=== PATIENT | male | born 1970 | race Caucasian/White ===

== ENCOUNTER 2017-06-05 21:59 | Observation (INO) ==
[2017-06-05] MEDS ORDERED: Aspirin 81 MG TAB.CHEW PO ONE (22:19)
[2017-06-05 22:41] LABS: Bilirubin,Urine Negative (Negative); Blood,Urine Negative (Negative); Clarity,Urine Clear (Clear); Color,Urine Yellow (Yellow); Glucose,Urine (UA) >=1000 mg/dL (Normal); Ketones,Urine Negative (Negative); Leukocyte Esterase,Urine Negative (Negative); Nitrite,Urine Negative (Negative); Protein,Urine Negative (Neg-Trace); Specific Gravity,Urine > 1.030 (1.010-1.025); Urobilinogen,Urine Normal (Normal)
--- NOTE | 2017-06-05 22:41 | Emergency Department Note ---
Disposition Clinical Impression: Right flank pain Chest pain Qualifiers: Chest pain type: precordial pain Qualified Code(s): R07.2 - Precordial pain Pancreatitis Qualifiers: Chronicity: acute Pancreatitis type: unspecified pancreatitis type Acute pancreatitis complication: no infection or necrosis Qualified Code(s): K85.90 - Acute pancreatitis without necrosis or infection, unspecified Disposition: Admitted As Inpatient Condition: Fair Chest Pain HPI - General Chief Complaint: ED Chest Pain Time Seen by Provider: 06/05/17 22:19 Source: patient, EMS Mode of arrival: private vehicle Limitations: no limitations Vital Signs Reviewed: Yes Nursing Notes Reviewed: Yes - History of Present Illness Pt complaint: chest pain, other (Right flank pain) Onset (ago): hour(s) Duration: constant Onset: during rest Pain Location: substernal Severity: moderate Severity scale (1-10): 8 Quality: aching Pain Radiation: none Improves with: nothing Worsens with: nothing Context: other (Hx of similar episodes in the past) Associated symptoms: Reports: nausea, dyspnea, cough. Denies: vomiting, diaphoresis, sense of impending doom, syncope, palpitations, fever, leg swelling , other Treatments prior to arrival chest pain: nitroglycerin - Related Data Home Medications Medication Instructions Recorded Confirmed Aspirin 81 mg PO HS 11/24/15 04/13/17 Albuterol Sulfate [Proair Hfa] 2 puff IH Q4H PRN 06/07/16 04/13/17 Omeprazole [PriLOSEC] 20 mg PO BID 07/31/16 04/13/17 hydrOXYzine HCl [Hydroxyzine HCl] 25 mg PO Q8H 07/31/16 04/13/17 Budesonide/Formoterol 160/4.5 2 puff IH BIDR 04/13/17 04/13/17 [Symbicort 160/4.5] Insulin Glargine,Hum.rec.anlog 80 units SQ HS 04/13/17 04/13/17 [[place] Solostar] Ipratropium/Albuterol Neb [Duoneb] 3 ml IH Q6HR PRN 04/13/17 04/13/17 Meclizine [Antivert] 25 mg PO QID PRN 04/13/17 04/13/17 Nitroglycerin [Nitrostat] 0.4 mg SL AD PRN 04/13/17 04/13/17 Previous Rx's Medication Instructions Recorded Metformin HCl [Glucophage] 1,000 mg PO BID #60 tablet 08/03/16 Atorvastatin [Lipitor] 80 mg PO HS #60 tablet 04/15/17 Blood Pressure Test Kit-Large 1 each MC 1-2XD PRN #30 kit 04/15/17 [Advocate Blood Pressure Monitr] Cane 1 each MC PRN PRN 90 Days 04/15/17 Colchicine [Colcrys] 1.2 mg PO NOW #60 tablet 04/15/17 Gabapentin [Neurontin] 600 mg PO TID #90 capsule 04/15/17 Ibuprofen 800 mg PO PRN PRN #30 tablet 04/15/17 Metoprolol [Lopressor] 25 mg PO BID #30 tablet 04/15/17 Nicotine Patch [Nicoderm] 14 mg TD DAILY #30 patch.td24 04/15/17 Wheelchair - Power [POWER WHEEL 1 each .ROUTE AD 1 Days 04/15/17 CHAIR] amLODIPine [Norvasc] 10 mg PO DAILY #30 tablet 04/15/17 hydroCHLOROthiazide 25 mg PO DAILY #30 tablet 04/15/17 [Hydrochlorothiazide] Allergies Allergy/AdvReac Type Severity Reaction Status Date / Time pepper Allergy Severe Anaphylaxis Verified 06/24/16 19:36 lisinopril AdvReac Cough Verified 07/31/16 02:07 All systems ED: reviewed and negative except as stated. Review of Systems: As Per HPI Constitutional: Denies: fever, chills, weakness Eyes: Denies: eye pain, eye discharge ENT ED: Denies: throat pain, congestion, dysphagia Cardiovascular: Reports: as per HPI, chest pain, dyspnea on exertion. Denies: palpitations, orthopnea, edema, syncope Respiratory: Reports: as per HPI, cough, dyspnea. Denies: wheezes, hemoptysis, stridor, sputum production Gastrointestinal: Reports: abdominal pain (Right flank), nausea. Denies: vomiting, diarrhea, constipation Genitourinary: Reports: hematuria. Denies: urgency, dysuria, frequency Musculoskeletal: Reports: back pain (right flank). Denies: neck pain, joint swelling Neurological: Denies: headache, weakness, confusion, abnormal gait, vertigo Hematological/Lymphatic: Denies: easy bleeding, easy bruising Chest Pain PMH - Past Medical History Medical history: Reports: COPD, diabetes, myocardial infarction (Elevated troponin - LHC showed minimal CAD, no stent placed), other Surgical history: Reports: orthopedic, other (Right hand, left shoulder) Psychiatric history: Reports: anxiety, depression - Social History Smoking Status: Current some day smoker Alcohol use: Reports: rarely Drug use: Reports: none Physical Exam - General Limitations: no limitations General appearance: alert, in no apparent distress - Head Head exam: atraumatic, normocephalic, normal inspection - Eye Eye exam: Present: normal appearance, PERRL. Absent: scleral icterus, conjunctival injection, periorbital swelling - ENT ENT exam: normal exam, mucous membranes moist - Neck Neck exam: Present: normal inspection, full ROM, trachea midline. Absent: meningismus - Chest Chest inspection: Present: normal inspection, symmetric chest wall rise. Absent : tenderness - Respiratory Respiratory exam: Present: normal lung sounds bilaterally. Absent: respiratory distress, wheezes, stridor, accessory muscle use, prolonged expiratory phase - Cardiovascular Cardiovascular exam: Present: regular rate, normal rhythm, normal heart sounds - Abdominal Exam Abdominal exam: Present: soft, Non-Tender. Absent: guarding, rebound, rigidity , mass, pulsatile mass - Extremities Exam Extremities exam: Present: normal inspection, full ROM, normal capillary refill. Absent: pedal edema - Back Exam Back exam: Present: normal inspection. Absent: CVA tenderness (R), CVA tenderness (L) - Neurological Exam Neurological exam: Present: alert, oriented X3, CN II-XII intact - Psychiatric Psychiatric exam: Present: normal affect, normal mood - Skin Skin exam: Present: warm, dry, intact, normal color Course Course Narrative: [facility] of chest pain, shortness of breath, right flank pain that radiates into the right lower quadrant and a cough. He took one of his prescribed nitroglycerin but did not get any relief so he called EMS. He describes an episode of hematuria earlier this morning but has had normal urine since. He has had nausea and had one episode of nonbilious, nonbloody emesis. He has a history of an elevated troponin in early April. He was admitted and had serial troponins drawn. They trended down and he had no ST elevation or depression on his EKGs. He had a left heart catheter done in July 2016 that showed minimal coronary artery disease. No stent was placed. He has a history of diabetes and hypertension with significant medication noncompliance. He will most likely require admission for further evaluation of the chest, abdominal pain and dyspnea. Of note, he did have a CTA done in April also that showed no PE. He also had bilateral Doppler ultrasounds of the lower extremities that showed no DVT. He has no risk factors for PE or DVT. Patient has been seen by Dr. Farhad De Santiago. She has reviewed the lab findings previous visit information and examined the patient. She agrees with the assessment and plan. - Reevaluation(s) Reevaluation #1: Pain and BP improved. CT ordered to further evaluate abd component of pain. Patient states that he is claustrophobic and can't go to CT without medications. Hydroxyzine ordered. Patient described this IM injection as "extremely painful". It did help with his anxiety. Time: 23:45 Reevaluation #2: FLank pain has returned. Chest pain is still gone. Time: 02:07 Vital Signs Temperature 97.9 F 06/05/17 22:03 Pulse Rate 94 06/05/17 22:03 Respiratory Rate 20 06/05/17 22:03 Blood Pressure 179/106 06/05/17 22:03 O2 Sat by Pulse Oximetry 95 06/05/17 22:03 Temperature 98.2 F 06/06/17 02:46 Pulse Rate 66 06/06/17 01:24 Respiratory Rate 16 06/06/17 02:46 Blood Pressure 158/88 06/06/17 02:46 O2 Sat by Pulse Oximetry 94 06/06/17 01:24 Oxygen Delivery Oxygen Delivery Room Air Chest Pain - Medical Records Medical records reviewed: Yes I reviewed the patient's medical records. - Lab Data Lab results reviewed: Yes I reviewed the patient's lab results. Lab results narrative: Laboratory Last Values WBC 9.4 K/mcL (4.3-11.1) 06/05/17 22:35 RBC 5.35 M/mcL (4.19-5.50) 06/05/17 22:35 Hgb 15.5 g/dL (12.9-16.9) 06/05/17 22:35 Hct 46.3 % (37.5-50.1) 06/05/17 22:35 MCV 86.5 fL (83.0-100.0) 06/05/17 22:35 MCH 29.0 pg (28.0-33.3) 06/05/17 22:35 MCHC 33.5 g/dL (31.6-35.5) 06/05/17 22:35 RDW 12.6 % (11.5-14.5) 06/05/17 22:35 Plt Count 202 K/mcL (140-400) 06/05/17 22:35 MPV 11.0 fL (9.4-12.4) 06/05/17 22:35 Immature Gran % 0.3 % (0-4) 06/05/17 22:35 Seg Neutrophils % 62.6 % 06/05/17 22:35 Lymphocytes % 25.9 % 06/05/17 22:35 Monocytes % 7.6 % 06/05/17 22:35 Eosinophils % 3.2 % 06/05/17 22:35 Basophils % 0.4 % 06/05/17 22:35 Neutrophils # 5.9 K/mcL (1.6-8.9) 06/05/17 22:35 Lymphocytes # 2.4 K/mcL (0.6-4.6) 06/05/17 22:35 Monocytes # 0.7 K/mcL (0.0-1.3) 06/05/17 22:35 Eosinophils # 0.3 K/mcL (0.0-0.6) 06/05/17 22:35 Basophils # 0.0 K/mcL (0.0-0.2) 06/05/17 22:35 PT 10.0 Seconds (9.4-12.1) 06/05/17 22:35 INR 0.9 06/05/17 22:35 APTT 27.3 Seconds (26.0-36.0) 06/05/17 22:35 Sodium 136 mEq/L (136-145) 06/05/17 22:35 Potassium 4.0 mEq/L (3.5-4.5) 06/05/17 22:35 Chloride 106 mEq/L (98-109) 06/05/17 22:35 Carbon Dioxide 19 mEq/L (19-29) 06/05/17 22:35 BUN 12 mg/dL (8-26) 06/05/17 22:35 Creatinine 0.96 mg/dL (0.72-1.25) 06/05/17 22:35 Est GFR ( Amer) > 60 (> 60) 06/05/17 22:35 Est GFR (Non-Af Amer) > 60 (> 60) 06/05/17 22:35 BUN/Creatinine Ratio 13 (6-26) 06/05/17 22:35 Glucose 417 mg/dL (70-99) H 06/05/17 22:35 Calculated Osmolality 299 (280-300) 06/05/17 22:35 Calcium 9.2 mg/dL (8.6-10.8) 06/05/17 22:35 Total Bilirubin 0.3 mg/dL (0.2-1.2) 06/05/17 22:35 Direct Bilirubin < 0.1 mg/dL (0.0-0.5) 06/05/17 22:35 Indirect Bilirubin 0.2 mg/dL (0.0-1.2) 06/05/17 22:35 AST 36 Units/L (5-34) H 06/05/17 22:35 ALT 82 Units/L (0-55) H 06/05/17 22:35 Alkaline Phosphatase 114 Units/L (38-126) 06/05/17 22:35 Troponin I 0.03 ng/mL (0-0.03) 06/05/17 22:35 B-Natriuretic Peptide 27 pg/mL (0-100) 06/05/17 22:35 Serum Total Protein 7.3 g/dL (6.0-8.3) 06/05/17 22:35 Albumin 3.4 g/dL (3.5-5.0) L 06/05/17 22:35 Globulin 3.9 g/dL (2.4-3.5) H 06/05/17 22:35 Albumin/Globulin Ratio 0.9 (1.1-2.2) L 06/05/17 22:35 Lipase 174 Units/L (8-78) H 06/05/17 22:35 Urine Color Yellow (Yellow) 06/05/17 22:36 Urine Clarity Clear (Clear) 06/05/17 22:36 Urine pH 6.0 pH Units (5.0-8.0) 06/05/17 22:36 Ur Specific [place] > 1.030 (1.010-1.025) H 06/05/17 22:36 Urine Protein Negative mg/dL (Neg-Trace) 06/05/17 22:36 Urine Glucose (UA) >=1000 mg/dL (Normal) H 06/05/17 22:36 Urine Ketones Negative mg/dL (Negative) 06/05/17 22:36 Urine Blood Negative (Negative) 06/05/17 22:36 Urine Nitrite Negative (Negative) 06/05/17 22:36 Urine Bilirubin Negative (Negative) 06/05/17 22:36 Urine Urobilinogen Normal mg/dL (Normal) 06/05/17 22:36 Ur Leukocyte Esterase Negative (Negative) 06/05/17 22:36 Ur Culture Indicated? NO (NO) 06/05/17 22:36 Urine Opiates Screen Negative ng/mL (Zkvsxa=133) 06/05/17 22:36 Ur Barbiturates Screen Negative ng/mL (Fhroln=333) 06/05/17 22:36 Ur Phencyclidine Scrn Negative ng/mL (Cutoff=25) 06/05/17 22:36 Ur Amphetamines Screen Negative ng/mL (Qtdcbk=1160) 06/05/17 22:36 U Benzodiazepines Scrn Negative ng/mL (Gmottz=580) 06/05/17 22:36 Urine Cocaine Screen Negative ng/mL (Cutoff= 300) 06/05/17 22:36 U Marijuana (THC) Screen Negative ng/mL (Cutoff = 50) 06/05/17 22:36 Laboratory Last Values WBC 9.4 K/mcL (4.3-11.1) 06/05/17 22:35 RBC 5.35 M/mcL (4.19-5.50) 06/05/17 22:35 Hgb 15.5 g/dL (12.9-16.9) 06/05/17 22:35 Hct 46.3 % (37.5-50.1) 06/05/17 22:35 MCV 86.5 fL (83.0-100.0) 06/05/17 22:35 MCH 29.0 pg (28.0-33.3) 06/05/17 22:35 MCHC 33.5 g/dL (31.6-35.5) 06/05/17 22:35 RDW 12.6 % (11.5-14.5) 06/05/17 22:35 Plt Count 202 K/mcL (140-400) 06/05/17 22:35 MPV 11.0 fL (9.4-12.4) 06/05/17 22:35 Immature Gran % 0.3 % (0-4) 06/05/17 22:35 Seg Neutrophils % 62.6 % 06/05/17 22:35 Lymphocytes % 25.9 % 06/05/17 22:35 Monocytes % 7.6 % 06/05/17 22:35 Eosinophils % 3.2 % 06/05/17 22:35 Basophils % 0.4 % 06/05/17 22:35 Neutrophils # 5.9 K/mcL (1.6-8.9) 06/05/17 22:35 Lymphocytes # 2.4 K/mcL (0.6-4.6) 06/05/17 22:35 Monocytes # 0.7 K/mcL (0.0-1.3) 06/05/17 22:35 Eosinophils # 0.3 K/mcL (0.0-0.6) 06/05/17 22:35 Basophils # 0.0 K/mcL (0.0-0.2) 06/05/17 22:35 PT 10.0 Seconds (9.4-12.1) 06/05/17 22:35 INR 0.9 06/05/17 22:35 APTT 27.3 Seconds (26.0-36.0) 06/05/17 22:35 Sodium 136 mEq/L (136-145) 06/05/17 22:35 Potassium 4.0 mEq/L (3.5-4.5) 06/05/17 22:35 Chloride 106 mEq/L (98-109) 06/05/17 22:35 Carbon Dioxide 19 mEq/L (19-29) 06/05/17 22:35 BUN 12 mg/dL (8-26) 06/05/17 22:35 Creatinine 0.96 mg/dL (0.72-1.25) 06/05/17 22:35 Est GFR ( Amer) > 60 (> 60) 06/05/17 22:35 Est GFR (Non-Af Amer) > 60 (> 60) 06/05/17 22:35 BUN/Creatinine Ratio 13 (6-26) 06/05/17 22:35 Glucose 417 mg/dL (70-99) H 06/05/17 22:35 Calculated Osmolality 299 (280-300) 06/05/17 22:35 Calcium 9.2 mg/dL (8.6-10.8) 06/05/17 22:35 Total Bilirubin 0.3 mg/dL (0.2-1.2) 06/05/17 22:35 Direct Bilirubin < 0.1 mg/dL (0.0-0.5) 06/05/17 22:35 Indirect Bilirubin 0.2 mg/dL (0.0-1.2) 06/05/17 22:35 AST 36 Units/L (5-34) H 06/05/17 22:35 ALT 82 Units/L (0-55) H 06/05/17 22:35 Alkaline Phosphatase 114 Units/L (38-126) 06/05/17 22:35 Troponin I 0.03 ng/mL (0-0.03) 06/05/17 22:35 B-Natriuretic Peptide 27 pg/mL (0-100) 06/05/17 22:35 Serum Total Protein 7.3 g/dL (6.0-8.3) 06/05/17 22:35 Albumin 3.4 g/dL (3.5-5.0) L 06/05/17 22:35 Globulin 3.9 g/dL (2.4-3.5) H 06/05/17 22:35 Albumin/Globulin Ratio 0.9 (1.1-2.2) L 06/05/17 22:35 Lipase 174 Units/L (8-78) H 06/05/17 22:35 Urine Color Yellow (Yellow) 06/05/17 22:36 Urine Clarity Clear (Clear) 06/05/17 22:36 Urine pH 6.0 pH Units (5.0-8.0) 06/05/17 22:36 Ur Specific [place] > 1.030 (1.010-1.025) H 06/05/17 22:36 Urine Protein Negative mg/dL (Neg-Trace) 06/05/17 22:36 Urine Glucose (UA) >=1000 mg/dL (Normal) H 06/05/17 22:36 Urine Ketones Negative mg/dL (Negative) 06/05/17 22:36 Urine Blood Negative (Negative) 06/05/17 22:36 Urine Nitrite Negative (Negative) 06/05/17 22:36 Urine Bilirubin Negative (Negative) 06/05/17 22:36 Urine Urobilinogen Normal mg/dL (Normal) 06/05/17 22:36 Ur Leukocyte Esterase Negative (Negative) 06/05/17 22:36 Ur Culture Indicated? NO (NO) 06/05/17 22:36 Urine Opiates Screen Negative ng/mL (Qdedoy=485) 06/05/17 22:36 Ur Barbiturates Screen Negative ng/mL (Kpuejz=336) 06/05/17 22:36 Ur Phencyclidine Scrn Negative ng/mL (Cutoff=25) 06/05/17 22:36 Ur Amphetamines Screen Negative ng/mL (Zfiqvh=0365) 06/05/17 22:36 U Benzodiazepines Scrn Negative ng/mL (Awxzel=783) 06/05/17 22:36 Urine Cocaine Screen Negative ng/mL (Cutoff= 300) 06/05/17 22:36 U Marijuana (THC) Screen Negative ng/mL (Cutoff = 50) 06/05/17 22:36 Result diagrams: 06/05/17 22:35 06/05/17 22:35 - Radiology Data Radiology results reviewed: Yes I reviewed the patient's radiology results. Chest X-Ray 06/05/17 22:19 IMPRESSION: No acute cardiopulmonary abnormality. D/ / Will Gatica MD / Will Gatica MD Interpreting Provider: Will Gatica MD - EKG Data EKG attestation: Yes I reviewed and interpreted this EKG. EKG shows normal: sinus rhythm Rate: normal Rhythm: NSR [place]/QRS: normal When compared to previous EKG there are: no significant changes Interpretation: nonspecific ST-T wave changes Heart Score - Score History: Slightly Suspicious EKG: Non Specific repolarisation Disturbance Age: 45-65 Risk Factors: Equal/Greater than 3 risk factor or history of atherosclerotic disease Troponin: 1-3x normal limit HEART Score Total: 5 Attestation Statement - Attestation Attestation: For this encounter, I have reviewed the CREATIVE SERVICES DESIGNER or PA documentation, treatment plan, and medical decision making; and I have had face to face time with this patient. Patient is a 47-year-old obese white male with a history of diabetes, hypertension, hyperlipidemia, prior UT who presents to the emergency room today with complaints of chest pain associated with nausea and vomiting 1 which was persistent on arrival to the ED. Patient was also having some right flank pain that was colicky in nature as well. Patient with significant cardiac history and prior heart catheterization in 2016. Patient denies any fevers or chills, no shortness of breath, no bowel changes no other associated symptoms. I agree with the patient's physical exam findings as documented. Patient was placed on a cad librarian and continuous pulse ox IV saline well was established and labs were drawn and sent he had received aspirin and nitroglycerin which did help his symptoms. Patient's EKG on arrival showed no acute change compared to prior EKGs. No acute ischemia. Patient's labs show a troponin of 0.[address] stone study for further evaluation of this colicky right flank pain. CT was unremarkable. I feel the patient's risk factors and significant cardiac history as well as chest pain he would and if it from admission and further cardiac evaluation. Patient agrees with this plan and he is remained hemodynamically stable on the ED. Case was discussed with the hospitalist who accepted patient for admission for further evaluation and treatment.
[2017-06-05 22:45] LABS: Basophils % 0.4 %; Eosinophils # 0.3 K/mcL (0.0-0.6); Eosinophils % 3.2 %; Hematocrit 46.3 % (37.5-50.1); Hemoglobin 15.5 g/dL (12.9-16.9); Immature Granulocytes % 0.3 % (0-4); Lymphocytes # 2.4 K/mcL (0.6-4.6); Lymphocytes % 25.9 %; Mean Corpuscular HGB Conc 33.5 g/dL (31.6-35.5); Mean Corpuscular Volume 86.5 fL (83.0-100.0); Monocytes # 0.7 K/mcL (0.0-1.3); Monocytes % 7.6 %; Neutrophils # 5.9 K/mcL (1.6-8.9); Platelet Count 202 K/mcL (140-400); Red Blood Count 5.35 M/mcL (4.19-5.50); Red Cell Distribution Width 12.6 % (11.5-14.5); Segmented Neutrophils % 62.6 %
[2017-06-05 22:46] LABS: Amphetamine Screen,Urine Negative ng/mL (Cutoff=1000); Barbiturate Screen,Urine Negative ng/mL (Cutoff=200); Benzodiazepines Screen,Urine Negative ng/mL (Cutoff=200); Cannabinoid Screen,Urine Negative ng/mL (Cutoff = 50); Cocaine Screen,Urine Negative ng/mL (Cutoff= 300); Opiate Screen,Urine Negative ng/mL (Cutoff=300); Phencyclidine Screen,Urine Negative ng/mL (Cutoff=25)
[2017-06-05 22:49] LABS: INR 0.9
[2017-06-05 22:52] LABS: Activated Partial Thrombo Time 27.3 Seconds (26.0-36.0)
[2017-06-05 23:00] LABS: Alanine Aminotransferase 82 Units/L (0-55); Albumin 3.4 g/dL (3.5-5.0); Albumin/Globulin Ratio 0.9 (1.1-2.2); Alkaline Phosphatase 114 Units/L (38-126); Aspartate Amino Transferase 36 Units/L (5-34); BUN/Creatinine Ratio 13 (6-26); Bilirubin,Indirect 0.2 mg/dL (0.0-1.2); Bilirubin,Total 0.3 mg/dL (0.2-1.2); Blood Urea Nitrogen 12 mg/dL (8-26); Calcium 9.2 mg/dL (8.6-10.8); Carbon Dioxide 19 mEq/L (19-29); Chloride 106 mEq/L (98-109); Globulin 3.9 g/dL (2.4-3.5); Glucose 417 mg/dL (70-99); Lipase 174 Units/L (8-78); Osmolality,Calculated 299 (280-300); Total Protein 7.3 g/dL (6.0-8.3); eGFR For African Americans > 60 (> 60); eGFR For Non-African Americans > 60 (> 60)
[2017-06-05 23:01] LABS: Bilirubin,Direct < 0.1 mg/dL (0.0-0.5); Sodium 136 mEq/L (136-145)
[2017-06-05] MEDS ORDERED: Ketorolac 15 MG/ML VIAL IVP ONE (23:11)
[2017-06-05] MEDS ORDERED: 0.9 % Sodium Chloride 1,000 ML IVC ONE (23:11)
[2017-06-05] MEDS ORDERED: Ondansetron 4 MG/2 ML VIAL IVP ONE (23:11)
[2017-06-05] MEDS: Nitroglycerin 0.4 MG TAB.SUBL SL ONE (23:18)
[2017-06-05] MEDS ORDERED: HydrOXYzine 100 MG/2 ML VIAL IM ONE (23:44)
[2017-06-06] MEDS ORDERED: Ondansetron 4 MG/2 ML VIAL IVP ONE (02:07)
[2017-06-06] MEDS ORDERED: *HR* HYDROmorphone (PF) 1 MG/ML SYRINGE IVP ONE (02:07)
--- NOTE | 2017-06-06 04:12 | Internal Med History&Physical ---
Date of Encounter: 06/06/17 Time of Encounter: 04:12 Assessment and Plan (1) Chest pain, pleuritic Current visit: Yes Status: Acute likely due to coughing spells. Doubt ACS. Has non-obstructive CAD - r/o ACS with serial troponin/EKG - antitussives prn (2) Right flank pain Current visit: Yes Status: Acute superficial pain to palpation. Likely MSK from coughing. Also, it is possible that he passed kidney stone yesterday with dark urine, nausea and vomiting and we no longer see it on dry CT. It is possible but unlikely that this is early shingles. Abnormal lipase of 147 doesn't meet criteria for pancreatitis. - Flexeril - Analgesic prn (3) HTN (hypertension) Current visit: No Status: Chronic cont amlodipine, metoprolol titrate as needed Qualifiers: Hypertension type: essential hypertension Qualified Code(s): I10 - Essential (primary) hypertension (4) CAD (coronary artery disease) Current visit: No Status: Chronic non-obstructive cont asa, statin, beta davy Qualifiers: Coronary Disease-Associated Artery/Lesion type: [place] artery [place] vs. 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 He presented to ER, chest pain resolved with NG x 3. His BP was 180's/110's which improved prior to arrival to the floor. Also, after one of the coughing spell, he noticed 'popping' sound followed by right flank pain. CT in ER was negative for nephrolithiasis. Dark urine x 1 yesterday. Headache. Dizziness. Nausea, vomiting yesterday. Soft stools but no diarrhea. A 10-point ROS is otherwise negative for eye or ear symptoms, flu like symptoms , fever, rigors, chills, anterior abdominal pain, constipation or other symptoms. Past Med Surg Social Fam HX - Past Medical History Medical history: COPD, coronary artery disease (non obstructive, cath ) , diabetes, myocardial infarction, other Psychiatric history: anxiety, depression - Past Surgical History Surgical History: orthopedic, other (shoulder, wrist) - Social History Smoking Status: Current some day smoker Packs per day: 0.5 Smokeless Tobacco Status: No Alcohol use: rarely Drug use: none - Family History Mother Family Member Ethnicity: Non- Living Status: Cause of : cancer Hx Family Cancer: Yes (Breast with metastasis) Hx Family Endocrine Disorder: Yes (DM) Brother Family Member Ethnicity: Non- Living Status: Still Living Hx Family Endocrine Disorder: Yes (Hypoglycemia) Father Adopted: No Family Member Ethnicity: Non- Living Status: Cause of : cancer Hx Family Cardiac Disorders: Yes (HD) Hx Family Respiratory Disorders: Yes Hx Family Cancer: Yes Hx Family GI Disorders: No Hx Family Endocrine Disorder: No Hx Family Neuromuscular Disorders: No Hx Family Neurologic Disorders: No Hx Family HEENT Disorders: No Hx Family Autoimmune Disorders: No - Additional Family History Additional family history: Mother-breast cancer, DM. Father-CAD, unknown cancer. Internal Medicine - H&P: Meds Aspirin 81 mg PO HS 11/24/15 [History] Albuterol Sulfate [Proair Hfa] 2 puff IH Q4H PRN 06/07/16 [History] Omeprazole [PriLOSEC] 20 mg PO BID 07/31/16 [History] hydrOXYzine HCl [Hydroxyzine HCl] 25 mg PO Q8H 07/31/16 [History] Metformin HCl [Glucophage] 1,000 mg PO BID #60 tablet 08/03/16 [Rx] Budesonide/Formoterol 160/4.5 [Symbicort 160/4.5] 2 puff IH BIDR 04/13/17 [ History] Insulin Glargine,Hum.rec.anlog [[place] Solostar] 80 units SQ HS 04/13/17 [ History] Ipratropium/Albuterol Neb [Duoneb] 3 ml IH Q6HR PRN 04/13/17 [History] Meclizine [Antivert] 25 mg PO QID PRN 04/13/17 [History] Nitroglycerin [Nitrostat] 0.4 mg SL AD PRN 04/13/17 [History] Atorvastatin [Lipitor] 80 mg PO HS #60 tablet 04/15/17 [Rx] Blood Pressure Test Kit-Large [Advocate Blood Pressure Monitr] 1 each MC 1-2XD PRN #30 kit 04/15/17 [Rx] Cane 1 each MC PRN PRN 90 Days 04/15/17 [Rx] Colchicine [Colcrys] 1.2 mg PO NOW #60 tablet 04/15/17 [Rx] Gabapentin [Neurontin] 600 mg PO TID #90 capsule 04/15/17 [Rx] Ibuprofen 800 mg PO PRN PRN #30 tablet 04/15/17 [Rx] Metoprolol [Lopressor] 25 mg PO BID #30 tablet 04/15/17 [Rx] Nicotine Patch [Nicoderm] 14 mg TD DAILY #30 patch.td24 04/15/17 [Rx] Wheelchair - Power [POWER WHEEL CHAIR] 1 each .ROUTE AD 1 Days 04/15/17 [Rx] amLODIPine [Norvasc] 10 mg PO DAILY #30 tablet 04/15/17 [Rx] hydroCHLOROthiazide [Hydrochlorothiazide] 25 mg PO DAILY #30 tablet 04/15/17 [Rx ] 3 Allergy/AdvReac Type Severity Reaction Status Date / Time pepper Allergy Severe Anaphylaxis Verified 06/24/16 19:36 lisinopril AdvReac Cough Verified 07/31/16 02:07 All Systems PM: A 10-system review of systems was performed and is negative for pertinent findings except as documented above in the HPI. - Constitutional Vitals: Temp Pulse Resp BP Pulse Ox 97.6 F 79 16 163/90 98 06/06/17 03:26 06/06/17 03:26 06/06/17 03:26 06/06/17 03:26 06/06/17 03:26 General appearance: Present: A&O X 3, pleasant, no acute distress - Head Head exam: Present: atraumatic, normocephalic - Eye Eye exam: Present: PERRL, conjuntiva pink, sclera anicteric Pupils: Present: PERRL - Neck Neck exam general surgery: Present: supple. Absent: nuchal rigidity - Respiratory Respiratory exam: Present: CTAB. Absent: accessory muscle use, rales, rhonchi, wheezes - Cardiovascular Cardiovascular exam: Present: RRR, +S1, +S2. Absent: diastolic murmur, gallop, rubs, systolic murmur - GI/Abdominal GI/Abdominal exam: Present: normal bowel sounds, soft, tenderness (to light palpation in right flank suggetsing musculoskeletal or dermatological origin of pain), no peritoneal signs. Absent: distended - Extremities Exam Extremities exam: Present: warm. Absent: calf tenderness, pedal edema - Neurological Exam Neurological exam: Present: CN II-XII intact, oriented X3, no focal deficits. Absent: facial droop, speech deficit - Skin Skin exam: Present: dry, intact Internal Med - H&P Results - Labs CBC & Chem 7: 06/05/17 22:35 06/05/17 22:35
[2017-06-06] MEDS ORDERED: Naloxone 0.4 MG/ML INJ IVP PRN (05:10)
[2017-06-06] MEDS ORDERED: *HR* Dextrose 50 % in Water (Syg) 50 ML SYRINGE IVP PRN (05:10)
[2017-06-06] MEDS ORDERED: D5% in Water 1,000 ML IVC PRN (05:10)
[2017-06-06] MEDS ORDERED: Dextrose Gel 15 GM PO PRN ×2 (05:10)
[2017-06-06] MEDS ORDERED: Ondansetron 4 MG/2 ML VIAL IVP PRN (05:10)
[2017-06-06] MEDS ORDERED: Insulin DETEMIR 100 UNIT/ML X5UNITS SQ ONE (05:17)
[2017-06-06 05:52] LABS: Hemoglobin A1C 10.7 %
[2017-06-06] MEDS: *HR* Metformin 500 MG TABLET PO SCH ×2 (07:45→17:21)
[2017-06-06] MEDS: Budesonide/Formoterol 160/4.5 MDI IH SCH ×2 (07:53→20:35)
[2017-06-06] MEDS: Nicotine 21 MG PATCH.TD24 TD SCH (07:59)
[2017-06-06] MEDS: hydroCHLOROthiazide 25 MG TABLET PO SCH (07:59)
[2017-06-06] MEDS: Insulin LISPRO 300 UNITS/3 ML VIAL SQ SCH ×3 (08:00→17:36)
[2017-06-06] MEDS: amLODIPine 5 MG TABLET PO SCH (08:00)
[2017-06-06] MEDS: Benzonatate 100 MG CAPSULE PO SCH ×3 (08:00→21:52)
[2017-06-06] MEDS: Gabapentin 300 MG CAPSULE PO SCH ×3 (08:00→21:52)
[2017-06-06] MEDS: *HR* HYDROcodone/Acet 5/325 mg TABLET PO PRN (08:03)
--- NOTE | 2017-06-06 13:37 | Electrocardiograph Report ---
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
--- NOTE | 2017-06-06 15:14 | Event Note ---
Date of Encounter: 06/06/17 Time of Encounter: 13:00 Patient feels better today but still has some pressure in his left chest. Nonradiating. Also complains of right flank pain which has continued. No new episodes of hematuria. Feels hungry. Troponin trended upwards trending down now. Will get 2-D echocardiogram and plan for cardiac stress test tomorrow. Right flank pain could possibly be due to recently passed stone. We will monitor vital signs. Treat symptomatically.
[2017-06-06] MEDS: 0.9 % Sodium Chloride 1,000 ML IVC SCH (15:47)
[2017-06-06] MEDS ORDERED: Nitroglycerin 0.4 MG TAB.SUBL SL PRN (19:15)
[2017-06-06] MEDS: Nitroglycerin 0.4 MG TAB.SUBL SL ONE (19:24)
[2017-06-06] MEDS: Aspirin 81 MG TAB.CHEW PO SCH (21:52)
[2017-06-06] MEDS: Insulin DETEMIR 100 UNIT/ML X5UNITS SQ SCH (21:52)
[2017-06-07] MEDS: 0.9 % Sodium Chloride 1,000 ML IVC SCH ×2 (00:20→15:50)
[2017-06-07] MEDS ORDERED: Regadenoson 0.4 MG/5 ML SYRINGE IVP ONE (05:47)
[2017-06-07 06:42] LABS: Chol/HDL Ratio 6.7 (0-4.9)
[2017-06-07] MEDS: *HR* Metformin 500 MG TABLET PO SCH ×2 (10:06→17:25)
[2017-06-07] MEDS: Insulin LISPRO 300 UNITS/3 ML VIAL SQ SCH ×3 (10:19→17:27)
[2017-06-07] MEDS: amLODIPine 5 MG TABLET PO SCH (10:19)
[2017-06-07] MEDS: Benzonatate 100 MG CAPSULE PO SCH ×3 (10:19→20:06)
[2017-06-07] MEDS: Gabapentin 300 MG CAPSULE PO SCH ×3 (10:20→20:06)
[2017-06-07] MEDS: Nicotine 21 MG PATCH.TD24 TD SCH (10:20)
[2017-06-07] MEDS: *HR* HYDROcodone/Acet 5/325 mg TABLET PO PRN (10:20)
[2017-06-07] MEDS: hydroCHLOROthiazide 25 MG TABLET PO SCH (10:20)
[2017-06-07] MEDS: Budesonide/Formoterol 160/4.5 MDI IH SCH ×2 (10:54→21:45)
--- NOTE | 2017-06-07 17:05 | Electrocardiograph Report ---
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
--- NOTE | 2017-06-07 17:09 | Electrocardiograph Report ---
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
--- NOTE | 2017-06-07 18:03 | Internal Med Progress Note ---
Date of Encounter: 06/07/17 Time of Encounter: 18:00 - Assessment and plan (1) Chest pain Current Visit: No Status: Acute Assessment and plan: complete 2nd part of stress test tomorrow Qualifiers: Chest pain type: chest pain on breathing Qualified Code(s): R07.1 - Chest pain on breathing (2) Right flank pain Current Visit: Yes Status: Acute Assessment and plan: possible prior neprolithiasis repeat UA velazquez start levaquin if evidence of infection (3) HLD (hyperlipidemia) Current Visit: No Status: Chronic Qualifiers: Hyperlipidemia type: pure hypercholesterolemia Qualified Code(s): E78.00 - Pure hypercholesterolemia, unspecified; E78.0 - Pure hypercholesterolemia (4) CAD (coronary artery disease) Current Visit: No Status: Chronic Assessment and plan: continue ASA Qualifiers: Coronary Disease-Associated Artery/Lesion type: [place] artery [place] vs. 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 Denies CP at the moment, no SOB, no diarrhea , no fever , no nausea - Constitutional Vitals: Temp Pulse Resp BP Pulse Ox 97.9 F 79 16 168/90 94 06/07/17 15:30 06/07/17 15:30 06/07/17 15:30 06/07/17 15:30 06/07/17 15:30 General appearance: Present: A&O X 3, pleasant, no acute distress - Head Head exam: Present: atraumatic, normocephalic - Eye Eye exam: Present: PERRL, conjuntiva pink, sclera anicteric Pupils: Present: PERRL - Neck Neck exam general surgery: Present: supple, trachea midline. Absent: lymphadenopathy - Respiratory Respiratory exam: Present: CTAB. Absent: accessory muscle use, rales, rhonchi, wheezes - Cardiovascular Cardiovascular exam: Present: RRR, +S1, +S2. Absent: diastolic murmur, gallop, rubs, systolic murmur - GI/Abdominal GI/Abdominal exam: Present: normal bowel sounds, soft, no peritoneal signs. Absent: distended, tenderness - Extremities Exam Extremities exam: Present: warm, radial pulses palpable and symmetrical. Absent : calf tenderness, cyanotic, pedal edema Additional comments: right flank tenderness - Neurological Exam Neurological exam: Present: CN II-XII intact, oriented X3, no focal deficits. Absent: pronater drift, facial droop, speech deficit - Skin Skin exam: Present: dry, intact Internal Medicine: Result - Labs CBC & Chem 7: 06/05/17 22:35 06/05/17 22:35 - ABG Interpretation ABG results: PT/INR, D-dimer PT 10.0 Seconds (9.4-12.1) 06/05/17 22:35 Consult Discharge Plan - Plan Referrals: Cynthia Moon DO [Resident] - 06/08/17 4:00 pm
[2017-06-07] MEDS: Insulin DETEMIR 100 UNIT/ML X5UNITS SQ SCH (20:06)
[2017-06-07] MEDS: Aspirin 81 MG TAB.CHEW PO SCH (20:06)
[2017-06-07] MEDS: *HR* HYDROmorphone (PF) 1 MG/ML SYRINGE IVP PRN (20:12)
[2017-06-07] MEDS ORDERED: Insulin LISPRO 300 UNITS/3 ML VIAL SQ SCH (21:15)
[2017-06-08 00:04] LABS: Bilirubin,Urine Negative (Negative); Blood,Urine Negative (Negative); Clarity,Urine Clear (Clear); Color,Urine Yellow (Yellow); Glucose,Urine (UA) >=1000 mg/dL (Normal); Ketones,Urine Negative (Negative); Leukocyte Esterase,Urine Negative (Negative); Nitrite,Urine Negative (Negative); PH,Urine 5.5 pH Units (5.0-8.0); Protein,Urine Negative (Neg-Trace); Urobilinogen,Urine Normal (Normal)
[2017-06-08] MEDS: 0.9 % Sodium Chloride 1,000 ML IVC SCH ×2 (02:14→07:45)
[2017-06-08 07:32] VITALS: BP 159/101
[2017-06-08] MEDS: *HR* Metformin 500 MG TABLET PO SCH (08:20)
[2017-06-08] MEDS: hydroCHLOROthiazide 25 MG TABLET PO SCH (08:23)
[2017-06-08] MEDS: Benzonatate 100 MG CAPSULE PO SCH (08:23)
[2017-06-08] MEDS: amLODIPine 5 MG TABLET PO SCH (08:24)
[2017-06-08] MEDS: Insulin LISPRO 300 UNITS/3 ML VIAL SQ SCH ×2 (08:24→11:33)
[2017-06-08] MEDS: Nicotine 21 MG PATCH.TD24 TD SCH (08:24)
[2017-06-08] MEDS: Gabapentin 300 MG CAPSULE PO SCH (08:24)
[2017-06-08] MEDS: *HR* HYDROcodone/Acet 5/325 mg TABLET PO PRN (08:29)
--- NOTE | 2017-06-08 08:41 | Nuclear Medicine Stress Report ---
Regadenoson Nuclear 2 day Name: Nino Holland Date of Study: 06/07/2017 Date: 1970 Ht: 72.0 in Medical Record#: [id number] Age: 47 Wt: 290.0 lb Gender: Male Order #: [id number] [facility] Supervising Provider: Levy Quiroga CNP Reading Physician: Kalpana Caba DO Ordering Physician: Jasbir Dominguez MD Primary Care Physician: Kerline Moon CNP Stress Technologist: Sid Soria, JUAN F, [facility] Pot Fluxer: José Miguel Ortiz Indications: Chest Pain Impression: Technically challenging 2-day study. No identifiable ischemia. There is bowel wall attenuation artifact involving the inferior wall. Pharmacologic ECG was negative for ischemia at the level of heart rate achieved. Gated EF = 49%. The LV is dilated. History: Hypertension Diabetes Hypercholesteremia History of Smoking Stress Test Summary: Stress Test Type: Pharmacologic Regadenoson 0.4mg/5ml given IV Baseline Information: Initial Heart Rate: 82 Blood Pressure: 164/110 Stress Information: Stress Time: 4 min 00 sec Test Terminated Due to (primary): As per protocol Maximum Blood Pressure: 158/98 Maximum Heart Rate: 105 Percent Maximum Heart Rate Achieved: 60 Double Product: [id number] METS Reached: 1 Symptoms: Shortness of breath, Nausea Nuclear Summary: SPECT myocardial perfusion imaging using Tc99m Sestamibi given intravenously was performed at rest and following cardiac stress testing. The resting images were obtained following initial dose of 34.4 mCi. Following stress an additional dose of 33.5 mCi was given at peak exercise or 30 seconds post regadenoson infusion. Medication Given: Time Medication Dose Units Route Findings: Stress Note * Resting ECG demonstrated normal sinus rhythm. * Pharmacologic stress ECG is negative for ischemia at level of heart rate achieved. * No arrhythmias were noted during stress. * Patient had no chest pain during stress. Hemodynamic responses * Normal hemodynamic responses to pharmacologic stress. Study Quality * Study quality is average. Image quality is technically challenging due to patient body habitus and patient motion. Gated EF % * Gated EF = 49%. Left Ventricle * The left ventricle is dilated. TID * No evidence of transient ischemic dilatation. Lung Uptake * There is no evidence of increase lung uptake. PERFUSION * There is a medium sized moderate intensity fixed perfusion defect involving the [id number]-[id number] inferior wall representing bowel wall attenuation artifact. * Other segments demonstrate normal rest and stress perfusion. Updated by Kalpana Caba on 06/08/2017 8:33:00 AM electronically signed on 06/08/2017 8:36:12 AM with status of Final
[2017-06-08] MEDS: *HR* HYDROmorphone (PF) 1 MG/ML SYRINGE IVP PRN (10:25)
--- NOTE | 2017-06-08 10:45 | Discharge Summary ---
Date of Encounter: 06/08/17 Time of Encounter: 10:42 - Discharge Diagnosis (1) Chest pain Priority: Primary Status: Acute Comments: negative stress test Qualifiers: Chest pain type: chest pain on breathing Qualified Code(s): R07.1 - Chest pain on breathing (2) Right flank pain Priority: Secondary Status: Acute (3) HLD (hyperlipidemia) Priority: Secondary Status: Chronic Qualifiers: Hyperlipidemia type: pure hypercholesterolemia Qualified Code(s): E78.00 - Pure hypercholesterolemia, unspecified; E78.0 - Pure hypercholesterolemia (4) CAD (coronary artery disease) Priority: Secondary Status: Chronic Qualifiers: Coronary Disease-Associated Artery/Lesion type: [place] artery [place] vs. transplanted heart: [place] heart Associated angina: without angina Qualified Code(s): I25.10 - Atherosclerotic heart disease of [place] coronary artery without angina pectoris (5) Elevated troponin Priority: Secondary Status: Acute Comments: possible demand ischemia (6) CVA tenderness Priority: Secondary Status: Resolved (7) Diabetes mellitus Priority: Secondary Status: Chronic Qualifiers: Diabetes mellitus type: type 2 Diabetes mellitus complication status: without complication Diabetes mellitus fdc insulin use: unspecified fdc insulin use status Qualified Code(s): E11.9 - Type 2 diabetes mellitus without complications (8) Tobacco abuse Priority: Secondary Status: Chronic (9) HTN (hypertension) Priority: Secondary Status: Chronic Qualifiers: Hypertension type: essential hypertension Qualified Code(s): I10 - Essential (primary) hypertension - Discharge Medications Prescriptions: amLODIPine [Norvasc] 10 mg PO DAILY #30 tablet Atorvastatin [Lipitor] 80 mg PO HS #30 tab hydroCHLOROthiazide [Hydrochlorothiazide] 25 mg PO DAILY #30 tab HYDROcodone/Acet 5/325 mg [Acushnet 5-325 mg] 1 tab PO Q6H PRN #25 tab PRN Reason: Moderate Pain (4-6) Ibuprofen 800 mg PO Q8H PRN #30 PRN Reason: Pain Home Medications: Aspirin 81 mg PO HS 11/24/15 [History] Albuterol Sulfate [Proair Hfa] 2 puff IH Q4H PRN 06/07/16 [History] Omeprazole [PriLOSEC] 20 mg PO BID 07/31/16 [History] hydrOXYzine HCl [Hydroxyzine HCl] 25 mg PO Q8H 07/31/16 [History] Metformin HCl [Glucophage] 1,000 mg PO BID #60 tablet 08/03/16 [Rx] Budesonide/Formoterol 160/4.5 [Symbicort 160/4.5] 2 puff IH BIDR 04/13/17 [ History] Insulin Glargine,Hum.rec.anlog [Toujeo Solostar] 60 units SQ HS 04/13/17 [ History] Ipratropium/Albuterol Neb [Duoneb] 3 ml IH Q6HR PRN 04/13/17 [History] Meclizine [Antivert] 25 mg PO QID PRN 04/13/17 [History] Nitroglycerin [Nitrostat] 0.4 mg SL AD PRN 04/13/17 [History] Gabapentin [Neurontin] 600 mg PO TID #90 capsule 04/15/17 [Rx] Metoprolol [Lopressor] 25 mg PO BID #30 tablet 04/15/17 [Rx] Atorvastatin [Lipitor] 80 mg PO HS #30 tab 06/08/17 [Rx] HYDROcodone/Acet 5/325 mg [Acushnet 5-325 mg] 1 tab PO Q6H PRN #25 tab 06/08/17 [Rx ] Ibuprofen 800 mg PO Q8H PRN #30 06/08/17 [Rx] amLODIPine [Norvasc] 10 mg PO DAILY #30 tablet 06/08/17 [Rx] hydroCHLOROthiazide [Hydrochlorothiazide] 25 mg PO DAILY #30 tab 06/08/17 [Rx] Allergies/Adverse Reactions: 3 Allergy/AdvReac Type Severity Reaction Status Date / Time pepper Allergy Severe Anaphylaxis Verified 06/24/16 19:36 lisinopril AdvReac Cough Verified 07/31/16 02:07 Procedures/tests Complete & Pending: Procedures Performed prior 72 hours Category Date Time Status NM abeba perf SPECT multi [NM] Routine Exams 06/06/17 17:06 Taken ECG 12 lead ECG [ECG] AM 0600 Y 06/06/17 06:00 Completed ECG 12 lead ECG [ECG] Routine Y 06/06/17 19:16 Completed EKG [ECG 12 lead ECG] [ECG] Stat Y 06/07/17 20:16 Completed EV echocardiogram Routine Y 06/06/17 07:41 Completed SP pharm nuclear stress Routine Y 06/07/17 07:05 Completed Date of admission: 06/06/17 02:37 Primary care physician: PCP NONE Consults: 06/06/17 05:10 Consult to Turnaround Engineer [CONS] Routine Comment: Reason for Consult: uncontrolled DM - Patient Status Disposition: Home, Self-Care Condition: Good Overall status at discharge: patient is back to baseline - Discharge Instructions Follow Up With: Cynthia Moon DO [Resident] - 06/08/17 4:00 pm Additional Instructions: Follow-up with primary care physician within the next 7 days. Continue Acushnet and Motrin for pain. Increase Lipitor to 80 mg daily, can start fish oil to decrease level of triglycerides. Quit smoking - Diet and Activity Activity: increase activity as tolerated Diet: diabetic diet Hospital course: Mr. Holland is a 47 year old male past medical history of CAD, HTN, HL, DM, non- obstructive CAD (cath 07/2016), COPD not O2 dep, active tobacco use, has chronic cough, and during some of the coughing spells, he started noticing pleuritic anterior chest pain radiating to his back and right groin. Complained of hematuria that resolved on its own. Also complained of chest pain which resolved with NG x 3. His BP was 180's/110' s which improved prior to arrival to the floor. Troponins were mildly elevated at 0.06 which decreased to 0.04 and 0.02. Has not complained of further chest pain Right flank pain persists, CT in ER was negative for nephrolithiasis or other abnormalities , has had 2 normal UAs. Stress test showed no ischemia, ejection fraction of 49% but had a normal echocardiogram with an ejection fraction of 60% and no wall motion abnormalities , showed also some mild concentric left ventricular hypertrophy and mild diastolic dysfunction. Ready to be discharged Triglycerides is 173 cholesterol 195 LDL 135 HDL 29, Lipitor dose was increased from 40 mg up to 80 mg daily Time spent discussing smoking cessation with patient: 3 to 10 minutes - Time Spent with Patient Total time spent providing and/or coordinating discharge services: Greater than 30 minutes (40 min) - Constitutional Vitals: Temp Pulse Resp BP Pulse Ox 97.6 F 75 17 159/101 97 06/08/17 07:28 06/08/17 07:28 06/08/17 07:28 06/08/17 07:28 06/08/17 08:33 General appearance: Present: A&O X 3, pleasant, no acute distress - Head Head exam: Present: atraumatic, normocephalic - Eye Eye exam: Present: PERRL, conjuntiva pink, sclera anicteric Pupils: Present: PERRL - Neck Neck exam general surgery: Present: supple, trachea midline. Absent: lymphadenopathy - Respiratory Respiratory exam: Present: CTAB. Absent: accessory muscle use, rales, rhonchi, wheezes - Cardiovascular Cardiovascular exam: Present: RRR, +S1, +S2. Absent: diastolic murmur, gallop, rubs, systolic murmur - GI/Abdominal GI/Abdominal exam: Present: normal bowel sounds, soft, no peritoneal signs. Absent: distended, tenderness - Extremities Exam Extremities exam: Present: warm, radial pulses palpable and symmetrical. Absent : calf tenderness, cyanotic, pedal edema - Neurological Exam Neurological exam: Present: CN II-XII intact, oriented X3, no focal deficits. Absent: pronater drift, facial droop, speech deficit - Skin Skin exam: Present: dry, intact
[2017-06-08] MEDS: Budesonide/Formoterol 160/4.5 MDI IH SCH (11:03)
--- NOTE | 2017-06-08 16:40 | Electrocardiograph Report ---
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
== END 2017-06-08 11:45 | disposition home or self-care (01) ==
LOC: 3BNU 21:59 → EMEROO 21:59 → SUATTDRO 06-06 02:37 → 3BNU 06-06 02:50
PROVIDERS: ADMIT Internal Medicine; ATTEND Internal Medicine

== ENCOUNTER 2017-07-20 18:28 | Observation (INO) ==
[2017-07-20 18:48] LABS: Basophils % 0.4 %; Eosinophils # 0.2 K/mcL (0.0-0.6); Eosinophils % 2.6 %; Hematocrit 42.1 % (37.5-50.1); Immature Granulocytes % 0.4 % (0-4); Lymphocytes # 2.4 K/mcL (0.6-4.6); Lymphocytes % 28.4 %; Mean Corpuscular HGB Conc 35.6 g/dL (31.6-35.5); Mean Corpuscular Hemoglobin 30.5 pg (28.0-33.3); Mean Corpuscular Volume 85.7 fL (83.0-100.0); Mean Platelet Volume 10.7 fL (9.4-12.4); Monocytes # 0.6 K/mcL (0.0-1.3); Monocytes % 6.8 %; Neutrophils # 5.2 K/mcL (1.6-8.9); Platelet Count 211 K/mcL (140-400); Red Blood Count 4.91 M/mcL (4.19-5.50); Red Cell Distribution Width 12.3 % (11.5-14.5); Segmented Neutrophils % 61.4 %
[2017-07-20] MEDS: Nitroglycerin 0.4 MG TAB.SUBL SL PRN ×2 (18:51→20:00)
[2017-07-20 18:54] LABS: Prothrombin Time 10.3 Seconds (9.4-12.1)
[2017-07-20 18:57] LABS: Activated Partial Thrombo Time 26.9 Seconds (26.0-36.0)
[2017-07-20 18:59] LABS: BUN/Creatinine Ratio 9 (6-26); Blood Urea Nitrogen 10 mg/dL (8-26); Calcium 9.1 mg/dL (8.6-10.8); Carbon Dioxide 23 mEq/L (19-29); Chloride 104 mEq/L (98-109); Glucose 322 mg/dL (70-99); Osmolality,Calculated 299 (280-300); Potassium 3.3 mEq/L (3.5-4.5); Sodium 139 mEq/L (136-145); eGFR For African Americans > 60 (> 60); eGFR For Non-African Americans > 60 (> 60)
--- NOTE | 2017-07-20 19:05 | Emergency Department Note ---
Disposition Clinical Impression: Chest pain Qualifiers: Chest pain type: unspecified Qualified Code(s): R07.9 - Chest pain, unspecified Disposition: Admitted As Inpatient Condition: Good Referrals: Cynthia Moon DO [Primary Care Provider] - Forms: ED Satisfaction Letter Chest Pain HPI - General Chief Complaint: ED Chest Pain Stated Complaint: chest pain Time Seen by Provider: 07/20/17 18:55 Source: patient Mode of arrival: private vehicle Limitations: no limitations Vital Signs Reviewed: Yes Nursing Notes Reviewed: Yes - History of Present Illness HPI Narrative: 47-year-old male history of diabetes, hyperlipidemia, hypertension who presents to the ER with a chief complaint of chest pain. Patient states that it started around 4:30 PM today at work. States it feels like a pressure in the center of his chest. Reports that he felt short of breath with this. He describes numbness in his left arm. He has had multiple episodes of this happening in the past and states he had a heart catheterization roughly 1 year ago that was clean. He states that he follows with cardiology but no one knows why he is having chest pain. He denies a history of cardiac stents, DVT or PE. No recent injury or trauma. No nausea vomiting or diarrhea. No other complaints. He did not take anything prior to arrival. Pt complaint: chest pain Onset (ago): hour(s) Time: 16:30 Duration: constant Onset: during rest Pain Location: substernal Severity: severe Severity scale (1-10): 9 Quality: heaviness Pain Radiation: LUE Improves with: nothing Worsens with: nothing Associated symptoms: Reports: dyspnea. Denies: nausea, vomiting, diaphoresis Treatments prior to arrival chest pain: none - Related Data On Oral Contraceptives: No Home Medications Medication Instructions Recorded Confirmed Aspirin 81 mg PO HS 11/24/15 07/20/17 Albuterol Sulfate [Proair Hfa] 2 puff IH Q4H PRN 06/07/16 07/20/17 Omeprazole [PriLOSEC] 20 mg PO BID 07/31/16 07/20/17 hydrOXYzine HCl [Hydroxyzine HCl] 25 mg PO Q8H 07/31/16 07/20/17 Insulin Glargine,Hum.rec.anlog 60 units SQ HS 04/13/17 07/20/17 [Toujeo Solostar] Ipratropium/Albuterol Neb [Duoneb] 3 ml IH Q6HR PRN 04/13/17 07/20/17 Nitroglycerin [Nitrostat] 0.4 mg SL Q5M PRN 04/13/17 07/20/17 Amitriptyline [Elavil] 25 mg PO HS 07/20/17 07/20/17 Gabapentin [Neurontin] 800 mg PO TID 07/20/17 07/20/17 Insulin LISPRO [Humalog Kwikpen 20 unit SQ TID 07/20/17 07/20/17 U-100] Losartan/HCTZ [Hyzaar 50-12.5 1 each PO DAILY 07/20/17 07/20/17 Tablet] Metformin HCl [Metformin HCl ER] 2,500 mg PO QAM 07/20/17 07/20/17 Previous Rx's Medication Instructions Recorded Metoprolol [Lopressor] 25 mg PO BID #30 tablet 04/15/17 Atorvastatin [Lipitor] 80 mg PO HS #30 tab 06/08/17 Ibuprofen 800 mg PO Q8H PRN #30 06/08/17 amLODIPine [Norvasc] 10 mg PO DAILY #30 tablet 06/08/17 Allergies Allergy/AdvReac Type Severity Reaction Status Date / Time pepper Allergy Severe Anaphylaxis Verified 07/20/17 18:29 lisinopril AdvReac Cough Verified 07/20/17 18:29 All systems ED: reviewed and negative except as stated. Constitutional: Denies: fever Cardiovascular: Reports: chest pain. Denies: palpitations Respiratory: Reports: dyspnea. Denies: cough, wheezes Gastrointestinal: Denies: abdominal pain, nausea, vomiting, diarrhea Chest Pain PMH - Past Medical History Medical history: Reports: COPD, coronary artery disease, diabetes, hypertension , myocardial infarction, other Surgical history: Reports: orthopedic, other (shoulder, wrist) Psychiatric history: Reports: anxiety, depression - Social History Smoking Status: Current every day smoker Alcohol use: Reports: rarely Drug use: Reports: none Physical Exam - General Limitations: no limitations General appearance: alert, in no apparent distress - Head Head exam: atraumatic, normocephalic, normal inspection - Eye Eye exam: Present: normal appearance, EOMI - ENT ENT exam: normal exam - Neck Neck exam: Present: normal inspection, full ROM - Chest Chest inspection: Present: normal inspection, symmetric chest wall rise. Absent : tenderness - Respiratory Respiratory exam: Present: normal lung sounds bilaterally - Cardiovascular Cardiovascular exam: Present: regular rate, normal rhythm, normal heart sounds - Abdominal Exam Abdominal exam: Present: soft, Non-Tender. Absent: tenderness, distention, rigidity - Extremities Exam Extremities exam: Present: normal inspection, full ROM - Expanded Upper Extremity Exam Shoulder exam: Present: normal inspection, full ROM Arm exam: Present: normal inspection, full ROM Elbow exam: Present: normal inspection, full ROM Forearm/Wrist exam: Present: normal inspection, full ROM Hand exam: Present: normal inspection, full ROM Vascular exam: Normal: radial pulse - Expanded Lower Extremity Exam Hip/Pelvis exam: Present: normal inspection, full ROM Upper leg exam: Present: normal inspection, full ROM Knee exam: Present: normal inspection, full ROM Lower leg exam: Present: normal inspection, full ROM Ankle exam: Present: normal inspection, full ROM Foot/toe exam: Present: normal inspection, full ROM Neurovascular/Tendon exam: Absent: motor deficit, sensory deficit - Neurological Exam Neurological exam: Present: alert - Psychiatric Psychiatric exam: Present: normal affect, normal mood - Skin Skin exam: Present: warm, dry, intact, normal color Course Course Narrative: Patient seen and examined. EKG shows no acute findings. We will obtain an EKG , chest x-ray as well as labs including troponin. Patient will be given supplemental nitroglycerin and reassessed. - Reevaluation(s) Reevaluation #1: Patient reports his pain improved after the first nitroglycerin. We will give him another nitroglycerin and reassess. I will also speak with the on-call captain cannery tender. Reevaluation #2: Patient reports his pain is now a 3 from a 9 after 3 sublingual nitroglycerin. I spoke with cardiology and conveyed the recommendations and the patient is in agreement with being admitted. - Consultations Consultation #1: I spoke with the on-call captain cannery tender Dr. Caba. Discussed the patient's history exam labs imaging and EKG. Patient has had a workup in the last few years including left heart catheterization. He agreed with admission to the hospital for possible subendocardial ischemia versus noncardiac causes. Also recommend to start Lopressor 25 mg twice a day. Vital Signs Temperature 98.4 F 07/20/17 18:29 Pulse Rate 92 07/20/17 18:29 Respiratory Rate 18 07/20/17 18:29 Blood Pressure 183/106 07/20/17 18:29 O2 Sat by Pulse Oximetry 99 07/20/17 18:29 Temperature 98.4 F 07/20/17 18:29 Pulse Rate 90 07/20/17 21:46 Respiratory Rate 16 07/20/17 21:46 Blood Pressure 160/92 07/20/17 21:46 O2 Sat by Pulse Oximetry 98 07/20/17 21:46 Oxygen Delivery Oxygen Delivery Room Air Chest Pain - MDM Narrative Medical decision making narrative: 47-year-old male presents to the ER due to chest pain. Started today around 4: 30 at work. He has had prior workups including left heart catheterization in 2016 showing nonobstructive. EKG is nonischemic. First troponin is negative. Patient given 3 sublingual nitroglycerin with improvement of his pain. Cardiology was consulted from the emergency department who agreed with admission to the hospitalist service and to start Lopressor 25 mg twice a day with consultation in the morning. - Lab Data Lab results reviewed: Yes I reviewed the patient's lab results. Result diagrams: 07/20/17 18:40 07/20/17 18:40 Lab Results 07/20/17 07/20/17 07/20/17 Range/Units 18:40 18:40 18:40 WBC 8.5 (4.3-11.1) K/mcL RBC 4.91 (4.19-5.50) M/mcL Hgb 15.0 (12.9-16.9) g/dL Hct 42.1 (37.5-50.1) % MCV 85.7 (83.0-100.0) fL MCH 30.5 (28.0-33.3) pg MCHC 35.6 H (31.6-35.5) g/dL RDW 12.3 (11.5-14.5) % Plt Count 211 (140-400) K/mcL MPV 10.7 (9.4-12.4) fL Immature Gran % 0.4 (0-4) % Seg Neutrophils % 61.4 % Lymphocytes % 28.4 % Monocytes % 6.8 % Eosinophils % 2.6 % Basophils % 0.4 % Neutrophils # 5.2 (1.6-8.9) K/mcL Lymphocytes # 2.4 (0.6-4.6) K/mcL Monocytes # 0.6 (0.0-1.3) K/mcL Eosinophils # 0.2 (0.0-0.6) K/mcL Basophils # 0.0 (0.0-0.2) K/mcL PT 10.3 (9.4-12.1) Seconds INR 1.0 APTT 26.9 (26.0-36.0) Seconds Sodium 139 (136-145) mEq/L Potassium 3.3 L (3.5-4.5) mEq/L Chloride 104 (98-109) mEq/L Carbon Dioxide 23 (19-29) mEq/L BUN 10 (8-26) mg/dL Creatinine 1.08 (0.72-1.25) mg/dL Est GFR ( Amer) > 60 (> 60) Est GFR (Non-Af Amer) > 60 (> 60) BUN/Creatinine Ratio 9 (6-26) Glucose 322 H (70-99) mg/dL Calculated Osmolality 299 (280-300) Calcium 9.1 (8.6-10.8) mg/dL Troponin I (0-0.03) ng/mL Urine Color (Yellow) Urine Clarity (Clear) Urine pH (5.0-8.0) pH Units Ur Specific [place] (1.010-1.025) Urine Protein (Neg-Trace) mg/dL Urine Glucose (UA) (Normal) mg/dL Urine Ketones (Negative) mg/dL Urine Blood (Negative) Urine Nitrite (Negative) Urine Bilirubin (Negative) Urine Urobilinogen (Normal) mg/dL Ur Leukocyte Esterase (Negative) Ur Culture Indicated? (NO) 07/20/17 07/20/17 Range/Units 18:40 19:38 WBC (4.3-11.1) K/mcL RBC (4.19-5.50) M/mcL Hgb (12.9-16.9) g/dL Hct (37.5-50.1) % MCV (83.0-100.0) fL MCH (28.0-33.3) pg MCHC (31.6-35.5) g/dL RDW (11.5-14.5) % Plt Count (140-400) K/mcL MPV (9.4-12.4) fL Immature Gran % (0-4) % Seg Neutrophils % % Lymphocytes % % Monocytes % % Eosinophils % % Basophils % % Neutrophils # (1.6-8.9) K/mcL Lymphocytes # (0.6-4.6) K/mcL Monocytes # (0.0-1.3) K/mcL Eosinophils # (0.0-0.6) K/mcL Basophils # (0.0-0.2) K/mcL PT (9.4-12.1) Seconds INR APTT (26.0-36.0) Seconds Sodium (136-145) mEq/L Potassium (3.5-4.5) mEq/L Chloride (98-109) mEq/L Carbon Dioxide (19-29) mEq/L BUN (8-26) mg/dL Creatinine (0.72-1.25) mg/dL Est GFR ( Amer) (> 60) Est GFR (Non-Af Amer) (> 60) BUN/Creatinine Ratio (6-26) Glucose (70-99) mg/dL Calculated Osmolality (280-300) Calcium (8.6-10.8) mg/dL Troponin I 0.02 (0-0.03) ng/mL Urine Color Yellow (Yellow) Urine Clarity Clear (Clear) Urine pH 5.5 (5.0-8.0) pH Units Ur Specific [place] > 1.030 H (1.010-1.025) Urine Protein Negative (Neg-Trace) mg/dL Urine Glucose (UA) >=1000 H (Normal) mg/dL Urine Ketones Negative (Negative) mg/dL Urine Blood Negative (Negative) Urine Nitrite Negative (Negative) Urine Bilirubin Negative (Negative) Urine Urobilinogen 2.0 H (Normal) mg/dL Ur Leukocyte Esterase Negative (Negative) Ur Culture Indicated? NO (NO) - Radiology Data Radiology results reviewed: Yes I reviewed the patient's radiology results. Chest X-Ray 07/20/17 18:42 IMPRESSION: No evidence of acute disease. D/ / Joaquim Recinos MD / Joaquim Recinos MD Interpreting Provider: Joaquim Recinos MD - EKG Data EKG attestation: Yes I reviewed and interpreted this EKG. EKG results narrative: EKG demonstrates sinus rhythm with a rate of 93 bpm. Normal axis. Normal intervals. Normal R-wave progression. Nonspecific ST-T wave changes in the inferior leads. No gross ST elevations or depressions. No acute ischemic findings. No significant changes from previous EKG dated 07/02/17. Heart Score - Score History: Moderately Suspicious EKG: Normal Age: 45-65 Risk Factors: Equal/Greater than 3 risk factor or history of atherosclerotic disease Troponin: Less than normal limit HEART Score Total: 4 S.B.A.R. - S.B.A.R. Situation: Demographics, MOA Background: Presenting Complaint, Relevant PMH, Meds, & Allergies Assessment: Vital Signs, Course and respsone to treatment, Exam Concerns, Patient/Family Expectation, Pertinant Lab Results, Outstanding Labs Recommendation: Barrier(s) to disposition, Recommendation based on pending studies, treatments, or consults S.B.A.R. Report Given to: Dr. Seo Attestation Statement - Attestation Attestation: I, Raheem Rene MD, personally evaluated this patient and discussed their management with the resident physician. I reviewed the resident's note and agree with the documented findings, medical decision making, and plan of care. 47-year-old male presents to the emergency department with a complaint of left- sided chest pain which started while at work about one hour prior to arrival. He describes the pain as a constant dull pressure with intermittent sharp stabbing pains. He also complains of numbness and tingling in the left arm. Some mild shortness of breath. No diaphoresis. No nausea or vomiting. Patient states he does have a history of heart problems and hypertension. He had a heart catheter one to 2 years ago which did show some coronary artery disease but he did not have any stents placed. On examination patient is a well-developed obese male in no acute distress. He is alert and oriented 3. There is no cyanosis or diaphoresis. Chest is nontender to palpation. Breath sounds are clear and equal bilaterally. Heart regular rate and rhythm. Abdomen soft and nontender with normal bowel sounds. EKG shows a normal sinus rhythm with a heart rate of 93. Nonspecific T-wave abnormality. No acute ischemic changes. Chest x-ray negative. Labs reviewed. Troponin normal. The hospitalist, Dr. Seo, was consulted and accepted admission of the patient.
[2017-07-20 19:46] LABS: Bilirubin,Urine Negative (Negative); Blood,Urine Negative (Negative); Clarity,Urine Clear (Clear); Color,Urine Yellow (Yellow); Glucose,Urine (UA) >=1000 mg/dL (Normal); Ketones,Urine Negative (Negative); Leukocyte Esterase,Urine Negative (Negative); Nitrite,Urine Negative (Negative); PH,Urine 5.5 pH Units (5.0-8.0); Protein,Urine Negative (Neg-Trace); Specific Gravity,Urine > 1.030 (1.010-1.025)
[2017-07-21] MEDS ORDERED: Naloxone 0.4 MG/ML INJ IVP PRN (00:17)
[2017-07-21] MEDS ORDERED: Ondansetron 4 MG/2 ML VIAL IVP PRN (00:17)
[2017-07-21] MEDS ORDERED: Acetaminophen 325 MG TABLET PO PRN (00:17)
[2017-07-21] MEDS ORDERED: Nitroglycerin 0.4 MG TAB.SUBL SL PRN (00:20)
[2017-07-21] MEDS ORDERED: D5% in Water 1,000 ML IVC PRN (00:21)
[2017-07-21] MEDS ORDERED: *HR* Dextrose 50 % in Water (Syg) 50 ML SYRINGE IVP PRN (00:21)
[2017-07-21] MEDS ORDERED: Dextrose Gel 15 GM PO PRN ×2 (00:21)
--- NOTE | 2017-07-21 00:39 | Internal Med History&Physical ---
Date of Encounter: 07/21/17 Time of Encounter: 00:36 Assessment and Plan (1) Chest pain Current visit: Yes Status: Acute 1 patient had sudden onset of sharp midsternal chest pain with left arm numbness and shortness of breath. He was relieved with 3 nitroglycerin. He did have a Cardiac catheterization which revealed nonobstructive CAD in 2015. In May of this year he underwent cardiac stress test which was negative for any infarct or ischemia. Troponin was 0 will continue to trend 2 cardiology was consultative per ER physician. Recommended metoprolol 25 mg twice a day 3. We will continue with aspirin and statin as well as beta davy and losartan 4 continue cardiac monitoring 5 nitroglycerin as needed for chest pain Qualifiers: Chest pain type: unspecified Qualified Code(s): R07.9 - Chest pain, unspecified (2) HTN (hypertension) Current visit: No Status: Chronic Continue with Hyzaar and Norvasc and metoprolol Low-sodium diet Qualifiers: Hypertension type: essential hypertension Qualified Code(s): I10 - Essential (primary) hypertension (3) Current smoker Current visit: No Status: Chronic Encourage patient to stop smoking. Patient states that he is down to 2-3 cigarettes a day after smoking up to 3 packs a day. 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 Holland is a 47 year old male has some history of diabetes hypertension hyperlipidemia COPD coronary disease tobacco use. Approximate 4. Cefepime patient was at work began to experience midsternal chest pressure as well as left sided arm numbness. He did rest which eased his pain. He went back to work and he began to experience immediate stabbing in his chest with associated symptoms of shortness of breath. There were no aggravating factors and the pain was relieved with 3 nitroglycerin administered in the ER. Patient does have a 2 year history of chest pain he did have a heart catheterization approximately one year ago which revealed nonobstructive CAD. Had a cardiac stress in May of this year which was negative for any ischemia. Cardiac workup in the ER negative troponin no ST abnormalities and EKG chest x-ray was negative ER physician did speak with Dr Borrego who who recommended metoprolol 25 mg twice a day and would see the patient upon consult tomorrow. Patient has been admitted for further workup and evaluation. Presently patient does have some chest heaviness which she states is chronic and is always parent never relieved. He is hemodynamically stable at this time. Past Med Surg Social Fam HX - Past Medical History Medical history: COPD, coronary artery disease, diabetes, hyperlipidemia, hypertension, myocardial infarction, other Psychiatric history: anxiety, depression - Past Surgical History Surgical History: orthopedic, other - Social History Smoking Status: Current every day smoker Smokeless Tobacco Status: No Alcohol use: rarely Drug use: none - Family History Mother Family Member Ethnicity: Non- Living Status: Hx Family Cancer: Yes (Breast with metastasis) Hx Family Endocrine Disorder: Yes (DM) Brother Family Member Ethnicity: Non- Living Status: Still Living Hx Family Endocrine Disorder: Yes (Hypoglycemia) Father Adopted: No Family Member Ethnicity: Non- Living Status: Hx Family Cardiac Disorders: Yes Hx Family Respiratory Disorders: Yes Hx Family Cancer: Yes Hx Family GI Disorders: No Hx Family Endocrine Disorder: No Hx Family Neuromuscular Disorders: No Hx Family Neurologic Disorders: No Hx Family HEENT Disorders: No Hx Family Autoimmune Disorders: No Internal Medicine - H&P: Meds Aspirin 81 mg PO HS 11/24/15 [History] Albuterol Sulfate [Proair Hfa] 2 puff IH Q4H PRN 06/07/16 [History] Omeprazole [PriLOSEC] 20 mg PO BID 07/31/16 [History] hydrOXYzine HCl [Hydroxyzine HCl] 25 mg PO Q8H 07/31/16 [History] Insulin Glargine,Hum.rec.anlog [Toujeo Solostar] 60 units SQ HS 04/13/17 [ History] Ipratropium/Albuterol Neb [Duoneb] 3 ml IH Q6HR PRN 04/13/17 [History] Nitroglycerin [Nitrostat] 0.4 mg SL Q5M PRN 04/13/17 [History] Metoprolol [Lopressor] 25 mg PO BID #30 tablet 04/15/17 [Rx] Atorvastatin [Lipitor] 80 mg PO HS #30 tab 06/08/17 [Rx] Ibuprofen 800 mg PO Q8H PRN #30 06/08/17 [Rx] amLODIPine [Norvasc] 10 mg PO DAILY #30 tablet 06/08/17 [Rx] Amitriptyline [Elavil] 25 mg PO HS 07/20/17 [History] Gabapentin [Neurontin] 800 mg PO TID 07/20/17 [History] Insulin LISPRO [Humalog Kwikpen U-100] 20 unit SQ TID 07/20/17 [History] Losartan/HCTZ [Hyzaar 50-12.5 Tablet] 1 each PO DAILY 07/20/17 [History] Metformin HCl [Metformin HCl ER] 2,500 mg PO QAM 07/20/17 [History] 3 Allergy/AdvReac Type Severity Reaction Status Date / Time pepper Allergy Severe Anaphylaxis Verified 07/20/17 18:29 lisinopril AdvReac Cough Verified 07/20/17 18:29 All Systems PM: A 10-system review of systems was performed and is negative for pertinent findings except as documented above in the HPI. - Constitutional Constitutional: no chills, no fever(s), no night sweats - EENT Eyes: no change in vision, no discharge, no pain, no photophobia Nose, mouth and throat: no dysphagia, no nasal discharge, no neck pain, no sore throat - Cardiovascular Cardiovascular ROS IM: chest pain, dyspnea - Respiratory Respiratory: no cough, no dyspnea, no wheezing, no excessive phlegm production - Gastrointestinal Gastrointestinal: no abdominal pain, no diarrhea, no hematemesis, no hematochezia, no melena, no nausea, no vomiting - Musculoskeletal Musculoskeletal ROS IM: no numbness, no tingling - Integumentary Integumentary IM: no rash, no unusual bruising - Neurological Neurological ROS: no confusion, no convulsions, no focal weakness, no numbness, no tingling, no tremor(s) - Hematologic/Lymphatic Hematologic/Lymphatic: no easy bruising - Constitutional Vitals: Temp Pulse Resp BP Pulse Ox 97.8 F 86 14 196/104 96 07/20/17 22:21 07/20/17 22:21 07/20/17 22:21 07/20/17 22:21 07/20/17 22:21 General appearance: Present: A&O X 3, answers questions appropriately - Head Head exam: Present: atraumatic, normocephalic - Eye Eye exam: Present: PERRL, conjuntiva pink, sclera anicteric Pupils: Present: PERRL - Neck Neck exam general surgery: Present: supple, trachea midline. Absent: lymphadenopathy - Respiratory Respiratory exam: Present: CTAB. Absent: accessory muscle use, rales, rhonchi, wheezes - Cardiovascular Cardiovascular exam: Present: RRR, +S1, +S2. Absent: diastolic murmur, gallop, rubs, systolic murmur - GI/Abdominal GI/Abdominal exam: Present: normal bowel sounds, soft, no peritoneal signs. Absent: distended, tenderness - Extremities Exam Extremities exam: Present: warm, radial pulses palpable and symmetrical. Absent : calf tenderness, cyanotic, pedal edema - Neurological Exam Neurological exam: Present: CN II-XII intact, oriented X3, no focal deficits. Absent: pronater drift, facial droop, speech deficit - Skin Skin exam: Present: dry, intact Internal Med - H&P Results - Labs CBC & Chem 7: 07/20/17 18:40 07/20/17 18:40 - EKG Data EKG shows normal: sinus rhythm - EKG Data Prior EKG available for review: yes When compared to previous EKG: there is no significant change - Diagnostic Studies Other Images Additional comments: Chest X-Ray 07/20/17 18:42 IMPRESSION: No evidence of acute disease. D/ / Joaquim Recinos MD / Joaquim Recinos MD Interpreting Provider: Joaquim Recinos MD
[2017-07-21 01:15] LABS: Basophils % 0.4 %; Eosinophils # 0.3 K/mcL (0.0-0.6); Eosinophils % 2.8 %; Hematocrit 43.6 % (37.5-50.1); Hemoglobin 15.2 g/dL (12.9-16.9); Immature Granulocytes % 0.3 % (0-4); Lymphocytes # 2.8 K/mcL (0.6-4.6); Lymphocytes % 30.6 %; Mean Corpuscular HGB Conc 34.9 g/dL (31.6-35.5); Mean Corpuscular Hemoglobin 30.1 pg (28.0-33.3); Mean Corpuscular Volume 86.3 fL (83.0-100.0); Monocytes # 0.7 K/mcL (0.0-1.3); Monocytes % 7.6 %; Neutrophils # 5.4 K/mcL (1.6-8.9); Platelet Count 216 K/mcL (140-400); Red Blood Count 5.05 M/mcL (4.19-5.50); Red Cell Distribution Width 12.4 % (11.5-14.5); Segmented Neutrophils % 58.3 %
--- NOTE | 2017-07-21 01:30 | Event Note ---
Date of Encounter: 07/21/17 Time of Encounter: 01:29 I have personally seen and examined the patient. Complaining of chest pain for last 2 years but more aggravating today. No associated dyspnea. No other complaint. He has history of diabetes hypertension dyslipidemia. Also morbidly obese. Unfortunately he does not watch his diet and counseling provided. Chest clear to auscultation and percussion no wheezing rales and rub abdomen soft nontender no organomegaly bowel sounds active. Patient had angiogram last year and a stress test this year both are insignificant. If his troponins are negative he can be discharged. Potassium 40 mg given.
[2017-07-21 01:32] LABS: BUN/Creatinine Ratio 9 (6-26); Blood Urea Nitrogen 10 mg/dL (8-26); Calcium 8.9 mg/dL (8.6-10.8); Carbon Dioxide 22 mEq/L (19-29); Chloride 104 mEq/L (98-109); Glucose 350 mg/dL (70-99); Osmolality,Calculated 299 (280-300); Potassium 3.4 mEq/L (3.5-4.5); Sodium 138 mEq/L (136-145); eGFR For African Americans > 60 (> 60); eGFR For Non-African Americans > 60 (> 60)
[2017-07-21] MEDS ORDERED: Ipratropium/Albuterol Neb 3 ML IH PRN (04:00)
[2017-07-21] MEDS: *HR* Enoxaparin 40 MG/0.4 ML SYRINGE SQ SCH (06:18)
--- NOTE | 2017-07-21 08:19 | Event Note ---
<Dov Talbot - Last Filed: 07/21/17 14:20> Date of Encounter: 07/21/17 Time of Encounter: 14:20 Patient admitted for anginal chest pain. Currently chest pain 5 out of 10 substernal. Patient has had multiple admissions in the past year for similar chest pain. He has had extensive cardiac workup including recent nuclear stress test which was negative for ischemia and echocardiogram showed EF of 60% with left ventricular hypertrophy. Patient has a history of gastric reflux on omeprazole which he has run out. Current smoker. Denies alcohol use. General: plesant without distress Heart: Regular rate and rhythm with no murmur Lungs: Clear to auscultation bilaterally Abdomen: Soft nondistended positive bowel sounds. mild tender LUQ Skin: warm and dry Extremities: 1+ pedal edema Vascular: Pedal and radial pulses 2 out of 4 A/P chest pain: GIOVANI score 7. EKG normal sinus rhythm with T-wave inversions in lead V4,V5,V6. Patient's troponin trended: 0.02, 0.04, 0.03. recent stress test negative. previous cath 2016 minimal 3-vessel disease. EF 60% likley non-cardiac origin Will consult GI for EGD as patient ran out of PPI, is a smoker and has hx of GERD. continue aspirin,statin, bblocker <Ki Rudd - Last Filed: 07/21/17 18:55> Date of Encounter: 07/21/17 I examined this patient and my medical decision-making was reviewed with the Resident Physician. I agree with the documented findings, disposition and treatment plan as described except to the extent set forth below. EGD tomorrow
[2017-07-21] MEDS ORDERED: Losartan/HCTZ 50-12.5 TABLET PO SCH (09:00)
[2017-07-21] MEDS ORDERED: amLODIPine 5 MG TABLET PO SCH (09:00)
[2017-07-21] MEDS: Insulin LISPRO 300 UNITS/3 ML VIAL SQ SCH ×3 (12:13→17:46)
[2017-07-21] MEDS: Gabapentin 400 MG CAPSULE PO SCH ×3 (12:14→20:19)
--- NOTE | 2017-07-21 16:12 | Cardiology Consult Note ---
Date of Encounter: 07/21/17 Time of Encounter: 15:49 Assessment and Plan (1) Chest pain Current Visit: No Status: Acute Chest pain somewhat atypical. LUDIVINA negative. Last cath with just mild disease. Would recommend continued medical mgmt. No further cardiac workup needed. Qualifiers: Chest pain type: other chest pain Qualified Code(s): R07.89 - Other chest pain; R07.8 - Other chest pain Discussion w patient/family: The assessment and plan as outlined above was discussed with the patient and/or family members who expressed understanding and agreement. All questions were answered. Thank you for involving us in the care of your patient. Please call with any questions. History of Present Illness Consult date: 07/21/17 Requesting physician: Stacy Kidd Consult reason: Chest pain Chief complaint: Chest pain History of present illness: Mr. Holland is a 47 year old male with history of HTN, CAD, hyperlipidemia. His last cath was about a year ago when he was noted to have just mild CAD. He presented with substernal chest pain with LUDIVINA negative. Past Med Surg Social Fam HX - Past Medical History Medical history: COPD, coronary artery disease, diabetes, hyperlipidemia, hypertension, myocardial infarction, other Psychiatric history: anxiety, depression - Past Surgical History Surgical History: orthopedic, other - Social History Smoking Status: Current every day smoker Smokeless Tobacco Status: No Alcohol use: rarely Drug use: none - Family History Mother Family Member Ethnicity: Non- Living Status: Hx Family Cancer: Yes (Breast with metastasis) Hx Family Endocrine Disorder: Yes (DM) Brother Family Member Ethnicity: Non- Living Status: Still Living Hx Family Endocrine Disorder: Yes (Hypoglycemia) Father Adopted: No Family Member Ethnicity: Non- Living Status: Hx Family Cardiac Disorders: Yes Hx Family Respiratory Disorders: Yes Hx Family Cancer: Yes Hx Family GI Disorders: No Hx Family Endocrine Disorder: No Hx Family Neuromuscular Disorders: No Hx Family Neurologic Disorders: No Hx Family HEENT Disorders: No Hx Family Autoimmune Disorders: No Medications and Allergies Aspirin 81 mg PO HS 11/24/15 [History] Albuterol Sulfate [Proair Hfa] 2 puff IH Q4H PRN 06/07/16 [History] Omeprazole [PriLOSEC] 20 mg PO BID 07/31/16 [History] hydrOXYzine HCl [Hydroxyzine HCl] 25 mg PO Q8H 10/22/16 [History] Insulin Glargine,Hum.rec.anlog [Toujeo Solostar] 60 units SQ HS 04/13/17 [ History] Ipratropium/Albuterol Neb [Duoneb] 3 ml IH Q6HR PRN 04/13/17 [History] Nitroglycerin [Nitrostat] 0.4 mg SL Q5M PRN 04/13/17 [History] Metoprolol [Lopressor] 25 mg PO BID #30 tablet 04/15/17 [Rx] Atorvastatin [Lipitor] 80 mg PO HS #30 tab 06/08/17 [Rx] Ibuprofen 800 mg PO Q8H PRN #30 06/08/17 [Rx] amLODIPine [Norvasc] 10 mg PO DAILY #30 tablet 06/08/17 [Rx] Amitriptyline [Elavil] 25 mg PO HS 07/20/17 [History] Gabapentin [Neurontin] 800 mg PO TID 07/20/17 [History] Insulin LISPRO [Humalog Kwikpen U-100] 20 unit SQ TID 07/20/17 [History] Losartan/HCTZ [Hyzaar 50-12.5 Tablet] 1 each PO DAILY 07/20/17 [History] Metformin HCl [Metformin HCl ER] 2,500 mg PO QAM 07/20/17 [History] 3 Allergy/AdvReac Type Severity Reaction Status Date / Time pepper Allergy Severe Anaphylaxis Verified 07/20/17 18:29 lisinopril AdvReac Cough Verified 07/20/17 18:29 All Systems Review: A 10-system review of systems was performed and is negative for pertinent findings except as documented above in the HPI. Physical Examination Vital Signs, Last 4 Hours Temp Pulse Resp BP Pulse Ox 07/21/17 15:22 98.5 F 88 16 179/87 95 General: Conversant, No Apparent Distress HEENT: Atraumatic, Normocephaly, Mucus Membranes Moist Neck: No JVD, Normal carotid pulses Cardiac: Reg Rate and Rhythm, Normal S1 and S2, No Murmur Lungs: Normal Breath Sounds, No Wheeze, Rales, Rhonchi Neuro: Alert and responsive, No focal deficits noted Abdomen: Soft, Non-Tender Skin: No rashes noted on visualized skin Musculoskeletal: No Chest Wall Tenderness Extremities: No Clubbing, No Cyanosis, No Edema, Normal Pulses Results 07/21/17 00:54 07/21/17 00:54 Lab Results 07/21/17 07/21/17 07/21/17 00:54 00:54 00:54 WBC 9.3 Hgb 15.2 Hct 43.6 Plt Count 216 Sodium 138 Potassium 3.4 L Chloride 104 Carbon Dioxide 22 BUN 10 Creatinine 1.07 Glucose 350 H Calcium 8.9 Magnesium 2.0 Troponin I 0.04 H* 07/21/17 07:06 WBC Hgb Hct Plt Count Sodium Potassium Chloride Carbon Dioxide BUN Creatinine Glucose Calcium Magnesium Troponin I 0.03 Consult Discharge Plan - Plan Referrals: Cynthia Moon DO [Primary Care Provider] - 08/03/17 3:00 pm
[2017-07-21] MEDS ORDERED: Insulin LISPRO 300 UNITS/3 ML VIAL SQ ONE (18:34)
--- NOTE | 2017-07-21 20:48 | Electrocardiograph Report ---
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
[2017-07-21] MEDS ORDERED: Insulin DETEMIR 100 UNIT/ML X5UNITS SQ SCH (21:00)
[2017-07-21] MEDS ORDERED: Insulin LISPRO 300 UNITS/3 ML VIAL SQ SCH (21:00)
[2017-07-21] MEDS ORDERED: Aspirin 81 MG TAB.CHEW PO SCH (21:00)
[2017-07-22] MEDS: *HR* Enoxaparin 40 MG/0.4 ML SYRINGE SQ SCH (05:42)
--- NOTE | 2017-07-22 07:10 | Internal Med Progress Note ---
Date of Encounter: 07/22/17 - Constitutional Vitals: Temp Pulse Resp BP Pulse Ox 97.8 F 81 16 168/95 97 07/22/17 03:40 07/22/17 03:40 07/22/17 03:40 07/22/17 03:40 07/22/17 03:40 General appearance: Present: A&O X 3, answers questions appropriately Internal Medicine: Result - Labs CBC & Chem 7: 07/21/17 00:54 07/21/17 00:54 Labs: Cardiac Enzymes 07/21/17 07/21/17 Range/Units 07:06 14:50 Troponin I 0.03 0.03 (0-0.03) ng/mL - ABG Interpretation ABG results: PT/INR, D-dimer PT 10.3 Seconds (9.4-12.1) 07/20/17 18:40 Consult Discharge Plan - Plan Referrals: Cynthia Moon DO [Primary Care Provider] - 08/03/17 3:00 pm
--- NOTE | 2017-07-22 08:38 | Anesthesia Evaluation PreOp ---
Date of Encounter: 07/22/17 Time of Encounter: 08:30 - Past History Planned Operation: EGD Cardiac History: IA (old), HTN, Hyperlipidemia, Other (Mild CAD on cath 1 yr ago.) Pulmonary History: Smoker, COPD [employer] History: Other (anxiety) Other Medical History: Diabetes Type II Anesthesia History: No Prior Anesthetic Complications, Past Anesthesia (ortho) Alcohol Use: rarely Drug use: none Medications and Allergies Aspirin 81 mg PO HS 11/24/15 [History] Albuterol Sulfate [Proair Hfa] 2 puff IH Q4H PRN 06/07/16 [History] Omeprazole [PriLOSEC] 20 mg PO BID 07/31/16 [History] hydrOXYzine HCl [Hydroxyzine HCl] 25 mg PO Q8H 07/31/16 [History] Insulin Glargine,Hum.rec.anlog [Toujeo Solostar] 60 units SQ HS 04/13/17 [ History] Ipratropium/Albuterol Neb [Duoneb] 3 ml IH Q6HR PRN 04/13/17 [History] Nitroglycerin [Nitrostat] 0.4 mg SL Q5M PRN 04/13/17 [History] Metoprolol [Lopressor] 25 mg PO BID #30 tablet 04/15/17 [Rx] Atorvastatin [Lipitor] 80 mg PO HS #30 tab 06/08/17 [Rx] Ibuprofen 800 mg PO Q8H PRN #30 06/08/17 [Rx] amLODIPine [Norvasc] 10 mg PO DAILY #30 tablet 06/08/17 [Rx] Amitriptyline [Elavil] 25 mg PO HS 07/20/17 [History] Gabapentin [Neurontin] 800 mg PO TID 07/20/17 [History] Insulin LISPRO [Humalog Kwikpen U-100] 20 unit SQ TID 07/20/17 [History] Losartan/HCTZ [Hyzaar 50-12.5 Tablet] 1 each PO DAILY 07/20/17 [History] Metformin HCl [Metformin HCl ER] 2,500 mg PO QAM 07/20/17 [History] 3 Allergy/AdvReac Type Severity Reaction Status Date / Time pepper Allergy Severe Anaphylaxis Verified 07/20/17 18:29 lisinopril AdvReac Cough Verified 07/20/17 18:29 - Meds/Allergy Pre-op Review Medications Reviewed: Yes Allergies Reviewed: Yes Beta Blockers on Current Med List: Yes If Beta Blockers taken, Date/Time (Last Dose taken): 07/21 at 0900hrs Anesthesia Results - Labs 07/21/17 00:54 07/21/17 00:54 - Imaging EKG: report reviewed (SINUS RHYTHM BASELINE ARTIFACT) Additional studies: stress test 05/26: Technically challenging 2-day study. No identifiable ischemia. There is bowel wall attenuation artifact involving the inferior wall. Pharmacologic ECG was negative for ischemia at the level of heart rate achieved. Gated EF = 49%. The LV is dilated. echo 05/26: Impressions: LVEF 60%. Normal LV chamber size and function. Mild concentric left ventricular hypertrophy. Mild left ventricular diastolic dysfunction. Normal right ventricular structure and function. Mild mitral regurgitation. No evidence of pulmonary hypertension. RVSP not well obtained and could be underestimated. Anesthesia Exam Selected Entries 07/22/17 08:02 Temperature 97.9 F Pulse Rate 70 Respiratory Rate 16 Blood Pressure 138/96 O2 Sat by Pulse Oximetry 94 Weight: 127kg - [employer] LOC: Oriented [employer] Motor: Normal RUE, Normal LUE, Normal RLE, Normal LLE, Normal Face [employer] Sensory: Normal: RUE, LUE, RLE, LLE, Face - Cardiac Rhythm: Regular Murmur: None - Pulmonary Breath Sounds: bilateral Clear Respiratory Effort: Symmetrical Anesthesia Assess/Plan ASA Score: 2 Modified Meenakshi Scale for Level of Consciousness: Cooperative, oriented, and tranquil Anesthetic Plan: MAC Recovery Plan: Other
[2017-07-22 11:22] VITALS: BP 149/98
--- NOTE | 2017-07-22 11:51 | Gastroenterology Consult Note ---
<Gina Choi - Last Filed: 07/25/17 16:00> Date of Encounter: 07/25/17 Time of Encounter: 10:15 - Assessment and plan (1) Abdominal pain Status: Acute Assessment and plan: RUQ pain for over 1 year. GB ultrasound last year was negative. CT abdomen 05/26 did not show acute abnormality. He has a history of GERD but has been off omeprazole the past month. He was scheduled for EGD/Colonoscopy last year but rescheduled and did not show up. No bleeding or alarm symptoms at this time, would recommend continue PPI and EGD as an outpatient. Qualifiers: Abdominal location: right upper quadrant Qualified Code(s): R10.11 - Right upper quadrant pain (2) Chest pain Status: Acute Assessment and plan: Has a history of CAD but cardiac workup has been negative. May be referred pain from PUD/gastritis/esophagitis. He needs to continue PPI and will schedule EGD as outpatient. Qualifiers: Chest pain type: unspecified Qualified Code(s): R07.9 - Chest pain, unspecified (3) Chronic GERD Status: Chronic Assessment and plan: Continue PPI. - Time Spent With Patient Total time spent is greater than 50% in coordination of care (as documented) at patient's floor/unit and/or counseling patient: GI History of Present Illness - Data of Consult Patient: new to practice Consult date: 07/22/17 Requesting Physician: Stacy Kidd CNP - Consult Narrative Reason for consult: chest pain/abdominal pain History of present illness: Mr. Holland is a 47 year old male with a pmhx of diabetes, hypertension, hyperlipidemia, COPD, coronary disease, and tobacco use. He presented with complaints of chest pain. He decribed the pain as stabbing, starting in his left flank area, radiating around his ribs to the sternum. Pain was relieved with NTG in ER. He also reports occasional RUQ pain, not related to eating. Patient does have a 2 year history of chest pain he did have a heart catheterization approximately one year ago which revealed nonobstructive CAD. Had a cardiac stress in May of this year which was negative for any ischemia. Cardiac workup in the ER negative troponin no ST abnormalities and EKG chest x-ray was negative. CT abd/pelvis 05/26 showed no GI/ abnormality. He saw Dr Bolden in the office last year and was scheduled for EGD/colonoscopy but did not have it done. He had mildly elevated AST and ALT, hepatitis workup was negative at that time. He does report a history of GERD and states he has been out of omeprazole for the past month. He has reflux, denies dysphagia. He denies any nausea or vomiting. He denies diarrhea or constipation. He denies bloody or tarry BMs. He reports moderate alcohol use in the past but states none in the past 10 years. He has multiple tattoos, denies any current or former IVDU. Colonoscopy: never EGD: never NSAIDS/ASA: denies Anticoagulants: denies Past Med Surg Social Fam HX - Past Medical History Medical history: COPD, coronary artery disease, diabetes, hyperlipidemia, hypertension, myocardial infarction, other Psychiatric history: anxiety, depression - Past Surgical History Surgical History: orthopedic, other - Social History Smoking Status: Current every day smoker Smokeless Tobacco Status: No Alcohol use: rarely Drug use: none - Family History Mother Family Member Ethnicity: Non- Living Status: Hx Family Cancer: Yes (Breast with metastasis) Hx Family Endocrine Disorder: Yes (DM) Brother Family Member Ethnicity: Non- Living Status: Still Living Hx Family Endocrine Disorder: Yes (Hypoglycemia) Father Adopted: No Family Member Ethnicity: Non- Living Status: Hx Family Cardiac Disorders: Yes Hx Family Respiratory Disorders: Yes Hx Family Cancer: Yes Hx Family GI Disorders: No Hx Family Endocrine Disorder: No Hx Family Neuromuscular Disorders: No Hx Family Neurologic Disorders: No Hx Family HEENT Disorders: No Hx Family Autoimmune Disorders: No Review of Systems: GI: as per [place] GENERAL: denies fever or chills EYES: denies yellow discoloration ENT: denies pain with swallowing or difficulty swallowing CARDIO: see HPI RESP: No Shortness of breath with exertion : denies change in color of urine NEURO: denies any weakness HEME: Denies any bruising MS: chronic joint pain, joint swelling or back pain. DERM: denies rash or itching PSYCH: history of anxiety or depression - Constitutional Vitals: Temp Pulse Resp BP Pulse Ox 97.6 F 73 16 149/98 95 07/22/17 11:21 07/22/17 11:21 07/22/17 11:21 07/22/17 11:21 07/22/17 11:21 Exam: CONSTITUTIONAL:~alert, no acute distress.~HEAD:~normocephalic.~EYES:~no jaundice.~NECK:~no obvious swelling.~HEART:~regular rate and rhythm, no murmurs. ~LUNGS:~bilateral good air entry.~ABDOMEN:~rounded, non distended, soft, tender RUQ, no masses palpable, no organomegaly.~RECTAL EXAM:~Deferred.~EXTREMITIES:~ no clubbing, cyanosis or edema.~SKIN:~no stigmata of chronic liver disease, multiple tattoos noted.~NEUROLOGIC:~no obvious focal defect.~~~~ Results - Labs CBC & Chem 7: 07/21/17 00:54 07/21/17 00:54 Labs: Last Result Calcium 8.9 mg/dL (8.6-10.8) 07/21/17 00:54 Troponin I 0.03 ng/mL (0-0.03) 07/21/17 14:50 Entire Visit Hgb 15.2 g/dL (12.9-16.9) 07/21/17 00:54 Hct 43.6 % (37.5-50.1) 07/21/17 00:54 PT 10.3 Seconds (9.4-12.1) 07/20/17 18:40 - ABG ABG results: PT/INR, D-dimer PT 10.3 Seconds (9.4-12.1) 07/20/17 18:40 Consult Discharge Plan - Plan Instructions: Chest Pain (DC), Diabetes Mellitus Type 2 in Adults (DC) Additional Instructions: Follow up with PCP. Follow up with Dr. Álvarez for endoscopy. Follow ADA/Cardiac diet. Referrals: Cynthia Moon DO [Primary Care Provider] - 08/03/17 3:00 pm () Román Álvarez MD [Partnered Physician] - Prescriptions: amLODIPine [Norvasc] 10 mg PO DAILY #30 tablet Atorvastatin [Lipitor] 80 mg PO HS #30 tab Losartan/HCTZ [Hyzaar 50-12.5 Tablet] 1 each PO DAILY #30 tablet Metoprolol [Lopressor] 25 mg PO BID #30 tablet Omeprazole [PriLOSEC] 20 mg PO BID #[address] Román Baires - Last Filed: 07/26/17 07:45> Date of Encounter: 07/22/17 - Time Spent With Patient Total time spent is greater than 50% in coordination of care (as documented) at patient's floor/unit and/or counseling patient: GI History of Present Illness - Data of Consult Requesting Physician: Stacy Kidd CNP - Consult Narrative History of present illness: Mr. Holland is a 47 year old male - Constitutional Vitals: Temp Pulse Resp BP Pulse Ox 97.6 F 73 16 149/98 95 07/22/17 11:21 07/22/17 11:21 07/22/17 11:21 07/22/17 11:21 07/22/17 11:21 Results - Labs CBC & Chem 7: 07/21/17 00:54 07/21/17 00:54 Labs: Last Result Calcium 8.9 mg/dL (8.6-10.8) 07/21/17 00:54 Troponin I 0.03 ng/mL (0-0.03) 07/21/17 14:50 Entire Visit Hgb 15.2 g/dL (12.9-16.9) 07/21/17 00:54 Hct 43.6 % (37.5-50.1) 07/21/17 00:54 PT 10.3 Seconds (9.4-12.1) 07/20/17 18:40 - ABG ABG results: PT/INR, D-dimer PT 10.3 Seconds (9.4-12.1) 07/20/17 18:40 - Attending Attestation Mr Holland is here with non cardiac chest pain. It appears he had been scheduled for an EGD and colonoscopy last year but, did not show up. Recommend patient have both these as outpatient. I personally examined and interviewed Mr Holland.
--- NOTE | 2017-07-22 13:41 | Discharge Summary ---
<Dov Talbot - Last Filed: 07/22/17 14:38> Date of Encounter: 07/22/17 Time of Encounter: 13:39 - Discharge Diagnosis (1) Chest pain Priority: Primary Status: Acute Qualifiers: Chest pain type: unspecified Qualified Code(s): R07.9 - Chest pain, unspecified (2) Non-insulin dependent type 2 diabetes mellitus Priority: Secondary Status: Acute (3) Peripheral neuropathy Priority: Secondary Status: Acute Qualifiers: Peripheral neuropathy type: polyneuropathy, unspecified Qualified Code(s): G62.9 - Polyneuropathy, unspecified (4) Tobacco abuse Priority: Secondary Status: Chronic (5) Obesity (BMI 30-39.9) Priority: Secondary Status: Chronic (6) Chronic GERD Priority: Secondary Status: Acute (7) DVT prophylaxis Priority: Secondary Status: Acute - Discharge Medications Prescriptions: amLODIPine [Norvasc] 10 mg PO DAILY #30 tablet Atorvastatin [Lipitor] 80 mg PO HS #30 tab Losartan/HCTZ [Hyzaar 50-12.5 Tablet] 1 each PO DAILY #30 tablet Metoprolol [Lopressor] 25 mg PO BID #30 tablet Omeprazole [PriLOSEC] 20 mg PO BID #60 capsule.dr Home Medications: Aspirin 81 mg PO HS 11/24/15 [History] Albuterol Sulfate [Proair Hfa] 2 puff IH Q4H PRN 06/07/16 [History] Omeprazole [PriLOSEC] 20 mg PO BID 07/31/16 [History] hydrOXYzine HCl [Hydroxyzine HCl] 25 mg PO Q8H 07/31/16 [History] Insulin Glargine,Hum.rec.anlog [Toujeo Solostar] 60 units SQ HS 04/13/17 [ History] Ipratropium/Albuterol Neb [Duoneb] 3 ml IH Q6HR PRN 04/13/17 [History] Nitroglycerin [Nitrostat] 0.4 mg SL Q5M PRN 04/13/17 [History] Ibuprofen 800 mg PO Q8H PRN #30 06/08/17 [Rx] Amitriptyline [Elavil] 25 mg PO HS 07/20/17 [History] Gabapentin [Neurontin] 800 mg PO TID 07/20/17 [History] Insulin LISPRO [Humalog Kwikpen U-100] 20 unit SQ TID 07/20/17 [History] Metformin HCl [Metformin HCl ER] 2,500 mg PO QAM 07/20/17 [History] Atorvastatin [Lipitor] 80 mg PO HS #30 tab 07/22/17 [Rx] Losartan/HCTZ [Hyzaar 50-12.5 Tablet] 1 each PO DAILY #30 tablet 07/22/17 [Rx] Metoprolol [Lopressor] 25 mg PO BID #30 tablet 07/22/17 [Rx] Omeprazole [PriLOSEC] 20 mg PO BID #60 capsule. 07/22/17 [Rx] amLODIPine [Norvasc] 10 mg PO DAILY #30 tablet 07/22/17 [Rx] Allergies/Adverse Reactions: 3 Allergy/AdvReac Type Severity Reaction Status Date / Time pepper Allergy Severe Anaphylaxis Verified 07/20/17 18:29 lisinopril AdvReac Cough Verified 07/20/17 18:29 Date of admission: 07/20/17 22:02 Primary care physician: Cynthia Moon DO Consults: 07/20/17 22:50 Consult to [employer] [CONS] Routine Reason for SW Consult: talk about a living will 07/21/17 14:19 Consult to Gastroenterology [CONS] Routine Consulting Provider: Gastroenterology Monica Reason for Consult: egd, GERD Call Completed: Yes 07/22/17 08:21 consult to pediatric oncology nurse [Consult to Nutrition] [CONS] Routine Comment: non compliant diabetic Consulting Provider: NUTRITION Reason for Dietary Consult: Diet Education Discharging clinician: Dov Talbot Anticipated date of discharge: 07/22/17 - Patient Status Disposition: Home, Self-Care Condition: Good Functional capacity at discharge: independent ambulation Overall status at discharge: patient is progressing back to baseline - Discharge Instructions Instructions: Chest Pain (DC), Diabetes Mellitus Type 2 in Adults (DC), Gastroesophageal Reflux Disease (GEN) Follow Up With: Cynthia Moon DO [Primary Care Provider] - 08/03/17 3:00 pm Oscar Bolden MD [Partnered Physician] - Additional Instructions: Follow up with PCP. Follow up with Dr. Bolden for endoscopy. Follow ADA/Cardiac diet. - Diet and Activity Activity: increase activity as tolerated Diet: diabetic diet, low fat, low cholesterol, low salt diet Interval History: 46-year-old male presents with chief complaint of chest pain. Patient works at a [employer] and had sharp substernal pain that brought him to his knees. When he arrived at [place] he was given two sublingual nitroglycerin which resolved his pain. EKG was NSR with t wave inversions i leads V4,V5,V6. Troponin was 0.02> 0.04>0.03. Patient has been admitted for chest pain multiple times this past year. One month ago echocardiogram showed EF of 60% with left ventricular hypertrophy. Previous 2016 showed minimal three-vessel disease. GIOVANI score 7. Patient had negative stress tests 1 month ago. Patient instructed on aspirin beta davy. Due to multiple recent admission chest pain, an extensive workup cardiac origin of pain was likely. Patient stated he ran a PPI at home. GI was consulted to evaluate patient to rule out referred pain. She really patient stated patient should continue a PPI and and follow-up outpatient for EGD. Plan: Continue PPI, follow-up palpation with GI. Hospital course: Mr. Holland is a 47 year old male - Time Spent with Patient Total time spent providing and/or coordinating discharge services: - Constitutional Vitals: Temp Pulse Resp BP Pulse Ox 97.6 F 73 16 149/98 95 07/22/17 11:21 07/22/17 11:21 07/22/17 11:21 07/22/17 11:21 07/22/17 11:21 General appearance: Present: A&O X 3, answers questions appropriately - Head Head exam: Present: atraumatic, normocephalic - Eye Eye exam: Present: PERRL, conjuntiva pink, sclera anicteric - Neck Neck exam general surgery: Present: supple, trachea midline. Absent: lymphadenopathy - Respiratory Respiratory exam: Present: CTAB. Absent: accessory muscle use, rales, rhonchi, wheezes - Cardiovascular Cardiovascular exam: Present: RRR, +S1, +S2. Absent: diastolic murmur, gallop, rubs, systolic murmur - GI/Abdominal GI/Abdominal exam: Present: normal bowel sounds, soft, no peritoneal signs. Absent: distended, tenderness - Extremities Exam Extremities exam: Present: pedal edema (mild), warm, radial pulses palpable and symmetrical. Absent: calf tenderness, cyanotic - Neurological Exam Neurological exam: Present: CN II-XII intact, oriented X3, no focal deficits. Absent: pronater drift, facial droop, speech deficit - Skin Skin exam: Present: dry, intact <Blaire,Ki P - Last Filed: 07/22/17 19:06> Date of Encounter: 07/22/17 Date of admission: 07/20/17 22:02 Primary care physician: Cynthia Moon DO Consults: 07/20/17 22:50 Consult to [employer] [CONS] Routine Reason for SW Consult: talk about a living will 07/21/17 14:19 Consult to Gastroenterology [CONS] Routine Consulting Provider: Gastroenterology Monica Reason for Consult: egd, GERD Call Completed: Yes 07/22/17 08:21 consult to pediatric oncology nurse [Consult to Nutrition] [CONS] Routine Comment: non compliant diabetic Consulting Provider: NUTRITION Reason for Dietary Consult: Diet Education Hospital course: Mr. Holland is a 47 year old male - Time Spent with Patient Total time spent providing and/or coordinating discharge services: - Constitutional Vitals: Temp Pulse Resp BP Pulse Ox 97.6 F 73 16 149/98 95 07/22/17 11:21 07/22/17 11:21 07/22/17 11:21 07/22/17 11:21 07/22/17 11:21 - Attending Attestation I examined this patient and my medical decision-making was reviewed with the Resident Physician. I agree with the documented findings, disposition and treatment plan as described except to the extent set forth below.
== END 2017-07-22 14:23 | disposition home or self-care (01) ==
LOC: 3BNU 18:28 → EMEROO 18:28 → 3BNU 22:12
PROVIDERS: ADMIT Internal Medicine; ATTEND Registered Nurse

== ENCOUNTER 2019-07-09 14:54 | Inpatient (IN) ==
[2019-07-09] MEDS ORDERED: Aspirin 81 MG TAB.CHEW PO ONE (15:00)
--- NOTE | 2019-07-09 15:04 | Emergency Department Note ---
Disposition Clinical Impression: Non-STEMI (non-ST elevated myocardial infarction) Disposition: Admitted As Inpatient Condition: Serious Time of Disposition: 23:14 Chest Pain HPI - General Chief Complaint: ED Chest Pain Stated Complaint: cp Time Seen by Provider: 07/09/19 14:58 Source: patient Mode of arrival: ambulatory Limitations: no limitations Vital Signs Reviewed: Yes Nursing Notes Reviewed: Yes - History of Present Illness HPI Narrative: Patient is a 49-year-old male past medical history of CHF, COPD, history of acute coronary syndrome with 2 prior heart attacks, recent cardiac catheterization last year without stent placement. Was recently hospitalized in [place] due to a similar presentation where he spent 2 days in the hospital on a nitroglycerin drip before being released without acute intervention. Patient states that on he had severe chest pain which caused him to become weak, the patient states that his legs fell out from under him and he fell down onto his left side injuring his left ribs. Patient states he was able to lift himself from the ground and has had no problems other than a slight pain in his left-sided ribs since the event. The patient states when he woke this morning he had sudden onset 10 out of 10 substernal chest pain without radiation which felt like his prior heart attack but the pain was worse. He states that his pain is worse with exertion as well as deep breathing which he states causes the whole left side of his chest to hurt. The patient states he has been very sweaty and has had difficulty catching his breath, he states that he has been nauseous without vomiting. Patient states that he took aspirin prior to arrival in the ED but that he has run out of nitroglycerin tablets and has not had any other medications prior to arriving in the ED today. Upon my initial evaluation the patient is awake he is alert and oriented engaged conversation answering questions appropriately, he appears to be in acute distress due to his pain and current symptoms. He is pale and diaphoretic, he is notably tachypneic and tachycardic on the monitor, he is using accessory muscles of respiration appears to be anxious. Pt complaint: chest pain Onset (ago): day(s) Duration: gradually worsening Onset: during rest Pain Location: substernal Severity: severe Severity scale (1-10): 10 Quality: sharp, similar to prior [place] Pain Radiation: none Improves with: rest Worsens with: exertion Associated symptoms: Reports: nausea, diaphoresis, dyspnea, sense of impending doom, palpitations Treatments prior to arrival chest pain: aspirin - Related Data On Oral Contraceptives: No Home Medications Medication Instructions Recorded Confirmed No Known Home Drugs 07/09/19 07/09/19 Allergies Allergy/AdvReac Type Severity Reaction Status Date / Time pepper (genus Capsicum) Allergy Severe Anaphylaxis Verified 07/09/19 19:19 [pepper] lisinopril AdvReac Cough Verified 07/09/19 19:19 Review of Systems: *See History of Present Illness for more detail Constitutional: Denies: fever, chills Cardiovascular: Admits: Substernal, pleuritic chest pain worse with exertion Respiratory: Admits: dyspnea, denies: cough, hemoptysis Gastrointestinal: Admits: Nausea. Denies: abdominal pain, vomiting, diarrhea, constipation, hematemesis, melena, hematochezia Genitourinary: Denies: hematuria Musculoskeletal: Denies: back pain, neck pain Neurological: Admits: weakness, lightheadedness/dizziness, denies: Headache, numbness, paresthesias, difficulty with ambulation. Endocrine: Admits: fatigue All systems ED: reviewed and negative except as stated. Review of Systems: As Per HPI Chest Pain PMH - Past Medical History Medical history: Reports: COPD, coronary artery disease, diabetes, hyperlipidemia, hypertension, myocardial infarction, other Surgical history: Reports: orthopedic, other Psychiatric history: Reports: anxiety, depression, PTSD - Social History Smoking Status: Current some day smoker Alcohol use: Reports: none Drug use: Reports: none Physical Exam Constitutional: Acute distress, [id number], engaged to conversation, speech is fluid, answers questions appropriately Neuro: GCS 15, no overt focal neurological deficits Head: Atraumatic, normocephalic Eyes: Pupils equal, round and reactive to light, no scleral icterus, no conjunctival injection Neck: Trachea midline without deviation. Anterior neck is supple without swelling. *Chest: Symmetric chest wall rise *Heart: Cardiac rhythm and rate are regular with S1 and S2 , no S3 or S4 appreciated, no murmurs, gallops, rubs, or clicks. *Lungs: Lungs are clear to auscultation bilaterally, without accessory muscle use or prolonged expiratory phase. No wheezes, rhonchi or stridor appreciated. Abdomen: Abdomen is flat, soft to palpation, normal bowel sounds. No abdominal bruit auscultated. Non-distended, non-rigid, no organomegaly, no ascites appreciated. No pulsatile mass, no tenderness or guarding to palpation in all four quadrants, no rebound Extremities: Normal capillary refill without evidence of pedal edema, joint swelling or erythema. Pulses/motor intact in all 4 extremities. Psychiatric exam: Patient displays a normal affect and mood for the environment. No overt signs of hallucination. Integumentary: warm, dry, intact, normal color. No rash, cyanosis, diaphoresis, erythema, or pallor - General Limitations: no limitations General appearance: alert, in distress Course Course Narrative: Concern for ACS versus trauma versus pulmonary embolism I will obtain basic labs including CBC, BMP, BNP, d-dimer, troponin, EKG/old EKG, chest x-ray Aspirin and nitroglycerin for management of patient's symptoms I discussed my plan of care at patient bedside and he verbalizes understanding and agreement with this course of action. - Reevaluation(s) Reevaluation #1: The patient states he has had some relief of his symptoms with 3 times nitroglycerin tablets. I will start nitro drip at this time. When asking again to confirm no bleeding before heparin drip patient states that he had one isolated incident of black tarry stool yesterday states that he has not feel that it was blood. I will obtain a Hemoccult test at this time for further evaluation. Spoke with cardiology regarding the care of this patient. They advised that if we are concerned about bleeding to not start heparin and that they will see the patient in consultation while admitted to hospital medicine service. Consultation is greatly appreciated. Reevaluation #2: Spoke with hospitalist regarding the care of this patient. requests a small dose of additional morphine on top of nitroglycerin for management of patient's pain. Order has been placed. The patient was started on nitroglycerin drip we are pending a Hemoccult blood test at this time for further evaluation of potential GI bleed. Planning to begin heparin drip in the case of a negative evaluation. Risks versus benefits have been explained to patient bedside and he verbalizes understanding and agreement with this course of action. Reevaluation #3: Patient's Hemoccult blood test is positive. Heparin will be held at this time. Additional Reevaluation(s): Patient repeat troponin elevated at 0.07. Repeat EKG shows no evolving ischemic changes. Vital Signs Temperature 98.0 F 07/09/19 15:01 Pulse Rate 108 07/09/19 15:01 Respiratory Rate 20 07/09/19 15:01 Blood Pressure 181/111 07/09/19 15:01 O2 Sat by Pulse Oximetry 96 07/09/19 15:01 Temperature 98.2 F 07/09/19 21:45 Pulse Rate 93 07/09/19 19:16 Respiratory Rate 20 07/09/19 20:13 Blood Pressure 169/90 07/09/19 21:45 O2 Sat by Pulse Oximetry 98 07/09/19 19:16 Oxygen Delivery Oxygen Delivery Room Air Chest Pain - MDM Narrative Medical decision making narrative: The patients EKG is negative for acute ischemic change, imaging is unremarkable , and laboratory results show a slight elevation in the BNP as well as elevated troponin of 0.06. Patient's heart score is 7. Evaluation results were discussed with the patient and their family member(s) at bedside. Patient was given time to ask questions and state concerns. The patient states that they have had relief of their symptoms with our management here in the ED. The patient will be admitted to the hospitalist medicine service for further evaluation and management of NSTEMI . The patient verbalizes their understanding and agreement with this plan and is hemodynamically stable at the time of admission. - Lab Data Lab results reviewed: Yes I reviewed the patient's lab results. Result diagrams: 07/09/19 15:10 07/09/19 15:10 Lab Results 07/09/19 07/09/19 07/09/19 Range/Units 15:00 15:10 15:10 WBC 12.6 H (4.3-11.1) K/mcL RBC 5.18 (4.19-5.50) M/mcL Hgb 15.4 (12.9-16.9) g/dL Hct 45.3 (37.5-50.1) % MCV 87.5 (83.0-100.0) fL MCH 29.7 (28.0-33.3) pg MCHC 34.0 (31.6-35.5) g/dL RDW 12.0 (11.5-14.5) % Plt Count 261 (140-400) K/mcL MPV 10.8 (9.4-12.4) fL Immature Gran % 0.4 (0-4) % Seg Neutrophils % 68.0 % Lymphocytes % 20.9 % Monocytes % 7.5 % Eosinophils % 2.8 % Basophils % 0.4 % Neutrophils # 8.6 (1.6-8.9) K/mcL Lymphocytes # 2.6 (0.6-4.6) K/mcL Monocytes # 0.9 (0.0-1.3) K/mcL Eosinophils # 0.4 (0.0-0.6) K/mcL Basophils # 0.1 (0.0-0.2) K/mcL PT 11.7 (9.4-12.1) Seconds INR 1.0 APTT 31.1 (26.0-36.0) Seconds D-Dimer 408 (0-500) ng/mLFEU Sodium 139 (136-145) mEq/L Potassium 4.0 (3.5-5.1) mEq/L Chloride 106 (98-107) mEq/L Carbon Dioxide 25 (23-29) mEq/L BUN 17 (6-20) mg/dL Creatinine 0.92 (0.70-1.30) mg/dL Est GFR ( Amer) > 60 (> 60) Est GFR (Non-Af Amer) > 60 (> 60) BUN/Creatinine Ratio 18 (6-26) Glucose 304 H (70-105) mg/dL Calculated Osmolality 301 H (280-300) Calcium 9.5 (8.6-10.3) mg/dL Troponin I 0.06 H* (< 0.04) ng/mL B-Natriuretic Peptide (Less than 100) pg/mL Stool Occult Bld Scrn (Negative) 07/09/19 07/09/19 07/09/19 Range/Units 15:10 16:13 18:23 WBC (4.3-11.1) K/mcL RBC (4.19-5.50) M/mcL Hgb (12.9-16.9) g/dL Hct (37.5-50.1) % MCV (83.0-100.0) fL MCH (28.0-33.3) pg MCHC (31.6-35.5) g/dL RDW (11.5-14.5) % Plt Count (140-400) K/mcL MPV (9.4-12.4) fL Immature Gran % (0-4) % Seg Neutrophils % % Lymphocytes % % Monocytes % % Eosinophils % % Basophils % % Neutrophils # (1.6-8.9) K/mcL Lymphocytes # (0.6-4.6) K/mcL Monocytes # (0.0-1.3) K/mcL Eosinophils # (0.0-0.6) K/mcL Basophils # (0.0-0.2) K/mcL PT (9.4-12.1) Seconds INR APTT (26.0-36.0) Seconds D-Dimer (0-500) ng/mLFEU Sodium (136-145) mEq/L Potassium (3.5-5.1) mEq/L Chloride (98-107) mEq/L Carbon Dioxide (23-29) mEq/L BUN (6-20) mg/dL Creatinine (0.70-1.30) mg/dL Est GFR ( Amer) (> 60) Est GFR (Non-Af Amer) (> 60) BUN/Creatinine Ratio (6-26) Glucose (70-105) mg/dL Calculated Osmolality (280-300) Calcium (8.6-10.3) mg/dL Troponin I 0.07 H* (< 0.04) ng/mL B-Natriuretic Peptide 250 H (Less than 100) pg/mL Stool Occult Bld Scrn Positive A (Negative) - Radiology Data Radiology results reviewed: Yes I reviewed the patient's radiology results. Chest X-Ray 07/09/19 15:18 IMPRESSION: No acute cardiopulmonary process. D/ / Shaina Hugo MD / Shaina Hugo MD Interpreting Provider: Shaina Hugo MD - EKG Data EKG attestation: Yes I reviewed and interpreted this EKG. EKG results narrative: The patients EKG shows a sinus tachycardia left ventricular hypertrophy voltage criteria at a computer analyzed rate of 111 beats per minute, UT interval of 146 milliseconds, a QRS duration of 98 milliseconds, a QT/QTc interval of 349 / 475 milliseconds respectively. There are no significant ST segment elevations, depressions, pathologic Q waves, abnormal T-wave inversions, nor any other signs of acute ischemic change. This EKG that was performed today is generally consistent in morphology with prior EKG that was performed on 09/30/2017. Heart Score - Score History: Highly Suspicious EKG: Non Specific repolarisation Disturbance Age: 45-65 Risk Factors: Equal/Greater than 3 risk factor or history of atherosclerotic disease Troponin: 1-3x normal limit HEART Score Total: 7
[2019-07-09 15:23] LABS: Basophils # 0.1 K/mcL (0.0-0.2); Basophils % 0.4 %; Eosinophils # 0.4 K/mcL (0.0-0.6); Eosinophils % 2.8 %; Hematocrit 45.3 % (37.5-50.1); Hemoglobin 15.4 g/dL (12.9-16.9); Immature Granulocytes % 0.4 % (0-4); Lymphocytes # 2.6 K/mcL (0.6-4.6); Lymphocytes % 20.9 %; Mean Corpuscular Hemoglobin 29.7 pg (28.0-33.3); Mean Corpuscular Volume 87.5 fL (83.0-100.0); Mean Platelet Volume 10.8 fL (9.4-12.4); Monocytes # 0.9 K/mcL (0.0-1.3); Monocytes % 7.5 %; Neutrophils # 8.6 K/mcL (1.6-8.9); Platelet Count 261 K/mcL (140-400); Red Blood Count 5.18 M/mcL (4.19-5.50); White Blood Count 12.6 K/mcL (4.3-11.1)
[2019-07-09] MEDS: Nitroglycerin 0.4 MG TAB.SUBL SL PRN ×3 (15:28→15:40)
[2019-07-09 15:32] LABS: Prothrombin Time 11.7 Seconds (9.4-12.1)
[2019-07-09 15:35] LABS: Activated Partial Thrombo Time 31.1 Seconds (26.0-36.0)
--- NOTE | 2019-07-09 15:35 | Emergency Department Note ---
Disposition Clinical Impression: Non-STEMI (non-ST elevated myocardial infarction) Disposition: Admitted As Inpatient Condition: Serious Referrals: NONE,PCP [Primary Care Provider] - Forms: ED Satisfaction Letter Time of Disposition: 16:31 General Adult HPI - General Chief complaint: ED Chest Pain Stated complaint: cp Time Seen by Provider: 07/09/19 14:58 Source: patient Mode of arrival: ambulatory Limitations: no limitations Nursing Notes Reviewed: Yes Vital Signs Reviewed: Yes - History of Present Illness Pain Scale: 10 - Related Data Home Medications Medication Instructions Recorded Confirmed Aspirin 81 mg PO HS 11/24/15 09/30/17 Albuterol Sulfate [Proair Hfa] 2 puff IH Q4H PRN 06/07/16 09/30/17 Insulin Glargine,Hum.rec.anlog 60 units SQ HS 04/13/17 09/30/17 [Toujeo Solostar] Ipratropium/Albuterol Neb [Duoneb] 3 ml IH Q6HR PRN 04/13/17 09/30/17 Nitroglycerin [Nitrostat] 0.4 mg SL Q5M PRN 04/13/17 09/30/17 Amitriptyline [Elavil] 25 mg PO HS 07/20/17 09/30/17 Gabapentin [Neurontin] 800 mg PO TID 07/20/17 09/30/17 Insulin LISPRO [Humalog Kwikpen 20 unit SQ TID 07/20/17 09/30/17 U-100] Metformin HCl [Metformin ER 2,500 mg PO QAM 07/20/17 09/30/17 Gastric] Previous Rx's Medication Instructions Recorded Ibuprofen 800 mg PO Q8H PRN #30 06/08/17 Atorvastatin [Lipitor] 80 mg PO HS #30 tab 07/22/17 Omeprazole [PriLOSEC] 20 mg PO BID #60 capsule. 07/22/17 amLODIPine [Norvasc] 10 mg PO DAILY #30 tablet 07/22/17 Azithromycin [Zithromax Tri-[place]] 500 mg PO DAILY #5 tablet 10/01/17 predniSONE [PredniSONE] 40 mg PO DAILY #5 tablet 10/01/17 Cyclobenzaprine [Flexeril] 10 mg PO BID PRN #14 tablet 10/30/17 predniSONE [PredniSONE] 60 mg PO DAILY #15 tablet 10/30/17 Allergies Allergy/AdvReac Type Severity Reaction Status Date / Time pepper (genus Capsicum) Allergy Severe Anaphylaxis Verified 10/30/17 10:53 [pepper] lisinopril AdvReac Cough Verified 10/30/17 10:53 Past Medical History - Past Medical History Medical history: Reports: CHF, COPD, coronary artery disease, diabetes, hyperlipidemia, hypertension, myocardial infarction, other Surgical history: Reports: orthopedic, other Psychiatric history: Reports: anxiety, depression, PTSD - Social History Smoking Status: Current every day smoker Smokeless Tobacco Status: No Alcohol use: Reports: none Drug use: Reports: none Physical Exam - General Limitations: no limitations General appearance: alert, in distress Course Vital Signs Temperature 98.0 F 07/09/19 15:01 Pulse Rate 108 07/09/19 15:01 Respiratory Rate 20 07/09/19 15:01 Blood Pressure 181/111 07/09/19 15:01 O2 Sat by Pulse Oximetry 96 07/09/19 15:01 Temperature 98.0 F 07/09/19 15:01 Pulse Rate 97 07/09/19 15:43 Respiratory Rate 16 07/09/19 15:43 Blood Pressure 154/94 07/09/19 15:43 O2 Sat by Pulse Oximetry 96 07/09/19 15:43 Oxygen Delivery Oxygen Delivery Room Air Medical Decision Making - Lab Data Result diagrams: 07/09/19 15:10 07/09/19 15:10 Lab Results 07/09/19 07/09/19 07/09/19 Range/Units 15:00 15:10 15:10 WBC 12.6 H (4.3-11.1) K/mcL RBC 5.18 (4.19-5.50) M/mcL Hgb 15.4 (12.9-16.9) g/dL Hct 45.3 (37.5-50.1) % MCV 87.5 (83.0-100.0) fL MCH 29.7 (28.0-33.3) pg MCHC 34.0 (31.6-35.5) g/dL RDW 12.0 (11.5-14.5) % Plt Count 261 (140-400) K/mcL MPV 10.8 (9.4-12.4) fL Immature Gran % 0.4 (0-4) % Seg Neutrophils % 68.0 % Lymphocytes % 20.9 % Monocytes % 7.5 % Eosinophils % 2.8 % Basophils % 0.4 % Neutrophils # 8.6 (1.6-8.9) K/mcL Lymphocytes # 2.6 (0.6-4.6) K/mcL Monocytes # 0.9 (0.0-1.3) K/mcL Eosinophils # 0.4 (0.0-0.6) K/mcL Basophils # 0.1 (0.0-0.2) K/mcL PT 11.7 (9.4-12.1) Seconds INR 1.0 APTT 31.1 (26.0-36.0) Seconds D-Dimer 408 (0-500) ng/mLFEU Sodium 139 (136-145) mEq/L Potassium 4.0 (3.5-5.1) mEq/L Chloride 106 (98-107) mEq/L Carbon Dioxide 25 (23-29) mEq/L BUN 17 (6-20) mg/dL Creatinine 0.92 (0.70-1.30) mg/dL Est GFR ( Amer) > 60 (> 60) Est GFR (Non-Af Amer) > 60 (> 60) BUN/Creatinine Ratio 18 (6-26) Glucose 304 H (70-105) mg/dL Calculated Osmolality 301 H (280-300) Calcium 9.5 (8.6-10.3) mg/dL Troponin I 0.06 H* (< 0.04) ng/mL B-Natriuretic Peptide (Less than 100) pg/mL 07/09/19 Range/Units 15:10 WBC (4.3-11.1) K/mcL RBC (4.19-5.50) M/mcL Hgb (12.9-16.9) g/dL Hct (37.5-50.1) % MCV (83.0-100.0) fL MCH (28.0-33.3) pg MCHC (31.6-35.5) g/dL RDW (11.5-14.5) % Plt Count (140-400) K/mcL MPV (9.4-12.4) fL Immature Gran % (0-4) % Seg Neutrophils % % Lymphocytes % % Monocytes % % Eosinophils % % Basophils % % Neutrophils # (1.6-8.9) K/mcL Lymphocytes # (0.6-4.6) K/mcL Monocytes # (0.0-1.3) K/mcL Eosinophils # (0.0-0.6) K/mcL Basophils # (0.0-0.2) K/mcL PT (9.4-12.1) Seconds INR APTT (26.0-36.0) Seconds D-Dimer (0-500) ng/mLFEU Sodium (136-145) mEq/L Potassium (3.5-5.1) mEq/L Chloride (98-107) mEq/L Carbon Dioxide (23-29) mEq/L BUN (6-20) mg/dL Creatinine (0.70-1.30) mg/dL Est GFR ( Amer) (> 60) Est GFR (Non-Af Amer) (> 60) BUN/Creatinine Ratio (6-26) Glucose (70-105) mg/dL Calculated Osmolality (280-300) Calcium (8.6-10.3) mg/dL Troponin I (< 0.04) ng/mL B-Natriuretic Peptide 250 H (Less than 100) pg/mL Critical Care Time Critical Care Time: Yes Total Critical Care Time: 40 Attestation: Critical care performed: Time is exclusive of separately billable procedures. Time includes: direct p atient care, patient reassessment, coordination of patient care, interpretation of data (laboratory data, radiology data, and respiratory data), review of patient's medical records, medical consultation and documentation of patient care. Procedures included in critical care time: Procedures excluded from critical care time: Attestation Statement - Attestation Attestation: I examined this patient and my medical decision-making was reviewed with the Resident Physician. I agree with the documented findings, disposition and treatment plan as described except to the extent set forth below. Patient presents to the ED with a chief complaint of chest pain. Patient has substernal chest pressure and feels like something sitting on his chest. He is also having pain in the left lateral ribs, but attributes this to a fall on a rock a few days ago. Patient with recent admission in [place] for chest pain with negative troponins. No leg pain or swelling. No history of blood clots. On examination he is pleasant and conversant sitting up in bed in no distress. Noted to be hypertensive. Regular lungs clear. Plan. Cardiac workup. D- dimer as he is tachycardic. Patient states he has been out of his medications including his Lasix and blood pressure meds. Patient saw having pain, but it is improved after nitroglycerin. His troponin is positive at 0.06. This was discussed with the backshoe person who will see in consultation. Awaiting fecal Hemoccult before starting heparin. Patient is admitted to the hospitalist service.
[2019-07-09 15:43] LABS: BUN/Creatinine Ratio 18 (6-26); Blood Urea Nitrogen 17 mg/dL (6-20); Calcium 9.5 mg/dL (8.6-10.3); Carbon Dioxide 25 mEq/L (23-29); Chloride 106 mEq/L (98-107); Glucose 304 mg/dL (70-105); Osmolality,Calculated 301 (280-300); Sodium 139 mEq/L (136-145); eGFR For African Americans > 60 (> 60); eGFR For Non-African Americans > 60 (> 60)
[2019-07-09 15:47] LABS: Troponin I 0.06 ng/mL (< 0.04)
[2019-07-09] MEDS ORDERED: Morphine Sulfate 2 MG/ML SYRINGE IVP ONE ×2 (16:28→23:43)
[2019-07-09] MEDS ORDERED: Ondansetron 4 MG/2 ML VIAL IVP PRN (16:36)
[2019-07-09] MEDS ORDERED: Naloxone 0.4 MG/ML INJ IVP PRN (16:36)
[2019-07-09] MEDS ORDERED: Dextrose Gel 15 GM/37.5 ML TUBE PO PRN ×2 (16:40)
[2019-07-09] MEDS ORDERED: *HR* Dextrose 50 % in Water (Syg) 50 ML SYRINGE IVP PRN (16:40)
[2019-07-09] MEDS ORDERED: D5% in Water 1,000 ML IVC PRN (16:40)
[2019-07-09] MEDS: Nitroglycerin 25 MG/250 ML INFUS..BTL IVC SCH (16:58)
--- NOTE | 2019-07-09 17:20 | Internal Med History&Physical ---
Date of Encounter: 07/09/19 Time of Encounter: 16:50 Internal Medicine - H&P: HPI Chief complaint: Chest pain Admitted From: Home History of present illness: Mr. Holland is a 49 year old male with history of diabetes, hypertension, nonobstructive CAD, obesity, tobacco abuse, who presented to the ED with 2 day history of chest pain. Stabbing/pressure-like, 10/10 in intensity, non- radiating, no aggravating factor. Was relieved by sublingual nitro he had in the ED. It started as intermittent over the weekend but progressively worsened this morning which woke him up from sleep at around 730am. Associated with shortness of breath and diaphoresis but denies any nausea/vomiting or palpitation. No orthopnea, PND, or leg swelling. Denies any cough, sputum production, fever/chills, abdominal pain, change in bowel habits, or dysuria. Specifically, he denies any melena, hematochezia, bright red blood per rectum, hematemesis, or hemoptysis. States that he has history of internal hemorrhoid. In the ED, he was afebrile but hypertensive at 181/111 and tachycardic. Saturating 96% on room air. Workup showed elevated troponin of 0.06, EKG showing sinus tachycardia with ST depression in V4-6. D-dimer negative. Chest x-ray did not show any acute cardiopulmonary process. FOBT +ve. After being given sublingual nitroglycerin, he was started on nitro drip and admitted for further management with cardiology consultation. Past Med Surg Social Fam HX - Past Medical History Medical history: CHF, COPD, coronary artery disease, diabetes, hyperlipidemia, hypertension, myocardial infarction, other Additional medical history: pt reports vertigo Psychiatric history: anxiety, depression, PTSD - Past Surgical History Surgical History: orthopedic, other Additional surgical history: Left shoulder surgery, right wrist surgery - Social History Smoking Status: Current every day smoker Smokeless Tobacco Status: No Alcohol use: none Drug use: none - Family History Mother Family Member Ethnicity: Non- Living Status: Hx Family Cancer: Yes (Breast with metastasis) Hx Family Endocrine Disorder: Yes (DM) Brother Family Member Ethnicity: Non- Living Status: Still Living Hx Family Endocrine Disorder: Yes (Hypoglycemia) Father Adopted: No Family Member Ethnicity: Non- Living Status: Hx Family Cardiac Disorders: Yes Hx Family Respiratory Disorders: Yes Hx Family Cancer: Yes Hx Family GI Disorders: No Hx Family Endocrine Disorder: No Hx Family Neuromuscular Disorders: No Hx Family Neurologic Disorders: No Hx Family HEENT Disorders: No Hx Family Autoimmune Disorders: No Internal Medicine - H&P: Meds Aspirin 81 mg PO HS 11/24/15 [History] Albuterol Sulfate [Proair Hfa] 2 puff IH Q4H PRN 06/07/16 [History] Insulin Glargine,Hum.rec.anlog [Toujeo Solostar] 60 units SQ HS 04/13/17 [History] Ipratropium/Albuterol Neb [Duoneb] 3 ml IH Q6HR PRN 04/13/17 [History] Nitroglycerin [Nitrostat] 0.4 mg SL Q5M PRN 04/13/17 [History] Ibuprofen 800 mg PO Q8H PRN #30 06/08/17 [Rx] Amitriptyline [Elavil] 25 mg PO HS 07/20/17 [History] Gabapentin [Neurontin] 800 mg PO TID 07/20/17 [History] Insulin LISPRO [Humalog Kwikpen U-100] 20 unit SQ TID 07/20/17 [History] Metformin HCl [Metformin ER Gastric] 2,500 mg PO QAM 07/20/17 [History] Atorvastatin [Lipitor] 80 mg PO HS #30 tab 07/22/17 [Rx] Omeprazole [PriLOSEC] 20 mg PO BID #60 capsule. 07/22/17 [Rx] amLODIPine [Norvasc] 10 mg PO DAILY #30 tablet 07/22/17 [Rx] Azithromycin [Zithromax Tri-[place]incoln] 500 mg PO DAILY #5 tablet 10/01/17 [Rx] predniSONE [PredniSONE] 40 mg PO DAILY #5 tablet 10/01/17 [Rx] Cyclobenzaprine [Flexeril] 10 mg PO BID PRN #14 tablet 10/30/17 [Rx] predniSONE [PredniSONE] 60 mg PO DAILY #15 tablet 10/30/17 [Rx] Allergy/AdvReac Type Severity Reaction Status Date / Time pepper (genus Capsicum) Allergy Severe Anaphylaxis Verified 10/30/17 10:53 [pepper] lisinopril AdvReac Cough Verified 10/30/17 10:53 All Systems PM: A 10-system review of systems was performed and is negative for pertinent findings except as documented above in the HPI. - Constitutional Vitals: Temp Pulse Resp BP Pulse Ox 98.0 F 97 16 154/94 96 07/09/19 15:01 07/09/19 15:43 07/09/19 15:43 07/09/19 15:43 07/09/19 15:43 Exam: General: Alert and oriented, not in acute distress. HEENT:EOMI, pupils equal, round and reactive. Cardiovascular:Normal S1 & S2, No JVD. Pulse regular with normal rate at the time of my exam Lungs: clear to auscultation, no wheezes/rales Abdomen:Soft, non-tender, no rigidity. Extremities:No deformity or swelling Neurological:Normal cognition and motor skills. Non-focal Skin:Normal color, no rash, no lesions. Pulses:Carotid and radial pulses normal +2. Rest of the physical exam is non contributory Internal Med - H&P Results - Labs CBC & Chem 7: 07/09/19 15:10 07/09/19 15:10 Labs: Short CBC 07/09/19 Range/Units 15:10 WBC 12.6 H (4.3-11.1) K/mcL Hgb 15.4 (12.9-16.9) g/dL Hct 45.3 (37.5-50.1) % Plt Count 261 (140-400) K/mcL Neutrophils # 8.6 (1.6-8.9) K/mcL BMP 07/09/19 15:10 Sodium 139 Potassium 4.0 Chloride 106 Carbon Dioxide 25 BUN 17 Creatinine 0.92 Glucose 304 H Calcium 9.5 Cardiac Enzymes 07/09/19 Range/Units 15:10 Troponin I 0.06 H* (< 0.04) ng/mL - Impressions ITS Impressions Chest X-Ray 07/09/19 15:18 IMPRESSION: No acute cardiopulmonary process. D/ / Shaina Hugo MD / Shaina Hugo MD Interpreting Provider: Shaina Hugo MD - Assessment and Plan (1) Non-STEMI (non-ST elevated myocardial infarction) Current Visit: Yes Status: Acute Assessment and plan: presented with acutely worsening CP with elevated trop 0.06 reports 2 prior episodes of PA for which he had LHC done, last one in 03/2018 at the OSH which showed non-obstructive CAD according to the patient Pt was also hypertensive on presentation ?hypertensive emergency. D-dimer is also -ve telemetry, trend troponin start nitro gtt echocardiogram, cardiology consulted check A1c and lipid panel in the AM noted that his FOBT +ve. However, he denies any symptoms of GIB and hemoglobin level is reassuring. Also reports history of internal hemorrhoid. Regardless, since GIB cannot be entirely excluded, will continue to trend H&H and consult GI. Hold off on anticoagulation for now (2) Positive occult stool blood test Current Visit: Yes Status: Acute Assessment and plan: Although stool occult is positive, patient denies any symptoms consistent with GI bleed. 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 insulin use: unspecified bed bug exterminator insulin use status Diabetes mellitus complication status: without complication Qualified Code(s): E11.9 - Type 2 diabetes mellitus without complications (5) HTN (hypertension) Current Visit: No Status: Chronic Assessment and plan: home meds resumed and started on nitro drip as above Qualifiers: Hypertension type: unspecified Qualified Code(s): I10 - Essential (primary) hypertension (6) Current smoker Current Visit: No Status: Chronic Assessment and plan: smoking cessation advised (7) Morbid obesity with BMI of 40.0-44.9, adult Current Visit: Yes Status: Chronic Assessment and plan: lifestyle modifications emphasized (8) DVT prophylaxis Current Visit: Yes Status: Acute Assessment and plan: EPCD - Time Spent With Patient Total time spent is greater than 50% in coordination of care (as documented) at patient's floor/unit and/or counseling patient: Greater than 35 minutes
--- NOTE | 2019-07-09 17:48 | Electrocardiograph Report ---
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
[2019-07-09] MEDS: Insulin DETEMIR 100 UNIT/ML X5UNITS SQ SCH (21:44)
[2019-07-09] MEDS: Insulin LISPRO 300 UNITS/3 ML VIAL SQ SCH (21:50)
[2019-07-09] MEDS ORDERED: *HR* OxyCODONE Immed Rel 5 MG TABLET PO ONE (22:18)
[2019-07-09] MEDS ORDERED: Levalbuterol Neb 1.25 MG/3 ML ONE (23:49)
[2019-07-10] MEDS: Levalbuterol Neb 1.25 MG/3 ML IH SCH ×3 (00:02→09:50)
[2019-07-10 01:03] LABS: Basophils # 0.1 K/mcL (0.0-0.2); Basophils % 0.5 %; Eosinophils # 0.4 K/mcL (0.0-0.6); Eosinophils % 3.2 %; Hematocrit 44.2 % (37.5-50.1); Hemoglobin 14.7 g/dL (12.9-16.9); Immature Granulocytes % 0.2 % (0-4); Lymphocytes # 2.9 K/mcL (0.6-4.6); Lymphocytes % 26.9 %; Mean Corpuscular HGB Conc 33.3 g/dL (31.6-35.5); Mean Corpuscular Hemoglobin 29.7 pg (28.0-33.3); Mean Corpuscular Volume 89.3 fL (83.0-100.0); Mean Platelet Volume 11.1 fL (9.4-12.4); Monocytes # 0.9 K/mcL (0.0-1.3); Monocytes % 8.5 %; Neutrophils # 6.6 K/mcL (1.6-8.9); Platelet Count 227 K/mcL (140-400); Red Blood Count 4.95 M/mcL (4.19-5.50); Red Cell Distribution Width 12.1 % (11.5-14.5); Segmented Neutrophils % 60.7 %; White Blood Count 10.8 K/mcL (4.3-11.1)
[2019-07-10 01:19] LABS: Chol/HDL Ratio 5.4 (0-4.9)
[2019-07-10 01:21] LABS: BUN/Creatinine Ratio 17 (6-26); Blood Urea Nitrogen 19 mg/dL (6-20); Carbon Dioxide 24 mEq/L (23-29); Chloride 104 mEq/L (98-107); Glucose 311 mg/dL (70-105); Osmolality,Calculated 302 (280-300); Potassium 3.8 mEq/L (3.5-5.1); Sodium 139 mEq/L (136-145); eGFR For African Americans > 60 (> 60); eGFR For Non-African Americans > 60 (> 60)
[2019-07-10 07:26] LABS: Estimated Average Glucose 258 mg/dl
[2019-07-10] MEDS: amLODIPine 5 MG TABLET PO SCH (08:29)
[2019-07-10] MEDS: Aspirin Enteric Coated 81 MG Tablet PO SCH (08:29)
[2019-07-10] MEDS: Insulin LISPRO 300 UNITS/3 ML VIAL SQ SCH ×4 (08:30→20:30)
--- NOTE | 2019-07-10 09:10 | Gastroenterology Consult Note ---
<Nely Dukes - Last Filed: 07/10/19 14:46> Date of Encounter: 07/10/19 Time of Encounter: 09:45 - Assessment and plan (1) Positive occult stool blood test Current Visit: Yes Status: Acute Assessment and plan: Patient's Hb/Hct is stable with no complaint of melena, hemotochezia, presence of blood with wiping, or hematemesis. Bowel movement this morning and past weekend has been normal per patient. Patient has not had EGD or colonoscopy done in the past. However, patient is young and is currently stable. - Follow up with GI after discharge to consider EGD/colonscopy - Continue to monitor Hb/Hct - Time Spent With Patient Total time spent is greater than 50% in coordination of care (as documented) at patient's floor/unit and/or counseling patient: 25 - 35 minutes GI History of Present Illness - Data of Consult Patient: known to practice within the last 3 years Requesting Physician: Virgilio Watkins MD - Consult Narrative Reason for consult: Pos FOBT History of present illness: Mr. Holland is a 49 year old male with a history of diabetes, hypertension, ACS with two prior heart attacks and cardiac catheterization without stent placement. He presented with chest "tightness" that started last that caused him to fall and injury his left lateral ribs. The pain subsided after rest but has been intermittent over the weekend, especially with exertion and taking deep breaths. The pain became sharp and constant Tuesday morning that he describes as "stabbing" and "heavy pressure" over his chest similar to his previous heart attacks. He stated he was recently hospitalized this past year for similar complaints where they gave him nitroglycerin drops before discharging him. GI was consulted for positive FOBT test and the possibility of starting Heparin. This morning, patient stated his pain and pressure has improved but is still present. He has not had any EGDs or colonoscopies in the past, and he recalls a few years ago starting the colonoscopy prep as outpatient but he had to be rescheduled, so he did not follow up afterwards. He does state he has mild RLQ abdominal pain off and on the past 4 years and had one episode of "a little dark and sticky" stool a few weeks ago, but otherwise denies any melena, hematochezia, blood with wiping, or changes in bowel movements this past week and year. He stated he does take baby aspirin daily, Advil as needed and took four 200 mg tablets on Tuesday for his rib pains, and denies being on anticoagulants. He denies any hematemesis, nausea, vomiting, weight changes, or constipation. Past Med Surg Social Fam HX - Past Medical History Medical history: CHF, COPD, coronary artery disease, diabetes, hyperlipidemia, hypertension, myocardial infarction, other Additional medical history: pt reports vertigo Psychiatric history: anxiety, depression, PTSD - Past Surgical History Surgical History: orthopedic, other Additional surgical history: Left shoulder surgery, right wrist surgery - Social History Smoking Status: Current every day smoker Smokeless Tobacco Status: No Alcohol use: none Drug use: none - Family History Mother Family Member Ethnicity: Non- Living Status: Hx Family Cancer: Yes (Breast with metastasis) Hx Family Endocrine Disorder: Yes (DM) Brother Family Member Ethnicity: Non- Living Status: Still Living Hx Family Endocrine Disorder: Yes (Hypoglycemia) Father Adopted: No Family Member Ethnicity: Non- Living Status: Hx Family Cardiac Disorders: Yes Hx Family Respiratory Disorders: Yes Hx Family Cancer: Yes Hx Family GI Disorders: No Hx Family Endocrine Disorder: No Hx Family Neuromuscular Disorders: No Hx Family Neurologic Disorders: No Hx Family HEENT Disorders: No Hx Family Autoimmune Disorders: No - Gastrointestinal Gastrointestinal: Present: as per HPI, abdominal pain (stated he has mild RLQ abdominal pain off and on for the past 4 years.), melena (He recalls having one episode of some "sticky black" stool awhile back, but none in the past week.). Absent: bloating, change in bowel habits, constipation, dyspepsia, heartburn, hematemesis, hematochezia, nausea, vomiting - Constitutional Constitutional: no anorexia, no fever(s), no weight gain, no weight loss - EENT Nose, mouth and throat: Absent: dysphagia, hoarseness, sore throat - Cardiovascular Cardiovascular ROS: Present: chest pain, palpitations (during chest pain episode yesterday. ) - Respiratory Respiratory IM: Present: cough (since he fell down last - hurts to cough), dyspnea. Absent: hemoptysis - Genitourinary Genitourinary: Absent: change in color, Urinary frequency Additional Comment: does say his urine is sometimes darker yellow than normal, but goes back to clear/light yellow - Neurological ROS Neurological GI: Present: dizziness (Feeling of dizziness yesterday with chest pain) - Musculoskeletal Musculoskeletal ROS GI: Absent: joint swelling - Integumentary Integumentary GI: Absent: jaundice, pruritis, rash - Psychiatric ROS Psychiatric GI: Present: anxiety (says he feels anxious for years off an on). Absent: depression - Constitutional Vitals: Temp Pulse Resp BP Pulse Ox 97.5 F L 85 18 160/89 96 07/10/19 07:31 07/10/19 07:31 07/10/19 07:31 07/10/19 07:31 07/10/19 07:31 General appearance: Present: A&O X 3, pleasant, no acute distress, obese, answers questions appropriately - Head Head exam: Present: atraumatic, normal inspection - Eye Eye exam: Present: normal appearance, PERRL. Absent: scleral icterus - ENT ENT exam: Present: mucous membranes moist, normal oropharynx - Respiratory Respiratory exam: Present: chest wall tenderness (Lateral left side where he fell), CTAB. Absent: rales, rhonchi, stridor, wheezes - Cardiovascular Cardiovascular exam: Present: RRR, +S1, +S2. Absent: irregular rhythm, tachycardia - GI/Abdominal GI/Abdominal exam: Present: distended, hyperactive bowel sounds (stated he is hungry), soft, tenderness (tender LLQ upon deep palpation). Absent: firm, guarding, mass, rebound, rigid, no peritoneal signs - Extremities Exam Extremities exam: Present: pedal edema (+1 edema LE bilateral), warm - Psychiatric Psychiatric exam: Present: normal affect - Skin Skin exam: Present: dry, normal color, warm. Absent: diaphoretic, erythema Results - Labs CBC & Chem 7: 07/10/19 00:25 07/10/19 00:25 Labs: Last Result 07/10/19 07/10/19 07/10/19 00:25 00:25 00:25 Calcium 9.0 Troponin I 0.07 H* Triglycerides 184 H Entire Visit 07/10/19 00:25 Hgb 14.7 Hct 44.2 - ABG ABG results: PT/INR, D-dimer PT 11.7 Seconds (9.4-12.1) 07/09/19 15:00 D-Dimer 408 ng/mLFEU (0-500) 07/09/19 15:00 - Impressions Impressions Chest X-Ray 07/09/19 15:18 IMPRESSION: No acute cardiopulmonary process. D/ / Shaina Hugo MD / Shaina Hugo MD Interpreting Provider: Shaina Hugo MD Consult Discharge Plan - Plan Referrals: NONE,PCP [Primary Care Provider] - <Derek Boldened - Last Filed: 07/10/19 20:39> Date of Encounter: 07/10/19 Time of Encounter: 14:00 - Time Spent With Patient Total time spent is greater than 50% in coordination of care (as documented) at patient's floor/unit and/or counseling patient: GI History of Present Illness - Data of Consult Requesting Physician: Virgilio Watkins MD - Consult Narrative History of present illness: Mr. Holland is a 49 year old male - Constitutional Vitals: Temp Pulse Resp BP Pulse Ox 98.2 F 83 16 146/84 97 07/10/19 18:53 07/10/19 18:53 07/10/19 18:53 07/10/19 18:53 07/10/19 18:53 Results - Labs CBC & Chem 7: 07/10/19 00:25 07/10/19 00:25 - ABG ABG results: PT/INR, D-dimer PT 11.7 Seconds (9.4-12.1) 07/09/19 15:00 D-Dimer 408 ng/mLFEU (0-500) 07/09/19 15:00 - Impressions Impressions Echocardiogram 07/10/19 14:13 Impressions: LVEF 50-55%. Moderate left ventricular diastolic dysfunction. Normal right ventricular structure and function. Moderately dilated left atrium. Moderate mitral regurgitation with eccentric jet directed posteriorly. No evidence of pulmonary hypertension. Left Ventricular Wall Motion: Rest Echo Findings All wall segments showed normal motion. Findings: Study Quality * Technically adequate exam. ECG Findings * Normal sinus rhythm. Left Ventricle * LVEF 50-55%. * Normal LV chamber size. * Moderate left ventricular diastolic dysfunction. * Mild concentric left ventricular hypertrophy. Right Ventricle * Normal right ventricular structure and function. Left Atrium * Moderately dilated left atrium. Right Atrium * Normal right atrial size. Interatrial Septum * No evidence of PFO by color Doppler. Aortic Valve * Trileaflet aortic valve. * No aortic regurgitation. * No aortic stenosis. Mitral Valve * No mitral stenosis. * Mitral valve not well visualized. * Moderate mitral regurgitation with eccentric jet directed posteriorly. Tricuspid Valve * Trace tricuspid regurgitation. * No tricuspid stenosis. * No evidence of pulmonary hypertension. * Normal tricuspid valve structure. Pulmonic Valve * Pulmonic valve not well visualized. Aorta * Normally sized aortic root. Pericardium * The pericardium appears normal. IVC * The IVC is dilated. Pulmonary Artery * Normal visualized portions of the main pulmonary artery. - Attending Attestation I examined this patient and my medical decision-making was reviewed with the medical student. I agree with the documented findings, disposition and tr eatment plan as described except to the extent set forth below. Patient seen currently denies abdominal pain denies any blood in the stool on examination abdomen is soft. Assessment: Patient positive stool guaiac but no anemia no overt GI bleeding. Recommendation: No need for endoscopy. Follow up with GI as an outpatient
[2019-07-10] MEDS: traMADol 50 MG TABLET PO PRN ×2 (09:44→20:28)
--- NOTE | 2019-07-10 10:46 | Internal Med Progress Note ---
Hospitalist Progress Note - Encounter Date of Encounter: 07/10/19 Time of Encounter: 08:30 - Subjective Interval History: States that his chest pain improved but still remains around 2-3. Denies any shortness of breath, palpitation, nausea/vomiting, or diaphoresis. - Exam Vitals: Temp Pulse Resp BP Pulse Ox 97.5 F L 85 18 160/89 94 07/10/19 07:31 07/10/19 07:31 07/10/19 09:52 07/10/19 07:31 07/10/19 09:52 Exam: General: Alert and oriented, not in acute distress. Cardiovascular:Normal S1 & S2, No JVD. Pulse regular with normal rate Lungs: clear to auscultation, no wheezes/rales Abdomen:Soft, non-tender, no rigidity. Extremities:No deformity or swelling Neurological:Normal cognition and motor skills. Non-focal Skin:Normal color, no rash, no lesions. - Assessment and Plan (1) Elevated troponin Current Visit: Yes Status: Acute Assessment and Plan: presented with acutely worsening CP with elevated trop 0.06 reports 2 prior episodes of [place] for which he had LHC done, last one in 03/2018 at the OSH which showed non-obstructive CAD according to the patient trop remains flat and adnyamic, unlikely to represent ACS Pt was also hypertensive on presentation ?hypertensive emergency. D-dimer is -ve will add coreg and norvasc, wean nitro follow up on echocardiogram and cardiology input continue asa, statin (2) Non-STEMI (non-ST elevated myocardial infarction) Current Visit: Yes Status: Suspected Assessment and Plan: as above, unlikely to represent type I event (3) Positive occult stool blood test Current Visit: Yes Status: Acute Assessment and Plan: Although stool occult is positive, patient denies any symptoms consistent with GI bleed. Self-reported history of internal hemorrhoid as well H&H and hemodynamic parameter remains stable, follow up with GI rec (4) COPD (chronic obstructive pulmonary disease) Current Visit: Yes Status: Chronic Assessment and Plan: Not in exacerbation, continue bronchodilator smoking cessation emphasized (5) Diabetes mellitus Current Visit: No Status: Chronic Assessment and Plan: A1c 10.6 Basal bolus insulin coverage (6) HTN (hypertension) Current Visit: No Status: Chronic Assessment and Plan: coreg and norvasc started, wean nitro (7) Current smoker Current Visit: No Status: Chronic Assessment and Plan: smoking cessation advised (8) Morbid obesity with BMI of 40.0-44.9, adult Current Visit: Yes Status: Chronic Assessment and Plan: lifestyle modifications emphasized (9) DVT prophylaxis Current Visit: Yes Status: Acute Assessment and Plan: EPCD - Time Spent with Patient Total time spent is greater than 50% in coordination of care (as documented) at patient's floor/unit and/or counseling patient: 25 - 35 minutes Plan of Care Discussed with: patient Internal Medicine: Result - Labs CBC & Chem 7: 07/10/19 00:25 07/10/19 00:25 Labs: Short CBC 07/09/19 07/10/19 Range/Units 15:10 00:25 WBC 12.6 H 10.8 (4.3-11.1) K/mcL Hgb 15.4 14.7 (12.9-16.9) g/dL Hct 45.3 44.2 (37.5-50.1) % Plt Count 261 227 (140-400) K/mcL Neutrophils # 8.6 6.6 (1.6-8.9) K/mcL BMP 07/09/19 07/10/19 15:10 00:25 Sodium 139 139 Potassium 4.0 3.8 Chloride 106 104 Carbon Dioxide 25 24 BUN 17 19 Creatinine 0.92 1.13 Glucose 304 H 311 H Calcium 9.5 9.0 Cardiac Enzymes 07/09/19 07/09/19 07/10/19 Range/Units 15:10 18:23 00:25 Troponin I 0.06 H* 0.07 H* 0.07 H* (< 0.04) ng/mL - ABG Interpretation ABG results: PT/INR, D-dimer PT 11.7 Seconds (9.4-12.1) 07/09/19 15:00 D-Dimer 408 ng/mLFEU (0-500) 07/09/19 15:00 - Impressions Impressions Chest X-Ray 07/09/19 15:18 IMPRESSION: No acute cardiopulmonary process. D/ / Shaina Hugo MD / Shaina Hugo MD Interpreting Provider: Shaina Hugo MD Consult Discharge Plan - Plan Referrals: NONE,PCP [Primary Care Provider] - (4) COPD (chronic obstructive pulmonary disease) Qualifiers: COPD type: COPD with acute exacerbation Qualified Code(s): J44.1 - Chronic obstructive pulmonary disease with (acute) exacerbation (5) Diabetes mellitus Qualifiers: Diabetes mellitus type: type 2 Diabetes mellitus superintendent terminal insulin use: unspecified halfway insulin use status Diabetes mellitus complication status: without complication Qualified Code(s): E11.9 - Type 2 diabetes mellitus without complications (6) HTN (hypertension) Qualifiers: Hypertension type: unspecified Qualified Code(s): I10 - Essential (primary) hypertension
--- NOTE | 2019-07-10 10:50 | Cardiology Consult Note ---
<Galen Freed - Last Filed: 07/10/19 12:47> Date of Encounter: 07/10/19 Time of Encounter: 10:47 Assessment and Plan (1) Elevated troponin Current Visit: Yes Status: Acute Troponin 0.06, 0.07, 0.07. BP on admission 181/111. Hemoccult positive. Likely demand ischemia. Nondiagnostic for ACS. Cardiac rehab not warranted. Chest pain x 2 days, atypical--constant, worse when lying flat, improves sitting up. Pt reports having a LHC at [facility] in 2018 without intervention--will request records. TTE 06/06/17: LVEF 60%. Mild cLVH. Mild LVDD. Normal RV structure and function. Mild MR. No evidence of phtn. 2 day nuclear stress 06/07/17: Technically challenging study. No identifiable ischemia. Gated EF 49%. Dilated LV. [facility] 07/31/16 Minimal 3V CAD. EF 60%. Repeat TTE to evaluate EF. 16 beat run NSVT on tele. BB started. Will discuss and review with Dr. Caba. (2) Chest pain Current Visit: No Status: Acute Chest pain x 2 days, atypical--constant, worse when lying flat, improves sitting up. Pt reports having a LHC at [facility] in 2018 without intervention--will request records. [facility] 07/31/16 Minimal 3V CAD. EF 60%. Plan as above. Qualifiers: Chest pain type: chest pain on breathing Qualified Code(s): R07.1 - Chest pain on breathing (3) NSVT (nonsustained ventricular tachycardia) Current Visit: Yes Status: Acute 16 beat run NSVT noted on tele. Hx of minimal CAD on [facility] 2015. Requested most recent LHC from [facility]. BB started. K, Mag WNL. TTE to evaluate structure and function. (4) CAD (coronary artery disease) Current Visit: No Status: Chronic Minimal 3V CAD on [facility] 07/2016 at [facility]. Reports LHC 1 year ago at [facility] without intervention. Records requested. Recommend ASA, Statin, BB. Qualifiers: Coronary Disease-Associated Artery/Lesion type: grindstone artery [place] vs. transplanted heart: grindstone heart Associated angina: without angina Qualified Code(s): I25.10 - Atherosclerotic heart disease of grindstone coronary artery without angina pectoris Discussion w patient/family: The assessment and plan as outlined above was discussed with the patient and/or family members who expressed understanding and agreement. All questions were answered. Thank you for involving us in the care of your patient. Please call with any questions. I will discuss all the above with Dr. Caba and make changes as necessary. History of Present Illness Consult date: 07/10/19 Consult reason: chest pain, elevated troponin Chief complaint: chest pain History of present illness: Mr. Holland is a 49 year old male with PMH of diabetes, hypertension, nonobstructive CAD, obesity, tobacco abuse, who presented to the ED with 2 day history of chest pain. Stabbing/pressure-like, 10/10 in intensity, non- radiating, no aggravating factor. It started as intermittent over the weekend but now constant, associated with shortness of breath. Worsens when lying flat, improves with sitting up. BP on admission 181/111. Troponin 0.06, 0.07, 0.07. Cardiology consulted for further recs. Hemoccult positive. GI consulted. Pt reports having a LHC at [facility] in 2018 without intervention. Prior CV testing: TTE 06/06/17: LVEF 60%. Normal LV chamber size and function. Mild cLVH. Mild LVDD. Normal RV structure and function. Mild MR. No evidence of phtn. 2 day nuclear stress 06/07/17: Technically challenging study. No identifiable ischemia. Gated EF 49%. Dilated LV. LHC 07/31/16: There is minimal three vessel coronary artery disease. The left ventricle is normal and has normal contractility EF 60% Past Med Surg Social Fam HX - Past Medical History Medical history: CHF, COPD, coronary artery disease, diabetes, hyperlipidemia, hypertension, myocardial infarction, other Additional medical history: pt reports vertigo Psychiatric history: anxiety, depression, PTSD - Past Surgical History Surgical History: orthopedic, other Additional surgical history: Left shoulder surgery, right wrist surgery - Social History Smoking Status: Current every day smoker Smokeless Tobacco Status: No Alcohol use: none Drug use: none - Family History Mother Family Member Ethnicity: Non- Living Status: Hx Family Cancer: Yes (Breast with metastasis) Hx Family Endocrine Disorder: Yes (DM) Brother Family Member Ethnicity: Non- Living Status: Still Living Hx Family Endocrine Disorder: Yes (Hypoglycemia) Father Adopted: No Family Member Ethnicity: Non- Living Status: Hx Family Cardiac Disorders: Yes Hx Family Respiratory Disorders: Yes Hx Family Cancer: Yes Hx Family GI Disorders: No Hx Family Endocrine Disorder: No Hx Family Neuromuscular Disorders: No Hx Family Neurologic Disorders: No Hx Family HEENT Disorders: No Hx Family Autoimmune Disorders: No Medications and Allergies No Known Home Drugs 07/09/19 [History] Allergy/AdvReac Type Severity Reaction Status Date / Time pepper (genus Capsicum) Allergy Severe Anaphylaxis Verified 07/09/19 19:19 [pepper] lisinopril AdvReac Cough Verified 07/09/19 19:19 All Systems Review: The remainder of the systems were reviewed and are negative - Cardiovascular Cardiovascular: as per HPI, chest pain at rest, chest pain with exertion, dyspnea at rest, dyspnea on exertion Physical Examination Vital Signs, Last 4 Hours Temp Pulse Resp BP Pulse Ox 07/10/19 09:52 18 94 07/10/19 07:31 97.5 F L 85 18 160/89 96 Vital Signs Temp Pulse Resp BP Pulse Ox 07/10/19 09:52 18 94 07/10/19 07:31 97.5 F L 85 18 160/89 96 07/10/19 05:03 97.7 F 95 20 164/83 97 07/10/19 03:24 18 96 07/09/19 23:57 97.8 F 86 20 176/103 94 07/09/19 23:54 16 94 07/09/19 21:45 98.2 F 169/90 07/09/19 20:13 98.2 F 20 176/90 07/09/19 19:16 93 20 168/98 98 07/09/19 18:46 79 12 156/94 98 07/09/19 17:44 91 16 153/86 96 07/09/19 17:00 91 18 163/100 97 07/09/19 16:15 97 16 153/97 97 07/09/19 15:43 97 16 154/94 96 07/09/19 15:38 105 161/94 07/09/19 15:34 104 18 174/98 96 07/09/19 15:30 96 18 175/102 96 07/09/19 15:01 98.0 F 108 20 181/111 96 Intake and Output 0907/10/19 07/10/19 23:59 07:59 15:59 Intake Total 240 / 240 240 / 285 45 / 285 Output Total 400 / 1100 700 / 1100 Balance 240 / 240 -160 / -815 -655 / -815 Intake: IV Fluids 45 / 45 Nitroglycerin Premix 25 MG/250 45 / 45 ML 25 mg In 250 ml @ 5 MCG/MIN 3 mls/hr IVC .Q24H YASEMIN Rx#: [id number] Oral 240 / 240 240 / 240 0 / 240 Output: Urine 400 / 1100 700 / 1100 Other: # Voids 1 Weight 127.4 kg 128 kg Blood Glucose* 196 Patient Weight 07/10/19 23:59 Weight 128 kg Vital Signs Temp Pulse Resp BP Pulse Ox 07/10/19 09:52 18 94 07/10/19 07:31 97.5 F L 85 18 160/89 96 07/10/19 05:03 97.7 F 95 20 164/83 97 07/10/19 03:24 18 96 07/09/19 23:57 97.8 F 86 20 176/103 94 07/09/19 23:54 16 94 07/09/19 21:45 98.2 F 169/90 07/09/19 20:13 98.2 F 20 176/90 07/09/19 19:16 93 20 168/98 98 07/09/19 18:46 79 12 156/94 98 07/09/19 17:44 91 16 153/86 96 07/09/19 17:00 91 18 163/100 97 07/09/19 16:15 97 16 153/97 97 07/09/19 15:43 97 16 154/94 96 07/09/19 15:38 105 161/94 07/09/19 15:34 104 18 174/98 96 07/09/19 15:30 96 18 175/102 96 07/09/19 15:01 98.0 F 108 20 181/111 96 Intake and Output 07/09/19 07/10/19 07/10/19 23:59 07:59 15:59 Intake Total 240 / 240 240 / 285 45 / 285 Output Total 400 / 1100 700 / 1100 Balance 240 / 240 -160 / -815 -655 / -815 Intake: IV Fluids 45 / 45 Nitroglycerin Premix 25 MG/250 45 / 45 ML 25 mg In 250 ml @ 5 MCG/MIN 3 mls/hr IVC .Q24H YASEMIN Rx#: [id number] Oral 240 / 240 240 / 240 0 / 240 Output: Urine 400 / 1100 700 / 1100 Other: # Voids 1 Weight 127.4 kg 128 kg Blood Glucose* 196 Patient Weight 07/10/19 23:59 Weight 128 kg General: Conversant, No Apparent Distress HEENT: Atraumatic, Normocephaly, Mucus Membranes Moist Neck: No JVD, Normal carotid pulses Cardiac: Reg Rate and Rhythm, Normal S1 and S2, No Murmur Lungs: Normal Breath Sounds, No Wheeze, Rales, Rhonchi Neuro: Alert and responsive, No focal deficits noted Abdomen: Soft, Other (RLQ tenderness on palpation) Skin: No rashes noted on visualized skin Musculoskeletal: No Chest Wall Tenderness Extremities: No Clubbing, No Cyanosis, No Edema, Normal Pulses Results 07/10/19 00:25 07/10/19 00:25 Lab Results 07/09/19 07/09/19 07/09/19 15:00 15:10 15:10 WBC 12.6 H Hgb 15.4 Hct 45.3 Plt Count 261 INR 1.0 APTT 31.1 D-Dimer 408 Sodium 139 Potassium 4.0 Chloride 106 Carbon Dioxide 25 BUN 17 Creatinine 0.92 Glucose 304 H Calcium 9.5 Magnesium Troponin I 0.06 H* B-Natriuretic Peptide 07/09/19 07/09/19 07/10/19 15:10 18:23 00:25 WBC Hgb Hct Plt Count INR APTT D-Dimer Sodium Potassium Chloride Carbon Dioxide BUN Creatinine Glucose Calcium Magnesium Troponin I 0.07 H* 0.07 H* B-Natriuretic Peptide 250 H 07/10/19 07/10/19 00:25 00:25 WBC 10.8 Hgb 14.7 Hct 44.2 Plt Count 227 INR APTT D-Dimer Sodium 139 Potassium 3.8 Chloride 104 Carbon Dioxide 24 BUN 19 Creatinine 1.13 Glucose 311 H Calcium 9.0 Magnesium 2.0 Troponin I B-Natriuretic Peptide Short CBC 07/10/19 07/09/19 Range/Units 00:25 15:10 WBC 10.8 12.6 H (4.3-11.1) K/mcL Hgb 14.7 15.4 (12.9-16.9) g/dL Hct 44.2 45.3 (37.5-50.1) % Plt Count 227 261 (140-400) K/mcL Neutrophils # 6.6 8.6 (1.6-8.9) K/mcL BMP 07/10/19 07/09/19 Range/Units 00:25 15:10 Sodium 139 139 (136-145) mEq/L Potassium 3.8 4.0 (3.5-5.1) mEq/L Chloride 104 106 (98-107) mEq/L Carbon Dioxide 24 25 (23-29) mEq/L BUN 19 17 (6-20) mg/dL Creatinine 1.13 0.92 (0.70-1.30) mg/dL Glucose 311 H 304 H (70-105) mg/dL Calcium 9.0 9.5 (8.6-10.3) mg/dL Cardiac Enzymes 07/10/19 07/09/19 07/09/19 Range/Units 00:25 18:23 15:10 Troponin I 0.07 H* 0.07 H* 0.06 H* (< 0.04) ng/mL Impressions Chest X-Ray 07/09/19 15:18 IMPRESSION: No acute cardiopulmonary process. D/ / Shaina Hugo MD / Shaina Hugo MD Interpreting Provider: Shaina Hugo MD Impressions Chest X-Ray 07/09/19 15:18 IMPRESSION: No acute cardiopulmonary process. D/ / Shaina Hugo MD / Shaina Hugo MD Interpreting Provider: Shaina Hugo MD Active Medications Amlodipine Besylate (Norvasc) 5 mg PO DAILY [facility]; Protocol Stop: 01/09/20 09:01 Last Admin: 07/10/19 08:29 Dose: 5 mg Documented by: Aspirin (Aspirin Ec) 81 mg PO DAILY [facility] Stop: 01/09/20 09:01 Last Admin: 07/10/19 08:29 Dose: 81 mg Documented by: Atorvastatin Calcium (Lipitor) 40 mg PO [facility] Stop: 01/08/20 21:01 Last Admin: 07/09/19 21:44 Dose: 40 mg Documented by: Carvedilol (Coreg) 12.5 mg PO BIDWM [facility]; Protocol Stop: 01/09/20 08:01 Last Admin: 07/10/19 08:29 Dose: 12.5 mg Documented by: Dextrose/Water (Dextrose 50% (Syg)) 25 ml IVP AD PRN PRN Reason: Hypoglycemia Stop: 01/08/20 16:41 Glucagon (Glucagen) 1 mg IM ONCE PRN PRN Reason: Hypoglycemia Stop: 01/08/20 16:41 Glucose (Gluctose) 15 gm PO ONCE PRN PRN Reason: Hypoglycemia Stop: 01/08/20 16:41 Glucose (Gluctose) 30 gm PO ONCE PRN PRN Reason: Hypoglycemia Stop: 01/08/20 16:41 Nitroglycerin (Nitroglycerin Premix 25 Mg/250 Ml) 25 mg in 250 mls @ 3 mls/hr IVC .Q24H [facility]; Protocol Stop: 01/08/20 16:31 Last Titration: 07/10/19 08:50 Dose: 0 mcg/min, 0 mls/hr Documented by: Dextrose (Dextrose 5%) 1,000 mls @ 100 mls/hr IVC .Q10H PRN PRN Reason: HYPOGLYCEMIA Stop: 01/08/20 16:41 Insulin Detemir (Levemir) 20 unit 0.15 unit/kg (20 unit) SQ [facility] Stop: 01/08/20 21:01 Last Admin: 07/09/19 21:44 Dose: 20 unit Documented by: Insulin Human Lispro (Humalog) [facility]; Protocol Stop: 01/09/20 07:31 Last Admin: 07/10/19 08:30 Dose: 4 units Documented by: Insulin Human Lispro (Humalog) 0 units SQ [facility]; Protocol Stop: 01/08/20 21:01 Last Admin: 07/09/19 21:50 Dose: 5 unit Documented by: Levalbuterol HCl (Xopenex) 1.25 mg IH [id number] [facility] Stop: 01/09/20 00:01 Last Admin: 07/10/19 09:50 Dose: 1.25 mg Documented by: Lidocaine HCl (Lidoderm 5% Patch) 2 each TP DAILY [facility] Stop: 01/09/20 09:01 Last Admin: 07/10/19 08:29 Dose: 2 each Documented by: Naloxone HCl (Narcan) 0.4 mg IVP Q2MPRN PRN PRN Reason: SEE COMMENTS Stop: 01/08/20 16:37 Omeprazole (Prilosec) 40 mg PO DAILY@0630 [facility]; Protocol Stop: 01/09/20 10:52 Ondansetron HCl (Zofran) 4 mg IVP Q8HR PRN PRN Reason: Nausea And Vomiting Stop: 01/08/20 16:37 Tramadol HCl (Ultram) 50 mg PO Q6HR PRN PRN Reason: mild to moderate pain Stop: 01/09/20 08:52 Last Admin: 07/10/19 09:44 Dose: 50 mg Documented by: - Imaging and Cardiology Stress Test: report reviewed Echo: report reviewed Cardiac cath: report reviewed - EKG Interpretation EKG results cardiology: personally reviewed (SR), other (12 hr tele AVG HR 71, 16 beat NSVT) Consult Discharge Plan - Plan Referrals: NONE,PCP [Primary Care Provider] - Cardiac Rehab - Cardiac Rehab Cardiac Rehab: Phase I consult completed. Patient was educated on why Cardiac Rehabilitation is beneficial to his/her health. Participating in a cardiac rehabilitation can improve the following: strengthen your heart, improve ejection fraction, weight reduction, decrease cholesterol levels, lower blood pressure, lower blood sugar, improve stamina, and enhance self-image. If he/she has any questions, they were instructed to call [facility] at [phone]. <Kalpana Caba - Last Filed: 07/10/19 13:58> Date of Encounter: 07/10/19 - Attending Attestation I examined this patient and my medical decision-making was reviewed with the TICKET DISPENSER CHANGER. I agree with the documented findings, disposition and treatment plan as described. Mr. Holland presents with atypical chest discomfort with mildly elevated, flat, adynamic troponins. Incidentally, BP very elevated on admission, 181/111 mmHg. Troponins are not diagnostic for ACS. LHC 2016 minimal disease. Reportedly had LHC at [facility] 1 year ago without intervention - record request sent. Recommend TTE to help guide management. Assessment and Plan Discussion w patient/family: The assessment and plan as outlined above was discussed with the patient and/or family members who expressed understanding and agreement. All questions were answered. Thank you for involving us in the care of your patient. Please call with any questions. History of Present Illness History of present illness: Mr. Holland is a 49 year old male All Systems Review: The remainder of the systems were reviewed and are negative Physical Examination Vital Signs, Last 4 Hours Temp Pulse Resp BP Pulse Ox 07/10/19 11:24 97.7 F 76 16 133/75 95 Results 07/10/19 00:25 07/10/19 00:25 Lab Results 07/09/19 07/09/19 07/09/19 15:00 15:10 15:10 WBC 12.6 H Hgb 15.4 Hct 45.3 Plt Count 261 INR 1.0 APTT 31.1 D-Dimer 408 Sodium 139 Potassium 4.0 Chloride 106 Carbon Dioxide 25 BUN 17 Creatinine 0.92 Glucose 304 H Calcium 9.5 Magnesium Troponin I 0.06 H* B-Natriuretic Peptide 07/09/19 07/09/19 07/10/19 15:10 18:23 00:25 WBC Hgb Hct Plt Count INR APTT D-Dimer Sodium Potassium Chloride Carbon Dioxide BUN Creatinine Glucose Calcium Magnesium Troponin I 0.07 H* 0.07 H* B-Natriuretic Peptide 250 H 07/10/19 07/10/19 00:25 00:25 WBC 10.8 Hgb 14.7 Hct 44.2 Plt Count 227 INR APTT D-Dimer Sodium 139 Potassium 3.8 Chloride 104 Carbon Dioxide 24 BUN 19 Creatinine 1.13 Glucose 311 H Calcium 9.0 Magnesium 2.0 Troponin I B-Natriuretic Peptide Cardiac Rehab - Cardiac Rehab Cardiac Rehab: Phase I consult completed. Patient was educated on why Cardiac Rehabilitation is beneficial to his/her health. Participating in a cardiac rehabilitation can improve the following: strengthen your heart, improve ejection fraction, weight reduction, decrease cholesterol levels, lower blood pressure, lower blood sugar, improve stamina, and enhance self-image. If he/she has any questions, they were instructed to call [facility] at [phone].
[2019-07-10] MEDS ORDERED: Ipratropium/Albuterol Neb 3 ML IH PRN (11:03)
--- NOTE | 2019-07-10 11:30 | Electrocardiograph Report ---
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
--- NOTE | 2019-07-10 11:30 | Electrocardiograph Report ---
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
[2019-07-10] MEDS: Nitroglycerin 25 MG/250 ML INFUS..BTL IVC SCH (13:06)
[2019-07-10] MEDS: Insulin DETEMIR 100 UNIT/ML X5UNITS SQ SCH (20:29)
[2019-07-10] MEDS ORDERED: Levalbuterol Neb 1.25 MG/3 ML IH SCH (23:45)
[2019-07-11] MEDS ORDERED: *HR* HYDROcodone/Acet 5/325 mg TABLET PO ONE (00:15)
[2019-07-11 01:25] LABS: Hematocrit 42.4 % (37.5-50.1); Hemoglobin 14.2 g/dL (12.9-16.9); Mean Corpuscular HGB Conc 33.5 g/dL (31.6-35.5); Mean Corpuscular Hemoglobin 29.9 pg (28.0-33.3); Mean Corpuscular Volume 89.3 fL (83.0-100.0); Platelet Count 215 K/mcL (140-400); Red Blood Count 4.75 M/mcL (4.19-5.50); Red Cell Distribution Width 11.9 % (11.5-14.5); White Blood Count 10.8 K/mcL (4.3-11.1)
[2019-07-11 01:45] LABS: BUN/Creatinine Ratio 16 (6-26); Blood Urea Nitrogen 14 mg/dL (6-20); Carbon Dioxide 27 mEq/L (23-29); Chloride 104 mEq/L (98-107); Glucose 223 mg/dL (70-105); Osmolality,Calculated 293 (280-300); Potassium 3.9 mEq/L (3.5-5.1); Sodium 138 mEq/L (136-145); eGFR For African Americans > 60 (> 60); eGFR For Non-African Americans > 60 (> 60)
[2019-07-11] MEDS: Insulin LISPRO 300 UNITS/3 ML VIAL SQ SCH ×2 (08:44→12:25)
[2019-07-11] MEDS: Aspirin Enteric Coated 81 MG Tablet PO SCH (08:45)
[2019-07-11] MEDS: amLODIPine 5 MG TABLET PO SCH (08:45)
--- NOTE | 2019-07-11 09:58 | Event Note ---
Date of Encounter: 07/11/19 Time of Encounter: 09:55 - Cardiology Event Note TTE resulted--LVEF 50-55%. Moderate LVDD. Normal RV structure and function. Moderately dilated left atrium. Moderate MR with eccentric jet directed posteriorly. No evidence of phtn. No recurrent NSVT. Continue BB. Flat, adynamic troponin in setting of hypertensive urgency and hemoccult positive. GI recommends outpt work-up. Atypical chest pain with LHC 07/2016 minimal CAD. Reported LHC at [facility] in 2018 without intervention--records requested. Given EF is preserved, atypical chest pain and hemoccult positive, recent LHCs with no intervention, no further inpt cardiac work-up warranted. Cardiology signing off. Reconsult PRN.
[2019-07-11 11:05] VITALS: BP 146/92
--- NOTE | 2019-07-11 11:47 | Discharge Summary ---
- NOTES TO OUTPATIENT PROVIDER Notes to Outpatient Provider: Follow up with PCP, Cardiology, and GI as outpatient. Date of Encounter: 07/11/19 Time of Encounter: 08:45 - Discharge Diagnosis (1) Elevated troponin Priority: Primary Status: Acute (2) Non-STEMI (non-ST elevated myocardial infarction) Priority: Secondary Status: Ruled-out (3) Positive occult stool blood test Priority: Secondary Status: Acute (4) Contusion of rib on left side Priority: Secondary Status: Acute Qualifiers: Encounter type: initial encounter Qualified Code(s): S20.212A - Contusion of left front wall of thorax, initial encounter (5) COPD (chronic obstructive pulmonary disease) Priority: Secondary Status: Chronic Qualifiers: COPD type: COPD with acute exacerbation Qualified Code(s): J44.1 - Chronic obstructive pulmonary disease with (acute) exacerbation (6) Diabetes mellitus Priority: Secondary Status: Chronic Qualifiers: Diabetes mellitus type: type 2 Diabetes mellitus halfway insulin use: unspecified halfway insulin use status Diabetes mellitus complication status: without complication Qualified Code(s): E11.9 - Type 2 diabetes mellitus without complications (7) HTN (hypertension) Priority: Secondary Status: Chronic Qualifiers: Hypertension type: unspecified Qualified Code(s): I10 - Essential (primary) hypertension (8) Current smoker Priority: Secondary Status: Chronic (9) Morbid obesity with BMI of 40.0-44.9, adult Priority: Secondary Status: Chronic (10) DVT prophylaxis Priority: Secondary Status: Acute (11) Chronic diastolic heart failure Priority: Secondary Status: Acute Hospital course: Mr. Holland is a 49 year old male with history of diabetes, hypertension, nonobstructive CAD, obesity, tobacco abuse, who was admitted for atypical chest pain. Trop minimally elevated at 0.06-0.07-0.07 in the setting of BP 181/111. EKG non-ischemic. Echo with preserved EF. Had last 2 LHC at 2 different hospitals over the last2 years, both of which showed non-obstructive CAD. Managed in consultation with Cardiology and BP meds were started with outpatient cardiology follow up. Incidentally, prior to considering whether to start hep gtt or not in view of possible NSTEMI, stool occult was checked that was positive. However, patient did not have any symptoms and signs of GI bleed and GI team also deemed that he did not require any inpatient workup done given his stable Hb and hemodynamics. He will need follow up with GI as outpatient. Relion 70/30 15U BID was started and he was given a script for DM supplies. His left side rib pain is likely due to contusion and short course of analgesics were provided. Discharge discussed with: patient, nurse, social work, case management, webmethods consultant - Time Spent with Patient Total time spent providing and/or coordinating discharge services: 33 mins - Discharge Medications Prescriptions: New Aspirin Enteric Coated [Aspirin EC] 81 mg PO DAILY #30 tablet. Carvedilol [Coreg] 12.5 mg PO BIDWM #60 tablet Cyclobenzaprine [Flexeril] 10 mg PO TID PRN #30 tablet PRN Reason: Spasms Lidocaine Patch [Lidoderm 5% patch] 2 each TP DAILY #30 adh..patch Atorvastatin [Lipitor] 40 mg PO HS #30 tablet HYDROcodone/Acet 5/325 mg [Edgard 5-325 mg] 1 tab PO Q6H PRN 4 Days #15 tab PRN Reason: Pain amLODIPine [Norvasc] 5 mg PO DAILY #30 tablet Omeprazole [PriLOSEC] 40 mg PO DAILY@0630 #60 capsule. Insulin NPH Hum/Reg Insulin Hm [Relion Novolin 70-30 Flexpen] 15 unit SQ BID #1 insuln.pen Home Medications: Aspirin Enteric Coated [Aspirin EC] 81 mg PO DAILY #30 tablet. 07/11/19 [Rx] Atorvastatin [Lipitor] 40 mg PO HS #30 tablet 07/11/19 [Rx] Carvedilol [Coreg] 12.5 mg PO BIDWM #60 tablet 07/11/19 [Rx] Cyclobenzaprine [Flexeril] 10 mg PO TID PRN #30 tablet 07/11/19 [Rx] HYDROcodone/Acet 5/325 mg [Edgard 5-325 mg] 1 tab PO Q6H PRN 4 Days #15 tab 07/11/19 [Rx] Insulin NPH Hum/Reg Insulin Hm [Relion Novolin 70-30 Flexpen] 15 unit SQ BID #1 insuln.pen 07/11/19 [Rx] Lidocaine Patch [Lidoderm 5% patch] 2 each TP DAILY #30 adh..patch 07/11/19 [Rx] Omeprazole [PriLOSEC] 40 mg PO DAILY@0630 #60 capsule. 07/11/19 [Rx] amLODIPine [Norvasc] 5 mg PO DAILY #30 tablet 07/11/19 [Rx] Allergies/Adverse Reactions: Allergy/AdvReac Type Severity Reaction Status Date / Time pepper (genus Capsicum) Allergy Severe Anaphylaxis Verified 07/09/19 19:19 [pepper] lisinopril AdvReac Cough Verified 07/09/19 19:19 Date of admission: 07/10/19 08:12 Primary care physician: PCP NONE Consults: 07/09/19 16:17 Consult to Cardiology [CONS] Stat Comment: Consulting Provider: Cardiology [facility] Reason for Consult: NSTEMI Time Notified: 16:17 Call Completed: Yes 07/09/19 17:16 Consult to Gastroenterology [CONS] Routine Consulting Provider: Gastroenterology Challenge Reason for Consult: NSTEMI, stool occult +ve Call Completed: Yes 07/09/19 22:21 Consult to [facility] Designer [CONS] Routine Reason for SW Consult: pt currently homeless. needs resources - Constitutional Vitals: Temp Pulse Resp BP Pulse Ox 97.6 F 75 16 146/92 97 07/11/19 10:53 07/11/19 10:53 07/11/19 10:53 07/11/19 10:53 07/11/19 10:53 Exam: General: Alert and oriented, not in acute distress. Cardiovascular:Normal S1 & S2, No JVD. Pulse regular with normal rate. L chest wall tenderness Lungs: clear to auscultation, no wheezes/rales Abdomen:Soft, non-tender, no rigidity. Extremities:No deformity or swelling Neurological:Normal cognition and motor skills. Non-focal Skin:Normal color, no rash, no lesions. - Patient Status Disposition: Home, Self-Care Condition: Serious Functional capacity at discharge: independent ambulation Overall status at discharge: patient is progressing back to baseline - Discharge Instructions Instructions: Chronic Obstructive Pulmonary Disease (DC), Diabetes Mellitus Type 2 in Adults (DC), Chest Pain (DC), Chronic Hypertension (DC) Follow Up With: NONE,PCP [Primary Care Provider] - Kalpana Caba DO [Partnered Physician] - Oscar Bolden MD [Partnered Physician] - - Diet and Activity Activity: resume usual activities as tolerated Diet: diabetic diet
[2019-07-11] MEDS ORDERED: FLU Vac QV 19-20 (6Month+)/PF 0.5 ML SYRINGE IM ONE (12:22)
== END 2019-07-11 15:55 | disposition home or self-care (01) | DRG 199 ==
LOC: EMEROOARM 14:54 → 2ANU 14:54 → SUATTDRO 19:13 → 2ANU 20:21
PROVIDERS: ADMIT Pharmacist; ATTEND Internal Medicine

== ENCOUNTER 2019-08-31 22:13 | Observation (INO) ==
[2019-08-31] MEDS ORDERED: Aspirin 325 MG TABLET PO ONE (23:12)
[2019-08-31] MEDS ORDERED: Ipratropium/Albuterol Neb 3 ML IH ONE (23:55)
[2019-09-01 00:29] LABS: Prothrombin Time 11.5 Seconds (9.4-12.1)
[2019-09-01 00:32] LABS: Activated Partial Thrombo Time 31.1 Seconds (26.0-36.0)
[2019-09-01 00:36] LABS: BUN/Creatinine Ratio 13 (6-26); Blood Urea Nitrogen 14 mg/dL (6-20); Calcium 8.9 mg/dL (8.6-10.3); Carbon Dioxide 29 mEq/L (23-29); Chloride 103 mEq/L (98-107); Glucose 217 mg/dL (70-105); Osmolality,Calculated 293 (280-300); Potassium 3.6 mEq/L (3.5-5.1); Sodium 138 mEq/L (136-145); eGFR For African Americans > 60 (> 60); eGFR For Non-African Americans > 60 (> 60)
[2019-09-01 00:47] LABS: Troponin I 0.14 ng/mL (< 0.04)
[2019-09-01] MEDS ORDERED: *HR* Labetalol 20 MG/4 ML SYRINGE IVP ONE (00:55)
[2019-09-01 01:05] LABS: Hematocrit 43.3 % (37.5-50.1); Hemoglobin 14.9 g/dL (12.9-16.9); Mean Corpuscular HGB Conc 34.4 g/dL (31.6-35.5); Mean Corpuscular Hemoglobin 29.9 pg (28.0-33.3); Mean Corpuscular Volume 86.9 fL (83.0-100.0); Mean Platelet Volume 11.5 fL (9.4-12.4); Platelet Count 203 K/mcL (140-400); Red Blood Count 4.98 M/mcL (4.19-5.50); Red Cell Distribution Width 12.6 % (11.5-14.5); Segmented Neutrophils % 66.8 %; White Blood Count 10.7 K/mcL (4.3-11.1)
[2019-09-01 01:06] LABS: Basophils % 0.4 %; Eosinophils # 0.3 K/mcL (0.0-0.6); Eosinophils % 2.5 %; Immature Granulocytes % 0.4 % (0-4); Lymphocytes # 2.2 K/mcL (0.6-4.6); Lymphocytes % 20.4 %; Monocytes % 9.5 %; Neutrophils # 7.1 K/mcL (1.6-8.9)
[2019-09-01] MEDS ORDERED: *HR* Heparin 5,000 UNIT/ML VIAL IVP ONE (01:11)
[2019-09-01] MEDS ORDERED: *HR* Heparin 5,000 UNIT/ML VIAL IVP PRN ×2 (01:11)
[2019-09-01] MEDS ORDERED: Heparin 25,000 UNIT/250 ML D5W 25,000 UNIT/250 ML IV.SOLN IVC SCH (01:15)
[2019-09-01] MEDS ORDERED: Furosemide 40 MG/4 ML VIAL IVP ONE (04:09)
[2019-09-01] MEDS ORDERED: methylPREDNISolone 125 MG/2 ML VIAL IVP ONE (04:09)
[2019-09-01] MEDS ORDERED: Nicotine 2 MG GUM BC PRN (04:14)
[2019-09-01] MEDS ORDERED: *HR* Promethazine 25 MG/ML VIAL IVP PRN (04:43)
[2019-09-01] MEDS ORDERED: Acetaminophen 325 MG TABLET PO PRN (04:43)
[2019-09-01] MEDS ORDERED: Naloxone 0.4 MG/ML INJ IVP PRN (04:43)
[2019-09-01] MEDS ORDERED: Nitroglycerin 0.4 MG TAB.SUBL SL PRN (04:46)
[2019-09-01] MEDS ORDERED: Dextrose Gel 15 GM/37.5 ML TUBE PO PRN ×2 (04:49)
[2019-09-01] MEDS ORDERED: D5% in Water 1,000 ML IVC PRN (04:49)
[2019-09-01] MEDS ORDERED: *HR* Dextrose 50 % in Water (Syg) 50 ML SYRINGE IVP PRN (04:49)
[2019-09-01] MEDS ORDERED: Insulin Human Regular 10 UNIT in 0.9 % Sodium Chloride 10 ML IV ONE (04:50)
[2019-09-01 06:53] LABS: Adenovirus Not Detected (Not Detect); Bordetella Pertussis Not Detected (Not Detect); Chlamydophila pneumoniae Not Detected (Not Detect); Coronavirus 229E Not Detected (Not Detect); Coronavirus HKU1 Not Detected (Not Detect); Coronavirus NL63 Not Detected (Not Detect); Coronavirus OC43 Not Detected (Not Detect); Human Metapneumovirus Not Detected (Not Detect); Human Rhinovirus/Enterovirus Not Detected (Not Detect); Influenza A Subtype 2009 H1 Not Detected (Not Detect); Influenza A Untypeable Not Detected (Not Detect); Influenza B Not Detected (Not Detect); Mycoplasma pneumoniae Not Detected (Not Detect); Parainfluenza Virus 1 Not Detected (Not Detect); Parainfluenza Virus 2 Not Detected (Not Detect); Parainfluenza Virus 3 Not Detected (Not Detect); Parainfluenza Virus 4 Not Detected (Not Detect); Respiratory Syncytial Virus Not Detected (Not Detect)
[2019-09-01] MEDS: Levalbuterol Neb 1.25 MG/3 ML IH SCH ×2 (07:26→11:57)
[2019-09-01 07:31] LABS: Hematocrit 45.5 % (37.5-50.1); Hemoglobin 15.7 g/dL (12.9-16.9); Mean Corpuscular HGB Conc 34.5 g/dL (31.6-35.5); Mean Corpuscular Hemoglobin 29.8 pg (28.0-33.3); Mean Corpuscular Volume 86.5 fL (83.0-100.0); Mean Platelet Volume 12.1 fL (9.4-12.4); Platelet Count 224 K/mcL (140-400); Red Blood Count 5.26 M/mcL (4.19-5.50); Red Cell Distribution Width 12.7 % (11.5-14.5); White Blood Count 11.6 K/mcL (4.3-11.1)
[2019-09-01 07:36] LABS: BUN/Creatinine Ratio 15 (6-26); Blood Urea Nitrogen 14 mg/dL (6-20); Calcium 9.2 mg/dL (8.6-10.3); Carbon Dioxide 26 mEq/L (23-29); Chloride 103 mEq/L (98-107); Chol/HDL Ratio 5.8 (0-4.9); Cholesterol 202 mg/dL (< 200); Glucose 196 mg/dL (70-105); HDL Cholesterol 35 mg/dL (40-59); LDL Cholesterol,Calculated 143 mg/dL (0-99); Magnesium 2.1 mg/dL (1.6-2.6); Osmolality,Calculated 294 (280-300); Potassium 3.7 mEq/L (3.5-5.1); Sodium 139 mEq/L (136-145); Triglycerides 119 mg/dL (< 150); eGFR For African Americans > 60 (> 60); eGFR For Non-African Americans > 60 (> 60)
[2019-09-01] MEDS ORDERED: Aspirin Enteric Coated 81 MG Tablet PO SCH (09:00)
[2019-09-01] MEDS: Insulin LISPRO 300 UNITS/3 ML VIAL SQ SCH ×2 (09:24→13:11)
[2019-09-01 11:57] LABS: Estimated Average Glucose 232 mg/dl
[2019-09-01] MEDS ORDERED: predniSONE 20 MG TABLET PO SCH (12:00)
[2019-09-01 12:18] VITALS: BP 160/94
[2019-09-01] MEDS ORDERED: Insulin LISPRO 300 UNITS/3 ML VIAL SQ SCH (21:00)
== END 2019-09-01 15:09 | disposition home or self-care (01) ==
LOC: 2ANU 22:13 → EMEROOARM 22:13 → SUATTDRO 09-01 01:31 → 2ANU 09-01 02:40
PROVIDERS: ADMIT Internal Medicine; ATTEND Student in an Organized Health Care Education/Training Program

== ENCOUNTER 2019-10-30 17:31 | Inpatient (IN) ==
[2019-10-30 18:05] LABS: Basophils # 0.1 K/mcL (0.0-0.2); Basophils % 0.6 %; Eosinophils # 0.3 K/mcL (0.0-0.6); Eosinophils % 2.4 %; Hematocrit 41.6 % (37.5-50.1); Hemoglobin 13.6 g/dL (12.9-16.9); Immature Granulocytes % 0.3 % (0-4); Lymphocytes # 2.4 K/mcL (0.6-4.6); Mean Corpuscular HGB Conc 32.7 g/dL (31.6-35.5); Mean Corpuscular Hemoglobin 29.6 pg (28.0-33.3); Mean Corpuscular Volume 90.6 fL (83.0-100.0); Mean Platelet Volume 11.3 fL (9.4-12.4); Monocytes # 0.7 K/mcL (0.0-1.3); Monocytes % 5.6 %; Neutrophils # 8.1 K/mcL (1.6-8.9); Platelet Count 184 K/mcL (140-400); Red Blood Count 4.59 M/mcL (4.19-5.50); Red Cell Distribution Width 12.6 % (11.5-14.5); Segmented Neutrophils % 70.1 %; White Blood Count 11.5 K/mcL (4.3-11.1)
[2019-10-30] MEDS ORDERED: Isovue-370 500 ML BOTTLE IVP ONE (18:21)
[2019-10-30] MEDS ORDERED: 0.9 % Sodium Chloride 1,000 ML IVC ONE (18:23)
[2019-10-30 18:27] LABS: BUN/Creatinine Ratio 13 (6-26); Blood Urea Nitrogen 14 mg/dL (6-20); Calcium 8.4 mg/dL (8.6-10.3); Carbon Dioxide 26 mEq/L (23-29); Chloride 104 mEq/L (98-107); Glucose 231 mg/dL (70-105); Osmolality,Calculated 294 (280-300); Potassium 3.5 mEq/L (3.5-5.1); Sodium 138 mEq/L (136-145); eGFR For African Americans > 60 (> 60); eGFR For Non-African Americans > 60 (> 60)
[2019-10-30] MEDS ORDERED: Aspirin 325 MG TABLET PO ONE (18:31)
[2019-10-30 19:33] LABS: Bilirubin,Urine Small (Negative); Blood,Urine Negative (Negative); Clarity,Urine Clear (Clear); Color,Urine Dark Yellow (Yellow); Glucose,Urine (UA) 250 mg/dL (Normal); Ketones,Urine Negative (Negative); Leukocyte Esterase,Urine Trace (Negative); Nitrite,Urine Negative (Negative); Protein,Urine 30 mg/dL (Neg-Trace); Specific Gravity,Urine > 1.030 (1.010-1.025); Urobilinogen,Urine Normal (Normal)
[2019-10-30 19:36] LABS: Bacteria,Urine None Seen per hpf (None-Few); Hyaline Casts,Urine Moderate per lpf (None-Few); Squamous Epithelial Cell,Urine Many per lpf (None-Few); WBC,Urine 15-30 per hpf (0-3)
[2019-10-30 20:15] LABS: RBC,Urine 0-3 per hpf (0-3)
[2019-10-30] MEDS ORDERED: Naloxone 0.4 MG/ML INJ IVP PRN (21:11)
[2019-10-30] MEDS ORDERED: Nitroglycerin 0.4 MG TAB.SUBL SL PRN (21:15)
[2019-10-30] MEDS: Nitroglycerin 0.4 MG TAB.SUBL SL SCH ×2 (21:23→21:37)
[2019-10-30] MEDS: Ipratropium/Albuterol Neb 3 ML IH SCH (22:46)
[2019-10-30] MEDS: Azithromycin 500 MG in 0.9 % Sodium Chloride 250 ML IVPB SCH (22:51)
[2019-10-30] MEDS: MethylPREDNISolone 40 MG/ML VIAL IVP SCH (22:51)
[2019-10-31] MEDS: Acetaminophen 325 MG TABLET PO PRN ×2 (00:33→09:42)
[2019-10-31 01:33] LABS: Prothrombin Time 11.8 Seconds (9.4-12.1)
[2019-10-31 01:35] LABS: Basophils # 0.1 K/mcL (0.0-0.2); Basophils % 0.6 %; Eosinophils # 0.3 K/mcL (0.0-0.6); Eosinophils % 2.9 %; Hematocrit 41.6 % (37.5-50.1); Hemoglobin 13.5 g/dL (12.9-16.9); Immature Granulocytes % 0.2 % (0-4); Lymphocytes # 2.1 K/mcL (0.6-4.6); Lymphocytes % 21.9 %; Mean Corpuscular HGB Conc 32.5 g/dL (31.6-35.5); Mean Corpuscular Hemoglobin 29.7 pg (28.0-33.3); Mean Corpuscular Volume 91.4 fL (83.0-100.0); Mean Platelet Volume 12.3 fL (9.4-12.4); Monocytes # 0.5 K/mcL (0.0-1.3); Monocytes % 5.1 %; Neutrophils # 6.6 K/mcL (1.6-8.9); Platelet Count 183 K/mcL (140-400); Red Blood Count 4.55 M/mcL (4.19-5.50); Red Cell Distribution Width 12.8 % (11.5-14.5); Segmented Neutrophils % 69.3 %; White Blood Count 9.6 K/mcL (4.3-11.1)
[2019-10-31 01:36] LABS: Activated Partial Thrombo Time 28.8 Seconds (26.0-36.0)
[2019-10-31 01:53] LABS: Alanine Aminotransferase 21 Units/L (7-52); Albumin 3.7 g/dL (3.5-5.7); Albumin/Globulin Ratio 1.4 (1.1-2.2); Alkaline Phosphatase 80 Units/L (34-104); Aspartate Amino Transferase 16 Units/L (13-39); BUN/Creatinine Ratio 16 (6-26); Bilirubin,Total 0.5 mg/dL (0.3-1.0); Blood Urea Nitrogen 17 mg/dL (6-20); Calcium 8.4 mg/dL (8.6-10.3); Carbon Dioxide 25 mEq/L (23-29); Chloride 103 mEq/L (98-107); Globulin 2.7 g/dL (2.4-3.5); Glucose 386 mg/dL (70-105); Osmolality,Calculated 300 (280-300); Potassium 3.9 mEq/L (3.5-5.1); Sodium 136 mEq/L (136-145); Total Protein 6.4 g/dL (6.4-8.9); eGFR For African Americans > 60 (> 60); eGFR For Non-African Americans > 60 (> 60)
[2019-10-31] MEDS ORDERED: *HR* Dextrose 50 % in Water (Syg) 50 ML SYRINGE IVP PRN (02:20)
[2019-10-31] MEDS ORDERED: D5% in Water 1,000 ML IVC PRN (02:20)
[2019-10-31] MEDS ORDERED: Dextrose Gel 15 GM/37.5 ML TUBE PO PRN ×2 (02:20)
[2019-10-31] MEDS: Insulin DETEMIR 100 UNIT/ML X5UNITS SQ SCH ×2 (03:14→21:01)
[2019-10-31] MEDS: Ipratropium/Albuterol Neb 3 ML IH SCH ×4 (03:32→21:10)
[2019-10-31] MEDS: Insulin LISPRO 300 UNITS/3 ML VIAL SQ SCH ×4 (06:04→17:01)
[2019-10-31] MEDS: MethylPREDNISolone 40 MG/ML VIAL IVP SCH ×3 (06:05→21:01)
[2019-10-31] MEDS: amLODIPine 5 MG TABLET PO SCH (09:24)
[2019-10-31 12:43] LABS: Adenovirus Not Detected (Not Detect); Bordetella Pertussis Not Detected (Not Detect); Chlamydophila pneumoniae Not Detected (Not Detect); Coronavirus 229E Not Detected (Not Detect); Coronavirus HKU1 Not Detected (Not Detect); Coronavirus NL63 Not Detected (Not Detect); Coronavirus OC43 Not Detected (Not Detect); Human Metapneumovirus Not Detected (Not Detect); Human Rhinovirus/Enterovirus Not Detected (Not Detect); Influenza A Subtype 2009 H1 Not Detected (Not Detect); Influenza B Not Detected (Not Detect); Mycoplasma pneumoniae Not Detected (Not Detect); Parainfluenza Virus 1 Not Detected (Not Detect); Parainfluenza Virus 2 Not Detected (Not Detect); Parainfluenza Virus 3 Not Detected (Not Detect); Parainfluenza Virus 4 Not Detected (Not Detect); Respiratory Syncytial Virus Not Detected (Not Detect)
[2019-10-31] MEDS: Furosemide 40 MG/4 ML VIAL IVP SCH ×2 (14:07→21:00)
[2019-10-31] MEDS: *HR* Heparin 5,000 UNIT/ML VIAL SQ SCH (17:03)
[2019-10-31] MEDS ORDERED: methylPREDNISolone 125 MG/2 ML VIAL IVP ONE (19:48)
[2019-10-31] MEDS: carvediloL 6.25 MG TABLET PO SCH (21:00)
[2019-10-31] MEDS: Insulin NPH/REG 70/30 100 UNIT/ML (x5UNIT) SQ SCH (21:01)
[2019-10-31] MEDS: Azithromycin 500 MG in 0.9 % Sodium Chloride 250 ML IVPB SCH (21:02)
[2019-10-31] MEDS: GuaiFENesin/Codeine Oral Soln 5 ML UDC PO PRN (21:20)
[2019-11-01] MEDS: Ipratropium/Albuterol Neb 3 ML IH SCH ×4 (04:20→22:31)
[2019-11-01] MEDS: *HR* Heparin 5,000 UNIT/ML VIAL SQ SCH ×2 (04:30→17:03)
[2019-11-01] MEDS: MethylPREDNISolone 40 MG/ML VIAL IVP SCH ×2 (04:30→12:05)
[2019-11-01] MEDS: Acetaminophen 325 MG TABLET PO PRN ×3 (04:46→20:51)
[2019-11-01 06:26] LABS: BUN/Creatinine Ratio 24 (6-26); Blood Urea Nitrogen 25 mg/dL (6-20); Carbon Dioxide 27 mEq/L (23-29); Chloride 96 mEq/L (98-107); Glucose 350 mg/dL (70-105); Magnesium 2.1 mg/dL (1.6-2.6); Osmolality,Calculated 300 (280-300); Phosphorous 4.5 mg/dL (2.7-4.5); Potassium 4.1 mEq/L (3.5-5.1); Sodium 136 mEq/L (136-145); Troponin I 0.06 ng/mL (< 0.04); eGFR For African Americans > 60 (> 60); eGFR For Non-African Americans > 60 (> 60)
[2019-11-01] MEDS: Aspirin Enteric Coated 81 MG Tablet PO SCH (08:35)
[2019-11-01] MEDS: carvediloL 6.25 MG TABLET PO SCH ×2 (08:35→20:54)
[2019-11-01] MEDS: Insulin LISPRO 300 UNITS/3 ML VIAL SQ SCH ×3 (08:36→17:03)
[2019-11-01] MEDS: Furosemide 40 MG/4 ML VIAL IVP SCH ×2 (08:36→20:55)
[2019-11-01] MEDS: amLODIPine 5 MG TABLET PO SCH (08:36)
[2019-11-01] MEDS: Insulin NPH/REG 70/30 100 UNIT/ML (x5UNIT) SQ SCH ×2 (08:53→20:55)
[2019-11-01] MEDS: Insulin DETEMIR 100 UNIT/ML X5UNITS SQ SCH ×2 (09:50→21:33)
[2019-11-01] MEDS ORDERED: MethylPREDNISolone 40 MG/ML VIAL IVP SCH (20:00)
[2019-11-01] MEDS ORDERED: Azithromycin 500 MG VIAL ONE (20:39)
[2019-11-01] MEDS: GuaiFENesin/Codeine Oral Soln 5 ML UDC PO PRN (20:54)
[2019-11-01] MEDS: Azithromycin 500 MG in 0.9 % Sodium Chloride 250 ML IVPB SCH (22:23)
[2019-11-01] MEDS ORDERED: Insulin DETEMIR 100 UNIT/ML X5UNITS SQ ONE (22:52)
[2019-11-01] MEDS ORDERED: Insulin LISPRO 300 UNITS/3 ML VIAL SQ SCH (23:00)
[2019-11-02] MEDS: Ipratropium/Albuterol Neb 3 ML IH SCH ×2 (03:43→10:54)
[2019-11-02 04:59] LABS: BUN/Creatinine Ratio 31 (6-26); Blood Urea Nitrogen 34 mg/dL (6-20); Calcium 8.7 mg/dL (8.6-10.3); Carbon Dioxide 28 mEq/L (23-29); Chloride 101 mEq/L (98-107); Glucose 242 mg/dL (70-105); Magnesium 2.3 mg/dL (1.6-2.6); Osmolality,Calculated 300 (280-300); Phosphorous 4.8 mg/dL (2.7-4.5); Potassium 3.9 mEq/L (3.5-5.1); Sodium 137 mEq/L (136-145); eGFR For African Americans > 60 (> 60); eGFR For Non-African Americans > 60 (> 60)
[2019-11-02] MEDS: *HR* Heparin 5,000 UNIT/ML VIAL SQ SCH (06:12)
[2019-11-02 07:22] VITALS: BP 138/88
[2019-11-02] MEDS: Aspirin Enteric Coated 81 MG Tablet PO SCH (08:20)
[2019-11-02] MEDS: amLODIPine 5 MG TABLET PO SCH (08:21)
[2019-11-02] MEDS: carvediloL 6.25 MG TABLET PO SCH (08:21)
[2019-11-02] MEDS: Insulin NPH/REG 70/30 100 UNIT/ML (x5UNIT) SQ SCH (08:24)
[2019-11-02] MEDS: Insulin DETEMIR 100 UNIT/ML X5UNITS SQ SCH (08:24)
[2019-11-02] MEDS: Insulin LISPRO 300 UNITS/3 ML VIAL SQ SCH (08:25)
[2019-11-02] MEDS ORDERED: Furosemide 40 MG TABLET PO SCH (09:00)
[2019-11-02] MEDS ORDERED: predniSONE 20 MG TABLET PO SCH (09:00)
== END 2019-11-02 11:55 | disposition home or self-care (01) | DRG 194 ==
LOC: EMEROOARM 17:31 → 3BNU 17:31 → SUATTDRO 21:29 → 3BNU 22:00
PROVIDERS: ADMIT Family Medicine; ATTEND Internal Medicine

== ENCOUNTER 2020-01-07 15:13 | Observation (INO) ==
[2020-01-07] MEDS ORDERED: Aspirin 81 MG TAB.CHEW PO ONE (15:20)
[2020-01-07] MEDS ORDERED: Furosemide 40 MG/4 ML VIAL IVP ONE (15:33)
[2020-01-07 15:38] LABS: Basophils # 0.1 K/mcL (0.0-0.2); Basophils % 0.5 %; Eosinophils # 0.3 K/mcL (0.0-0.6); Eosinophils % 2.7 %; Hemoglobin 15.4 g/dL (12.9-16.9); Immature Granulocytes % 0.4 % (0-4); Lymphocytes # 2.2 K/mcL (0.6-4.6); Lymphocytes % 19.9 %; Mean Corpuscular HGB Conc 32.8 g/dL (31.6-35.5); Mean Corpuscular Hemoglobin 28.8 pg (28.0-33.3); Mean Platelet Volume 11.8 fL (9.4-12.4); Monocytes # 0.9 K/mcL (0.0-1.3); Monocytes % 7.9 %; Neutrophils # 7.5 K/mcL (1.6-8.9); Platelet Count 196 K/mcL (140-400); Red Blood Count 5.34 M/mcL (4.19-5.50); Red Cell Distribution Width 13.4 % (11.5-14.5); Segmented Neutrophils % 68.6 %
[2020-01-07 15:43] LABS: Prothrombin Time 10.9 Seconds (9.4-12.1)
[2020-01-07 15:46] LABS: Activated Partial Thrombo Time 28.6 Seconds (26.0-36.0)
[2020-01-07 15:59] LABS: BUN/Creatinine Ratio 13 (6-26); Blood Urea Nitrogen 12 mg/dL (6-20); Carbon Dioxide 24 mEq/L (23-29); Chloride 103 mEq/L (98-107); Glucose 318 mg/dL (70-105); Osmolality,Calculated 296 (280-300); Potassium 3.8 mEq/L (3.5-5.1); Sodium 137 mEq/L (136-145); eGFR For African Americans > 60 (> 60); eGFR For Non-African Americans > 60 (> 60)
[2020-01-07 16:03] LABS: Troponin I 0.15 ng/mL (< 0.04)
[2020-01-07] MEDS ORDERED: *HR* Heparin 5,000 UNIT/ML VIAL IVP ONE (17:04)
[2020-01-07] MEDS ORDERED: *HR* Heparin 5,000 UNIT/ML VIAL IVP PRN (17:04)
[2020-01-07] MEDS ORDERED: Naloxone 0.4 MG/ML INJ IVP PRN (17:12)
[2020-01-07] MEDS ORDERED: Acetaminophen 325 MG TABLET PO PRN (17:12)
[2020-01-07] MEDS ORDERED: Ondansetron 4 MG/2 ML VIAL IVP PRN (17:12)
[2020-01-07] MEDS ORDERED: Dextrose Gel 15 GM/37.5 ML TUBE PO PRN ×2 (17:23)
[2020-01-07] MEDS ORDERED: D5% in Water 1,000 ML IVC PRN (17:23)
[2020-01-07] MEDS ORDERED: *HR* Dextrose 50 % in Water (Syg) 50 ML SYRINGE IVP PRN (17:23)
[2020-01-07] MEDS: Heparin 25,000 UNIT/250 ML D5W 25,000 UNIT/250 ML IV.SOLN IVC SCH (17:27)
[2020-01-07] MEDS: Insulin LISPRO 300 UNITS/3 ML VIAL SQ SCH (19:03)
[2020-01-07] MEDS ORDERED: Nitroglycerin 0.4 MG TAB.SUBL SL PRN (19:21)
[2020-01-07] MEDS: Furosemide 40 MG/4 ML VIAL IVP SCH (19:35)
[2020-01-07] MEDS: Morphine Sulfate 2 MG/ML SYRINGE IVP PRN (19:47)
[2020-01-07] MEDS: carvediloL 6.25 MG TABLET PO SCH (19:53)
[2020-01-07] MEDS ORDERED: Insulin LISPRO 300 UNITS/3 ML VIAL SQ SCH (21:00)
[2020-01-08] MEDS: *HR* Heparin 5,000 UNIT/ML VIAL IVP PRN ×2 (00:40→07:28)
[2020-01-08] MEDS: Ipratropium/Albuterol Neb 3 ML IH PRN ×3 (00:48→12:45)
[2020-01-08] MEDS: Morphine Sulfate 2 MG/ML SYRINGE IVP PRN (03:37)
[2020-01-08 03:44] LABS: Basophils # 0.1 K/mcL (0.0-0.2); Basophils % 0.6 %; Eosinophils # 0.4 K/mcL (0.0-0.6); Eosinophils % 3.5 %; Hematocrit 47.2 % (37.5-50.1); Hemoglobin 15.6 g/dL (12.9-16.9); Immature Granulocytes % 0.2 % (0-4); Lymphocytes # 2.1 K/mcL (0.6-4.6); Lymphocytes % 21.6 %; Mean Corpuscular HGB Conc 33.1 g/dL (31.6-35.5); Mean Corpuscular Hemoglobin 29.5 pg (28.0-33.3); Mean Corpuscular Volume 89.4 fL (83.0-100.0); Mean Platelet Volume 11.6 fL (9.4-12.4); Monocytes # 0.8 K/mcL (0.0-1.3); Monocytes % 8.3 %; Neutrophils # 6.5 K/mcL (1.6-8.9); Platelet Count 208 K/mcL (140-400); Red Blood Count 5.28 M/mcL (4.19-5.50); Red Cell Distribution Width 13.5 % (11.5-14.5); Segmented Neutrophils % 65.8 %; White Blood Count 9.9 K/mcL (4.3-11.1)
[2020-01-08 03:58] LABS: BUN/Creatinine Ratio 15 (6-26); Blood Urea Nitrogen 16 mg/dL (6-20); Calcium 9.1 mg/dL (8.6-10.3); Carbon Dioxide 27 mEq/L (23-29); Chloride 98 mEq/L (98-107); Glucose 407 mg/dL (70-105); Magnesium 1.8 mg/dL (1.6-2.6); Osmolality,Calculated 294 (280-300); Potassium 4.2 mEq/L (3.5-5.1); Sodium 133 mEq/L (136-145); eGFR For African Americans > 60 (> 60); eGFR For Non-African Americans > 60 (> 60)
[2020-01-08 06:21] LABS: Estimated Average Glucose 295 mg/dl
[2020-01-08] MEDS: Furosemide 40 MG/4 ML VIAL IVP SCH ×3 (07:27→20:33)
[2020-01-08] MEDS: Aspirin Enteric Coated 81 MG Tablet PO SCH (07:28)
[2020-01-08] MEDS: amLODIPine 5 MG TABLET PO SCH (07:28)
[2020-01-08] MEDS: carvediloL 6.25 MG TABLET PO SCH ×2 (07:28→16:21)
[2020-01-08] MEDS: Insulin LISPRO 300 UNITS/3 ML VIAL SQ SCH ×5 (07:34→16:21)
[2020-01-08] MEDS: Heparin 25,000 UNIT/250 ML D5W 25,000 UNIT/250 ML IV.SOLN IVC SCH (08:04)
[2020-01-08] MEDS: Gabapentin 400 MG CAPSULE PO SCH ×3 (08:25→20:33)
[2020-01-08] MEDS ORDERED: Isosorbide MONOnitrate (24 HR) 30 MG TAB.ER.24H PO SCH (09:00)
[2020-01-08] MEDS ORDERED: predniSONE 20 MG TABLET PO SCH (09:00)
[2020-01-08] MEDS: *HR* HYDROcodone/Acet 5/325 mg TABLET PO PRN (13:55)
[2020-01-08] MEDS ORDERED: Insulin LISPRO 300 UNITS/3 ML VIAL SQ ONE (17:37)
[2020-01-08] MEDS: *HR* Heparin 5,000 UNIT/ML VIAL SQ SCH (17:41)
[2020-01-08] MEDS ORDERED: Insulin DETEMIR 100 UNIT/ML X5UNITS SQ SCH (21:00)
[2020-01-08] MEDS ORDERED: Insulin LISPRO 300 UNITS/3 ML VIAL SQ SCH (21:00)
[2020-01-09] MEDS: *HR* HYDROcodone/Acet 5/325 mg TABLET PO PRN ×2 (04:32→14:37)
[2020-01-09] MEDS: *HR* Heparin 5,000 UNIT/ML VIAL SQ SCH ×2 (04:33→17:02)
[2020-01-09 04:46] LABS: Basophils # 0.1 K/mcL (0.0-0.2); Basophils % 0.4 %; Eosinophils # 0.3 K/mcL (0.0-0.6); Hemoglobin 15.6 g/dL (12.9-16.9); Immature Granulocytes % 0.5 % (0-4); Lymphocytes # 2.5 K/mcL (0.6-4.6); Lymphocytes % 19.5 %; Mean Corpuscular HGB Conc 33.2 g/dL (31.6-35.5); Mean Corpuscular Hemoglobin 29.7 pg (28.0-33.3); Mean Corpuscular Volume 89.4 fL (83.0-100.0); Mean Platelet Volume 11.8 fL (9.4-12.4); Monocytes % 7.7 %; Neutrophils # 8.8 K/mcL (1.6-8.9); Platelet Count 218 K/mcL (140-400); Red Blood Count 5.26 M/mcL (4.19-5.50); Red Cell Distribution Width 13.4 % (11.5-14.5); Segmented Neutrophils % 69.9 %; White Blood Count 12.6 K/mcL (4.3-11.1)
[2020-01-09] MEDS: Ipratropium/Albuterol Neb 3 ML IH PRN (04:51)
[2020-01-09 05:05] LABS: BUN/Creatinine Ratio 23 (6-26); Blood Urea Nitrogen 28 mg/dL (6-20); Calcium 9.5 mg/dL (8.6-10.3); Carbon Dioxide 26 mEq/L (23-29); Chloride 97 mEq/L (98-107); Glucose 336 mg/dL (70-105); Osmolality,Calculated 297 (280-300); Potassium 3.8 mEq/L (3.5-5.1); Sodium 134 mEq/L (136-145); eGFR For African Americans > 60 (> 60); eGFR For Non-African Americans > 60 (> 60)
[2020-01-09] MEDS ORDERED: Regadenoson 0.4 MG/5 ML SYRINGE IVP ONE (06:18)
[2020-01-09] MEDS: Insulin LISPRO 300 UNITS/3 ML VIAL SQ SCH ×4 (07:48→12:19)
[2020-01-09] MEDS: Gabapentin 400 MG CAPSULE PO SCH ×2 (10:51→11:58)
[2020-01-09] MEDS: Furosemide 40 MG/4 ML VIAL IVP SCH ×2 (10:55→14:30)
[2020-01-09] MEDS: amLODIPine 5 MG TABLET PO SCH (11:56)
[2020-01-09] MEDS: carvediloL 6.25 MG TABLET PO SCH (12:02)
[2020-01-09] MEDS: Aspirin Enteric Coated 81 MG Tablet PO SCH (12:05)
[2020-01-09 14:54] VITALS: BP 104/66
[2020-01-09] MEDS ORDERED: Furosemide 40 MG/4 ML VIAL IVP SCH (21:00)
== END 2020-01-09 17:23 | disposition left against medical advice (07) ==
LOC: EMEROOARM 15:13 → 3BNU 15:13 → SUATTDRO 17:24 → 3BNU 18:06
PROVIDERS: ADMIT Pharmacist; ATTEND Pharmacist

== ENCOUNTER 2020-02-11 15:24 | Observation (INO) ==
[2020-02-11] MEDS ORDERED: Isovue-370 500 ML BOTTLE IVP ONE (15:48)
[2020-02-11 16:02] LABS: Basophils % 0.3 %; Eosinophils # 0.3 K/mcL (0.0-0.6); Eosinophils % 3.6 %; Hematocrit 46.3 % (37.5-50.1); Hemoglobin 15.2 g/dL (12.9-16.9); Immature Granulocytes % 0.2 % (0-4); Lymphocytes % 21.1 %; Mean Corpuscular HGB Conc 32.8 g/dL (31.6-35.5); Mean Corpuscular Hemoglobin 28.7 pg (28.0-33.3); Mean Corpuscular Volume 87.4 fL (83.0-100.0); Mean Platelet Volume 11.5 fL (9.4-12.4); Monocytes # 0.7 K/mcL (0.0-1.3); Monocytes % 7.2 %; Neutrophils # 6.4 K/mcL (1.6-8.9); Platelet Count 202 K/mcL (140-400); Segmented Neutrophils % 67.6 %; White Blood Count 9.5 K/mcL (4.3-11.1)
[2020-02-11 16:08] LABS: Prothrombin Time 11.3 Seconds (9.4-12.1)
[2020-02-11 16:10] LABS: Activated Partial Thrombo Time 27.4 Seconds (26.0-36.0)
[2020-02-11 16:31] LABS: Alanine Aminotransferase 30 Units/L (7-52); Albumin 3.8 g/dL (3.5-5.7); Albumin/Globulin Ratio 1.2 (1.1-2.2); Alkaline Phosphatase 90 Units/L (34-104); Aspartate Amino Transferase 17 Units/L (13-39); BUN/Creatinine Ratio 14 (6-26); Bilirubin,Direct 0.1 mg/dL (0.0-0.2); Bilirubin,Indirect 0.6 mg/dL (0.0-1.0); Bilirubin,Total 0.7 mg/dL (0.3-1.0); Blood Urea Nitrogen 13 mg/dL (6-20); Calcium 8.9 mg/dL (8.6-10.3); Carbon Dioxide 28 mEq/L (23-29); Chloride 99 mEq/L (98-107); Globulin 3.1 g/dL (2.4-3.5); Glucose 333 mg/dL (70-105); Lipase 31 Units/L (11-82); Osmolality,Calculated 297 (280-300); Potassium 3.8 mEq/L (3.5-5.1); Sodium 137 mEq/L (136-145); Total Protein 6.9 g/dL (6.4-8.9); Troponin I 0.12 ng/mL (< 0.04); eGFR For African Americans > 60 (> 60); eGFR For Non-African Americans > 60 (> 60)
[2020-02-11] MEDS ORDERED: Aspirin 325 MG TABLET PO ONE (17:50)
[2020-02-11] MEDS: Nitroglycerin 0.4 MG TAB.SUBL SL PRN ×3 (18:12→18:22)
[2020-02-11] MEDS ORDERED: Naloxone 0.4 MG/ML INJ IVP PRN (20:00)
[2020-02-11] MEDS ORDERED: *HR* Dextrose 50 % in Water (Syg) 50 ML SYRINGE IVP PRN (20:02)
[2020-02-11] MEDS ORDERED: Dextrose Gel 15 GM/37.5 ML TUBE PO PRN ×2 (20:02)
[2020-02-11] MEDS ORDERED: D5% in Water 1,000 ML IVC PRN (20:02)
[2020-02-11] MEDS: Gabapentin 400 MG CAPSULE PO SCH (21:28)
[2020-02-11] MEDS: Furosemide 40 MG/4 ML VIAL IVP SCH (21:28)
[2020-02-11] MEDS: Ipratropium/Albuterol Neb 3 ML IH SCH (22:32)
[2020-02-12] MEDS: Insulin LISPRO 300 UNITS/3 ML VIAL SQ SCH ×2 (00:32→05:30)
[2020-02-12] MEDS: Ipratropium/Albuterol Neb 3 ML IH SCH ×2 (03:34→10:13)
[2020-02-12] MEDS ORDERED: *HR* Heparin 5,000 UNIT/ML VIAL SQ SCH (06:00)
[2020-02-12] MEDS ORDERED: *HR* OxyCODONE Immed Rel 5 MG TABLET PO PRN (06:17)
[2020-02-12 06:28] LABS: Hematocrit 48.3 % (37.5-50.1); Hemoglobin 15.8 g/dL (12.9-16.9); Mean Corpuscular HGB Conc 32.7 g/dL (31.6-35.5); Mean Corpuscular Hemoglobin 28.4 pg (28.0-33.3); Mean Corpuscular Volume 86.9 fL (83.0-100.0); Mean Platelet Volume 11.3 fL (9.4-12.4); Platelet Count 225 K/mcL (140-400); Red Blood Count 5.56 M/mcL (4.19-5.50); Red Cell Distribution Width 13.2 % (11.5-14.5); White Blood Count 8.5 K/mcL (4.3-11.1)
[2020-02-12 07:02] LABS: BUN/Creatinine Ratio 16 (6-26); Blood Urea Nitrogen 15 mg/dL (6-20); Carbon Dioxide 27 mEq/L (23-29); Chloride 99 mEq/L (98-107); Glucose 341 mg/dL (70-105); Magnesium 2.1 mg/dL (1.6-2.6); Osmolality,Calculated 296 (280-300); Potassium 3.7 mEq/L (3.5-5.1); Sodium 136 mEq/L (136-145); eGFR For African Americans > 60 (> 60); eGFR For Non-African Americans > 60 (> 60)
[2020-02-12] MEDS ORDERED: carvediloL 6.25 MG TABLET PO SCH (08:00)
[2020-02-12] MEDS ORDERED: Aspirin Enteric Coated 81 MG Tablet PO SCH (09:00)
[2020-02-12] MEDS: Gabapentin 400 MG CAPSULE PO SCH (09:14)
[2020-02-12] MEDS: Furosemide 40 MG/4 ML VIAL IVP SCH (09:15)
[2020-02-12 11:59] VITALS: BP 129/75
== END 2020-02-12 12:42 | disposition home or self-care (01) ==
LOC: 3BNU 15:24 → EMEROOARM 15:24 → 3BNU 18:38
PROVIDERS: ADMIT Internal Medicine; ATTEND Internal Medicine

== ENCOUNTER 2020-04-04 05:48 | Inpatient (IN) ==
[2020-04-04 06:23] LABS: Basophils % 0.4 %; Eosinophils # 0.3 K/mcL (0.0-0.6); Eosinophils % 3.4 %; Hemoglobin 16.1 g/dL (12.9-16.9); Immature Granulocytes % 0.3 % (0-4); Lymphocytes # 1.5 K/mcL (0.6-4.6); Lymphocytes % 16.5 %; Mean Corpuscular HGB Conc 31.6 g/dL (31.6-35.5); Mean Corpuscular Hemoglobin 28.2 pg (28.0-33.3); Mean Corpuscular Volume 89.3 fL (83.0-100.0); Mean Platelet Volume 11.2 fL (9.4-12.4); Monocytes # 0.8 K/mcL (0.0-1.3); Monocytes % 8.4 %; Neutrophils # 6.6 K/mcL (1.6-8.9); Platelet Count 206 K/mcL (140-400); Red Blood Count 5.71 M/mcL (4.19-5.50); Red Cell Distribution Width 13.2 % (11.5-14.5); White Blood Count 9.3 K/mcL (4.3-11.1)
[2020-04-04 06:24] LABS: Prothrombin Time 11.3 Seconds (9.4-12.1)
[2020-04-04] MEDS ORDERED: *HR* FentaNYL (PF) 100 MCG/2 ML VIAL IVP ONE (06:24)
[2020-04-04] MEDS ORDERED: Isovue-370 500 ML BOTTLE IVP ONE (06:47)
[2020-04-04 06:49] LABS: Troponin I 0.17 ng/mL (< 0.04)
[2020-04-04 06:50] LABS: BUN/Creatinine Ratio 12 (6-26); Blood Urea Nitrogen 11 mg/dL (6-20); Calcium 9.7 mg/dL (8.6-10.3); Carbon Dioxide 31 mEq/L (23-29); Chloride 96 mEq/L (98-107); Glucose 409 mg/dL (70-105); Osmolality,Calculated 301 (280-300); Potassium 3.5 mEq/L (3.5-5.1); Sodium 137 mEq/L (136-145); eGFR For African Americans > 60 (> 60); eGFR For Non-African Americans > 60 (> 60)
[2020-04-04] MEDS ORDERED: Nitroglycerin 0.4 MG TAB.SUBL SL PRN (08:00)
[2020-04-04] MEDS ORDERED: *HR* Heparin 5,000 UNIT/ML VIAL IVP PRN ×2 (08:13)
[2020-04-04] MEDS ORDERED: *HR* Heparin 5,000 UNIT/ML VIAL IVP ONE (08:13)
[2020-04-04] MEDS ORDERED: Heparin 25,000 UNIT/250 ML D5W 25,000 UNIT/250 ML IV.SOLN IVC SCH (08:15)
[2020-04-04] MEDS ORDERED: Ondansetron 4 MG/2 ML VIAL IVP PRN (08:45)
[2020-04-04] MEDS ORDERED: Naloxone 0.4 MG/ML INJ IVP PRN (08:45)
[2020-04-04] MEDS ORDERED: D5% in Water 1,000 ML IVC PRN (08:48)
[2020-04-04] MEDS ORDERED: Dextrose Gel 15 GM/37.5 ML TUBE PO PRN ×2 (08:48)
[2020-04-04] MEDS ORDERED: *HR* Dextrose 50 % in Water (Vial) 50 ML VIAL IVP PRN (08:48)
[2020-04-04] MEDS: Furosemide 40 MG/4 ML VIAL IVP ONE (09:13)
[2020-04-04] MEDS: Insulin DETEMIR 100 UNIT/ML X5UNITS SQ SCH ×2 (09:17→22:07)
[2020-04-04] MEDS: Insulin LISPRO 300 UNITS/3 ML VIAL SQ SCH ×3 (12:05→22:07)
[2020-04-04] MEDS: Gabapentin 400 MG CAPSULE PO SCH ×2 (16:49→21:22)
[2020-04-04] MEDS: carvediloL 6.25 MG TABLET PO SCH (16:49)
[2020-04-04] MEDS: Furosemide 40 MG/4 ML VIAL IVP SCH (21:22)
[2020-04-04] MEDS: metOLazone 2.5 MG TABLET PO SCH (21:22)
[2020-04-04] MEDS ORDERED: Ipratropium/Albuterol Neb 3 ML IH ONE (21:40)
[2020-04-04] MEDS ORDERED: *HR* OxyCODONE Immed Rel 5 MG TABLET PO ONE (21:42)
[2020-04-05] MEDS ORDERED: Morphine Sulfate 2 MG/ML SYRINGE IVP ONE (01:39)
[2020-04-05 07:29] LABS: Basophils % 0.4 %; Eosinophils # 0.4 K/mcL (0.0-0.6); Eosinophils % 3.8 %; Hematocrit 52.8 % (37.5-50.1); Hemoglobin 16.5 g/dL (12.9-16.9); Immature Granulocytes % 0.4 % (0-4); Lymphocytes # 1.3 K/mcL (0.6-4.6); Lymphocytes % 13.4 %; Mean Corpuscular HGB Conc 31.3 g/dL (31.6-35.5); Mean Corpuscular Volume 89.5 fL (83.0-100.0); Mean Platelet Volume 11.1 fL (9.4-12.4); Monocytes # 0.8 K/mcL (0.0-1.3); Monocytes % 8.2 %; Neutrophils # 7.3 K/mcL (1.6-8.9); Platelet Count 226 K/mcL (140-400); Red Cell Distribution Width 13.3 % (11.5-14.5); Segmented Neutrophils % 73.8 %; White Blood Count 9.9 K/mcL (4.3-11.1)
[2020-04-05 07:49] LABS: BUN/Creatinine Ratio 21 (6-26); Blood Urea Nitrogen 24 mg/dL (6-20); Calcium 9.6 mg/dL (8.6-10.3); Carbon Dioxide 34 mEq/L (23-29); Chloride 91 mEq/L (98-107); Glucose 406 mg/dL (70-105); Magnesium 1.8 mg/dL (1.6-2.6); Osmolality,Calculated 297 (280-300); Potassium 3.4 mEq/L (3.5-5.1); Sodium 133 mEq/L (136-145); eGFR For African Americans > 60 (> 60); eGFR For Non-African Americans > 60 (> 60)
[2020-04-05] MEDS: Insulin LISPRO 300 UNITS/3 ML VIAL SQ SCH ×4 (08:04→21:15)
[2020-04-05] MEDS: Aspirin Enteric Coated 81 MG Tablet PO SCH (08:05)
[2020-04-05] MEDS: Isosorbide MONOnitrate (24 HR) 30 MG TAB.ER.24H PO SCH (08:05)
[2020-04-05] MEDS: Furosemide 40 MG/4 ML VIAL IVP SCH ×3 (08:05→16:34)
[2020-04-05] MEDS: carvediloL 6.25 MG TABLET PO SCH ×2 (08:05→16:34)
[2020-04-05] MEDS: Insulin DETEMIR 100 UNIT/ML X5UNITS SQ SCH ×2 (08:05→21:14)
[2020-04-05] MEDS: metOLazone 2.5 MG TABLET PO SCH ×2 (08:06→21:15)
[2020-04-05] MEDS: Gabapentin 400 MG CAPSULE PO SCH ×3 (08:06→21:15)
[2020-04-05 08:39] LABS: Estimated Average Glucose 361 mg/dl; Hemoglobin A1C 14.2 %
[2020-04-05] MEDS ORDERED: Insulin DETEMIR 100 UNIT/ML X5UNITS SQ ONE ×2 (20:31→21:06)
[2020-04-05] MEDS ORDERED: Insulin Human Regular 5 UNIT in 0.9 % Sodium Chloride 10 ML IV ONE (20:31)
[2020-04-05] MEDS ORDERED: Insulin Human Regular 10 UNIT in 0.9 % Sodium Chloride 10 ML IV ONE (23:23)
[2020-04-05] MEDS ORDERED: Insulin LISPRO 300 UNITS/3 ML VIAL SQ ONE (23:24)
[2020-04-06 02:30] LABS: BUN/Creatinine Ratio 25 (6-26); Blood Urea Nitrogen 32 mg/dL (6-20); Calcium 9.5 mg/dL (8.6-10.3); Carbon Dioxide 31 mEq/L (23-29); Chloride 90 mEq/L (98-107); Glucose 434 mg/dL (70-105); Osmolality,Calculated 300 (280-300); Potassium 3.4 mEq/L (3.5-5.1); Sodium 132 mEq/L (136-145); eGFR For African Americans > 60 (> 60); eGFR For Non-African Americans 60 (> 60)
[2020-04-06] MEDS ORDERED: Insulin Human Regular 5 UNIT in 0.9 % Sodium Chloride 10 ML IV ONE (04:21)
[2020-04-06] MEDS ORDERED: Insulin LISPRO 300 UNITS/3 ML VIAL SQ ONE (04:21)
[2020-04-06] MEDS: Insulin LISPRO 300 UNITS/3 ML VIAL SQ SCH ×4 (08:11→20:38)
[2020-04-06] MEDS: Insulin DETEMIR 100 UNIT/ML X5UNITS SQ SCH ×2 (08:12→20:38)
[2020-04-06] MEDS: carvediloL 6.25 MG TABLET PO SCH ×2 (08:12→16:58)
[2020-04-06] MEDS: Isosorbide MONOnitrate (24 HR) 30 MG TAB.ER.24H PO SCH (08:12)
[2020-04-06] MEDS: Aspirin Enteric Coated 81 MG Tablet PO SCH (08:12)
[2020-04-06] MEDS: Furosemide 40 MG/4 ML VIAL IVP ONE (08:14)
[2020-04-06] MEDS: metOLazone 2.5 MG TABLET PO SCH ×2 (08:15→20:38)
[2020-04-06] MEDS: Furosemide 40 MG/4 ML VIAL IVP SCH (08:15)
[2020-04-06] MEDS: Gabapentin 400 MG CAPSULE PO SCH ×3 (08:15→20:38)
[2020-04-06 09:02] LABS: Bilirubin,Urine Negative (Negative); Blood,Urine Negative (Negative); Clarity,Urine Clear (Clear); Color,Urine Colorless (Yellow); Glucose,Urine (UA) >=1000 mg/dL (Normal); Ketones,Urine Negative (Negative); Leukocyte Esterase,Urine Trace (Negative); Nitrite,Urine Negative (Negative); PH,Urine 5.5 pH Units (5.0-8.0); Protein,Urine Negative (Neg-Trace); RBC,Urine 0-3 per hpf (0-3); Specific Gravity,Urine 1.011 (1.010-1.025); Urobilinogen,Urine Normal (Normal); WBC,Urine 0-3 per hpf (0-3)
[2020-04-06 09:13] LABS: Creatinine,Urine 36 mg/dL; Microalbum/Creatinine Ratio,Ur 33 mcg/mg (Less than 30); Microalbumin,Urine 12 mg/L
[2020-04-06] MEDS: Acetaminophen 325 MG TABLET PO PRN ×2 (11:46→20:37)
[2020-04-07 05:38] LABS: Hematocrit 51.7 % (37.5-50.1); Hemoglobin 16.6 g/dL (12.9-16.9); Mean Corpuscular HGB Conc 32.1 g/dL (31.6-35.5); Mean Corpuscular Volume 87.2 fL (83.0-100.0); Mean Platelet Volume 11.1 fL (9.4-12.4); Platelet Count 221 K/mcL (140-400); Red Blood Count 5.93 M/mcL (4.19-5.50); Red Cell Distribution Width 13.2 % (11.5-14.5); White Blood Count 10.2 K/mcL (4.3-11.1)
[2020-04-07 05:58] LABS: BUN/Creatinine Ratio 32 (6-26); Blood Urea Nitrogen 29 mg/dL (6-20); Calcium 9.9 mg/dL (8.6-10.3); Carbon Dioxide 34 mEq/L (23-29); Chloride 90 mEq/L (98-107); Glucose 326 mg/dL (70-105); Magnesium 1.6 mg/dL (1.6-2.6); Osmolality,Calculated 290 (280-300); Potassium 3.8 mEq/L (3.5-5.1); Sodium 131 mEq/L (136-145); eGFR For African Americans > 60 (> 60); eGFR For Non-African Americans > 60 (> 60)
[2020-04-07] MEDS: metOLazone 2.5 MG TABLET PO SCH ×2 (08:24→21:14)
[2020-04-07] MEDS: Isosorbide MONOnitrate (24 HR) 30 MG TAB.ER.24H PO SCH (08:24)
[2020-04-07] MEDS: carvediloL 6.25 MG TABLET PO SCH ×2 (08:24→16:29)
[2020-04-07] MEDS: Aspirin Enteric Coated 81 MG Tablet PO SCH (08:24)
[2020-04-07] MEDS: Gabapentin 400 MG CAPSULE PO SCH ×3 (08:24→21:14)
[2020-04-07] MEDS: Insulin LISPRO 300 UNITS/3 ML VIAL SQ SCH ×5 (08:25→23:35)
[2020-04-07] MEDS: Insulin DETEMIR 100 UNIT/ML X5UNITS SQ SCH ×2 (08:28→21:14)
[2020-04-07] MEDS ORDERED: Furosemide 40 MG TABLET PO SCH (09:00)
[2020-04-07] MEDS ORDERED: 0.9 % Sodium Chloride 2,000 ML ONE (09:16)
[2020-04-07] MEDS ORDERED: Heparin 1,000 UNITS/500 mL 500 ML ONE (09:16)
[2020-04-07] MEDS ORDERED: *HR* Heparin 10,000 UNIT/10 ML VIAL ONE (09:17)
[2020-04-07] MEDS ORDERED: ISOVUE-370 200 ML INFUS..BTL ONE (09:17)
[2020-04-07] MEDS ORDERED: Nitroglycerin 1,000 MCG/10 ML VIAL IV ONE (09:17)
[2020-04-07] MEDS ORDERED: *HR* FentaNYL (PF) 100 MCG/2 ML VIAL ONE (09:28)
[2020-04-07] MEDS ORDERED: *HR* Midazolam HCl 2 MG/2 ML VIAL ONE (09:28)
[2020-04-07] MEDS: polyethylene glycoL 3350 17 GM POWD.PACK PO SCH (14:42)
[2020-04-07 15:12] LABS: BUN/Creatinine Ratio 27 (6-26); Blood Urea Nitrogen 29 mg/dL (6-20); Calcium 9.7 mg/dL (8.6-10.3); Carbon Dioxide 34 mEq/L (23-29); Chloride 86 mEq/L (98-107); Glucose 410 mg/dL (70-105); Osmolality,Calculated 293 (280-300); Potassium 3.8 mEq/L (3.5-5.1); Sodium 130 mEq/L (136-145); eGFR For African Americans > 60 (> 60); eGFR For Non-African Americans > 60 (> 60)
[2020-04-07] MEDS: Furosemide 40 MG TABLET PO SCH (16:28)
[2020-04-07] MEDS: Acetaminophen 325 MG TABLET PO PRN ×2 (16:28→21:33)
[2020-04-07] MEDS ORDERED: Insulin Human Regular 10 UNIT in 0.9 % Sodium Chloride 10 ML IV STA (23:07)
[2020-04-08] MEDS ORDERED: DiphenhydraMINE CREAM 28.4 GM TUBE TP PRN ×2 (03:10→03:28)
[2020-04-08 07:30] LABS: Basophils # 0.1 K/mcL (0.0-0.2); Basophils % 0.5 %; Eosinophils # 0.5 K/mcL (0.0-0.6); Eosinophils % 4.8 %; Hematocrit 53.2 % (37.5-50.1); Hemoglobin 17.6 g/dL (12.9-16.9); Immature Granulocytes % 0.4 % (0-4); Lymphocytes # 1.8 K/mcL (0.6-4.6); Lymphocytes % 18.5 %; Mean Corpuscular HGB Conc 33.1 g/dL (31.6-35.5); Mean Corpuscular Hemoglobin 27.9 pg (28.0-33.3); Mean Corpuscular Volume 84.4 fL (83.0-100.0); Mean Platelet Volume 11.1 fL (9.4-12.4); Monocytes # 0.9 K/mcL (0.0-1.3); Monocytes % 9.5 %; Neutrophils # 6.5 K/mcL (1.6-8.9); Platelet Count 238 K/mcL (140-400); Segmented Neutrophils % 66.3 %; White Blood Count 9.8 K/mcL (4.3-11.1)
[2020-04-08] MEDS: Insulin LISPRO 300 UNITS/3 ML VIAL SQ SCH ×2 (07:41→07:46)
[2020-04-08] MEDS: Gabapentin 400 MG CAPSULE PO SCH (07:45)
[2020-04-08] MEDS: metOLazone 2.5 MG TABLET PO SCH (07:45)
[2020-04-08] MEDS: Insulin DETEMIR 100 UNIT/ML X5UNITS SQ SCH (07:45)
[2020-04-08] MEDS: carvediloL 6.25 MG TABLET PO SCH (07:45)
[2020-04-08] MEDS: Aspirin Enteric Coated 81 MG Tablet PO SCH (07:45)
[2020-04-08] MEDS: Furosemide 40 MG TABLET PO SCH (07:45)
[2020-04-08] MEDS: Isosorbide MONOnitrate (24 HR) 30 MG TAB.ER.24H PO SCH (07:46)
[2020-04-08 07:49] LABS: BUN/Creatinine Ratio 28 (6-26); Blood Urea Nitrogen 27 mg/dL (6-20); Calcium 10.2 mg/dL (8.6-10.3); Carbon Dioxide 37 mEq/L (23-29); Chloride 86 mEq/L (98-107); Glucose 260 mg/dL (70-105); Osmolality,Calculated 292 (280-300); Potassium 3.2 mEq/L (3.5-5.1); Sodium 134 mEq/L (136-145); eGFR For African Americans > 60 (> 60); eGFR For Non-African Americans > 60 (> 60)
[2020-04-08 07:59] VITALS: BP 109/68
[2020-04-08] MEDS: polyethylene glycoL 3350 17 GM POWD.PACK PO SCH (08:16)
== END 2020-04-08 11:32 | disposition home or self-care (01) | DRG 191 ==
LOC: 3ANU 05:48 → EMEROOARM 05:48 → SUATTDRO 08:45 → 3ANU 11:05
PROVIDERS: ADMIT Internal Medicine; ATTEND Internal Medicine

== ENCOUNTER 2020-05-21 09:47 | Observation (INO) ==
[2020-05-21] MEDS ORDERED: Isovue-370 500 ML BOTTLE IVP ONE (10:11)
[2020-05-21] MEDS ORDERED: *HR* FentaNYL (PF) 100 MCG/2 ML VIAL IVP ONE (10:12)
[2020-05-21 10:16] LABS: Bacteria,Urine Few per hpf (None-Few); Bilirubin,Urine Negative (Negative); Blood,Urine Negative (Negative); Clarity,Urine Clear (Clear); Color,Urine Light-Yellow (Yellow); Glucose,Urine (UA) >=1000 mg/dL (Normal); Ketones,Urine Negative (Negative); Leukocyte Esterase,Urine Negative (Negative); Mucus,Urine Few per lpf (None-Few); Nitrite,Urine Negative (Negative); Protein,Urine Negative (Neg-Trace); RBC,Urine 0-3 per hpf (0-3); Specific Gravity,Urine > 1.030 (1.010-1.025); Squamous Epithelial Cell,Urine Few per hpf (None-Few); Urobilinogen,Urine Normal (Normal); WBC,Urine 0-3 per hpf (0-3)
[2020-05-21 10:36] LABS: Basophils # 0.1 K/mcL (0.0-0.2); Basophils % 0.5 %; Eosinophils # 0.2 K/mcL (0.0-0.6); Eosinophils % 1.8 %; Hematocrit 47.2 % (37.5-50.1); Hemoglobin 15.1 g/dL (12.9-16.9); Immature Granulocytes % 0.3 % (0-4); Lymphocytes # 1.4 K/mcL (0.6-4.6); Lymphocytes % 15.3 %; Mean Corpuscular Hemoglobin 28.8 pg (28.0-33.3); Mean Corpuscular Volume 90.1 fL (83.0-100.0); Mean Platelet Volume 11.5 fL (9.4-12.4); Monocytes # 0.7 K/mcL (0.0-1.3); Monocytes % 7.4 %; Neutrophils # 6.9 K/mcL (1.6-8.9); Platelet Count 185 K/mcL (140-400); Red Blood Count 5.24 M/mcL (4.19-5.50); Red Cell Distribution Width 14.1 % (11.5-14.5); Segmented Neutrophils % 74.7 %; White Blood Count 9.2 K/mcL (4.3-11.1)
[2020-05-21 10:48] LABS: Alanine Aminotransferase 44 Units/L (7-52); Albumin 3.6 g/dL (3.5-5.7); Albumin/Globulin Ratio 1.1 (1.1-2.2); Alkaline Phosphatase 92 Units/L (34-104); Aspartate Amino Transferase 37 Units/L (13-39); BUN/Creatinine Ratio 9 (6-26); Bilirubin,Total 0.8 mg/dL (0.3-1.0); Blood Urea Nitrogen 8 mg/dL (6-20); Calcium 8.5 mg/dL (8.6-10.3); Carbon Dioxide 29 mEq/L (23-29); Chloride 96 mEq/L (98-107); Globulin 3.2 g/dL (2.4-3.5); Glucose 495 mg/dL (70-105); Osmolality,Calculated 298 (280-300); Potassium 3.4 mEq/L (3.5-5.1); Sodium 134 mEq/L (136-145); Total Protein 6.8 g/dL (6.4-8.9); eGFR For African Americans > 60 (> 60); eGFR For Non-African Americans > 60 (> 60)
[2020-05-21 10:54] LABS: Troponin I 0.13 ng/mL (< 0.04)
[2020-05-21] MEDS ORDERED: 0.9 % Sodium Chloride 1,000 ML IVC ONE (11:44)
[2020-05-21] MEDS ORDERED: Aspirin 325 MG TABLET PO ONE (12:11)
[2020-05-21] MEDS ORDERED: Naloxone 0.4 MG/ML INJ IVP PRN (12:22)
[2020-05-21] MEDS ORDERED: D5% in Water 1,000 ML IVC PRN (12:23)
[2020-05-21] MEDS ORDERED: *HR* Dextrose 50 % in Water (Vial) 50 ML VIAL IVP PRN (12:23)
[2020-05-21] MEDS ORDERED: Dextrose Gel 15 GM/37.5 ML TUBE PO PRN ×2 (12:23)
[2020-05-21] MEDS: Insulin LISPRO 300 UNITS/3 ML VIAL SQ SCH ×3 (13:23→21:28)
[2020-05-21] MEDS ORDERED: Nitroglycerin 0.4 MG TAB.SUBL SL PRN (13:40)
[2020-05-21] MEDS ORDERED: Furosemide 40 MG/4 ML VIAL IVP ONE (13:49)
[2020-05-21] MEDS ORDERED: hydrALAZINE 10 MG TABLET PO PRN (13:51)
[2020-05-21] MEDS: Pantoprazole 40 MG VIAL IVP SCH (17:14)
[2020-05-21] MEDS: *HR* Heparin 5,000 UNIT/ML VIAL SQ SCH (17:15)
[2020-05-21] MEDS: Gabapentin 400 MG CAPSULE PO SCH ×2 (17:15→21:29)
[2020-05-21] MEDS: Insulin NPH/REG 70/30 100 UNIT/ML (x5UNIT) SQ SCH (17:15)
[2020-05-21] MEDS: carvediloL 6.25 MG TABLET PO SCH (17:16)
[2020-05-21] MEDS: *HR* HYDROcodone/Acet 5/325 mg TABLET PO PRN (17:36)
[2020-05-21] MEDS: Ipratropium/Albuterol Neb 3 ML IH PRN (22:26)
[2020-05-22] MEDS: Pantoprazole 40 MG VIAL IVP SCH ×2 (05:14→17:29)
[2020-05-22] MEDS: *HR* Heparin 5,000 UNIT/ML VIAL SQ SCH ×2 (05:14→17:29)
[2020-05-22] MEDS: *HR* HYDROcodone/Acet 5/325 mg TABLET PO PRN ×3 (05:23→20:20)
[2020-05-22 05:35] LABS: BUN/Creatinine Ratio 15 (6-26); Blood Urea Nitrogen 13 mg/dL (6-20); Carbon Dioxide 30 mEq/L (23-29); Chloride 97 mEq/L (98-107); Glucose 260 mg/dL (70-105); Osmolality,Calculated 289 (280-300); Phosphorous 4.3 mg/dL (2.7-4.5); Potassium 3.4 mEq/L (3.5-5.1); Sodium 135 mEq/L (136-145); eGFR For African Americans > 60 (> 60); eGFR For Non-African Americans > 60 (> 60)
[2020-05-22] MEDS: Furosemide 40 MG/4 ML VIAL IVP SCH (08:16)
[2020-05-22] MEDS: Isosorbide MONOnitrate (24 HR) 30 MG TAB.ER.24H PO SCH (08:16)
[2020-05-22] MEDS: Aspirin Enteric Coated 81 MG Tablet PO SCH (08:16)
[2020-05-22] MEDS: Gabapentin 400 MG CAPSULE PO SCH ×3 (08:16→20:15)
[2020-05-22] MEDS: carvediloL 6.25 MG TABLET PO SCH ×2 (08:16→18:00)
[2020-05-22] MEDS: Insulin LISPRO 300 UNITS/3 ML VIAL SQ SCH ×4 (08:17→20:29)
[2020-05-22] MEDS ORDERED: Spironolactone 25 MG TABLET PO SCH (09:00)
[2020-05-22] MEDS ORDERED: Furosemide 40 MG TABLET PO SCH (09:00)
[2020-05-22 09:08] LABS: Amphetamine Screen,Urine Negative ng/mL (Cutoff=1000); Barbiturate Screen,Urine Negative ng/mL (Cutoff=200); Benzodiazepines Screen,Urine Negative ng/mL (Cutoff=200); Cannabinoid Screen,Urine Negative ng/mL (Cutoff = 50); Cocaine Screen,Urine Negative ng/mL (Cutoff= 300); Opiate Screen,Urine Negative ng/mL (Cutoff=300); Phencyclidine Screen,Urine Negative ng/mL (Cutoff=25)
[2020-05-22] MEDS: Clotrimazole 1% CRM 15 GM TUBE TP SCH ×2 (13:23→20:25)
[2020-05-22] MEDS: Insulin NPH/REG 70/30 100 UNIT/ML (x5UNIT) SQ SCH (17:29)
[2020-05-22] MEDS ORDERED: Insulin DETEMIR 100 UNIT/ML X5UNITS SQ ONE (23:33)
[2020-05-23] MEDS: Ipratropium/Albuterol Neb 3 ML IH PRN ×2 (00:34→17:27)
[2020-05-23] MEDS ORDERED: Melatonin 3 MG TABLET PO ONE (01:07)
[2020-05-23 02:44] LABS: Basophils # 0.1 K/mcL (0.0-0.2); Basophils % 0.6 %; Eosinophils # 0.3 K/mcL (0.0-0.6); Eosinophils % 3.5 %; Hematocrit 49.5 % (37.5-50.1); Hemoglobin 15.3 g/dL (12.9-16.9); Immature Granulocytes % 0.2 % (0-4); Lymphocytes # 1.8 K/mcL (0.6-4.6); Lymphocytes % 22.3 %; Mean Corpuscular HGB Conc 30.9 g/dL (31.6-35.5); Mean Corpuscular Hemoglobin 28.2 pg (28.0-33.3); Mean Corpuscular Volume 91.3 fL (83.0-100.0); Mean Platelet Volume 11.6 fL (9.4-12.4); Monocytes # 0.7 K/mcL (0.0-1.3); Monocytes % 8.5 %; Neutrophils # 5.3 K/mcL (1.6-8.9); Platelet Count 189 K/mcL (140-400); Red Blood Count 5.42 M/mcL (4.19-5.50); Red Cell Distribution Width 13.9 % (11.5-14.5); Segmented Neutrophils % 64.9 %; White Blood Count 8.1 K/mcL (4.3-11.1)
[2020-05-23 03:02] LABS: BUN/Creatinine Ratio 18 (6-26); Blood Urea Nitrogen 19 mg/dL (6-20); Calcium 8.9 mg/dL (8.6-10.3); Carbon Dioxide 34 mEq/L (23-29); Chloride 93 mEq/L (98-107); Glucose 262 mg/dL (70-105); Osmolality,Calculated 289 (280-300); Potassium 3.3 mEq/L (3.5-5.1); Sodium 134 mEq/L (136-145); eGFR For African Americans > 60 (> 60); eGFR For Non-African Americans > 60 (> 60)
[2020-05-23] MEDS ORDERED: Insulin LISPRO 300 UNITS/3 ML VIAL SQ ONE (05:04)
[2020-05-23] MEDS: Pantoprazole 40 MG VIAL IVP SCH ×2 (06:21→17:45)
[2020-05-23] MEDS: *HR* Heparin 5,000 UNIT/ML VIAL SQ SCH ×2 (06:21→17:43)
[2020-05-23] MEDS: *HR* HYDROcodone/Acet 5/325 mg TABLET PO PRN ×2 (06:30→12:47)
[2020-05-23] MEDS: Spironolactone 25 MG TABLET PO SCH (08:49)
[2020-05-23] MEDS: carvediloL 6.25 MG TABLET PO SCH ×2 (08:49→17:43)
[2020-05-23] MEDS: Aspirin Enteric Coated 81 MG Tablet PO SCH (08:49)
[2020-05-23] MEDS: Furosemide 40 MG/4 ML VIAL IVP SCH (08:50)
[2020-05-23] MEDS: Isosorbide MONOnitrate (24 HR) 30 MG TAB.ER.24H PO SCH (08:50)
[2020-05-23] MEDS: Gabapentin 400 MG CAPSULE PO SCH ×3 (08:50→20:34)
[2020-05-23] MEDS: Clotrimazole 1% CRM 15 GM TUBE TP SCH ×2 (08:51→20:35)
[2020-05-23] MEDS: Insulin LISPRO 300 UNITS/3 ML VIAL SQ SCH ×4 (08:54→20:44)
[2020-05-23] MEDS: Insulin NPH/REG 70/30 100 UNIT/ML (x5UNIT) SQ SCH (17:45)
[2020-05-24] MEDS ORDERED: Melatonin 3 MG TABLET PO ONE (03:12)
[2020-05-24] MEDS: Pantoprazole 40 MG VIAL IVP SCH ×2 (05:24→17:48)
[2020-05-24] MEDS: *HR* Heparin 5,000 UNIT/ML VIAL SQ SCH ×2 (05:24→17:48)
[2020-05-24] MEDS: *HR* HYDROcodone/Acet 5/325 mg TABLET PO PRN (05:29)
[2020-05-24 06:36] LABS: Basophils # 0.1 K/mcL (0.0-0.2); Basophils % 0.6 %; Eosinophils # 0.2 K/mcL (0.0-0.6); Eosinophils % 2.7 %; Hematocrit 47.8 % (37.5-50.1); Hemoglobin 15.2 g/dL (12.9-16.9); Immature Granulocytes % 0.2 % (0-4); Lymphocytes # 1.6 K/mcL (0.6-4.6); Lymphocytes % 19.4 %; Mean Corpuscular HGB Conc 31.8 g/dL (31.6-35.5); Mean Corpuscular Hemoglobin 28.8 pg (28.0-33.3); Mean Corpuscular Volume 90.7 fL (83.0-100.0); Mean Platelet Volume 12.1 fL (9.4-12.4); Monocytes # 0.7 K/mcL (0.0-1.3); Monocytes % 8.3 %; Neutrophils # 5.6 K/mcL (1.6-8.9); Platelet Count 179 K/mcL (140-400); Red Blood Count 5.27 M/mcL (4.19-5.50); Red Cell Distribution Width 13.9 % (11.5-14.5); Segmented Neutrophils % 68.8 %; White Blood Count 8.1 K/mcL (4.3-11.1)
[2020-05-24 07:01] LABS: BUN/Creatinine Ratio 23 (6-26); Blood Urea Nitrogen 20 mg/dL (6-20); Calcium 9.1 mg/dL (8.6-10.3); Carbon Dioxide 30 mEq/L (23-29); Chloride 98 mEq/L (98-107); Glucose 189 mg/dL (70-105); Osmolality,Calculated 290 (280-300); Potassium 3.8 mEq/L (3.5-5.1); Sodium 136 mEq/L (136-145); eGFR For African Americans > 60 (> 60); eGFR For Non-African Americans > 60 (> 60)
[2020-05-24] MEDS: Isosorbide MONOnitrate (24 HR) 30 MG TAB.ER.24H PO SCH (08:37)
[2020-05-24] MEDS: Furosemide 40 MG TABLET PO SCH (08:37)
[2020-05-24] MEDS: Gabapentin 400 MG CAPSULE PO SCH (08:37)
[2020-05-24] MEDS: carvediloL 6.25 MG TABLET PO SCH ×2 (08:37→17:49)
[2020-05-24] MEDS: Aspirin Enteric Coated 81 MG Tablet PO SCH (08:37)
[2020-05-24] MEDS: Clotrimazole 1% CRM 15 GM TUBE TP SCH ×2 (08:38→21:07)
[2020-05-24] MEDS: Spironolactone 25 MG TABLET PO SCH (08:38)
[2020-05-24] MEDS: Insulin LISPRO 300 UNITS/3 ML VIAL SQ SCH ×3 (09:02→17:49)
[2020-05-24] MEDS: Ipratropium/Albuterol Neb 3 ML IH PRN ×2 (09:18→18:13)
[2020-05-24] MEDS ORDERED: Cyanocobalamin (B-12) 1,000 MCG/ML VIAL SQ ONE (09:21)
[2020-05-24] MEDS: Insulin NPH/REG 70/30 100 UNIT/ML (x5UNIT) SQ SCH (21:06)
[2020-05-25 03:46] LABS: Basophils % 0.5 %; Eosinophils # 0.2 K/mcL (0.0-0.6); Eosinophils % 2.7 %; Hematocrit 51.1 % (37.5-50.1); Hemoglobin 15.5 g/dL (12.9-16.9); Immature Granulocytes % 0.4 % (0-4); Lymphocytes % 24.1 %; Mean Corpuscular HGB Conc 30.3 g/dL (31.6-35.5); Mean Corpuscular Volume 92.4 fL (83.0-100.0); Mean Platelet Volume 11.6 fL (9.4-12.4); Monocytes # 0.7 K/mcL (0.0-1.3); Monocytes % 8.5 %; Neutrophils # 5.2 K/mcL (1.6-8.9); Platelet Count 184 K/mcL (140-400); Red Blood Count 5.53 M/mcL (4.19-5.50); Red Cell Distribution Width 13.9 % (11.5-14.5); Segmented Neutrophils % 63.8 %; White Blood Count 8.2 K/mcL (4.3-11.1)
[2020-05-25 04:06] LABS: BUN/Creatinine Ratio 21 (6-26); Blood Urea Nitrogen 19 mg/dL (6-20); Carbon Dioxide 33 mEq/L (23-29); Chloride 98 mEq/L (98-107); Glucose 202 mg/dL (70-105); Osmolality,Calculated 292 (280-300); Potassium 4.1 mEq/L (3.5-5.1); Sodium 137 mEq/L (136-145); eGFR For African Americans > 60 (> 60); eGFR For Non-African Americans > 60 (> 60)
[2020-05-25] MEDS ORDERED: Ondansetron 4 MG/2 ML VIAL IVP ONE (04:39)
[2020-05-25] MEDS: *HR* Heparin 5,000 UNIT/ML VIAL SQ SCH ×2 (05:04→17:28)
[2020-05-25] MEDS: Pantoprazole 40 MG VIAL IVP SCH ×2 (05:05→17:29)
[2020-05-25] MEDS: Cyanocobalamin (B-12) 1,000 MCG TABLET PO SCH (08:07)
[2020-05-25] MEDS: Aspirin Enteric Coated 81 MG Tablet PO SCH (08:08)
[2020-05-25] MEDS: carvediloL 6.25 MG TABLET PO SCH ×2 (08:08→17:29)
[2020-05-25] MEDS: Isosorbide MONOnitrate (24 HR) 30 MG TAB.ER.24H PO SCH (08:08)
[2020-05-25] MEDS: Spironolactone 25 MG TABLET PO SCH (08:08)
[2020-05-25] MEDS: Insulin LISPRO 300 UNITS/3 ML VIAL SQ SCH ×3 (08:08→16:00)
[2020-05-25] MEDS: Furosemide 40 MG TABLET PO SCH (08:08)
[2020-05-25] MEDS: Insulin NPH/REG 70/30 100 UNIT/ML (x5UNIT) SQ SCH ×2 (08:09→20:53)
[2020-05-25] MEDS: Clotrimazole 1% CRM 15 GM TUBE TP SCH ×2 (08:10→20:59)
[2020-05-25] MEDS: *HR* HYDROcodone/Acet 5/325 mg TABLET PO PRN (14:19)
[2020-05-25] MEDS: Ipratropium/Albuterol Neb 3 ML IH PRN (21:20)
[2020-05-26 04:21] LABS: Basophils # 0.1 K/mcL (0.0-0.2); Basophils % 0.6 %; Eosinophils # 0.2 K/mcL (0.0-0.6); Eosinophils % 2.7 %; Immature Granulocytes % 0.2 % (0-4); Lymphocytes # 1.9 K/mcL (0.6-4.6); Lymphocytes % 22.6 %; Mean Corpuscular HGB Conc 31.3 g/dL (31.6-35.5); Mean Corpuscular Volume 92.8 fL (83.0-100.0); Mean Platelet Volume 11.7 fL (9.4-12.4); Monocytes # 0.7 K/mcL (0.0-1.3); Monocytes % 8.7 %; Neutrophils # 5.4 K/mcL (1.6-8.9); Platelet Count 169 K/mcL (140-400); Red Blood Count 5.17 M/mcL (4.19-5.50); Red Cell Distribution Width 13.8 % (11.5-14.5); Segmented Neutrophils % 65.2 %; White Blood Count 8.3 K/mcL (4.3-11.1)
[2020-05-26 04:41] LABS: BUN/Creatinine Ratio 23 (6-26); Blood Urea Nitrogen 22 mg/dL (6-20); Calcium 8.9 mg/dL (8.6-10.3); Carbon Dioxide 31 mEq/L (23-29); Chloride 98 mEq/L (98-107); Glucose 148 mg/dL (70-105); Osmolality,Calculated 288 (280-300); Sodium 136 mEq/L (136-145); eGFR For African Americans > 60 (> 60); eGFR For Non-African Americans > 60 (> 60)
[2020-05-26] MEDS: Pantoprazole 40 MG VIAL IVP SCH (05:35)
[2020-05-26] MEDS: *HR* Heparin 5,000 UNIT/ML VIAL SQ SCH ×2 (05:35→17:43)
[2020-05-26] MEDS: Insulin LISPRO 300 UNITS/3 ML VIAL SQ SCH (07:34)
[2020-05-26] MEDS: Furosemide 40 MG TABLET PO SCH (08:21)
[2020-05-26] MEDS: *HR* HYDROcodone/Acet 5/325 mg TABLET PO PRN (08:21)
[2020-05-26] MEDS: Spironolactone 25 MG TABLET PO SCH (08:22)
[2020-05-26] MEDS: Isosorbide MONOnitrate (24 HR) 30 MG TAB.ER.24H PO SCH (08:22)
[2020-05-26] MEDS: carvediloL 6.25 MG TABLET PO SCH ×2 (08:22→17:43)
[2020-05-26] MEDS: Cyanocobalamin (B-12) 1,000 MCG TABLET PO SCH (08:22)
[2020-05-26] MEDS: Aspirin Enteric Coated 81 MG Tablet PO SCH (08:22)
[2020-05-26] MEDS: Insulin NPH/REG 70/30 100 UNIT/ML (x5UNIT) SQ SCH (08:24)
[2020-05-26] MEDS: Clotrimazole 1% CRM 15 GM TUBE TP SCH ×2 (08:24→20:28)
[2020-05-26 14:11] LABS: INR 1.2; Prothrombin Time 13.8 Seconds (9.4-12.1)
[2020-05-26] MEDS ORDERED: Insulin NPH/REG 70/30 100 UNIT/ML (x5UNIT) SQ SCH ×2 (17:00)
[2020-05-26] MEDS: Ipratropium/Albuterol Neb 3 ML IH PRN (20:54)
[2020-05-27] MEDS ORDERED: Melatonin 3 MG TABLET PO ONE (04:10)
[2020-05-27] MEDS ORDERED: Simethicone 80 MG TAB.CHEW PO PRN (04:11)
[2020-05-27] MEDS: *HR* Heparin 5,000 UNIT/ML VIAL SQ SCH (04:34)
[2020-05-27] MEDS: *HR* HYDROcodone/Acet 5/325 mg TABLET PO PRN (04:37)
[2020-05-27 06:26] LABS: Basophils % 0.5 %; Eosinophils # 0.2 K/mcL (0.0-0.6); Eosinophils % 1.8 %; Hematocrit 46.7 % (37.5-50.1); Hemoglobin 14.5 g/dL (12.9-16.9); Immature Granulocytes % 0.5 % (0-4); Lymphocytes # 1.4 K/mcL (0.6-4.6); Lymphocytes % 16.9 %; Mean Corpuscular Volume 90.2 fL (83.0-100.0); Mean Platelet Volume 12.1 fL (9.4-12.4); Monocytes # 0.8 K/mcL (0.0-1.3); Monocytes % 9.2 %; Platelet Count 168 K/mcL (140-400); Red Blood Count 5.18 M/mcL (4.19-5.50); Red Cell Distribution Width 13.7 % (11.5-14.5); Segmented Neutrophils % 71.1 %; White Blood Count 8.5 K/mcL (4.3-11.1)
[2020-05-27 06:35] LABS: BUN/Creatinine Ratio 24 (6-26); Blood Urea Nitrogen 23 mg/dL (6-20); Carbon Dioxide 31 mEq/L (23-29); Chloride 97 mEq/L (98-107); Glucose 236 mg/dL (70-105); Osmolality,Calculated 289 (280-300); Sodium 134 mEq/L (136-145); eGFR For African Americans > 60 (> 60); eGFR For Non-African Americans > 60 (> 60)
[2020-05-27 07:56] VITALS: BP 103/72
[2020-05-27] MEDS ORDERED: Insulin NPH/REG 70/30 100 UNIT/ML (x5UNIT) SQ SCH (08:00)
[2020-05-27] MEDS: Aspirin Enteric Coated 81 MG Tablet PO SCH (08:17)
[2020-05-27] MEDS: Cyanocobalamin (B-12) 1,000 MCG TABLET PO SCH (08:17)
[2020-05-27] MEDS: Spironolactone 25 MG TABLET PO SCH (08:17)
[2020-05-27] MEDS: carvediloL 6.25 MG TABLET PO SCH (08:17)
[2020-05-27] MEDS: Furosemide 40 MG TABLET PO SCH (08:17)
[2020-05-27] MEDS: Isosorbide MONOnitrate (24 HR) 30 MG TAB.ER.24H PO SCH (08:17)
[2020-05-27] MEDS: Clotrimazole 1% CRM 15 GM TUBE TP SCH (08:18)
== END 2020-05-27 10:39 | disposition home or self-care (01) ==
LOC: 2ANU 09:47 → EMEROOARM 09:47 → SUATTDRO 14:20 → 2ANU 15:28
PROVIDERS: ADMIT Student in an Organized Health Care Education/Training Program; ATTEND Pharmacist

== ENCOUNTER 2020-06-18 16:23 | Observation (INO) ==
[2020-06-18] MEDS ORDERED: Ipratropium/Albuterol Neb 3 ML IH ONE (17:17)
[2020-06-18] MEDS ORDERED: Furosemide 40 MG/4 ML VIAL IVP ONE (17:17)
[2020-06-18] MEDS ORDERED: methylPREDNISolone 125 MG/2 ML VIAL IVP ONE (17:17)
[2020-06-18 17:35] LABS: Basophils % 0.4 %; Eosinophils # 0.2 K/mcL (0.0-0.6); Eosinophils % 2.4 %; Hematocrit 45.2 % (37.5-50.1); Hemoglobin 14.4 g/dL (12.9-16.9); Immature Granulocytes % 0.4 % (0-4); Lymphocytes # 0.9 K/mcL (0.6-4.6); Lymphocytes % 9.8 %; Mean Corpuscular HGB Conc 31.9 g/dL (31.6-35.5); Mean Corpuscular Hemoglobin 28.7 pg (28.0-33.3); Mean Platelet Volume 11.6 fL (9.4-12.4); Monocytes # 0.8 K/mcL (0.0-1.3); Monocytes % 8.6 %; Neutrophils # 7.4 K/mcL (1.6-8.9); Platelet Count 207 K/mcL (140-400); Red Blood Count 5.02 M/mcL (4.19-5.50); Red Cell Distribution Width 13.2 % (11.5-14.5); Segmented Neutrophils % 78.4 %; White Blood Count 9.4 K/mcL (4.3-11.1)
[2020-06-18 17:40] LABS: INR 1.3; Prothrombin Time 14.2 Seconds (9.4-12.1)
[2020-06-18 17:42] LABS: Activated Partial Thrombo Time 28.5 Seconds (26.0-36.0)
[2020-06-18 17:49] LABS: Bilirubin,Urine Negative (Negative); Blood,Urine Negative (Negative); Clarity,Urine Clear (Clear); Color,Urine Yellow (Yellow); Glucose,Urine (UA) >=1000 mg/dL (Normal); Ketones,Urine Negative (Negative); Leukocyte Esterase,Urine Negative (Negative); Nitrite,Urine Negative (Negative); PH,Urine 5.5 pH Units (5.0-8.0); Protein,Urine 50 mg/dL (Neg-Trace); RBC,Urine 0-3 per hpf (0-3); Specific Gravity,Urine > 1.030 (1.010-1.025); Squamous Epithelial Cell,Urine Few per hpf (None-Few); Urobilinogen,Urine Normal (Normal); WBC,Urine 0-3 per hpf (0-3)
[2020-06-18 17:57] LABS: Troponin I 0.13 ng/mL (< 0.04)
[2020-06-18] MEDS ORDERED: Aspirin 81 MG TAB.CHEW PO STA (17:59)
[2020-06-18 18:15] LABS: Alanine Aminotransferase 22 Units/L (7-52); Albumin 3.6 g/dL (3.5-5.7); Albumin/Globulin Ratio 1.1 (1.1-2.2); Alkaline Phosphatase 77 Units/L (34-104); Aspartate Amino Transferase 20 Units/L (13-39); BUN/Creatinine Ratio 15 (6-26); Bilirubin,Direct 0.2 mg/dL (0.0-0.2); Bilirubin,Indirect 0.7 mg/dL (0.0-1.0); Bilirubin,Total 0.9 mg/dL (0.3-1.0); Blood Urea Nitrogen 14 mg/dL (6-20); Carbon Dioxide 32 mEq/L (23-29); Chloride 95 mEq/L (98-107); Globulin 3.4 g/dL (2.4-3.5); Glucose 427 mg/dL (70-105); Osmolality,Calculated 303 (280-300); Potassium 3.7 mEq/L (3.5-5.1); Sodium 137 mEq/L (136-145); eGFR For African Americans > 60 (> 60); eGFR For Non-African Americans > 60 (> 60)
[2020-06-18 19:00] LABS: Adenovirus Not Detected (Not Detect); Bordetella Pertussis Not Detected (Not Detect); Chlamydophila pneumoniae Not Detected (Not Detect); Coronavirus 229E Not Detected (Not Detect); Coronavirus HKU1 Not Detected (Not Detect); Coronavirus NL63 Not Detected (Not Detect); Coronavirus OC43 Not Detected (Not Detect); Human Metapneumovirus Not Detected (Not Detect); Human Rhinovirus/Enterovirus Not Detected (Not Detect); Influenza A Subtype 2009 H1 Not Detected (Not Detect); Influenza B Not Detected (Not Detect); Mycoplasma pneumoniae Not Detected (Not Detect); Parainfluenza Virus 1 Not Detected (Not Detect); Parainfluenza Virus 2 Not Detected (Not Detect); Parainfluenza Virus 3 Not Detected (Not Detect); Parainfluenza Virus 4 Not Detected (Not Detect); Respiratory Syncytial Virus Not Detected (Not Detect); SARS-CoV-2 Not Detected (Not Detect)
[2020-06-18] MEDS ORDERED: Albuterol 2.5 MG/3 ML NEBULIZER IH PRN (20:19)
[2020-06-18] MEDS ORDERED: Dextrose Gel 15 GM/37.5 ML TUBE PO PRN ×2 (20:32)
[2020-06-18] MEDS ORDERED: *HR* Dextrose 50 % in Water (Vial) 50 ML VIAL IVP PRN (20:32)
[2020-06-18] MEDS ORDERED: D5% in Water 1,000 ML IVC PRN (20:32)
[2020-06-18] MEDS ORDERED: Insulin LISPRO 300 UNITS/3 ML VIAL SQ SCH (20:45)
[2020-06-18] MEDS ORDERED: Azithromycin 500 MG in 0.9 % Sodium Chloride 250 ML IVPB SCH (21:00)
[2020-06-18] MEDS ORDERED: Insulin DETEMIR 100 UNIT/ML X5UNITS SQ SCH (21:00)
[2020-06-18] MEDS: *HR* Heparin 5,000 UNIT/ML VIAL SQ SCH (21:41)
[2020-06-18] MEDS: Ipratropium/Albuterol Neb 3 ML IH SCH (22:01)
[2020-06-18] MEDS: MethylPREDNISolone 40 MG/ML VIAL IVP SCH (23:22)
[2020-06-19] MEDS: Insulin LISPRO 300 UNITS/3 ML VIAL SQ SCH ×2 (00:02→01:45)
[2020-06-19] MEDS ORDERED: Insulin LISPRO 300 UNITS/3 ML VIAL SQ SCH ×3 (04:00→12:00)
[2020-06-19 04:12] LABS: Basophils % 0.1 %; Hematocrit 47.3 % (37.5-50.1); Hemoglobin 14.5 g/dL (12.9-16.9); Immature Granulocytes % 0.7 % (0-4); Lymphocytes # 0.5 K/mcL (0.6-4.6); Lymphocytes % 5.2 %; Mean Corpuscular HGB Conc 30.7 g/dL (31.6-35.5); Mean Corpuscular Hemoglobin 27.8 pg (28.0-33.3); Mean Corpuscular Volume 90.8 fL (83.0-100.0); Mean Platelet Volume 11.7 fL (9.4-12.4); Monocytes # 0.1 K/mcL (0.0-1.3); Monocytes % 1.2 %; Neutrophils # 8.7 K/mcL (1.6-8.9); Platelet Count 216 K/mcL (140-400); Red Blood Count 5.21 M/mcL (4.19-5.50); Red Cell Distribution Width 13.3 % (11.5-14.5); Segmented Neutrophils % 92.8 %; White Blood Count 9.4 K/mcL (4.3-11.1)
[2020-06-19] MEDS: Ipratropium/Albuterol Neb 3 ML IH SCH ×3 (04:12→15:20)
[2020-06-19 04:34] LABS: Alanine Aminotransferase 25 Units/L (7-52); Albumin 3.9 g/dL (3.5-5.7); Albumin/Globulin Ratio 1.1 (1.1-2.2); Alkaline Phosphatase 81 Units/L (34-104); Aspartate Amino Transferase 18 Units/L (13-39); BUN/Creatinine Ratio 17 (6-26); Bilirubin,Total 0.8 mg/dL (0.3-1.0); Blood Urea Nitrogen 19 mg/dL (6-20); Calcium 8.7 mg/dL (8.6-10.3); Carbon Dioxide 31 mEq/L (23-29); Chloride 93 mEq/L (98-107); Globulin 3.6 g/dL (2.4-3.5); Glucose 543 mg/dL (70-105); Osmolality,Calculated 309 (280-300); Potassium 3.7 mEq/L (3.5-5.1); Sodium 136 mEq/L (136-145); Total Protein 7.5 g/dL (6.4-8.9); eGFR For African Americans > 60 (> 60); eGFR For Non-African Americans > 60 (> 60)
[2020-06-19] MEDS: MethylPREDNISolone 40 MG/ML VIAL IVP SCH (04:44)
[2020-06-19] MEDS: *HR* Heparin 5,000 UNIT/ML VIAL SQ SCH ×2 (04:45→14:44)
[2020-06-19] MEDS ORDERED: *HR* Dextrose 50 % in Water (Vial) 50 ML VIAL IVP PRN (04:59)
[2020-06-19] MEDS ORDERED: Insulin Human Regular 100 UNIT in 0.9 % Sodium Chloride 100 ML IVC SCH (05:00)
[2020-06-19] MEDS ORDERED: Nitroglycerin 0.4 MG TAB.SUBL SL PRN (05:57)
[2020-06-19] MEDS ORDERED: *HR* HYDROcodone/Acet 5/325 mg TABLET PO PRN (06:00)
[2020-06-19] MEDS ORDERED: carvediloL 6.25 MG TABLET PO SCH ×2 (08:00→09:10)
[2020-06-19] MEDS ORDERED: Cyanocobalamin (B-12) 1,000 MCG TABLET PO SCH (09:00)
[2020-06-19] MEDS ORDERED: Furosemide 40 MG/4 ML VIAL IVP SCH (09:00)
[2020-06-19] MEDS ORDERED: Aspirin Enteric Coated 81 MG Tablet PO SCH (09:00)
[2020-06-19] MEDS ORDERED: Clotrimazole 1% CRM 15 GM TUBE TP SCH (09:00)
[2020-06-19] MEDS ORDERED: Isosorbide MONOnitrate (24 HR) 30 MG TAB.ER.24H PO SCH (09:00)
[2020-06-19 10:12] LABS: BUN/Creatinine Ratio 19 (6-26); Blood Urea Nitrogen 18 mg/dL (6-20); Calcium 8.8 mg/dL (8.6-10.3); Carbon Dioxide 34 mEq/L (23-29); Chloride 94 mEq/L (98-107); Glucose 363 mg/dL (70-105); Osmolality,Calculated 299 (280-300); Potassium 3.6 mEq/L (3.5-5.1); Sodium 136 mEq/L (136-145); eGFR For African Americans > 60 (> 60); eGFR For Non-African Americans > 60 (> 60)
[2020-06-19] MEDS ORDERED: Insulin DETEMIR 100 UNIT/ML X5UNITS SQ SCH (11:00)
[2020-06-19 14:26] VITALS: BP 135/87
[2020-06-19] MEDS ORDERED: MethylPREDNISolone 40 MG/ML VIAL IVP SCH (16:00)
== END 2020-06-19 16:55 | disposition home or self-care (01) ==
LOC: EMEROOARM 16:23 → 3ANU 16:23 → SUATTDRO 19:49 → 3ANU 20:32
PROVIDERS: ADMIT Internal Medicine; ATTEND Internal Medicine

== ENCOUNTER 2020-07-02 03:00 | Observation (INO) ==
[2020-07-02] MEDS ORDERED: Furosemide 40 MG/4 ML VIAL IVP ONE (03:30)
[2020-07-02 04:27] LABS: Basophils % 0.4 %; Eosinophils # 0.3 K/mcL (0.0-0.6); Hematocrit 45.6 % (37.5-50.1); Hemoglobin 14.5 g/dL (12.9-16.9); Immature Granulocytes % 0.4 % (0-4); Lymphocytes # 1.2 K/mcL (0.6-4.6); Mean Corpuscular HGB Conc 31.8 g/dL (31.6-35.5); Mean Corpuscular Hemoglobin 28.3 pg (28.0-33.3); Mean Corpuscular Volume 88.9 fL (83.0-100.0); Mean Platelet Volume 11.3 fL (9.4-12.4); Monocytes # 0.8 K/mcL (0.0-1.3); Neutrophils # 7.1 K/mcL (1.6-8.9); Platelet Count 190 K/mcL (140-400); Red Blood Count 5.13 M/mcL (4.19-5.50); Red Cell Distribution Width 13.5 % (11.5-14.5); Segmented Neutrophils % 75.2 %; White Blood Count 9.5 K/mcL (4.3-11.1)
[2020-07-02] MEDS ORDERED: Piperacillin/Tazobactam 3.375 GM in 0.9 % Sodium Chloride Mini Bag 100 ML IVPB ONE (04:28)
[2020-07-02] MEDS ORDERED: *HR* HYDROmorphone (PF) 1 MG/ML SYRINGE IVP ONE (04:28)
[2020-07-02] MEDS ORDERED: Vancomycin 2,000 MG/520 ML IV.SOLN IVPB ONE (04:28)
[2020-07-02 04:35] LABS: INR 1.2; Prothrombin Time 13.4 Seconds (9.4-12.1)
[2020-07-02 04:38] LABS: Activated Partial Thrombo Time 28.9 Seconds (26.0-36.0)
[2020-07-02 04:56] LABS: Alanine Aminotransferase 18 Units/L (7-52); Albumin 3.5 g/dL (3.5-5.7); Albumin/Globulin Ratio 1.1 (1.1-2.2); Alkaline Phosphatase 81 Units/L (34-104); Aspartate Amino Transferase 19 Units/L (13-39); BUN/Creatinine Ratio 16 (6-26); Bilirubin,Direct 0.3 mg/dL (0.0-0.2); Bilirubin,Indirect 0.8 mg/dL (0.0-1.0); Bilirubin,Total 1.1 mg/dL (0.3-1.0); Blood Urea Nitrogen 14 mg/dL (6-20); C-Reactive Protein 34 mg/L (Less than 10); Calcium 8.8 mg/dL (8.6-10.3); Carbon Dioxide 32 mEq/L (23-29); Chloride 96 mEq/L (98-107); Globulin 3.1 g/dL (2.4-3.5); Glucose 368 mg/dL (70-105); Magnesium 1.7 mg/dL (1.6-2.6); Osmolality,Calculated 299 (280-300); Sodium 137 mEq/L (136-145); Total Protein 6.6 g/dL (6.4-8.9); Troponin I 0.14 ng/mL (< 0.04); eGFR For African Americans > 60 (> 60); eGFR For Non-African Americans > 60 (> 60)
[2020-07-02] MEDS ORDERED: Isovue-370 500 ML BOTTLE IVP ONE (04:58)
[2020-07-02] MEDS ORDERED: Aspirin 81 MG TAB.CHEW PO ONE (04:58)
[2020-07-02 05:00] LABS: Bacteria,Urine Few per hpf (None-Few); Bilirubin,Urine Negative (Negative); Blood,Urine Negative (Negative); Clarity,Urine Clear (Clear); Color,Urine Yellow (Yellow); Glucose,Urine (UA) >=1000 mg/dL (Normal); Ketones,Urine Negative (Negative); Leukocyte Esterase,Urine Negative (Negative); Mucus,Urine Few per lpf (None-Few); Nitrite,Urine Negative (Negative); Protein,Urine 30 mg/dL (Neg-Trace); RBC,Urine 0-3 per hpf (0-3); Specific Gravity,Urine 1.025 (1.010-1.025); Squamous Epithelial Cell,Urine Few per hpf (None-Few); Urobilinogen,Urine Normal (Normal)
[2020-07-02] MEDS ORDERED: Potassium Effervescent 25 MEQ TABLET.EFF PO ONE (05:17)
[2020-07-02 06:38] LABS: Adenovirus Not Detected (Not Detect); Bordetella Pertussis Not Detected (Not Detect); Chlamydophila pneumoniae Not Detected (Not Detect); Coronavirus 229E Not Detected (Not Detect); Coronavirus HKU1 Not Detected (Not Detect); Coronavirus NL63 Not Detected (Not Detect); Coronavirus OC43 Not Detected (Not Detect); Human Metapneumovirus Not Detected (Not Detect); Human Rhinovirus/Enterovirus Not Detected (Not Detect); Influenza A Subtype 2009 H1 Not Detected (Not Detect); Influenza B Not Detected (Not Detect); Mycoplasma pneumoniae Not Detected (Not Detect); Parainfluenza Virus 1 Not Detected (Not Detect); Parainfluenza Virus 2 Not Detected (Not Detect); Parainfluenza Virus 3 Not Detected (Not Detect); Parainfluenza Virus 4 Not Detected (Not Detect); Respiratory Syncytial Virus Not Detected (Not Detect); SARS-CoV-2 Not Detected (Not Detect)
[2020-07-02] MEDS ORDERED: Naloxone 0.4 MG/ML INJ IVP PRN (08:01)
[2020-07-02] MEDS ORDERED: Acetaminophen 325 MG TABLET PO PRN (08:01)
[2020-07-02] MEDS ORDERED: Ondansetron 4 MG/2 ML VIAL IVP PRN (08:01)
[2020-07-02] MEDS ORDERED: *HR* Dextrose 50 % in Water (Vial) 50 ML VIAL IVP PRN (08:09)
[2020-07-02] MEDS ORDERED: Dextrose Gel 15 GM/37.5 ML TUBE PO PRN ×2 (08:09)
[2020-07-02] MEDS ORDERED: D5% in Water 1,000 ML IVC PRN (08:09)
[2020-07-02] MEDS: Furosemide 40 MG/4 ML VIAL IVP SCH (09:25)
[2020-07-02 10:20] LABS: BUN/Creatinine Ratio 14 (6-26); Blood Urea Nitrogen 14 mg/dL (6-20); Calcium 8.7 mg/dL (8.6-10.3); Carbon Dioxide 36 mEq/L (23-29); Chloride 93 mEq/L (98-107); Glucose 377 mg/dL (70-105); Osmolality,Calculated 296 (280-300); Potassium 3.4 mEq/L (3.5-5.1); Sodium 135 mEq/L (136-145); eGFR For African Americans > 60 (> 60); eGFR For Non-African Americans > 60 (> 60)
[2020-07-02 10:25] LABS: Troponin I 0.11 ng/mL (< 0.04)
[2020-07-02] MEDS: Ipratropium/Albuterol Neb 3 ML IH PRN ×2 (10:46→22:32)
[2020-07-02] MEDS: Spironolactone 25 MG TABLET PO SCH (11:10)
[2020-07-02] MEDS: Insulin LISPRO 300 UNITS/3 ML VIAL SQ SCH ×2 (11:10→17:49)
[2020-07-02] MEDS: Piperacillin/Tazobactam 3.375 GM in 0.9 % Sodium Chloride Mini Bag 100 ML IVPB SCH ×2 (13:55→22:21)
[2020-07-02] MEDS: *HR* Heparin 5,000 UNIT/ML VIAL SQ SCH ×2 (13:58→22:24)
[2020-07-02] MEDS: Gabapentin 400 MG CAPSULE PO SCH ×2 (14:01→22:25)
[2020-07-02] MEDS: carvediloL 6.25 MG TABLET PO SCH (17:48)
[2020-07-02] MEDS: Vancomycin 2,000 MG/520 ML IV.SOLN IVPB SCH (17:48)
[2020-07-02] MEDS ORDERED: Insulin LISPRO 300 UNITS/3 ML VIAL SQ SCH (21:00)
[2020-07-03] MEDS: Ipratropium/Albuterol Neb 3 ML IH PRN (04:46)
[2020-07-03] MEDS: Vancomycin 2,000 MG/520 ML IV.SOLN IVPB SCH (05:00)
[2020-07-03 05:01] LABS: Basophils # 0.1 K/mcL (0.0-0.2); Basophils % 0.6 %; Eosinophils # 0.3 K/mcL (0.0-0.6); Eosinophils % 3.3 %; Hemoglobin 14.8 g/dL (12.9-16.9); Immature Granulocytes % 0.3 % (0-4); Lymphocytes # 1.2 K/mcL (0.6-4.6); Mean Corpuscular HGB Conc 31.5 g/dL (31.6-35.5); Mean Corpuscular Hemoglobin 28.7 pg (28.0-33.3); Mean Corpuscular Volume 91.1 fL (83.0-100.0); Mean Platelet Volume 11.7 fL (9.4-12.4); Monocytes # 0.7 K/mcL (0.0-1.3); Monocytes % 8.1 %; Neutrophils # 6.3 K/mcL (1.6-8.9); Platelet Count 210 K/mcL (140-400); Red Blood Count 5.16 M/mcL (4.19-5.50); Red Cell Distribution Width 13.5 % (11.5-14.5); Segmented Neutrophils % 73.7 %; White Blood Count 8.6 K/mcL (4.3-11.1)
[2020-07-03 05:10] LABS: BUN/Creatinine Ratio 22 (6-26); Blood Urea Nitrogen 20 mg/dL (6-20); Calcium 8.9 mg/dL (8.6-10.3); Carbon Dioxide 32 mEq/L (23-29); Chloride 95 mEq/L (98-107); Glucose 349 mg/dL (70-105); Magnesium 1.8 mg/dL (1.6-2.6); Osmolality,Calculated 297 (280-300); Potassium 3.7 mEq/L (3.5-5.1); Sodium 135 mEq/L (136-145); eGFR For African Americans > 60 (> 60); eGFR For Non-African Americans > 60 (> 60)
[2020-07-03] MEDS ORDERED: *HR* LORazepam 2 MG/ML VIAL IVP ONE (06:27)
[2020-07-03] MEDS: *HR* Heparin 5,000 UNIT/ML VIAL SQ SCH (06:28)
[2020-07-03 07:15] LABS: Estimated Average Glucose 335 mg/dl
[2020-07-03 07:26] VITALS: BP 136/87
[2020-07-03] MEDS: Piperacillin/Tazobactam 3.375 GM in 0.9 % Sodium Chloride Mini Bag 100 ML IVPB SCH (08:18)
[2020-07-03] MEDS: Furosemide 40 MG/4 ML VIAL IVP SCH ×2 (08:19→09:30)
[2020-07-03] MEDS: Gabapentin 400 MG CAPSULE PO SCH (08:19)
[2020-07-03] MEDS: carvediloL 6.25 MG TABLET PO SCH (08:20)
[2020-07-03] MEDS ORDERED: Cyanocobalamin (B-12) 1,000 MCG TABLET PO SCH (09:00)
[2020-07-03] MEDS ORDERED: Aspirin Enteric Coated 81 MG Tablet PO SCH (09:00)
[2020-07-03] MEDS ORDERED: Isosorbide MONOnitrate (24 HR) 30 MG TAB.ER.24H PO SCH (09:00)
[2020-07-03] MEDS: Spironolactone 25 MG TABLET PO SCH (09:23)
[2020-07-03] MEDS: Insulin LISPRO 300 UNITS/3 ML VIAL SQ SCH (09:23)
== END 2020-07-03 09:40 | disposition left against medical advice (07) ==
LOC: 3ANU 03:00 → EMEROOARM 03:00 → SUATTDRO 07:57 → 3ANU 08:57
PROVIDERS: ADMIT Pharmacist; ATTEND Student in an Organized Health Care Education/Training Program

== ENCOUNTER 2020-07-06 18:12 | Inpatient (IN) ==
[2020-07-06 18:40] LABS: Basophils % 0.2 %; Eosinophils # 0.2 K/mcL (0.0-0.6); Eosinophils % 2.6 %; Hematocrit 44.9 % (37.5-50.1); Immature Granulocytes % 0.7 % (0-4); Lymphocytes # 0.9 K/mcL (0.6-4.6); Mean Corpuscular HGB Conc 31.2 g/dL (31.6-35.5); Mean Corpuscular Hemoglobin 27.7 pg (28.0-33.3); Mean Corpuscular Volume 88.7 fL (83.0-100.0); Mean Platelet Volume 11.4 fL (9.4-12.4); Monocytes # 0.9 K/mcL (0.0-1.3); Monocytes % 9.4 %; Platelet Count 184 K/mcL (140-400); Red Blood Count 5.06 M/mcL (4.19-5.50); Red Cell Distribution Width 13.7 % (11.5-14.5); Segmented Neutrophils % 77.1 %; White Blood Count 9.1 K/mcL (4.3-11.1)
[2020-07-06 18:44] LABS: INR 1.2; Prothrombin Time 13.3 Seconds (9.4-12.1)
[2020-07-06 18:47] LABS: Activated Partial Thrombo Time 29.3 Seconds (26.0-36.0)
[2020-07-06] MEDS ORDERED: Isovue-370 500 ML BOTTLE IVP ONE (18:49)
[2020-07-06 19:03] LABS: BUN/Creatinine Ratio 15 (6-26); Blood Urea Nitrogen 13 mg/dL (6-20); Calcium 9.1 mg/dL (8.6-10.3); Carbon Dioxide 32 mEq/L (23-29); Chloride 98 mEq/L (98-107); Glucose 431 mg/dL (70-105); Osmolality,Calculated 303 (280-300); Potassium 3.1 mEq/L (3.5-5.1); Sodium 137 mEq/L (136-145); eGFR For African Americans > 60 (> 60); eGFR For Non-African Americans > 60 (> 60)
[2020-07-06 19:15] LABS: Troponin I 0.11 ng/mL (< 0.04)
[2020-07-06] MEDS ORDERED: Furosemide 40 MG/4 ML VIAL IVP ONE (20:01)
[2020-07-06 20:05] LABS: Adenovirus Not Detected (Not Detect); Coronavirus 229E Not Detected (Not Detect); Coronavirus HKU1 Not Detected (Not Detect); Coronavirus NL63 Not Detected (Not Detect); Coronavirus OC43 Not Detected (Not Detect); Human Metapneumovirus Not Detected (Not Detect); Human Rhinovirus/Enterovirus Not Detected (Not Detect); Influenza A Subtype 2009 H1 Not Detected (Not Detect); Influenza B Not Detected (Not Detect); Parainfluenza Virus 1 Not Detected (Not Detect); Parainfluenza Virus 2 Not Detected (Not Detect); SARS-CoV-2 Not Detected (Not Detect)
[2020-07-06 20:06] LABS: Bordetella Pertussis Not Detected (Not Detect); Chlamydophila pneumoniae Not Detected (Not Detect); Mycoplasma pneumoniae Not Detected (Not Detect); Parainfluenza Virus 3 Not Detected (Not Detect); Parainfluenza Virus 4 Not Detected (Not Detect); Respiratory Syncytial Virus Not Detected (Not Detect)
[2020-07-06] MEDS ORDERED: Azithromycin 250 MG TABLET PO ONE (20:17)
[2020-07-06] MEDS ORDERED: cefTRIAXone 1,000 MG in Water for inj. (sterile) 10 ML IVP ONE (20:17)
[2020-07-06] MEDS ORDERED: *HR* HYDROcodone/Acet 5/325 mg TABLET PO ONE (20:31)
[2020-07-06] MEDS ORDERED: Naloxone 0.4 MG/ML INJ IVP PRN (21:18)
[2020-07-06] MEDS ORDERED: Aspirin 325 MG TABLET PO ONE (21:22)
[2020-07-06] MEDS ORDERED: Ipratropium/Albuterol Neb 3 ML IH PRN (21:22)
[2020-07-06] MEDS ORDERED: Dextrose Gel 15 GM/37.5 ML TUBE PO PRN ×2 (21:22)
[2020-07-06] MEDS ORDERED: *HR* Dextrose 50 % in Water (Vial) 50 ML VIAL IVP PRN (21:22)
[2020-07-06] MEDS ORDERED: D5% in Water 1,000 ML IVC PRN (21:22)
[2020-07-06] MEDS ORDERED: Nitroglycerin 0.4 MG TAB.SUBL SL PRN (21:26)
[2020-07-06] MEDS ORDERED: *HR* Promethazine 25 MG/ML VIAL IVP PRN (23:10)
[2020-07-06] MEDS: Insulin DETEMIR 100 UNIT/ML X5UNITS SQ SCH (23:34)
[2020-07-06] MEDS: *HR* Heparin 5,000 UNIT/ML VIAL SQ SCH (23:34)
[2020-07-07] MEDS: Insulin NPH/REG 70/30 300 UNIT/3 ML VIAL SQ SCH ×2 (00:10→10:12)
[2020-07-07] MEDS: Acetaminophen 325 MG TABLET PO PRN (00:10)
[2020-07-07 01:57] LABS: INR 1.2; Prothrombin Time 13.2 Seconds (9.4-12.1)
[2020-07-07 01:58] LABS: Hematocrit 49.2 % (37.5-50.1); Hemoglobin 15.3 g/dL (12.9-16.9); Mean Corpuscular HGB Conc 31.1 g/dL (31.6-35.5); Mean Corpuscular Volume 89.9 fL (83.0-100.0); Platelet Count 185 K/mcL (140-400); Red Blood Count 5.47 M/mcL (4.19-5.50); Red Cell Distribution Width 13.7 % (11.5-14.5); White Blood Count 9.6 K/mcL (4.3-11.1)
[2020-07-07 02:17] LABS: BUN/Creatinine Ratio 13 (6-26); Blood Urea Nitrogen 11 mg/dL (6-20); Calcium 8.6 mg/dL (8.6-10.3); Carbon Dioxide 31 mEq/L (23-29); Chloride 96 mEq/L (98-107); Glucose 365 mg/dL (70-105); Magnesium 1.8 mg/dL (1.6-2.6); Osmolality,Calculated 298 (280-300); Sodium 137 mEq/L (136-145); eGFR For African Americans > 60 (> 60); eGFR For Non-African Americans > 60 (> 60)
[2020-07-07] MEDS: Albuterol 2.5 MG/3 ML NEBULIZER IH SCH ×6 (03:31→23:35)
[2020-07-07] MEDS: *HR* Heparin 5,000 UNIT/ML VIAL SQ SCH ×3 (05:24→20:14)
[2020-07-07] MEDS: Insulin LISPRO 300 UNITS/3 ML VIAL SQ SCH ×4 (08:13→21:08)
[2020-07-07] MEDS: Cyanocobalamin (B-12) 1,000 MCG TABLET PO SCH (08:14)
[2020-07-07] MEDS: carvediloL 6.25 MG TABLET PO SCH ×2 (08:14→17:31)
[2020-07-07] MEDS: Gabapentin 400 MG CAPSULE PO SCH ×3 (08:14→20:13)
[2020-07-07] MEDS: Aspirin Enteric Coated 81 MG Tablet PO SCH (08:14)
[2020-07-07] MEDS ORDERED: Furosemide 40 MG/4 ML VIAL IVP SCH (09:00)
[2020-07-07] MEDS ORDERED: metOLazone 2.5 MG TABLET PO SCH (09:00)
[2020-07-07] MEDS ORDERED: Isosorbide MONOnitrate (24 HR) 30 MG TAB.ER.24H PO SCH (09:00)
[2020-07-07] MEDS ORDERED: Perflutren Lipid Microsphere 1.3 ML in 0.9 % Sodium Chloride 8.7 ML IVP PRN (11:44)
[2020-07-07] MEDS ORDERED: Furosemide 40 MG/4 ML VIAL IVP ONE (13:29)
[2020-07-07] MEDS: Spironolactone 25 MG TABLET PO SCH (15:35)
[2020-07-07] MEDS: Furosemide 240 MG in 0.9 % Sodium Chloride 96 ML IVC SCH (17:32)
[2020-07-07] MEDS: Magnesium Oxide 400 MG TABLET PO SCH (20:13)
[2020-07-07] MEDS: Insulin DETEMIR 100 UNIT/ML X5UNITS SQ SCH (21:41)
[2020-07-08] MEDS: Albuterol 2.5 MG/3 ML NEBULIZER IH SCH ×6 (04:11→23:37)
[2020-07-08] MEDS: *HR* Heparin 5,000 UNIT/ML VIAL SQ SCH ×3 (05:04→21:42)
[2020-07-08 06:08] LABS: Basophils % 0.5 %; Eosinophils # 0.4 K/mcL (0.0-0.6); Eosinophils % 4.6 %; Hematocrit 49.2 % (37.5-50.1); Hemoglobin 15.6 g/dL (12.9-16.9); Immature Granulocytes % 0.3 % (0-4); Lymphocytes # 1.2 K/mcL (0.6-4.6); Lymphocytes % 13.9 %; Mean Corpuscular HGB Conc 31.7 g/dL (31.6-35.5); Mean Corpuscular Hemoglobin 28.8 pg (28.0-33.3); Mean Corpuscular Volume 90.9 fL (83.0-100.0); Mean Platelet Volume 11.4 fL (9.4-12.4); Monocytes # 0.7 K/mcL (0.0-1.3); Monocytes % 8.2 %; Neutrophils # 6.3 K/mcL (1.6-8.9); Platelet Count 203 K/mcL (140-400); Red Blood Count 5.41 M/mcL (4.19-5.50); Red Cell Distribution Width 13.6 % (11.5-14.5); Segmented Neutrophils % 72.5 %; White Blood Count 8.7 K/mcL (4.3-11.1)
[2020-07-08 06:30] LABS: BUN/Creatinine Ratio 17 (6-26); Blood Urea Nitrogen 16 mg/dL (6-20); Calcium 9.4 mg/dL (8.6-10.3); Carbon Dioxide 36 mEq/L (23-29); Chloride 91 mEq/L (98-107); Glucose 171 mg/dL (70-105); Osmolality,Calculated 287 (280-300); Potassium 4.1 mEq/L (3.5-5.1); Sodium 136 mEq/L (136-145); eGFR For African Americans > 60 (> 60); eGFR For Non-African Americans > 60 (> 60)
[2020-07-08] MEDS: Insulin LISPRO 300 UNITS/3 ML VIAL SQ SCH ×6 (08:36→21:44)
[2020-07-08] MEDS: Magnesium Oxide 400 MG TABLET PO SCH (08:36)
[2020-07-08] MEDS: Aspirin Enteric Coated 81 MG Tablet PO SCH (08:37)
[2020-07-08] MEDS: metOLazone 2.5 MG TABLET PO SCH (08:37)
[2020-07-08] MEDS: Cyanocobalamin (B-12) 1,000 MCG TABLET PO SCH (08:37)
[2020-07-08] MEDS: Spironolactone 25 MG TABLET PO SCH (08:38)
[2020-07-08] MEDS: carvediloL 6.25 MG TABLET PO SCH ×2 (08:38→16:58)
[2020-07-08] MEDS: Gabapentin 400 MG CAPSULE PO SCH ×3 (08:38→21:43)
[2020-07-08] MEDS: Acetaminophen 325 MG TABLET PO PRN (11:30)
[2020-07-08] MEDS: Insulin DETEMIR 100 UNIT/ML X5UNITS SQ SCH (21:44)
[2020-07-09 03:29] LABS: Basophils % 0.5 %; Eosinophils # 0.4 K/mcL (0.0-0.6); Eosinophils % 4.6 %; Hematocrit 48.9 % (37.5-50.1); Hemoglobin 15.4 g/dL (12.9-16.9); Immature Granulocytes % 0.4 % (0-4); Lymphocytes # 1.8 K/mcL (0.6-4.6); Lymphocytes % 21.9 %; Mean Corpuscular HGB Conc 31.5 g/dL (31.6-35.5); Mean Corpuscular Hemoglobin 27.5 pg (28.0-33.3); Mean Corpuscular Volume 87.5 fL (83.0-100.0); Mean Platelet Volume 11.9 fL (9.4-12.4); Monocytes # 0.7 K/mcL (0.0-1.3); Monocytes % 9.1 %; Neutrophils # 5.1 K/mcL (1.6-8.9); Platelet Count 204 K/mcL (140-400); Red Blood Count 5.59 M/mcL (4.19-5.50); Red Cell Distribution Width 13.4 % (11.5-14.5); Segmented Neutrophils % 63.5 %
[2020-07-09 03:47] LABS: BUN/Creatinine Ratio 26 (6-26); Blood Urea Nitrogen 25 mg/dL (6-20); Calcium 9.7 mg/dL (8.6-10.3); Carbon Dioxide 37 mEq/L (23-29); Chloride 85 mEq/L (98-107); Glucose 315 mg/dL (70-105); Magnesium 1.8 mg/dL (1.6-2.6); Osmolality,Calculated 292 (280-300); Potassium 3.7 mEq/L (3.5-5.1); Sodium 133 mEq/L (136-145); eGFR For African Americans > 60 (> 60); eGFR For Non-African Americans > 60 (> 60)
[2020-07-09] MEDS: *HR* Heparin 5,000 UNIT/ML VIAL SQ SCH ×3 (05:20→20:59)
[2020-07-09] MEDS: Albuterol 2.5 MG/3 ML NEBULIZER IH SCH ×6 (05:34→23:37)
[2020-07-09] MEDS: Acetaminophen 325 MG TABLET PO PRN (09:28)
[2020-07-09] MEDS: Gabapentin 400 MG CAPSULE PO SCH ×3 (09:28→20:59)
[2020-07-09] MEDS: carvediloL 6.25 MG TABLET PO SCH ×2 (09:28→16:09)
[2020-07-09] MEDS: metOLazone 2.5 MG TABLET PO SCH (09:28)
[2020-07-09] MEDS: Spironolactone 25 MG TABLET PO SCH (09:28)
[2020-07-09] MEDS: Insulin LISPRO 300 UNITS/3 ML VIAL SQ SCH ×7 (09:30→21:00)
[2020-07-09] MEDS: Aspirin Enteric Coated 81 MG Tablet PO SCH (09:30)
[2020-07-09] MEDS: Cyanocobalamin (B-12) 1,000 MCG TABLET PO SCH (09:30)
[2020-07-09] MEDS: Magnesium Oxide 400 MG TABLET PO SCH (13:27)
[2020-07-09] MEDS: Nicotine 14 MG PATCH.TD24 TD SCH (13:27)
[2020-07-09] MEDS: Doxycycline 100 MG in 0.9 % Sodium Chloride Mini Bag 100 ML IVPB SCH ×2 (13:27→21:06)
[2020-07-09] MEDS: Furosemide 240 MG in 0.9 % Sodium Chloride 96 ML IVC SCH (13:38)
[2020-07-09] MEDS: Insulin DETEMIR 100 UNIT/ML X5UNITS SQ SCH (20:59)
[2020-07-09] MEDS: Furosemide 40 MG/4 ML VIAL IVP SCH (21:03)
[2020-07-10] MEDS: Albuterol 2.5 MG/3 ML NEBULIZER IH SCH ×6 (03:43→23:52)
[2020-07-10] MEDS: *HR* Heparin 5,000 UNIT/ML VIAL SQ SCH ×3 (05:28→21:12)
[2020-07-10 06:34] LABS: Basophils # 0.1 K/mcL (0.0-0.2); Basophils % 0.7 %; Eosinophils # 0.4 K/mcL (0.0-0.6); Eosinophils % 4.4 %; Hematocrit 52.2 % (37.5-50.1); Hemoglobin 16.6 g/dL (12.9-16.9); Immature Granulocytes % 0.4 % (0-4); Lymphocytes # 1.5 K/mcL (0.6-4.6); Lymphocytes % 17.8 %; Mean Corpuscular HGB Conc 31.8 g/dL (31.6-35.5); Mean Corpuscular Hemoglobin 27.5 pg (28.0-33.3); Mean Corpuscular Volume 86.4 fL (83.0-100.0); Mean Platelet Volume 11.5 fL (9.4-12.4); Monocytes # 0.8 K/mcL (0.0-1.3); Monocytes % 9.7 %; Neutrophils # 5.5 K/mcL (1.6-8.9); Platelet Count 222 K/mcL (140-400); Red Blood Count 6.04 M/mcL (4.19-5.50); Red Cell Distribution Width 13.6 % (11.5-14.5); White Blood Count 8.2 K/mcL (4.3-11.1)
[2020-07-10 06:52] LABS: BUN/Creatinine Ratio 26 (6-26); Blood Urea Nitrogen 26 mg/dL (6-20); Calcium 10.7 mg/dL (8.6-10.3); Carbon Dioxide 39 mEq/L (23-29); Chloride 80 mEq/L (98-107); Glucose 190 mg/dL (70-105); Osmolality,Calculated 280 (280-300); Potassium 3.5 mEq/L (3.5-5.1); Sodium 130 mEq/L (136-145); eGFR For African Americans > 60 (> 60); eGFR For Non-African Americans > 60 (> 60)
[2020-07-10] MEDS: Gabapentin 400 MG CAPSULE PO SCH ×3 (10:16→21:10)
[2020-07-10] MEDS: Aspirin Enteric Coated 81 MG Tablet PO SCH (10:16)
[2020-07-10] MEDS: carvediloL 6.25 MG TABLET PO SCH ×2 (10:16→18:25)
[2020-07-10] MEDS: Magnesium Oxide 400 MG TABLET PO SCH (10:16)
[2020-07-10] MEDS: Cyanocobalamin (B-12) 1,000 MCG TABLET PO SCH (10:16)
[2020-07-10] MEDS: Spironolactone 25 MG TABLET PO SCH (10:16)
[2020-07-10] MEDS: Doxycycline 100 MG in 0.9 % Sodium Chloride Mini Bag 100 ML IVPB SCH ×2 (10:17→21:11)
[2020-07-10] MEDS: Furosemide 40 MG/4 ML VIAL IVP SCH ×2 (10:17→21:12)
[2020-07-10] MEDS: Nicotine 14 MG PATCH.TD24 TD SCH (10:18)
[2020-07-10] MEDS: metOLazone 2.5 MG TABLET PO SCH (10:18)
[2020-07-10] MEDS: Insulin LISPRO 300 UNITS/3 ML VIAL SQ SCH ×7 (10:44→21:11)
[2020-07-10] MEDS: Acetaminophen 325 MG TABLET PO PRN ×2 (13:55→22:32)
[2020-07-10] MEDS ORDERED: Insulin DETEMIR 100 UNIT/ML X5UNITS SQ SCH (21:00)
[2020-07-11 01:55] LABS: BUN/Creatinine Ratio 30 (6-26); Blood Urea Nitrogen 34 mg/dL (6-20); Calcium 10.2 mg/dL (8.6-10.3); Carbon Dioxide 36 mEq/L (23-29); Chloride 79 mEq/L (98-107); Glucose 407 mg/dL (70-105); Osmolality,Calculated 291 (280-300); Potassium 3.3 mEq/L (3.5-5.1); Sodium 128 mEq/L (136-145); eGFR For African Americans > 60 (> 60); eGFR For Non-African Americans > 60 (> 60)
[2020-07-11] MEDS: Albuterol 2.5 MG/3 ML NEBULIZER IH SCH ×3 (03:19→11:08)
[2020-07-11] MEDS: *HR* Heparin 5,000 UNIT/ML VIAL SQ SCH (05:29)
[2020-07-11] MEDS: Insulin LISPRO 300 UNITS/3 ML VIAL SQ SCH ×2 (07:55→07:58)
[2020-07-11] MEDS: Magnesium Oxide 400 MG TABLET PO SCH (07:56)
[2020-07-11] MEDS: Spironolactone 25 MG TABLET PO SCH (07:56)
[2020-07-11] MEDS: Gabapentin 400 MG CAPSULE PO SCH (07:56)
[2020-07-11] MEDS: Cyanocobalamin (B-12) 1,000 MCG TABLET PO SCH (07:56)
[2020-07-11] MEDS: carvediloL 6.25 MG TABLET PO SCH (07:57)
[2020-07-11] MEDS: Aspirin Enteric Coated 81 MG Tablet PO SCH (07:57)
[2020-07-11] MEDS: metOLazone 2.5 MG TABLET PO SCH (07:57)
[2020-07-11] MEDS: Nicotine 14 MG PATCH.TD24 TD SCH (07:58)
[2020-07-11] MEDS: Furosemide 40 MG/4 ML VIAL IVP SCH (07:59)
[2020-07-11 10:21] VITALS: BP 108/76
[2020-07-11] MEDS ORDERED: FLU Vac QV 20-21 (6Month+)/PF 0.5 ML SYRINGE IM ONE (11:18)
[2020-07-11] MEDS ORDERED: Furosemide 40 MG TABLET PO SCH (17:00)
== END 2020-07-11 11:50 | disposition home or self-care (01) | DRG 194 ==
LOC: EMEROOARM 18:12 → 2ANU 18:12 → SUATTDRO 21:55 → 2ANU 22:20 → SUATTDRO 07-08 14:16
PROVIDERS: ADMIT Student in an Organized Health Care Education/Training Program; ATTEND Internal Medicine

== ENCOUNTER 2020-07-22 15:33 | Observation (INO) ==
[2020-07-22] MEDS ORDERED: Morphine Sulfate 2 MG/ML SYRINGE IVP ONE (15:51)
[2020-07-22 16:19] LABS: Basophils # 0.1 K/mcL (0.0-0.2); Basophils % 0.6 %; Eosinophils # 0.2 K/mcL (0.0-0.6); Eosinophils % 1.6 %; Hematocrit 51.3 % (37.5-50.1); Hemoglobin 17.6 g/dL (12.9-16.9); Immature Granulocytes % 0.5 % (0-4); Lymphocytes # 1.8 K/mcL (0.6-4.6); Mean Corpuscular HGB Conc 34.3 g/dL (31.6-35.5); Mean Corpuscular Hemoglobin 27.7 pg (28.0-33.3); Mean Corpuscular Volume 80.8 fL (83.0-100.0); Mean Platelet Volume 11.7 fL (9.4-12.4); Monocytes # 1.1 K/mcL (0.0-1.3); Neutrophils # 7.6 K/mcL (1.6-8.9); Platelet Count 222 K/mcL (140-400); Red Blood Count 6.35 M/mcL (4.19-5.50); Red Cell Distribution Width 12.4 % (11.5-14.5); Segmented Neutrophils % 70.3 %; White Blood Count 10.7 K/mcL (4.3-11.1)
[2020-07-22] MEDS ORDERED: Ondansetron 4 MG/2 ML VIAL IVP ONE (16:24)
[2020-07-22] MEDS ORDERED: Ondansetron 4 MG/2 ML VIAL ONE (16:27)
[2020-07-22 16:43] LABS: Alanine Aminotransferase 27 Units/L (7-52); Albumin 4.2 g/dL (3.5-5.7); Albumin/Globulin Ratio 1.2 (1.1-2.2); Alkaline Phosphatase 108 Units/L (34-104); Aspartate Amino Transferase 24 Units/L (13-39); BUN/Creatinine Ratio 24 (6-26); Bilirubin,Direct 0.2 mg/dL (0.0-0.2); Bilirubin,Indirect 0.9 mg/dL (0.0-1.0); Bilirubin,Total 1.1 mg/dL (0.3-1.0); Blood Urea Nitrogen 28 mg/dL (6-20); Calcium 10.6 mg/dL (8.6-10.3); Carbon Dioxide 37 mEq/L (23-29); Chloride 76 mEq/L (98-107); Globulin 3.6 g/dL (2.4-3.5); Glucose 550 mg/dL (70-105); Osmolality,Calculated 293 (280-300); Potassium 2.3 mEq/L (3.5-5.1); Sodium 126 mEq/L (136-145); Total Protein 7.8 g/dL (6.4-8.9); eGFR For African Americans > 60 (> 60); eGFR For Non-African Americans > 60 (> 60)
[2020-07-22] MEDS ORDERED: Potassium Chloride Elixir 20 MEQ/15 ML UDC PO ONE (16:45)
[2020-07-22] MEDS ORDERED: Potassium Chloride 20 MEQ, Lidocaine 1% 2 ML in 0.9 % Sodium Chloride 250 ML IVPB ONE (16:45)
[2020-07-22] MEDS ORDERED: 0.9 % Sodium Chloride 1,000 ML IVC ONE (16:46)
[2020-07-22 16:49] LABS: Bilirubin,Urine Negative (Negative); Blood,Urine Negative (Negative); Clarity,Urine Clear (Clear); Color,Urine Light-Yellow (Yellow); Glucose,Urine (UA) >=1000 mg/dL (Normal); Ketones,Urine Negative (Negative); Leukocyte Esterase,Urine Negative (Negative); Nitrite,Urine Negative (Negative); PH,Urine 5.5 pH Units (5.0-8.0); Protein,Urine Negative (Neg-Trace); RBC,Urine 0-3 per hpf (0-3); Specific Gravity,Urine 1.029 (1.010-1.025); Squamous Epithelial Cell,Urine Few per hpf (None-Few); Urobilinogen,Urine Normal (Normal); WBC,Urine 0-3 per hpf (0-3)
[2020-07-22] MEDS ORDERED: Clotrimazole 1% CRM 15 GM TUBE TP STA (17:16)
[2020-07-22] MEDS ORDERED: *HR* HYDROmorphone (PF) 1 MG/ML SYRINGE IVP ONE (17:19)
[2020-07-22 17:22] LABS: VBG HCO3 35 mEq/L (21-27); VBG PCO2 51 mmHg (41-51); VBG PH 7.44 pH Units (7.32-7.42); VBG PO2 68 mmHg (25-50)
[2020-07-22] MEDS ORDERED: Insulin LISPRO 300 UNITS/3 ML VIAL SQ STA (17:31)
[2020-07-22] MEDS ORDERED: Naloxone 0.4 MG/ML INJ IVP PRN (18:56)
[2020-07-22] MEDS ORDERED: Insulin Human Regular 12 UNIT in 0.9 % Sodium Chloride 10 ML IV ONE (19:12)
[2020-07-22] MEDS ORDERED: Fluconazole 200 MG/100 ML 200 MG/100 ML BAG IVPB SCH (19:15)
[2020-07-22] MEDS ORDERED: Isovue-370 500 ML BOTTLE IVP ONE (19:17)
[2020-07-22] MEDS ORDERED: Insulin Human Regular 100 UNIT in 0.9 % Sodium Chloride 100 ML IVC SCH (20:00)
[2020-07-22] MEDS ORDERED: Ipratropium/Albuterol Neb 3 ML IH PRN (20:19)
[2020-07-22] MEDS ORDERED: Furosemide 20 MG/2 ML VIAL IVP ONE (20:30)
[2020-07-22 20:33] LABS: Estimated Average Glucose 355 mg/dl
[2020-07-22] MEDS: *HR* Heparin 5,000 UNIT/ML VIAL SQ SCH (21:29)
[2020-07-22] MEDS ORDERED: Ibuprofen 600 MG TABLET PO ONE (21:47)
[2020-07-23] MEDS: Acetaminophen 325 MG TABLET PO PRN ×3 (00:01→20:49)
[2020-07-23] MEDS: Potassium Chloride 20 MEQ, Lidocaine 1% 2 ML in 0.9 % Sodium Chloride 250 ML IVPB ONE ×2 (00:43→13:35)
[2020-07-23 00:47] LABS: Basophils % 0.4 %; Eosinophils # 0.3 K/mcL (0.0-0.6); Eosinophils % 3.3 %; Hematocrit 48.1 % (37.5-50.1); Hemoglobin 16.2 g/dL (12.9-16.9); Immature Granulocytes % 0.4 % (0-4); Lymphocytes # 1.9 K/mcL (0.6-4.6); Lymphocytes % 23.5 %; Mean Corpuscular HGB Conc 33.7 g/dL (31.6-35.5); Mean Corpuscular Hemoglobin 27.9 pg (28.0-33.3); Mean Corpuscular Volume 82.8 fL (83.0-100.0); Monocytes # 0.7 K/mcL (0.0-1.3); Monocytes % 8.5 %; Neutrophils # 5.3 K/mcL (1.6-8.9); Platelet Count 187 K/mcL (140-400); Red Blood Count 5.81 M/mcL (4.19-5.50); Red Cell Distribution Width 12.6 % (11.5-14.5); Segmented Neutrophils % 63.9 %; White Blood Count 8.2 K/mcL (4.3-11.1)
[2020-07-23 01:09] LABS: BUN/Creatinine Ratio 25 (6-26); Blood Urea Nitrogen 27 mg/dL (6-20); Carbon Dioxide 36 mEq/L (23-29); Chloride 82 mEq/L (98-107); Glucose 428 mg/dL (70-105); Magnesium 1.9 mg/dL (1.6-2.6); Osmolality,Calculated 289 (280-300); Potassium 2.6 mEq/L (3.5-5.1); Sodium 128 mEq/L (136-145); Troponin I 0.07 ng/mL (< 0.04); eGFR For African Americans > 60 (> 60); eGFR For Non-African Americans > 60 (> 60)
[2020-07-23] MEDS: *HR* Heparin 5,000 UNIT/ML VIAL SQ SCH ×2 (05:58→15:29)
[2020-07-23] MEDS ORDERED: Nitroglycerin 0.4 MG TAB.SUBL SL PRN (08:51)
[2020-07-23] MEDS ORDERED: D5% in Water 1,000 ML IVC PRN (09:40)
[2020-07-23] MEDS ORDERED: *HR* Dextrose 50 % in Water (Vial) 50 ML VIAL IVP PRN (09:40)
[2020-07-23] MEDS ORDERED: Dextrose Gel 15 GM/37.5 ML TUBE PO PRN ×2 (09:40)
[2020-07-23] MEDS: Aspirin Enteric Coated 81 MG Tablet PO SCH (09:43)
[2020-07-23] MEDS: Nicotine 14 MG PATCH.TD24 TD SCH (09:43)
[2020-07-23] MEDS: Clotrimazole/Betameth Dip CRM 45 APPL/45 GM TUBE TP SCH ×2 (09:44→20:50)
[2020-07-23] MEDS ORDERED: Insulin LISPRO 300 UNITS/3 ML VIAL SQ SCH ×2 (11:30→21:00)
[2020-07-23] MEDS ORDERED: NON-FORMULARY MEDICATION 1 EACH EACH (Insulin Nph Hum/Reg Insulin Hm [Humulin 70/30 Kwikpe SQ SCH (12:00)
[2020-07-23] MEDS: Insulin NPH/REG 70/30 100 UNIT/ML (x5UNIT) SQ SCH ×2 (12:57→17:17)
[2020-07-23] MEDS ORDERED: carvediloL 6.25 MG TABLET PO SCH (17:00)
[2020-07-23] MEDS: carvediloL 6.25 MG TABLET PO SCH (17:16)
[2020-07-23] MEDS: Furosemide 40 MG/4 ML VIAL IVP SCH (20:48)
[2020-07-23] MEDS: Apixaban 5 MG TABLET PO SCH (20:49)
[2020-07-23] MEDS: Insulin LISPRO 300 UNITS/3 ML VIAL SQ SCH (21:20)
[2020-07-24] MEDS ORDERED: Insulin LISPRO 300 UNITS/3 ML VIAL SQ ONE (00:53)
[2020-07-24 02:29] LABS: Basophils # 0.1 K/mcL (0.0-0.2); Basophils % 0.7 %; Eosinophils # 0.3 K/mcL (0.0-0.6); Eosinophils % 4.9 %; Hematocrit 48.2 % (37.5-50.1); Hemoglobin 16.1 g/dL (12.9-16.9); Immature Granulocytes % 0.3 % (0-4); Lymphocytes # 1.6 K/mcL (0.6-4.6); Lymphocytes % 23.4 %; Mean Corpuscular HGB Conc 33.4 g/dL (31.6-35.5); Mean Corpuscular Hemoglobin 28.5 pg (28.0-33.3); Mean Corpuscular Volume 85.5 fL (83.0-100.0); Mean Platelet Volume 11.6 fL (9.4-12.4); Monocytes # 0.6 K/mcL (0.0-1.3); Monocytes % 8.6 %; Neutrophils # 4.3 K/mcL (1.6-8.9); Platelet Count 169 K/mcL (140-400); Red Blood Count 5.64 M/mcL (4.19-5.50); Red Cell Distribution Width 12.4 % (11.5-14.5); Segmented Neutrophils % 62.1 %; White Blood Count 6.9 K/mcL (4.3-11.1)
[2020-07-24 02:49] LABS: BUN/Creatinine Ratio 30 (6-26); Blood Urea Nitrogen 25 mg/dL (6-20); Calcium 9.1 mg/dL (8.6-10.3); Carbon Dioxide 35 mEq/L (23-29); Chloride 90 mEq/L (98-107); Glucose 315 mg/dL (70-105); Osmolality,Calculated 290 (280-300); Sodium 132 mEq/L (136-145); eGFR For African Americans > 60 (> 60); eGFR For Non-African Americans > 60 (> 60)
[2020-07-24] MEDS: Aspirin Enteric Coated 81 MG Tablet PO SCH (08:08)
[2020-07-24] MEDS: Apixaban 5 MG TABLET PO SCH ×2 (08:08→20:59)
[2020-07-24] MEDS: Furosemide 40 MG/4 ML VIAL IVP SCH ×2 (08:08→20:59)
[2020-07-24] MEDS: carvediloL 6.25 MG TABLET PO SCH ×2 (08:08→16:53)
[2020-07-24] MEDS: Clotrimazole/Betameth Dip CRM 45 APPL/45 GM TUBE TP SCH ×2 (08:09→21:44)
[2020-07-24] MEDS: Insulin NPH/REG 70/30 100 UNIT/ML (x5UNIT) SQ SCH ×2 (08:09→16:51)
[2020-07-24] MEDS: Nicotine 14 MG PATCH.TD24 TD SCH (08:14)
[2020-07-24] MEDS ORDERED: Insulin NPH/REG 70/30 100 UNIT/ML (x5UNIT) SQ ONE (10:30)
[2020-07-24 12:19] LABS: Phosphorous 2.3 mg/dL (2.7-4.5)
[2020-07-24] MEDS: Acetaminophen 325 MG TABLET PO PRN ×2 (15:08→20:58)
[2020-07-24] MEDS: Spironolactone 25 MG TABLET PO SCH (15:08)
[2020-07-24] MEDS: Ipratropium/Albuterol Neb 3 ML IH PRN ×2 (16:48→22:00)
[2020-07-24] MEDS: Insulin LISPRO 300 UNITS/3 ML VIAL SQ SCH ×2 (16:50→21:08)
[2020-07-24] MEDS: Sacubitril/Valsartan 24/26 MG 1 TABLET PO SCH (21:33)
[2020-07-24] MEDS ORDERED: Morphine Sulfate 2 MG/ML SYRINGE IVP ONE (22:06)
[2020-07-25 04:38] LABS: Basophils % 0.4 %; Eosinophils # 0.3 K/mcL (0.0-0.6); Eosinophils % 3.8 %; Hematocrit 50.4 % (37.5-50.1); Hemoglobin 16.5 g/dL (12.9-16.9); Immature Granulocytes % 0.4 % (0-4); Lymphocytes # 1.9 K/mcL (0.6-4.6); Mean Corpuscular HGB Conc 32.7 g/dL (31.6-35.5); Mean Corpuscular Hemoglobin 27.6 pg (28.0-33.3); Mean Corpuscular Volume 84.3 fL (83.0-100.0); Mean Platelet Volume 11.8 fL (9.4-12.4); Monocytes # 0.7 K/mcL (0.0-1.3); Monocytes % 8.6 %; Neutrophils # 4.7 K/mcL (1.6-8.9); Platelet Count 179 K/mcL (140-400); Red Blood Count 5.98 M/mcL (4.19-5.50); Red Cell Distribution Width 12.7 % (11.5-14.5); Segmented Neutrophils % 61.8 %; White Blood Count 7.7 K/mcL (4.3-11.1)
[2020-07-25 04:57] LABS: BUN/Creatinine Ratio 27 (6-26); Blood Urea Nitrogen 20 mg/dL (6-20); Carbon Dioxide 32 mEq/L (23-29); Chloride 97 mEq/L (98-107); Glucose 235 mg/dL (70-105); Osmolality,Calculated 292 (280-300); Potassium 3.3 mEq/L (3.5-5.1); Sodium 136 mEq/L (136-145); eGFR For African Americans > 60 (> 60); eGFR For Non-African Americans > 60 (> 60)
[2020-07-25 07:39] VITALS: BP 127/79
[2020-07-25] MEDS: Spironolactone 25 MG TABLET PO SCH (08:16)
[2020-07-25] MEDS: Insulin NPH/REG 70/30 100 UNIT/ML (x5UNIT) SQ SCH (08:16)
[2020-07-25] MEDS: Sacubitril/Valsartan 24/26 MG 1 TABLET PO SCH (08:16)
[2020-07-25] MEDS: carvediloL 6.25 MG TABLET PO SCH (08:16)
[2020-07-25] MEDS: Apixaban 5 MG TABLET PO SCH (08:17)
[2020-07-25] MEDS: Aspirin Enteric Coated 81 MG Tablet PO SCH (08:17)
[2020-07-25] MEDS: Furosemide 40 MG/4 ML VIAL IVP SCH (08:17)
[2020-07-25] MEDS: Insulin LISPRO 300 UNITS/3 ML VIAL SQ SCH (08:17)
[2020-07-25] MEDS: Clotrimazole/Betameth Dip CRM 45 APPL/45 GM TUBE TP SCH (08:18)
[2020-07-25] MEDS: Nicotine 14 MG PATCH.TD24 TD SCH (08:18)
== END 2020-07-25 10:57 | disposition home or self-care (01) ==
LOC: EMEROOARM 15:33 → 3BNU 15:33 → 2ANU 19:43
PROVIDERS: ADMIT Internal Medicine; ATTEND Internal Medicine

== ENCOUNTER 2020-10-20 16:36 | Observation (INO) ==
[2020-10-20] MEDS ORDERED: Aspirin 81 MG TAB.CHEW PO ONE (16:59)
[2020-10-20 17:26] LABS: Basophils # 0.1 K/mcL (0.0-0.2); Basophils % 0.4 %; Eosinophils # 0.3 K/mcL (0.0-0.6); Eosinophils % 2.8 %; Hematocrit 45.1 % (37.5-50.1); Hemoglobin 15.4 g/dL (12.9-16.9); Immature Granulocytes % 0.3 % (0-4); Mean Corpuscular HGB Conc 34.1 g/dL (31.6-35.5); Mean Corpuscular Hemoglobin 30.3 pg (28.0-33.3); Mean Corpuscular Volume 88.8 fL (83.0-100.0); Mean Platelet Volume 11.2 fL (9.4-12.4); Monocytes # 0.9 K/mcL (0.0-1.3); Monocytes % 7.3 %; Neutrophils # 8.9 K/mcL (1.6-8.9); Platelet Count 206 K/mcL (140-400); Red Blood Count 5.08 M/mcL (4.19-5.50); Red Cell Distribution Width 13.5 % (11.5-14.5); Segmented Neutrophils % 73.2 %; White Blood Count 12.2 K/mcL (4.3-11.1)
[2020-10-20 17:29] LABS: INR 1.1; Prothrombin Time 12.6 Seconds (9.4-12.1)
[2020-10-20 17:32] LABS: Activated Partial Thrombo Time 26.7 Seconds (26.0-36.0)
[2020-10-20 17:47] LABS: BUN/Creatinine Ratio 12 (6-26); Blood Urea Nitrogen 11 mg/dL (6-20); Calcium 9.3 mg/dL (8.6-10.3); Carbon Dioxide 27 mEq/L (23-29); Chloride 102 mEq/L (98-107); Glucose 343 mg/dL (70-105); Magnesium 1.7 mg/dL (1.6-2.6); Osmolality,Calculated 301 (280-300); Potassium 3.1 mEq/L (3.5-5.1); Sodium 139 mEq/L (136-145); Troponin I 0.06 ng/mL (< 0.04); eGFR For African Americans > 60 (> 60); eGFR For Non-African Americans > 60 (> 60)
[2020-10-20] MEDS ORDERED: *HR* FentaNYL (PF) 100 MCG/2 ML VIAL IVP ONE (18:13)
[2020-10-20] MEDS ORDERED: Isovue-370 500 ML BOTTLE IVP ONE (18:13)
[2020-10-20 19:36] LABS: Bacteria,Urine Few per hpf (None-Few); Bilirubin,Urine Negative (Negative); Blood,Urine Negative (Negative); Clarity,Urine Clear (Clear); Color,Urine Light-Orange (Yellow); Glucose,Urine (UA) >=1000 mg/dL (Normal); Ketones,Urine Negative (Negative); Leukocyte Esterase,Urine Trace (Negative); Nitrite,Urine Negative (Negative); Protein,Urine 30 mg/dL (Neg-Trace); Specific Gravity,Urine > 1.030 (1.010-1.025); Squamous Epithelial Cell,Urine Moderate per hpf (None-Few); WBC,Urine 15-30 per hpf (0-3)
[2020-10-20] MEDS ORDERED: *HR* Heparin 5,000 UNIT/ML VIAL IVP ONE (19:52)
[2020-10-20] MEDS ORDERED: *HR* Heparin 5,000 UNIT/ML VIAL IVP PRN ×2 (19:52)
[2020-10-20] MEDS ORDERED: Heparin 25,000UNIT/250ML 1/2NS 25,000 UNIT/250 ML IV.SOLN IVC SCH ×2 (20:00→20:01)
[2020-10-20] MEDS ORDERED: Perflutren Lipid Microsphere 1.3 ML in 0.9 % Sodium Chloride 8.7 ML IVP PRN (20:15)
[2020-10-20] MEDS ORDERED: Ondansetron 4 MG/2 ML VIAL IVP PRN (20:15)
[2020-10-20] MEDS ORDERED: Naloxone 0.4 MG/ML INJ IVP PRN (20:15)
[2020-10-20] MEDS ORDERED: Nitroglycerin 0.4 MG TAB.SUBL SL PRN (20:15)
[2020-10-20] MEDS ORDERED: *HR* Dextrose 50 % in Water (Vial) 50 ML VIAL IVP PRN (20:44)
[2020-10-20] MEDS ORDERED: D5% in Water 1,000 ML IVC PRN (20:44)
[2020-10-20] MEDS ORDERED: Dextrose Gel 15 GM/37.5 ML TUBE PO PRN ×2 (20:44)
[2020-10-20 21:28] LABS: Prothrombin Time 11.7 Seconds (9.4-12.1)
[2020-10-20 21:29] LABS: Heparin anti-factor XA UFH < 0.04 IU/mL (0.30-0.70)
[2020-10-20] MEDS: Gabapentin 400 MG CAPSULE PO SCH (21:38)
[2020-10-20] MEDS: Insulin LISPRO 300 UNITS/3 ML VIAL SUBQ SCH (21:39)
[2020-10-20 21:59] LABS: Hematocrit 45.7 % (37.5-50.1); Mean Corpuscular HGB Conc 32.8 g/dL (31.6-35.5); Mean Corpuscular Hemoglobin 29.1 pg (28.0-33.3); Mean Corpuscular Volume 88.6 fL (83.0-100.0); Mean Platelet Volume 11.5 fL (9.4-12.4); Platelet Count 208 K/mcL (140-400); Red Blood Count 5.16 M/mcL (4.19-5.50); Red Cell Distribution Width 13.5 % (11.5-14.5); White Blood Count 12.2 K/mcL (4.3-11.1)
[2020-10-20] MEDS ORDERED: Morphine Sulfate 2 MG/ML SYRINGE IVP ONE (22:35)
[2020-10-20] MEDS: carvediloL 6.25 MG TABLET PO SCH (22:57)
[2020-10-21 01:15] LABS: Alanine Aminotransferase 18 Units/L (7-52); Albumin 3.6 g/dL (3.5-5.7); Albumin/Globulin Ratio 1.3 (1.1-2.2); Alkaline Phosphatase 70 Units/L (34-104); Aspartate Amino Transferase 15 Units/L (13-39); BUN/Creatinine Ratio 12 (6-26); Bilirubin,Total 0.7 mg/dL (0.3-1.0); Blood Urea Nitrogen 11 mg/dL (6-20); Calcium 8.9 mg/dL (8.6-10.3); Carbon Dioxide 26 mEq/L (23-29); Chloride 102 mEq/L (98-107); Chol/HDL Ratio 6.7 (0-4.9); Cholesterol 201 mg/dL (< 200); Globulin 2.7 g/dL (2.4-3.5); Glucose 386 mg/dL (70-105); HDL Cholesterol 30 mg/dL (40-59); LDL Cholesterol,Calculated 104 mg/dL (< 100); Osmolality,Calculated 301 (280-300); Potassium 3.4 mEq/L (3.5-5.1); Sodium 138 mEq/L (136-145); Total Protein 6.3 g/dL (6.4-8.9); Triglycerides 335 mg/dL (< 150); eGFR For African Americans > 60 (> 60); eGFR For Non-African Americans > 60 (> 60)
[2020-10-21] MEDS ORDERED: Furosemide 40 MG/4 ML VIAL IVP ONE (01:15)
[2020-10-21] MEDS ORDERED: Morphine Sulfate 2 MG/ML SYRINGE IVP ONE (01:18)
[2020-10-21] MEDS: Ipratropium/Albuterol Neb 3 ML IH PRN (01:54)
[2020-10-21] MEDS: Acetaminophen 325 MG TABLET PO PRN (05:21)
[2020-10-21 08:50] LABS: Estimated Average Glucose 275 mg/dl; Hemoglobin A1C 11.2 %
[2020-10-21] MEDS: Gabapentin 400 MG CAPSULE PO SCH ×3 (09:13→20:41)
[2020-10-21] MEDS: carvediloL 6.25 MG TABLET PO SCH ×2 (09:13→16:53)
[2020-10-21] MEDS: Aspirin Enteric Coated 81 MG Tablet PO SCH (09:13)
[2020-10-21] MEDS: Furosemide 40 MG TABLET PO SCH ×2 (09:13→16:53)
[2020-10-21] MEDS: Insulin LISPRO 300 UNITS/3 ML VIAL SUBQ SCH ×4 (09:15→20:43)
[2020-10-21] MEDS: Insulin NPH/REG 70/30 100 UNIT/ML (x5UNIT) SUBQ SCH ×2 (09:18→16:54)
[2020-10-21] MEDS: metOLazone 5 MG TABLET PO SCH (09:20)
[2020-10-21] MEDS ORDERED: lisinopriL 5 MG TABLET PO SCH (12:30)
[2020-10-21] MEDS: Isosorbide MONOnitrate (24 HR) 30 MG TAB.ER.24H PO SCH (12:44)
[2020-10-21] MEDS: cefTRIAXone 1,000 MG in Water for inj. (sterile) 10 ML IVP SCH (14:07)
[2020-10-21] MEDS: Apixaban 5 MG TABLET PO SCH ×2 (14:08→20:43)
[2020-10-22 05:11] LABS: Basophils # 0.1 K/mcL (0.0-0.2); Basophils % 0.5 %; Eosinophils # 0.4 K/mcL (0.0-0.6); Eosinophils % 3.5 %; Hematocrit 47.3 % (37.5-50.1); Hemoglobin 15.5 g/dL (12.9-16.9); Immature Granulocytes % 0.5 % (0-4); Lymphocytes # 2.2 K/mcL (0.6-4.6); Lymphocytes % 17.7 %; Mean Corpuscular HGB Conc 32.8 g/dL (31.6-35.5); Mean Corpuscular Hemoglobin 29.4 pg (28.0-33.3); Mean Corpuscular Volume 89.6 fL (83.0-100.0); Mean Platelet Volume 11.3 fL (9.4-12.4); Monocytes # 0.9 K/mcL (0.0-1.3); Monocytes % 7.5 %; Neutrophils # 8.6 K/mcL (1.6-8.9); Platelet Count 222 K/mcL (140-400); Red Blood Count 5.28 M/mcL (4.19-5.50); Red Cell Distribution Width 13.4 % (11.5-14.5); Segmented Neutrophils % 70.3 %; White Blood Count 12.2 K/mcL (4.3-11.1)
[2020-10-22 05:30] LABS: BUN/Creatinine Ratio 19 (6-26); Blood Urea Nitrogen 18 mg/dL (6-20); Calcium 9.3 mg/dL (8.6-10.3); Carbon Dioxide 29 mEq/L (23-29); Chloride 94 mEq/L (98-107); Glucose 302 mg/dL (70-105); Osmolality,Calculated 289 (280-300); Potassium 3.8 mEq/L (3.5-5.1); Sodium 133 mEq/L (136-145); eGFR For African Americans > 60 (> 60); eGFR For Non-African Americans > 60 (> 60)
[2020-10-22] MEDS: Insulin LISPRO 300 UNITS/3 ML VIAL SUBQ SCH ×4 (07:45→20:38)
[2020-10-22] MEDS: Insulin NPH/REG 70/30 100 UNIT/ML (x5UNIT) SUBQ SCH ×2 (07:45→16:49)
[2020-10-22] MEDS: Isosorbide MONOnitrate (24 HR) 30 MG TAB.ER.24H PO SCH (07:46)
[2020-10-22] MEDS: Apixaban 5 MG TABLET PO SCH ×2 (07:46→20:38)
[2020-10-22] MEDS: Aspirin Enteric Coated 81 MG Tablet PO SCH (07:46)
[2020-10-22] MEDS: Furosemide 40 MG TABLET PO SCH ×2 (07:47→16:49)
[2020-10-22] MEDS: carvediloL 6.25 MG TABLET PO SCH ×2 (07:48→16:49)
[2020-10-22] MEDS: Gabapentin 400 MG CAPSULE PO SCH ×3 (07:48→20:37)
[2020-10-22] MEDS: metOLazone 5 MG TABLET PO SCH (08:14)
[2020-10-22 09:26] LABS: Adenovirus Not Detected (Not Detect); Bordetella Pertussis Not Detected (Not Detect); Chlamydophila pneumoniae Not Detected (Not Detect); Coronavirus 229E Not Detected (Not Detect); Coronavirus HKU1 Not Detected (Not Detect); Coronavirus NL63 Not Detected (Not Detect); Coronavirus OC43 Not Detected (Not Detect); Human Metapneumovirus Not Detected (Not Detect); Human Rhinovirus/Enterovirus Not Detected (Not Detect); Influenza A Subtype 2009 H1 Not Detected (Not Detect); Influenza B Not Detected (Not Detect); Mycoplasma pneumoniae Not Detected (Not Detect); Parainfluenza Virus 1 Not Detected (Not Detect); Parainfluenza Virus 2 Not Detected (Not Detect); Parainfluenza Virus 3 Not Detected (Not Detect); Parainfluenza Virus 4 Not Detected (Not Detect); Respiratory Syncytial Virus Not Detected (Not Detect); SARS-CoV-2 Not Detected (Not Detect)
[2020-10-22] MEDS: cefTRIAXone 1,000 MG in Water for inj. (sterile) 10 ML IVP SCH (12:07)
[2020-10-22] MEDS: Ipratropium/Albuterol Neb 3 ML IH PRN (21:32)
[2020-10-23 03:27] LABS: Basophils # 0.1 K/mcL (0.0-0.2); Basophils % 0.6 %; Eosinophils # 0.4 K/mcL (0.0-0.6); Eosinophils % 3.7 %; Hematocrit 48.7 % (37.5-50.1); Hemoglobin 16.6 g/dL (12.9-16.9); Immature Granulocytes % 0.6 % (0-4); Lymphocytes % 24.6 %; Mean Corpuscular HGB Conc 34.1 g/dL (31.6-35.5); Mean Corpuscular Hemoglobin 30.2 pg (28.0-33.3); Mean Corpuscular Volume 88.7 fL (83.0-100.0); Monocytes % 8.6 %; Neutrophils # 7.5 K/mcL (1.6-8.9); Platelet Count 215 K/mcL (140-400); Red Blood Count 5.49 M/mcL (4.19-5.50); Red Cell Distribution Width 13.1 % (11.5-14.5); Segmented Neutrophils % 61.9 %; White Blood Count 12.1 K/mcL (4.3-11.1)
[2020-10-23 03:41] LABS: BUN/Creatinine Ratio 22 (6-26); Blood Urea Nitrogen 27 mg/dL (6-20); Calcium 9.6 mg/dL (8.6-10.3); Carbon Dioxide 34 mEq/L (23-29); Chloride 90 mEq/L (98-107); Glucose 247 mg/dL (70-105); Osmolality,Calculated 291 (280-300); Potassium 3.4 mEq/L (3.5-5.1); Sodium 134 mEq/L (136-145); eGFR For African Americans > 60 (> 60); eGFR For Non-African Americans > 60 (> 60)
[2020-10-23] MEDS: Acetaminophen 325 MG TABLET PO PRN (06:52)
[2020-10-23] MEDS: Gabapentin 400 MG CAPSULE PO SCH ×3 (08:08→19:30)
[2020-10-23] MEDS: Isosorbide MONOnitrate (24 HR) 30 MG TAB.ER.24H PO SCH (08:08)
[2020-10-23] MEDS: Apixaban 5 MG TABLET PO SCH ×2 (08:09→19:30)
[2020-10-23] MEDS: Aspirin Enteric Coated 81 MG Tablet PO SCH (08:09)
[2020-10-23] MEDS: carvediloL 6.25 MG TABLET PO SCH ×2 (08:09→16:25)
[2020-10-23] MEDS: Insulin LISPRO 300 UNITS/3 ML VIAL SUBQ SCH ×4 (08:11→21:57)
[2020-10-23] MEDS: Insulin NPH/REG 70/30 100 UNIT/ML (x5UNIT) SUBQ SCH ×2 (08:14→16:29)
[2020-10-23] MEDS: cefTRIAXone 1,000 MG in Water for inj. (sterile) 10 ML IVP SCH (12:51)
[2020-10-23] MEDS ORDERED: 0.9 % Sodium Chloride 250 ML IVC SCH (19:00)
[2020-10-24 01:30] LABS: Basophils # 0.1 K/mcL (0.0-0.2); Basophils % 0.5 %; Eosinophils # 0.4 K/mcL (0.0-0.6); Eosinophils % 3.7 %; Hematocrit 49.6 % (37.5-50.1); Hemoglobin 16.8 g/dL (12.9-16.9); Immature Granulocytes % 0.4 % (0-4); Lymphocytes # 2.7 K/mcL (0.6-4.6); Lymphocytes % 23.9 %; Mean Corpuscular HGB Conc 33.9 g/dL (31.6-35.5); Mean Corpuscular Hemoglobin 30.1 pg (28.0-33.3); Mean Corpuscular Volume 88.9 fL (83.0-100.0); Mean Platelet Volume 11.2 fL (9.4-12.4); Platelet Count 226 K/mcL (140-400); Red Blood Count 5.58 M/mcL (4.19-5.50); Red Cell Distribution Width 13.1 % (11.5-14.5); Segmented Neutrophils % 62.5 %; White Blood Count 11.2 K/mcL (4.3-11.1)
[2020-10-24 01:50] LABS: BUN/Creatinine Ratio 27 (6-26); Blood Urea Nitrogen 27 mg/dL (6-20); Calcium 9.8 mg/dL (8.6-10.3); Carbon Dioxide 33 mEq/L (23-29); Chloride 90 mEq/L (98-107); Glucose 308 mg/dL (70-105); Osmolality,Calculated 291 (280-300); Sodium 132 mEq/L (136-145); eGFR For African Americans > 60 (> 60); eGFR For Non-African Americans > 60 (> 60)
[2020-10-24 07:37] VITALS: BP 122/79
[2020-10-24] MEDS: Ipratropium/Albuterol Neb 3 ML IH PRN (07:38)
[2020-10-24] MEDS: Apixaban 5 MG TABLET PO SCH (09:30)
[2020-10-24] MEDS: Gabapentin 400 MG CAPSULE PO SCH (09:30)
[2020-10-24] MEDS: Aspirin Enteric Coated 81 MG Tablet PO SCH (09:31)
[2020-10-24] MEDS: Furosemide 40 MG TABLET PO SCH (09:31)
[2020-10-24] MEDS: carvediloL 6.25 MG TABLET PO SCH (09:31)
[2020-10-24] MEDS: Isosorbide MONOnitrate (24 HR) 30 MG TAB.ER.24H PO SCH (09:32)
[2020-10-24] MEDS: Insulin LISPRO 300 UNITS/3 ML VIAL SUBQ SCH (09:35)
[2020-10-24] MEDS: Insulin NPH/REG 70/30 100 UNIT/ML (x5UNIT) SUBQ SCH (09:37)
== END 2020-10-24 10:53 | disposition home or self-care (01) ==
LOC: EMEROOARM 16:36 → 3BNU 16:36
PROVIDERS: ADMIT Family Medicine; ATTEND Family Medicine

== ENCOUNTER 2020-10-31 23:22 | Observation (INO) ==
[2020-10-31] MEDS ORDERED: Ipratropium/Albuterol Neb 3 ML IH ONE (23:35)
[2020-10-31] MEDS ORDERED: Isovue-370 500 ML BOTTLE IVP ONE (23:35)
[2020-11-01 00:10] LABS: Basophils # 0.1 K/mcL (0.0-0.2); Basophils % 0.7 %; Eosinophils # 0.6 K/mcL (0.0-0.6); Eosinophils % 4.6 %; Hematocrit 45.1 % (37.5-50.1); Hemoglobin 15.3 g/dL (12.9-16.9); Immature Granulocytes % 0.7 % (0-4); Lymphocytes # 2.6 K/mcL (0.6-4.6); Lymphocytes % 20.9 %; Mean Corpuscular HGB Conc 33.9 g/dL (31.6-35.5); Mean Corpuscular Hemoglobin 30.4 pg (28.0-33.3); Mean Corpuscular Volume 89.7 fL (83.0-100.0); Mean Platelet Volume 11.6 fL (9.4-12.4); Monocytes % 8.3 %; Neutrophils # 7.9 K/mcL (1.6-8.9); Platelet Count 217 K/mcL (140-400); Red Blood Count 5.03 M/mcL (4.19-5.50); Red Cell Distribution Width 12.3 % (11.5-14.5); Segmented Neutrophils % 64.8 %; White Blood Count 12.2 K/mcL (4.3-11.1)
[2020-11-01 00:16] LABS: BUN/Creatinine Ratio 15 (6-26); Blood Urea Nitrogen 13 mg/dL (6-20); Calcium 9.6 mg/dL (8.6-10.3); Carbon Dioxide 24 mEq/L (23-29); Chloride 103 mEq/L (98-107); Glucose 286 mg/dL (70-105); Osmolality,Calculated 299 (280-300); Potassium 3.6 mEq/L (3.5-5.1); Sodium 139 mEq/L (136-145); eGFR For African Americans > 60 (> 60); eGFR For Non-African Americans > 60 (> 60)
[2020-11-01 00:23] LABS: Troponin I 0.07 ng/mL (< 0.04)
[2020-11-01] MEDS ORDERED: Aspirin 325 MG TABLET PO ONE (02:06)
[2020-11-01] MEDS ORDERED: Prochlorperazine 10 MG/2 ML VIAL IVP STA (02:06)
[2020-11-01] MEDS ORDERED: methylPREDNISolone 125 MG/2 ML VIAL IVP ONE (02:11)
[2020-11-01] MEDS ORDERED: Naloxone 0.4 MG/ML INJ IVP PRN (03:37)
[2020-11-01] MEDS ORDERED: Acetaminophen 325 MG TABLET PO PRN (03:37)
[2020-11-01] MEDS ORDERED: Ondansetron 4 MG/2 ML VIAL IVP PRN (03:37)
[2020-11-01] MEDS ORDERED: *HR* Promethazine 25 MG/ML VIAL IM PRN (03:37)
[2020-11-01] MEDS ORDERED: D5% in Water 1,000 ML IVC PRN (03:40)
[2020-11-01] MEDS ORDERED: Dextrose Gel 15 GM/37.5 ML TUBE PO PRN ×2 (03:40)
[2020-11-01] MEDS ORDERED: *HR* Dextrose 50 % in Water (Vial) 50 ML VIAL IVP PRN (03:40)
[2020-11-01] MEDS ORDERED: Nitroglycerin 0.4 MG TAB.SUBL SL PRN (03:41)
[2020-11-01] MEDS ORDERED: Ipratropium/Albuterol Neb 3 ML IH PRN (03:42)
[2020-11-01] MEDS: Ipratropium/Albuterol Neb 3 ML IH SCH ×3 (05:31→11:08)
[2020-11-01] MEDS ORDERED: Insulin LISPRO 300 UNITS/3 ML VIAL SUBQ SCH ×2 (07:30→21:00)
[2020-11-01 07:31] VITALS: BP 149/107
[2020-11-01] MEDS ORDERED: carvediloL 6.25 MG TABLET PO SCH (08:00)
[2020-11-01] MEDS ORDERED: Furosemide 40 MG TABLET PO SCH (08:00)
[2020-11-01] MEDS ORDERED: Isosorbide MONOnitrate (24 HR) 30 MG TAB.ER.24H PO SCH (09:00)
[2020-11-01] MEDS ORDERED: Aspirin Enteric Coated 81 MG Tablet PO SCH (09:00)
[2020-11-01] MEDS ORDERED: Apixaban 5 MG TABLET PO SCH (09:00)
[2020-11-01] MEDS ORDERED: Gabapentin 400 MG CAPSULE PO SCH (09:00)
[2020-11-01 09:19] LABS: Basophils % 0.3 %; Eosinophils % 0.2 %; Hematocrit 45.4 % (37.5-50.1); Hemoglobin 15.4 g/dL (12.9-16.9); Immature Granulocytes % 0.4 % (0-4); Lymphocytes # 0.7 K/mcL (0.6-4.6); Lymphocytes % 7.2 %; Mean Corpuscular HGB Conc 33.9 g/dL (31.6-35.5); Mean Corpuscular Hemoglobin 29.8 pg (28.0-33.3); Mean Corpuscular Volume 87.8 fL (83.0-100.0); Mean Platelet Volume 11.5 fL (9.4-12.4); Monocytes # 0.1 K/mcL (0.0-1.3); Monocytes % 0.6 %; Neutrophils # 8.8 K/mcL (1.6-8.9); Platelet Count 192 K/mcL (140-400); Red Blood Count 5.17 M/mcL (4.19-5.50); Red Cell Distribution Width 12.2 % (11.5-14.5); Segmented Neutrophils % 91.3 %; White Blood Count 9.7 K/mcL (4.3-11.1)
[2020-11-01 09:23] LABS: VBG HCO3 26 mEq/L (21-27); VBG PCO2 46 mmHg (41-51); VBG PH 7.36 pH Units (7.32-7.42); VBG PO2 86 mmHg (25-50)
[2020-11-01 09:24] LABS: Prothrombin Time 11.7 Seconds (9.4-12.1)
[2020-11-01 09:33] LABS: Magnesium 1.5 mg/dL (1.6-2.6); Phosphorous 3.7 mg/dL (2.7-4.5)
[2020-11-01 09:48] LABS: Troponin I 0.05 ng/mL (< 0.04)
[2020-11-01] MEDS ORDERED: MethylPREDNISolone 40 MG/ML VIAL IVP SCH (10:00)
[2020-11-01] MEDS ORDERED: Dextromethorphan Polistrx(12h) 30 MG/5 ML UDC PO PRN (10:19)
[2020-11-01] MEDS ORDERED: Insulin DETEMIR 100 UNIT/ML X5UNITS SUBQ SCH (21:00)
== END 2020-11-01 12:10 | disposition home or self-care (01) ==
LOC: CDU 23:22 → EMEROOARM 23:22 → SUATTDRO 11-01 03:00 → CDU 11-01 03:20
PROVIDERS: ADMIT Family Medicine; ATTEND Internal Medicine

== ENCOUNTER 2021-01-30 14:54 | Observation (INO) ==
[2021-01-30] MEDS ORDERED: Piperacillin/Tazobactam 3.375 GM in Water for inj. (sterile) 20 ML IVP ONE (16:56)
[2021-01-30 18:18] LABS: Basophils # 0.1 K/mcL (0.0-0.2); Basophils % 0.7 %; Eosinophils # 0.4 K/mcL (0.0-0.6); Eosinophils % 4.3 %; Hematocrit 47.5 % (37.5-50.1); Hemoglobin 15.9 g/dL (12.9-16.9); Immature Granulocytes % 0.3 % (0-4); Lymphocytes # 2.1 K/mcL (0.6-4.6); Mean Corpuscular HGB Conc 33.5 g/dL (31.6-35.5); Mean Corpuscular Hemoglobin 29.3 pg (28.0-33.3); Mean Corpuscular Volume 87.5 fL (83.0-100.0); Mean Platelet Volume 11.2 fL (9.4-12.4); Monocytes # 0.7 K/mcL (0.0-1.3); Monocytes % 7.1 %; Neutrophils # 6.8 K/mcL (1.6-8.9); Platelet Count 228 K/mcL (140-400); Red Blood Count 5.43 M/mcL (4.19-5.50); Red Cell Distribution Width 12.2 % (11.5-14.5); Segmented Neutrophils % 66.6 %; White Blood Count 10.2 K/mcL (4.3-11.1)
[2021-01-30 18:34] LABS: BUN/Creatinine Ratio 14 (6-26); Blood Urea Nitrogen 14 mg/dL (6-20); C-Reactive Protein 28 mg/L (Less than 10); Calcium 8.9 mg/dL (8.6-10.3); Carbon Dioxide 31 mEq/L (23-29); Chloride 98 mEq/L (98-107); Glucose 393 mg/dL (70-105); Osmolality,Calculated 303 (280-300); Potassium 3.1 mEq/L (3.5-5.1); Sodium 138 mEq/L (136-145); eGFR For African Americans > 60 (> 60); eGFR For Non-African Americans > 60 (> 60)
[2021-01-30] MEDS ORDERED: Vancomycin 1,750 MG/517.5 ML IV.SOLN IVPB ONE (18:45)
[2021-01-30] MEDS ORDERED: Naloxone 0.4 MG/ML INJ IVP PRN (19:37)
[2021-01-30] MEDS ORDERED: Acetaminophen 325 MG TABLET PO PRN (19:37)
[2021-01-30] MEDS ORDERED: Melatonin 3 MG TABLET PO PRN (19:37)
[2021-01-30] MEDS ORDERED: 0.9 % Sodium Chloride 1,000 ML IVC SCH (19:45)
[2021-01-30] MEDS ORDERED: *HR* Dextrose 50 % in Water (Vial) 50 ML VIAL IVP PRN (19:52)
[2021-01-30] MEDS ORDERED: Dextrose Gel 15 GM/37.5 ML TUBE PO PRN ×2 (19:52)
[2021-01-30] MEDS ORDERED: D5% in Water 1,000 ML IVC PRN (19:52)
[2021-01-30] MEDS ORDERED: Insulin DETEMIR 100 UNIT/ML X5UNITS SUBQ SCH (21:00)
[2021-01-30] MEDS: Insulin LISPRO 300 UNITS/3 ML VIAL SUBQ SCH (21:03)
[2021-01-30] MEDS: Bumetanide 1 MG TABLET PO SCH (21:31)
[2021-01-30] MEDS: Ipratropium/Albuterol Neb 3 ML IH PRN (23:51)
[2021-01-31] MEDS: Insulin LISPRO 300 UNITS/3 ML VIAL SUBQ SCH ×6 (00:12→20:58)
[2021-01-31] MEDS: Piperacillin/Tazobactam 3.375 GM in 0.9 % Sodium Chloride Mini Bag 100 ML IVPB SCH ×3 (01:07→16:43)
[2021-01-31 02:44] LABS: Hematocrit 44.8 % (37.5-50.1); Hemoglobin 15.6 g/dL (12.9-16.9); Mean Corpuscular HGB Conc 34.8 g/dL (31.6-35.5); Mean Corpuscular Hemoglobin 29.7 pg (28.0-33.3); Mean Corpuscular Volume 85.3 fL (83.0-100.0); Mean Platelet Volume 10.9 fL (9.4-12.4); Platelet Count 197 K/mcL (140-400); Red Blood Count 5.25 M/mcL (4.19-5.50); Red Cell Distribution Width 12.1 % (11.5-14.5)
[2021-01-31 03:04] LABS: BUN/Creatinine Ratio 16 (6-26); Blood Urea Nitrogen 14 mg/dL (6-20); Calcium 8.6 mg/dL (8.6-10.3); Carbon Dioxide 32 mEq/L (23-29); Chloride 98 mEq/L (98-107); Glucose 278 mg/dL (70-105); Osmolality,Calculated 296 (280-300); Potassium 2.9 mEq/L (3.5-5.1); Sodium 138 mEq/L (136-145); eGFR For African Americans > 60 (> 60); eGFR For Non-African Americans > 60 (> 60)
[2021-01-31] MEDS ORDERED: Potassium Chloride 40 MEQ, Lidocaine 1% 2 ML in 0.9 % Sodium Chloride 500 ML IVPB ONE (04:15)
[2021-01-31 05:04] LABS: Estimated Average Glucose 295 mg/dl; Hemoglobin A1C 11.9 %
[2021-01-31] MEDS ORDERED: Potassium Chloride 40 MEQ, Lidocaine 1% 2 ML in 0.9 % Sodium Chloride 250 ML IVPB ONE (07:55)
[2021-01-31] MEDS ORDERED: *HR* FentaNYL (PF) 100 MCG/2 ML VIAL IVP PRN (08:25)
[2021-01-31] MEDS ORDERED: *HR* OxyCODONE Immed Rel 5 MG TABLET PO PRN (08:25)
[2021-01-31] MEDS ORDERED: *HR* HYDROmorphone PF 0.5 MG/0.5 ML SYRINGE IVP PRN (08:25)
[2021-01-31] MEDS ORDERED: Piperacillin/Tazobactam 3.375 GM VIAL ONE (08:59)
[2021-01-31] MEDS: Bumetanide 1 MG TABLET PO SCH ×2 (09:09→20:57)
[2021-01-31] MEDS: Vancomycin 1,750 MG/517.5 ML IV.SOLN IVPB SCH ×2 (09:10→21:11)
[2021-01-31] MEDS: carvediloL 6.25 MG TABLET PO SCH ×2 (09:21→16:41)
[2021-01-31] MEDS ORDERED: *HR* Midazolam HCl 2 MG/2 ML VIAL ONE (12:09)
[2021-01-31] MEDS ORDERED: *HR* FentaNYL (PF) 100 MCG/2 ML VIAL ONE (12:09)
[2021-01-31] MEDS ORDERED: Lidocaine -MPF 2% 2 ML VIAL ONE (12:12)
[2021-01-31] MEDS: Gabapentin 400 MG CAPSULE PO SCH ×2 (14:51→20:57)
[2021-01-31] MEDS: Ipratropium/Albuterol Neb 3 ML IH PRN (15:11)
[2021-01-31] MEDS ORDERED: Morphine Sulfate 2 MG/ML SYRINGE IVP ONE (16:42)
[2021-01-31] MEDS: Apixaban 5 MG TABLET PO SCH (20:57)
[2021-01-31] MEDS: *HR* OxyCODONE/APAP 5/325 TABLET PO PRN (20:57)
[2021-01-31] MEDS ORDERED: Insulin NPH/REG 70/30 100 UNIT/ML (x5UNIT) SUBQ SCH (21:00)
[2021-02-01] MEDS: Piperacillin/Tazobactam 3.375 GM in 0.9 % Sodium Chloride Mini Bag 100 ML IVPB SCH ×2 (01:40→11:34)
[2021-02-01] MEDS: Ipratropium/Albuterol Neb 3 ML IH PRN (03:36)
[2021-02-01] MEDS: *HR* OxyCODONE/APAP 5/325 TABLET PO PRN ×3 (04:26→21:51)
[2021-02-01 04:55] LABS: Hematocrit 46.8 % (37.5-50.1); Hemoglobin 15.7 g/dL (12.9-16.9); Mean Corpuscular HGB Conc 33.5 g/dL (31.6-35.5); Mean Corpuscular Volume 89.5 fL (83.0-100.0); Mean Platelet Volume 10.8 fL (9.4-12.4); Platelet Count 207 K/mcL (140-400); Red Blood Count 5.23 M/mcL (4.19-5.50); Red Cell Distribution Width 12.3 % (11.5-14.5); Segmented Neutrophils % 64.5 %; White Blood Count 8.4 K/mcL (4.3-11.1)
[2021-02-01 04:56] LABS: Basophils % 0.5 %; Eosinophils # 0.4 K/mcL (0.0-0.6); Eosinophils % 5.2 %; Immature Granulocytes % 0.2 % (0-4); Lymphocytes # 1.8 K/mcL (0.6-4.6); Lymphocytes % 21.1 %; Monocytes # 0.7 K/mcL (0.0-1.3); Monocytes % 8.5 %; Neutrophils # 5.4 K/mcL (1.6-8.9)
[2021-02-01 05:12] LABS: BUN/Creatinine Ratio 13 (6-26); Blood Urea Nitrogen 12 mg/dL (6-20); Calcium 8.1 mg/dL (8.6-10.3); Carbon Dioxide 33 mEq/L (23-29); Chloride 97 mEq/L (98-107); Glucose 291 mg/dL (70-105); Magnesium 1.8 mg/dL (1.6-2.6); Osmolality,Calculated 294 (280-300); Potassium 3.2 mEq/L (3.5-5.1); Sodium 137 mEq/L (136-145); eGFR For African Americans > 60 (> 60); eGFR For Non-African Americans > 60 (> 60)
[2021-02-01] MEDS: carvediloL 6.25 MG TABLET PO SCH ×2 (07:45→17:29)
[2021-02-01] MEDS: Bumetanide 1 MG TABLET PO SCH ×2 (07:45→20:38)
[2021-02-01] MEDS: Apixaban 5 MG TABLET PO SCH ×2 (07:45→20:38)
[2021-02-01] MEDS: Gabapentin 400 MG CAPSULE PO SCH ×3 (07:45→20:37)
[2021-02-01] MEDS: Aspirin Enteric Coated 81 MG Tablet PO SCH (07:45)
[2021-02-01] MEDS: Isosorbide MONOnitrate (24 HR) 30 MG TAB.ER.24H PO SCH (07:46)
[2021-02-01] MEDS: Insulin LISPRO 300 UNITS/3 ML VIAL SUBQ SCH ×4 (07:47→20:40)
[2021-02-01] MEDS: Vancomycin 1,750 MG/517.5 ML IV.SOLN IVPB SCH (12:36)
[2021-02-01] MEDS ORDERED: Insulin NPH/REG 70/30 100 UNIT/ML (x5UNIT) SUBQ SCH (21:00)
[2021-02-02] MEDS: *HR* OxyCODONE/APAP 5/325 TABLET PO PRN (04:14)
[2021-02-02] MEDS: Gabapentin 400 MG CAPSULE PO SCH (08:47)
[2021-02-02] MEDS: Isosorbide MONOnitrate (24 HR) 30 MG TAB.ER.24H PO SCH (08:47)
[2021-02-02] MEDS: Bumetanide 1 MG TABLET PO SCH (08:47)
[2021-02-02] MEDS: Apixaban 5 MG TABLET PO SCH (08:47)
[2021-02-02] MEDS: carvediloL 6.25 MG TABLET PO SCH (08:47)
[2021-02-02] MEDS: Aspirin Enteric Coated 81 MG Tablet PO SCH (08:48)
[2021-02-02] MEDS: Insulin LISPRO 300 UNITS/3 ML VIAL SUBQ SCH ×2 (08:48→12:37)
[2021-02-02] MEDS ORDERED: Ondansetron 4 MG/2 ML VIAL IVP ONE (10:44)
[2021-02-02 12:09] VITALS: BP 135/77
== END 2021-02-02 15:27 | disposition home or self-care (01) ==
LOC: EMEROOARM 14:54 → 3NENU 14:54
PROVIDERS: ADMIT Family Medicine; ATTEND Family Medicine

== ENCOUNTER 2021-02-11 16:09 | Observation (INO) ==
[2021-02-11] MEDS ORDERED: Isovue-370 500 ML BOTTLE IVP ONE (16:22)
[2021-02-11] MEDS ORDERED: 0.9 % Sodium Chloride 1,000 ML IVC ONE (16:24)
[2021-02-11 16:48] LABS: Basophils # 0.1 K/mcL (0.0-0.2); Basophils % 0.5 %; Eosinophils # 0.4 K/mcL (0.0-0.6); Eosinophils % 3.1 %; Hematocrit 48.8 % (37.5-50.1); Immature Granulocytes % 0.3 % (0-4); Lymphocytes # 2.5 K/mcL (0.6-4.6); Lymphocytes % 20.8 %; Mean Corpuscular HGB Conc 34.8 g/dL (31.6-35.5); Mean Corpuscular Hemoglobin 30.1 pg (28.0-33.3); Mean Corpuscular Volume 86.5 fL (83.0-100.0); Mean Platelet Volume 11.1 fL (9.4-12.4); Monocytes # 0.9 K/mcL (0.0-1.3); Monocytes % 7.3 %; Neutrophils # 8.1 K/mcL (1.6-8.9); Platelet Count 259 K/mcL (140-400); Red Blood Count 5.64 M/mcL (4.19-5.50); Red Cell Distribution Width 12.1 % (11.5-14.5); White Blood Count 11.9 K/mcL (4.3-11.1)
[2021-02-11 17:08] LABS: BUN/Creatinine Ratio 19 (6-26); Blood Urea Nitrogen 16 mg/dL (6-20); Calcium 9.4 mg/dL (8.6-10.3); Carbon Dioxide 27 mEq/L (23-29); Chloride 100 mEq/L (98-107); Glucose 267 mg/dL (70-105); Osmolality,Calculated 293 (280-300); Potassium 3.8 mEq/L (3.5-5.1); Sodium 136 mEq/L (136-145); eGFR For African Americans > 60 (> 60); eGFR For Non-African Americans > 60 (> 60)
[2021-02-11 17:18] LABS: Troponin I 0.06 ng/mL (< 0.04)
[2021-02-11] MEDS ORDERED: Aspirin 81 MG TAB.CHEW PO ONE (18:05)
[2021-02-11] MEDS: Nitroglycerin 0.4 MG TAB.SUBL SL SCH ×3 (18:20→21:36)
[2021-02-11] MEDS ORDERED: Perflutren Lipid Microsphere 1.3 ML in 0.9 % Sodium Chloride 8.7 ML IVP PRN (21:07)
[2021-02-11] MEDS ORDERED: Dextrose Gel 15 GM/37.5 ML TUBE PO PRN ×2 (21:09)
[2021-02-11] MEDS ORDERED: D5% in Water 1,000 ML IVC PRN (21:09)
[2021-02-11] MEDS ORDERED: *HR* Dextrose 50 % in Water (Vial) 50 ML VIAL IVP PRN (21:09)
[2021-02-11] MEDS ORDERED: Ondansetron 4 MG/2 ML VIAL IVP PRN (21:24)
[2021-02-11] MEDS ORDERED: Naloxone 0.4 MG/ML INJ IVP PRN (21:24)
[2021-02-11] MEDS: Apixaban 5 MG TABLET PO SCH (21:52)
[2021-02-11] MEDS: Insulin LISPRO 300 UNITS/3 ML VIAL SUBQ SCH (21:52)
[2021-02-11] MEDS ORDERED: Ipratropium/Albuterol Neb 3 ML IH PRN (22:00)
[2021-02-12] MEDS ORDERED: *HR* HYDROcodone/Acet 5/325 mg TABLET PO ONE ×2 (00:04→06:49)
[2021-02-12] MEDS: Insulin LISPRO 300 UNITS/3 ML VIAL SUBQ SCH ×5 (01:35→21:07)
[2021-02-12 06:19] LABS: Hematocrit 46.1 % (37.5-50.1); Hemoglobin 15.6 g/dL (12.9-16.9); Mean Corpuscular HGB Conc 33.8 g/dL (31.6-35.5); Mean Corpuscular Hemoglobin 29.2 pg (28.0-33.3); Mean Corpuscular Volume 86.3 fL (83.0-100.0); Mean Platelet Volume 11.1 fL (9.4-12.4); Platelet Count 206 K/mcL (140-400); Red Blood Count 5.34 M/mcL (4.19-5.50); Red Cell Distribution Width 12.3 % (11.5-14.5); White Blood Count 9.5 K/mcL (4.3-11.1)
[2021-02-12 06:26] LABS: INR 1.1; Prothrombin Time 12.2 Seconds (9.4-12.1)
[2021-02-12 06:29] LABS: Activated Partial Thrombo Time 29.9 Seconds (26.0-36.0)
[2021-02-12 06:34] LABS: BUN/Creatinine Ratio 20 (6-26); Blood Urea Nitrogen 16 mg/dL (6-20); Carbon Dioxide 29 mEq/L (23-29); Chloride 103 mEq/L (98-107); Chol/HDL Ratio 7.2 (0-4.9); Cholesterol 172 mg/dL (< 200); Glucose 239 mg/dL (70-105); HDL Cholesterol 24 mg/dL (40-59); LDL Cholesterol,Calculated 105 mg/dL (< 100); Osmolality,Calculated 293 (280-300); Potassium 3.5 mEq/L (3.5-5.1); Sodium 137 mEq/L (136-145); Triglycerides 217 mg/dL (< 150); eGFR For African Americans > 60 (> 60); eGFR For Non-African Americans > 60 (> 60)
[2021-02-12 08:04] LABS: Estimated Average Glucose 292 mg/dl; Hemoglobin A1C 11.8 %
[2021-02-12] MEDS: carvediloL 6.25 MG TABLET PO SCH ×2 (10:41→16:47)
[2021-02-12] MEDS: Apixaban 5 MG TABLET PO SCH ×2 (10:41→21:08)
[2021-02-12] MEDS: Bumetanide 1 MG TABLET PO SCH ×2 (10:41→21:25)
[2021-02-12] MEDS: Nitroglycerin 0.4 MG TAB.SUBL SL PRN ×2 (10:42→10:51)
[2021-02-12] MEDS: Isosorbide MONOnitrate (24 HR) 30 MG TAB.ER.24H PO SCH (10:42)
[2021-02-12] MEDS: Aspirin Enteric Coated 81 MG Tablet PO SCH (10:42)
[2021-02-12] MEDS: Gabapentin 400 MG CAPSULE PO SCH ×3 (10:42→21:09)
[2021-02-12] MEDS: Insulin NPH/REG 70/30 100 UNIT/ML (x5UNIT) SUBQ SCH (10:43)
[2021-02-12] MEDS: Sacubitril/Valsartan 49/51 MG 1 TABLET PO SCH ×2 (12:49→21:08)
[2021-02-13] MEDS: Insulin LISPRO 300 UNITS/3 ML VIAL SUBQ SCH ×3 (01:01→13:45)
[2021-02-13] MEDS ORDERED: polyethylene glycoL 3350 17 GM POWD.PACK PO SCH (02:44)
[2021-02-13 04:19] LABS: Hematocrit 46.6 % (37.5-50.1); Hemoglobin 15.6 g/dL (12.9-16.9); Mean Corpuscular HGB Conc 33.5 g/dL (31.6-35.5); Mean Corpuscular Hemoglobin 29.1 pg (28.0-33.3); Mean Corpuscular Volume 86.8 fL (83.0-100.0); Mean Platelet Volume 11.4 fL (9.4-12.4); Platelet Count 217 K/mcL (140-400); Red Blood Count 5.37 M/mcL (4.19-5.50); Red Cell Distribution Width 12.3 % (11.5-14.5); White Blood Count 10.1 K/mcL (4.3-11.1)
[2021-02-13 04:25] LABS: BUN/Creatinine Ratio 19 (6-26); Blood Urea Nitrogen 18 mg/dL (6-20); Calcium 9.2 mg/dL (8.6-10.3); Carbon Dioxide 28 mEq/L (23-29); Chloride 100 mEq/L (98-107); Glucose 344 mg/dL (70-105); Osmolality,Calculated 298 (280-300); Potassium 3.8 mEq/L (3.5-5.1); Sodium 136 mEq/L (136-145); eGFR For African Americans > 60 (> 60); eGFR For Non-African Americans > 60 (> 60)
[2021-02-13] MEDS ORDERED: Regadenoson 0.4 MG/5 ML SYRINGE IVP ONE (06:22)
[2021-02-13 06:52] VITALS: BP 123/81
[2021-02-13] MEDS ORDERED: Insulin LISPRO 300 UNITS/3 ML VIAL SUBQ SCH (08:19)
[2021-02-13] MEDS: Gabapentin 400 MG CAPSULE PO SCH (13:43)
[2021-02-13] MEDS: Bumetanide 1 MG TABLET PO SCH (13:43)
[2021-02-13] MEDS: Sacubitril/Valsartan 49/51 MG 1 TABLET PO SCH (13:43)
[2021-02-13] MEDS: carvediloL 6.25 MG TABLET PO SCH (13:44)
[2021-02-13] MEDS: Apixaban 5 MG TABLET PO SCH (13:44)
[2021-02-13] MEDS: Aspirin Enteric Coated 81 MG Tablet PO SCH (13:44)
[2021-02-13] MEDS: Isosorbide MONOnitrate (24 HR) 30 MG TAB.ER.24H PO SCH (13:44)
[2021-02-13] MEDS: Insulin NPH/REG 70/30 100 UNIT/ML (x5UNIT) SUBQ SCH (13:45)
== END 2021-02-13 14:20 | disposition home or self-care (01) ==
LOC: EMEROOARM 16:09 → 3BNU 16:09 → SUATTDRO 18:25 → 3BNU 18:54
PROVIDERS: ADMIT Student in an Organized Health Care Education/Training Program; ATTEND Internal Medicine

== ENCOUNTER 2021-07-26 00:17 | Observation (INO) ==
[2021-07-26] MEDS ORDERED: Morphine Sulfate 2 MG/ML SYRINGE IVP ONE ×2 (01:04→03:08)
[2021-07-26] MEDS ORDERED: Ondansetron 4 MG/2 ML VIAL IVP ONE (01:04)
[2021-07-26 01:13] LABS: BUN/Creatinine Ratio 21 (6-26); Blood Urea Nitrogen 19 mg/dL (6-20); Carbon Dioxide 30 mEq/L (23-29); Chloride 98 mEq/L (98-107); Glucose 399 mg/dL (70-105); Osmolality,Calculated 303 (280-300); Potassium 3.4 mEq/L (3.5-5.1); Sodium 137 mEq/L (136-145); eGFR For African Americans > 60 (> 60); eGFR For Non-African Americans > 60 (> 60)
[2021-07-26 01:15] LABS: Basophils # 0.1 K/mcL (0.0-0.2); Basophils % 0.5 %; Eosinophils # 0.3 K/mcL (0.0-0.6); Eosinophils % 2.6 %; Hematocrit 43.7 % (37.5-50.1); Hemoglobin 15.3 g/dL (12.9-16.9); Immature Granulocytes % 0.3 % (0-4); Lymphocytes # 2.5 K/mcL (0.6-4.6); Lymphocytes % 24.5 %; Mean Corpuscular Hemoglobin 30.6 pg (28.0-33.3); Mean Corpuscular Volume 87.4 fL (83.0-100.0); Mean Platelet Volume 11.6 fL (9.4-12.4); Monocytes % 9.5 %; Neutrophils # 6.3 K/mcL (1.6-8.9); Platelet Count 236 K/mcL (140-400); Prothrombin Time 10.7 Seconds (9.4-12.1); Segmented Neutrophils % 62.6 %
[2021-07-26 01:17] LABS: Activated Partial Thrombo Time 29.6 Seconds (26.0-36.0)
[2021-07-26 01:21] LABS: Troponin I 0.09 ng/mL (< 0.04)
[2021-07-26] MEDS ORDERED: Isovue-370 500 ML BOTTLE IVP ONE (01:44)
[2021-07-26] MEDS ORDERED: Aspirin 325 MG TABLET PO ONE (02:43)
[2021-07-26] MEDS ORDERED: Melatonin 3 MG TABLET PO PRN (03:14)
[2021-07-26] MEDS ORDERED: *HR* HYDROcodone/Acet 5/325 mg TABLET PO PRN (03:14)
[2021-07-26] MEDS ORDERED: Naloxone 0.4 MG/ML INJ IVP PRN (03:14)
[2021-07-26] MEDS ORDERED: *HR* OxyCODONE Immed Rel 5 MG TABLET PO PRN (03:14)
[2021-07-26] MEDS ORDERED: *HR* Promethazine 25 MG/ML VIAL IM PRN (03:14)
[2021-07-26] MEDS ORDERED: Acetaminophen 325 MG TABLET PO PRN (03:14)
[2021-07-26] MEDS ORDERED: Ondansetron 4 MG/2 ML VIAL IVP PRN (03:14)
[2021-07-26] MEDS ORDERED: Dextrose Gel 15 GM/37.5 ML TUBE PO PRN ×2 (03:22)
[2021-07-26] MEDS ORDERED: D5% in Water 1,000 ML IVC PRN (03:22)
[2021-07-26] MEDS ORDERED: *HR* Dextrose 50 % in Water (Syg) 50 ML SYRINGE IVP PRN (03:22)
[2021-07-26] MEDS ORDERED: GI Cocktail 40 ML EACH PO ONE (05:14)
[2021-07-26] MEDS: Insulin LISPRO 300 UNITS/3 ML VIAL SUBQ SCH ×3 (06:23→17:51)
[2021-07-26] MEDS: Aspirin Enteric Coated 81 MG Tablet PO SCH (08:25)
[2021-07-26] MEDS: Bumetanide 1 MG TABLET PO SCH ×2 (08:25→17:51)
[2021-07-26] MEDS: Apixaban 5 MG TABLET PO SCH ×2 (08:25→21:09)
[2021-07-26] MEDS: Sacubitril/Valsartan 49/51 MG 1 TABLET PO SCH ×2 (08:32→21:10)
[2021-07-26] MEDS ORDERED: Insulin DETEMIR 100 UNIT/ML X5UNITS SUBQ SCH (21:00)
[2021-07-26 23:29] VITALS: O2SAT 94
[2021-07-27] MEDS: Insulin LISPRO 300 UNITS/3 ML VIAL SUBQ SCH ×2 (00:14→06:01)
[2021-07-27 05:45] LABS: Hemoglobin 16.3 g/dL (12.9-16.9); Mean Corpuscular HGB Conc 34.7 g/dL (31.6-35.5); Mean Corpuscular Hemoglobin 30.4 pg (28.0-33.3); Mean Corpuscular Volume 87.5 fL (83.0-100.0); Mean Platelet Volume 11.5 fL (9.4-12.4); Platelet Count 228 K/mcL (140-400); Red Blood Count 5.37 M/mcL (4.19-5.50); Red Cell Distribution Width 12.9 % (11.5-14.5); White Blood Count 9.5 K/mcL (4.3-11.1)
[2021-07-27] MEDS ORDERED: Bumetanide 1 MG TABLET PO SCH (06:00)
[2021-07-27 06:02] LABS: BUN/Creatinine Ratio 20 (6-26); Blood Urea Nitrogen 18 mg/dL (6-20); Calcium 9.1 mg/dL (8.6-10.3); Carbon Dioxide 31 mEq/L (23-29); Chloride 99 mEq/L (98-107); Glucose 294 mg/dL (70-105); Osmolality,Calculated 297 (280-300); Potassium 3.3 mEq/L (3.5-5.1); Sodium 137 mEq/L (136-145); eGFR For African Americans > 60 (> 60); eGFR For Non-African Americans > 60 (> 60)
[2021-07-27 07:01] VITALS: BP 187/88; PULSE 83; TEMP 97.4
[2021-07-27] MEDS: Sacubitril/Valsartan 49/51 MG 1 TABLET PO SCH (08:29)
[2021-07-27] MEDS: Apixaban 5 MG TABLET PO SCH (08:29)
[2021-07-27] MEDS: Aspirin Enteric Coated 81 MG Tablet PO SCH (08:29)
[2021-07-27 09:11] LABS: Estimated Average Glucose 232 mg/dl; Hemoglobin A1C 9.7 %
[2021-07-27] MEDS ORDERED: carvediloL 6.25 MG TABLET PO SCH (17:00)
== END 2021-07-27 11:15 | disposition left against medical advice (07) ==
LOC: 3BNU 00:17 → EMEROOARM 00:17 → SUATTDRO 03:19 → 3BNU 03:59
PROVIDERS: ADMIT Family Medicine; ATTEND Registered Nurse

== ENCOUNTER 2021-10-31 20:41 | Observation (INO) ==
[2021-10-31] MEDS ORDERED: Azithromycin 500 MG in 0.9 % Sodium Chloride 250 ML IVPB ONE (21:10)
[2021-10-31 21:12] LABS: Basophils % 0.4 %; Eosinophils # 0.2 K/mcL (0.0-0.6); Eosinophils % 2.4 %; Hematocrit 44.3 % (37.5-50.1); Hemoglobin 15.6 g/dL (12.9-16.9); Immature Granulocytes % 0.5 % (0-4); Lymphocytes # 2.2 K/mcL (0.6-4.6); Lymphocytes % 22.6 %; Mean Corpuscular HGB Conc 35.2 g/dL (31.6-35.5); Mean Corpuscular Hemoglobin 29.8 pg (28.0-33.3); Mean Corpuscular Volume 84.7 fL (83.0-100.0); Mean Platelet Volume 11.3 fL (9.4-12.4); Monocytes # 0.8 K/mcL (0.0-1.3); Monocytes % 7.6 %; Neutrophils # 6.6 K/mcL (1.6-8.9); Platelet Count 244 K/mcL (140-400); Red Blood Count 5.23 M/mcL (4.19-5.50); Red Cell Distribution Width 12.5 % (11.5-14.5); Segmented Neutrophils % 66.5 %; White Blood Count 9.9 K/mcL (4.3-11.1)
[2021-10-31 21:20] LABS: Prothrombin Time 11.3 Seconds (9.4-12.1)
[2021-10-31 21:22] LABS: Activated Partial Thrombo Time 29.4 Seconds (26.0-36.0)
[2021-10-31 21:32] LABS: BUN/Creatinine Ratio 13 (6-26); Blood Urea Nitrogen 13 mg/dL (6-20); Calcium 9.1 mg/dL (8.6-10.3); Carbon Dioxide 26 mEq/L (23-29); Chloride 98 mEq/L (98-107); Glucose 409 mg/dL (70-105); Osmolality,Calculated 297 (280-300); Potassium 3.2 mEq/L (3.5-5.1); Sodium 135 mEq/L (136-145); eGFR For African Americans > 60 (> 60); eGFR For Non-African Americans > 60 (> 60)
[2021-10-31] MEDS ORDERED: Ondansetron 4 MG/2 ML VIAL IVP PRN ×2 (21:36→23:49)
[2021-10-31] MEDS ORDERED: Isovue-370 500 ML BOTTLE IVP ONE (21:45)
[2021-10-31 21:47] LABS: Troponin I 0.19 ng/mL (< 0.04)
[2021-10-31] MEDS ORDERED: Aspirin 325 MG TABLET PO ONE (21:48)
[2021-10-31] MEDS ORDERED: Morphine Sulfate 2 MG/ML SYRINGE IVP ONE (21:53)
[2021-10-31] MEDS ORDERED: Nitroglycerin 0.4 MG TAB.SUBL SL PRN (21:53)
[2021-10-31 22:26] LABS: Influenza A PCR Negative (Negative); Influenza B PCR Negative (Negative); Resp. Syncytial Virus PCR Negative (Negative)
[2021-10-31 22:28] LABS: SARS-CoV-2 by PCR (In House) Positive (Negative)
[2021-10-31] MEDS ORDERED: *HR* Heparin 5,000 UNIT/ML VIAL IVP ONE (23:23)
[2021-10-31] MEDS ORDERED: *HR* Heparin 5,000 UNIT/ML VIAL IVP PRN (23:23)
[2021-10-31] MEDS ORDERED: Acetaminophen 325 MG TABLET PO PRN (23:49)
[2021-10-31] MEDS ORDERED: Naloxone 0.4 MG/ML INJ IVP PRN (23:49)
[2021-10-31] MEDS ORDERED: Melatonin 3 MG TABLET PO PRN (23:49)
[2021-10-31] MEDS: Heparin 25,000UNIT/250ML 1/2NS 25,000 UNIT/250 ML IV.SOLN IVC SCH (23:51)
[2021-10-31] MEDS ORDERED: Saliva Stimulant 44.3ml BOTTLE PO PRN (23:53)
[2021-11-01] MEDS ORDERED: Insulin DETEMIR 100 UNIT/ML X5UNITS SUBQ ONE (00:26)
[2021-11-01] MEDS ORDERED: *HR* Dextrose 50 % in Water (Syg) 50 ML SYRINGE IVP PRN (01:51)
[2021-11-01] MEDS ORDERED: Dextrose Gel 15 GM/37.5 ML TUBE PO PRN ×2 (01:51)
[2021-11-01] MEDS ORDERED: D5% in Water 1,000 ML IVC PRN (01:51)
[2021-11-01] MEDS ORDERED: Perflutren Lipid Microsphere 1.3 ML in 0.9 % Sodium Chloride 8.7 ML IVP PRN (02:03)
[2021-11-01] MEDS: *HR* OxyCODONE Immed Rel 5 MG TABLET PO PRN ×3 (02:50→18:16)
[2021-11-01] MEDS: Ipratropium 1 PUFF INHALER IH SCH ×4 (03:27→20:15)
[2021-11-01] MEDS ORDERED: Insulin Human Regular 10 UNIT in 0.9 % Sodium Chloride 10 ML IV ONE (04:15)
[2021-11-01 04:48] LABS: Estimated Average Glucose 280 mg/dl; Hemoglobin A1C 11.4 %
[2021-11-01 04:52] LABS: Basophils % 0.3 %; Eosinophils % 0.2 %; Hematocrit 46.1 % (37.5-50.1); Hemoglobin 15.8 g/dL (12.9-16.9); Immature Granulocytes % 0.8 % (0-4); Lymphocytes # 0.9 K/mcL (0.6-4.6); Lymphocytes % 7.2 %; Mean Corpuscular HGB Conc 34.3 g/dL (31.6-35.5); Mean Corpuscular Hemoglobin 29.6 pg (28.0-33.3); Mean Corpuscular Volume 86.5 fL (83.0-100.0); Mean Platelet Volume 11.2 fL (9.4-12.4); Monocytes # 0.2 K/mcL (0.0-1.3); Monocytes % 1.6 %; Neutrophils # 10.6 K/mcL (1.6-8.9); Nucleated Red Blood Cells 0.2 /100 WBC (0); Platelet Count 247 K/mcL (140-400); Red Blood Count 5.33 M/mcL (4.19-5.50); Red Cell Distribution Width 12.7 % (11.5-14.5); Segmented Neutrophils % 89.9 %; White Blood Count 11.8 K/mcL (4.3-11.1)
[2021-11-01 05:01] LABS: Heparin anti-factor XA UFH < 0.04 IU/mL (0.30-0.70)
[2021-11-01 05:02] LABS: Prothrombin Time 11.4 Seconds (9.4-12.1)
[2021-11-01 05:03] LABS: Activated Partial Thrombo Time 29.7 Seconds (26.0-36.0); D-Dimer 545 ng/mLFEU (0-500)
[2021-11-01 05:07] LABS: BUN/Creatinine Ratio 15 (6-26); Blood Urea Nitrogen 15 mg/dL (6-20); Calcium 8.9 mg/dL (8.6-10.3); Carbon Dioxide 24 mEq/L (23-29); Chloride 98 mEq/L (98-107); Chol/HDL Ratio 5.7 (0-4.9); Glucose 483 mg/dL (70-105); Magnesium 1.7 mg/dL (1.6-2.6); Osmolality,Calculated 296 (280-300); Phosphorous 3.4 mg/dL (2.7-4.5); Potassium 3.6 mEq/L (3.5-5.1); Sodium 132 mEq/L (136-145); eGFR For African Americans > 60 (> 60); eGFR For Non-African Americans > 60 (> 60)
[2021-11-01 05:08] LABS: Alanine Aminotransferase 25 Units/L (7-52); Albumin/Globulin Ratio 1.1 (1.1-2.2); Alkaline Phosphatase 79 Units/L (34-104); Aspartate Amino Transferase 19 Units/L (13-39); BUN/Creatinine Ratio 15 (6-26); Bilirubin,Total 0.7 mg/dL (0.3-1.0); Blood Urea Nitrogen 15 mg/dL (6-20); C-Reactive Protein 26 mg/L (Less than 10); Calcium 8.8 mg/dL (8.6-10.3); Carbon Dioxide 24 mEq/L (23-29); Chloride 98 mEq/L (98-107); Globulin 3.7 g/dL (2.4-3.5); Glucose 485 mg/dL (70-105); Lactate Dehydrogenase 208 Units/L (140-271); Osmolality,Calculated 298 (280-300); Potassium 3.6 mEq/L (3.5-5.1); Sodium 133 mEq/L (136-145); Total Protein 7.7 g/dL (6.4-8.9); eGFR For African Americans > 60 (> 60); eGFR For Non-African Americans > 60 (> 60)
[2021-11-01 05:12] LABS: Troponin I 0.12 ng/mL (< 0.04)
[2021-11-01 05:19] LABS: Thyroid Stimulating Hormone 0.899 mcIU/mL (0.340-5.600)
[2021-11-01 05:25] LABS: Ferritin 146 ng/mL (20-250)
[2021-11-01] MEDS ORDERED: *HR* Promethazine 25 MG/ML VIAL IM PRN (05:44)
[2021-11-01] MEDS ORDERED: Insulin LISPRO 300 UNITS/3 ML VIAL SUBQ SCH ×2 (06:00)
[2021-11-01 06:08] LABS: Amphetamine Screen,Urine Negative ng/mL (Cutoff=1000); Barbiturate Screen,Urine Negative ng/mL (Cutoff=200); Benzodiazepines Screen,Urine Negative ng/mL (Cutoff=300); Cannabinoid Screen,Urine Negative ng/mL (Cutoff = 50); Cocaine Screen,Urine Negative ng/mL (Cutoff= 300); Opiate Screen,Urine Negative ng/mL (Cutoff=300); Phencyclidine Screen,Urine Negative ng/mL (Cutoff=25)
[2021-11-01] MEDS ORDERED: Remdesivir 200 MG in 0.9 % Sodium Chloride 100 ML IVPB ONE (07:00)
[2021-11-01] MEDS ORDERED: Budesonide/Formoterol 160/4.5 1 PUFF INH IH ONE (07:52)
[2021-11-01] MEDS: Spironolactone 25 MG TABLET PO SCH (08:14)
[2021-11-01] MEDS: carvediloL 6.25 MG TABLET PO SCH ×2 (08:14→18:07)
[2021-11-01] MEDS: Aspirin 81 MG TAB.CHEW PO SCH (08:14)
[2021-11-01] MEDS: Chlorhexidine Rinse 15 ML MOUTHWASH MM SCH ×2 (08:14→21:25)
[2021-11-01] MEDS: Budesonide/Formoterol 160/4.5 1 PUFF INH IH SCH ×2 (08:14→20:15)
[2021-11-01] MEDS: Sacubitril/Valsartan 49/51 MG 1 TABLET PO SCH ×2 (08:14→21:25)
[2021-11-01] MEDS: Multivit/Ca/Min/Fe/FA 1 TAB TABLET PO SCH (08:14)
[2021-11-01] MEDS: Artificial Tears SOLN 15 ML BOTTLE BOTH EYES SCH ×4 (08:14→21:27)
[2021-11-01] MEDS: Cholecalciferol (D-3) 1,000 UNIT (25MCG) TABLET PO SCH (08:14)
[2021-11-01] MEDS: Nicotine 21 MG PATCH.TD24 TD SCH (08:15)
[2021-11-01] MEDS ORDERED: Multivit/Ca/Min/Fe/FA 1 TAB TABLET PO SCH (09:00)
[2021-11-01] MEDS: Saline Nasal Spray 44 ML BOTTLE NS SCH ×4 (09:10→21:27)
[2021-11-01] MEDS: Insulin DETEMIR 100 UNIT/ML X5UNITS SUBQ SCH ×2 (12:33→21:31)
[2021-11-01] MEDS: Bumetanide 1 MG TABLET PO SCH ×2 (12:33→18:07)
[2021-11-01] MEDS: *HR* Heparin 5,000 UNIT/ML VIAL IVP PRN ×2 (12:56→22:56)
[2021-11-01] MEDS: Insulin LISPRO 300 UNITS/3 ML VIAL SUBQ SCH ×2 (13:40→21:27)
[2021-11-01] MEDS: Heparin 25,000UNIT/250ML 1/2NS 25,000 UNIT/250 ML IV.SOLN IVC SCH (18:16)
[2021-11-01] MEDS: Gabapentin 400 MG CAPSULE PO SCH (21:25)
[2021-11-02] MEDS: Insulin LISPRO 300 UNITS/3 ML VIAL SUBQ SCH ×3 (00:10→12:18)
[2021-11-02 02:31] LABS: Basophils % 0.1 %; Eosinophils % 0.1 %; Hematocrit 44.7 % (37.5-50.1); Hemoglobin 15.3 g/dL (12.9-16.9); Immature Granulocytes % 0.8 % (0-4); Lymphocytes # 1.7 K/mcL (0.6-4.6); Lymphocytes % 9.4 %; Mean Corpuscular HGB Conc 34.2 g/dL (31.6-35.5); Mean Corpuscular Hemoglobin 29.5 pg (28.0-33.3); Mean Corpuscular Volume 86.3 fL (83.0-100.0); Mean Platelet Volume 11.2 fL (9.4-12.4); Monocytes # 1.1 K/mcL (0.0-1.3); Monocytes % 5.9 %; Neutrophils # 15.4 K/mcL (1.6-8.9); Platelet Count 256 K/mcL (140-400); Red Blood Count 5.18 M/mcL (4.19-5.50); Red Cell Distribution Width 12.7 % (11.5-14.5); Segmented Neutrophils % 83.7 %; White Blood Count 18.4 K/mcL (4.3-11.1)
[2021-11-02 02:40] LABS: Heparin anti-factor XA UFH 0.65 IU/mL (0.30-0.70)
[2021-11-02 03:05] LABS: Alanine Aminotransferase 19 Units/L (7-52); Albumin 3.6 g/dL (3.5-5.7); Alkaline Phosphatase 77 Units/L (34-104); Aspartate Amino Transferase 11 Units/L (13-39); BUN/Creatinine Ratio 21 (6-26); Bilirubin,Total 0.5 mg/dL (0.3-1.0); Blood Urea Nitrogen 23 mg/dL (6-20); Calcium 8.3 mg/dL (8.6-10.3); Carbon Dioxide 28 mEq/L (23-29); Chloride 99 mEq/L (98-107); Globulin 3.5 g/dL (2.4-3.5); Glucose 364 mg/dL (70-105); Magnesium 1.9 mg/dL (1.6-2.6); Osmolality,Calculated 290 (280-300); Phosphorous 2.7 mg/dL (2.7-4.5); Potassium 3.2 mEq/L (3.5-5.1); Sodium 131 mEq/L (136-145); Total Protein 7.1 g/dL (6.4-8.9); eGFR For African Americans > 60 (> 60); eGFR For Non-African Americans > 60 (> 60)
[2021-11-02] MEDS: Ipratropium 1 PUFF INHALER IH SCH ×2 (03:23→08:07)
[2021-11-02] MEDS: *HR* OxyCODONE Immed Rel 5 MG TABLET PO PRN (05:42)
[2021-11-02] MEDS ORDERED: Remdesivir 100 MG in 0.9 % Sodium Chloride 100 ML IVPB SCH (06:00)
[2021-11-02] MEDS: Budesonide/Formoterol 160/4.5 1 PUFF INH IH SCH (08:07)
[2021-11-02] MEDS ORDERED: Insulin DETEMIR 100 UNIT/ML X5UNITS SUBQ SCH (09:00)
[2021-11-02] MEDS ORDERED: Isosorbide MONOnitrate (24 HR) 30 MG TAB.ER.24H PO SCH (09:00)
[2021-11-02] MEDS: Chlorhexidine Rinse 15 ML MOUTHWASH MM SCH (10:47)
[2021-11-02] MEDS: Gabapentin 400 MG CAPSULE PO SCH (10:47)
[2021-11-02] MEDS: Bumetanide 1 MG TABLET PO SCH (10:47)
[2021-11-02] MEDS: Multivit/Ca/Min/Fe/FA 1 TAB TABLET PO SCH (10:47)
[2021-11-02] MEDS: carvediloL 6.25 MG TABLET PO SCH (10:48)
[2021-11-02] MEDS: Spironolactone 25 MG TABLET PO SCH (10:48)
[2021-11-02] MEDS: Aspirin 81 MG TAB.CHEW PO SCH (10:48)
[2021-11-02] MEDS: Cholecalciferol (D-3) 1,000 UNIT (25MCG) TABLET PO SCH (10:48)
[2021-11-02] MEDS: Sacubitril/Valsartan 49/51 MG 1 TABLET PO SCH (10:55)
[2021-11-02] MEDS: Nicotine 21 MG PATCH.TD24 TD SCH (11:03)
[2021-11-02 11:44] VITALS: BP 127/96; PULSE 74; TEMP 97.1; O2SAT 96
[2021-11-02] MEDS: Saline Nasal Spray 44 ML BOTTLE NS SCH (12:16)
[2021-11-02] MEDS: Artificial Tears SOLN 15 ML BOTTLE BOTH EYES SCH (12:16)
== END 2021-11-02 13:28 | disposition home or self-care (01) ==
LOC: EMEROOARM 20:41 → 3NENU 20:41 → SUATTDRO 23:50 → 3NENU 11-01 00:55
PROVIDERS: ADMIT Internal Medicine; ATTEND Internal Medicine

== ENCOUNTER 2022-02-09 07:03 | Inpatient (IN) ==
[2022-02-09] MEDS ORDERED: Aspirin 81 MG TAB.CHEW PO ONE (07:13)
[2022-02-09] MEDS: Nitroglycerin 0.4 MG TAB.SUBL SL PRN ×2 (07:25→07:31)
[2022-02-09 07:52] LABS: Basophils % 0.4 %; Eosinophils # 0.2 K/mcL (0.0-0.6); Eosinophils % 1.6 %; Hematocrit 42.5 % (37.5-50.1); Hemoglobin 14.6 g/dL (12.9-16.9); Immature Granulocytes % 0.4 % (0-4); Lymphocytes # 1.5 K/mcL (0.6-4.6); Lymphocytes % 14.9 %; Mean Corpuscular HGB Conc 34.4 g/dL (31.6-35.5); Mean Corpuscular Hemoglobin 30.2 pg (28.0-33.3); Mean Corpuscular Volume 87.8 fL (83.0-100.0); Mean Platelet Volume 11.5 fL (9.4-12.4); Monocytes # 0.7 K/mcL (0.0-1.3); Monocytes % 6.9 %; Neutrophils # 7.5 K/mcL (1.6-8.9); Platelet Count 193 K/mcL (140-400); Red Blood Count 4.84 M/mcL (4.19-5.50); Red Cell Distribution Width 12.7 % (11.5-14.5); Segmented Neutrophils % 75.8 %; White Blood Count 9.9 K/mcL (4.3-11.1)
[2022-02-09 08:12] LABS: Troponin I 0.15 ng/mL (< 0.04)
[2022-02-09] MEDS ORDERED: *HR* Heparin 5,000 UNIT/ML VIAL IVP PRN ×2 (08:13)
[2022-02-09] MEDS ORDERED: *HR* Heparin 5,000 UNIT/ML VIAL IVP ONE (08:13)
[2022-02-09] MEDS ORDERED: Heparin 25,000UNIT/250ML 1/2NS 25,000 UNIT/250 ML IV.SOLN IVC SCH (08:15)
[2022-02-09] MEDS ORDERED: *HR* FentaNYL (PF) 100 MCG/2 ML VIAL IVP ONE (08:21)
[2022-02-09 08:23] LABS: INR 1.1; Prothrombin Time 11.8 Seconds (9.4-12.1)
[2022-02-09 08:26] LABS: BUN/Creatinine Ratio 11 (6-26); Blood Urea Nitrogen 10 mg/dL (6-20); Calcium 8.8 mg/dL (8.6-10.3); Carbon Dioxide 28 mEq/L (23-29); Chloride 102 mEq/L (98-107); Glucose 380 mg/dL (70-105); Osmolality,Calculated 301 (280-300); Potassium 3.4 mEq/L (3.5-5.1); Sodium 138 mEq/L (136-145); eGFR For African Americans > 60 (> 60); eGFR For Non-African Americans > 60 (> 60)
[2022-02-09] MEDS ORDERED: Naloxone 0.4 MG/ML INJ IVP PRN (08:34)
[2022-02-09] MEDS ORDERED: *HR* Dextrose 50 % in Water (Syg) 50 ML SYRINGE IVP PRN (08:36)
[2022-02-09] MEDS ORDERED: D5% in Water 1,000 ML IVC PRN (08:36)
[2022-02-09] MEDS ORDERED: Dextrose 4 GM Chewable Tablets PO PRN ×2 (08:36)
[2022-02-09 09:08] LABS: Hematocrit 42.6 % (37.5-50.1); Hemoglobin 14.3 g/dL (12.9-16.9); Mean Corpuscular HGB Conc 33.6 g/dL (31.6-35.5); Mean Corpuscular Hemoglobin 29.7 pg (28.0-33.3); Mean Corpuscular Volume 88.4 fL (83.0-100.0); Mean Platelet Volume 11.8 fL (9.4-12.4); Platelet Count 198 K/mcL (140-400); Red Blood Count 4.82 M/mcL (4.19-5.50); Red Cell Distribution Width 12.8 % (11.5-14.5); White Blood Count 9.7 K/mcL (4.3-11.1)
[2022-02-09 09:22] LABS: Prothrombin Time 11.2 Seconds (9.4-12.1)
[2022-02-09 09:25] LABS: Heparin anti-factor XA UFH < 0.04 IU/mL (0.30-0.70)
[2022-02-09] MEDS: Bumetanide 1 MG/4 ML VIAL IVP SCH ×2 (11:08→17:13)
[2022-02-09] MEDS: Morphine Sulfate 2 MG/ML SYRINGE IVP PRN ×2 (11:38→20:40)
[2022-02-09] MEDS: Insulin LISPRO 300 UNITS/3 ML VIAL SUBQ SCH ×6 (11:38→20:45)
[2022-02-09] MEDS: Gabapentin 400 MG CAPSULE PO SCH ×2 (17:12→20:40)
[2022-02-09] MEDS: carvediloL 6.25 MG TABLET PO SCH (17:12)
[2022-02-09] MEDS: Ipratropium/Albuterol Neb 3 ML IH PRN (20:04)
[2022-02-09] MEDS: Apixaban 5 MG TABLET PO SCH (20:40)
[2022-02-09] MEDS: Sacubitril/Valsartan 24/26 MG 1 TABLET PO SCH (20:40)
[2022-02-10] MEDS: Morphine Sulfate 2 MG/ML SYRINGE IVP PRN ×2 (02:47→17:17)
[2022-02-10 06:05] LABS: Basophils # 0.1 K/mcL (0.0-0.2); Basophils % 0.7 %; Eosinophils # 0.4 K/mcL (0.0-0.6); Eosinophils % 3.7 %; Hematocrit 44.5 % (37.5-50.1); Hemoglobin 15.2 g/dL (12.9-16.9); Immature Granulocytes % 0.2 % (0-4); Lymphocytes # 1.8 K/mcL (0.6-4.6); Lymphocytes % 18.6 %; Mean Corpuscular HGB Conc 34.2 g/dL (31.6-35.5); Mean Corpuscular Volume 87.8 fL (83.0-100.0); Mean Platelet Volume 11.3 fL (9.4-12.4); Monocytes # 0.7 K/mcL (0.0-1.3); Monocytes % 6.8 %; Neutrophils # 6.7 K/mcL (1.6-8.9); Platelet Count 200 K/mcL (140-400); Red Blood Count 5.07 M/mcL (4.19-5.50); Red Cell Distribution Width 12.6 % (11.5-14.5); White Blood Count 9.6 K/mcL (4.3-11.1)
[2022-02-10 06:30] LABS: BUN/Creatinine Ratio 16 (6-26); Blood Urea Nitrogen 14 mg/dL (6-20); Calcium 8.7 mg/dL (8.6-10.3); Carbon Dioxide 34 mEq/L (23-29); Chloride 98 mEq/L (98-107); Glucose 267 mg/dL (70-105); Osmolality,Calculated 296 (280-300); Potassium 3.3 mEq/L (3.5-5.1); Sodium 138 mEq/L (136-145); eGFR For African Americans > 60 (> 60); eGFR For Non-African Americans > 60 (> 60)
[2022-02-10] MEDS: Insulin LISPRO 300 UNITS/3 ML VIAL SUBQ SCH ×8 (09:11→23:32)
[2022-02-10] MEDS: Bumetanide 1 MG/4 ML VIAL IVP SCH ×2 (09:12→17:17)
[2022-02-10] MEDS: Sacubitril/Valsartan 24/26 MG 1 TABLET PO SCH ×2 (09:12→21:10)
[2022-02-10] MEDS: Gabapentin 400 MG CAPSULE PO SCH ×3 (09:12→21:10)
[2022-02-10] MEDS: Aspirin Enteric Coated 81 MG Tablet PO SCH (09:12)
[2022-02-10] MEDS: Apixaban 5 MG TABLET PO SCH ×2 (09:12→21:10)
[2022-02-10] MEDS: carvediloL 6.25 MG TABLET PO SCH ×2 (09:12→17:18)
[2022-02-10] MEDS: Spironolactone 25 MG TABLET PO SCH (09:12)
[2022-02-10] MEDS: Insulin DETEMIR 100 UNIT/ML X5UNITS SUBQ SCH (21:10)
[2022-02-11] MEDS: Ipratropium/Albuterol Neb 3 ML IH PRN (04:45)
[2022-02-11 05:41] LABS: Basophils # 0.1 K/mcL (0.0-0.2); Basophils % 0.7 %; Eosinophils # 0.4 K/mcL (0.0-0.6); Eosinophils % 3.6 %; Hematocrit 47.4 % (37.5-50.1); Hemoglobin 16.1 g/dL (12.9-16.9); Immature Granulocytes % 0.4 % (0-4); Lymphocytes # 2.4 K/mcL (0.6-4.6); Lymphocytes % 21.3 %; Mean Corpuscular Hemoglobin 29.8 pg (28.0-33.3); Mean Corpuscular Volume 87.6 fL (83.0-100.0); Mean Platelet Volume 11.8 fL (9.4-12.4); Monocytes # 0.8 K/mcL (0.0-1.3); Neutrophils # 7.5 K/mcL (1.6-8.9); Platelet Count 241 K/mcL (140-400); Red Blood Count 5.41 M/mcL (4.19-5.50); Red Cell Distribution Width 12.6 % (11.5-14.5); White Blood Count 11.2 K/mcL (4.3-11.1)
[2022-02-11 06:21] LABS: BUN/Creatinine Ratio 18 (6-26); Blood Urea Nitrogen 18 mg/dL (6-20); Carbon Dioxide 30 mEq/L (23-29); Chloride 96 mEq/L (98-107); Glucose 196 mg/dL (70-105); Osmolality,Calculated 295 (280-300); Potassium 3.1 mEq/L (3.5-5.1); Sodium 139 mEq/L (136-145); eGFR For African Americans > 60 (> 60); eGFR For Non-African Americans > 60 (> 60)
[2022-02-11] MEDS: Bumetanide 1 MG/4 ML VIAL IVP SCH ×2 (08:00→17:35)
[2022-02-11] MEDS: Insulin LISPRO 300 UNITS/3 ML VIAL SUBQ SCH ×8 (08:00→20:55)
[2022-02-11] MEDS: Gabapentin 400 MG CAPSULE PO SCH ×3 (08:01→20:32)
[2022-02-11] MEDS: Aspirin Enteric Coated 81 MG Tablet PO SCH (08:01)
[2022-02-11] MEDS: carvediloL 6.25 MG TABLET PO SCH ×2 (08:01→17:36)
[2022-02-11] MEDS: Sacubitril/Valsartan 24/26 MG 1 TABLET PO SCH ×2 (08:01→20:32)
[2022-02-11] MEDS: Spironolactone 25 MG TABLET PO SCH (08:01)
[2022-02-11] MEDS: Apixaban 5 MG TABLET PO SCH ×2 (08:03→20:32)
[2022-02-11] MEDS: predniSONE 20 MG TABLET PO SCH (12:57)
[2022-02-11] MEDS: Albuterol 2.5 MG/3 ML NEBULIZER IH SCH ×4 (15:51→23:57)
[2022-02-11] MEDS: Insulin DETEMIR 100 UNIT/ML X5UNITS SUBQ SCH (20:33)
[2022-02-12 01:40] LABS: Basophils % 0.2 %; Eosinophils % 0.1 %; Hematocrit 46.7 % (37.5-50.1); Hemoglobin 15.6 g/dL (12.9-16.9); Immature Granulocytes % 0.3 % (0-4); Lymphocytes # 0.8 K/mcL (0.6-4.6); Lymphocytes % 7.4 %; Mean Corpuscular HGB Conc 33.4 g/dL (31.6-35.5); Mean Corpuscular Hemoglobin 29.6 pg (28.0-33.3); Mean Corpuscular Volume 88.6 fL (83.0-100.0); Mean Platelet Volume 11.8 fL (9.4-12.4); Monocytes # 0.5 K/mcL (0.0-1.3); Monocytes % 4.3 %; Neutrophils # 9.7 K/mcL (1.6-8.9); Platelet Count 227 K/mcL (140-400); Red Blood Count 5.27 M/mcL (4.19-5.50); Red Cell Distribution Width 12.3 % (11.5-14.5); Segmented Neutrophils % 87.7 %
[2022-02-12] MEDS: Albuterol 2.5 MG/3 ML NEBULIZER IH SCH ×3 (03:21→11:40)
[2022-02-12] MEDS ORDERED: Benzocaine 20% 12 APPL GEL..GRAM. TP PRN (04:50)
[2022-02-12] MEDS ORDERED: Acetaminophen 325 MG TABLET PO ONE (04:50)
[2022-02-12 05:56] LABS: BUN/Creatinine Ratio 20 (6-26); Blood Urea Nitrogen 20 mg/dL (6-20); Calcium 9.7 mg/dL (8.6-10.3); Carbon Dioxide 32 mEq/L (23-29); Chloride 95 mEq/L (98-107); Glucose 400 mg/dL (70-105); Osmolality,Calculated 301 (280-300); Potassium 3.9 mEq/L (3.5-5.1); Sodium 136 mEq/L (136-145); eGFR For African Americans > 60 (> 60); eGFR For Non-African Americans > 60 (> 60)
[2022-02-12 07:52] VITALS: BP 137/83; PULSE 82; TEMP 97.7
[2022-02-12] MEDS: carvediloL 6.25 MG TABLET PO SCH (09:07)
[2022-02-12] MEDS: Apixaban 5 MG TABLET PO SCH (09:07)
[2022-02-12] MEDS: Spironolactone 25 MG TABLET PO SCH (09:07)
[2022-02-12] MEDS: Gabapentin 400 MG CAPSULE PO SCH (09:07)
[2022-02-12] MEDS: Aspirin Enteric Coated 81 MG Tablet PO SCH (09:07)
[2022-02-12] MEDS: Bumetanide 1 MG/4 ML VIAL IVP SCH (09:07)
[2022-02-12] MEDS: predniSONE 20 MG TABLET PO SCH (09:07)
[2022-02-12] MEDS: Sacubitril/Valsartan 24/26 MG 1 TABLET PO SCH (09:07)
[2022-02-12] MEDS: Insulin LISPRO 300 UNITS/3 ML VIAL SUBQ SCH ×2 (09:08)
[2022-02-12 09:51] VITALS: O2SAT 96
== END 2022-02-12 12:02 | disposition home or self-care (01) | DRG 194 ==
LOC: 3BNU 07:03 → EMEROOARM 07:03 → SUATTDRO 08:36 → 3BNU 09:17
PROVIDERS: ADMIT Internal Medicine; ATTEND Nurse Practitioner